=== PATIENT | male | born 1940 | race Caucasian/White ===

== ENCOUNTER → 2018-10-28 09:56 | Outpatient (CLI) | payer MEDICARE, OTHER, SELFPAY ==
[2018-10-28 10:26] LABS: Bacteria Urine None Seen
[2018-10-28 12:10] LABS: Appearance Urine UA CLEAR; Bilirubin Urine UA NEGATIVE (NEGATIVE); Color Urine UA YELLOW; Glucose Urine UA NEGATIVE (Negative); Ketones Urine UA NEGATIVE (NEGATIVE); Leukocyte Esterase Urine UA NEGATIVE (NEGATIVE); Nitrite Urine UA NEGATIVE (Negative); Occult Blood Urine UA NEGATIVE (Negative); Protein Urine UA NEGATIVE (Negative); Specific Gravity Urine UA 1.025 (1.000-1.035); Urobilinogen Urine UA 0.2 E.U./dL (0.2)
[2018-10-28 12:40] LABS: Alanine Aminotransferase 27 IU/L (21-72); Albumin 4.7 g/dL (3.5-5.0); Albumin Globulin Ratio 1.5 (1.0-2.8); Alkaline Phosphatase 97 U/L (38-126); Aspartate Aminotransferase 31 IU/L (17-59); BUN Creatinine Ratio 22.5 (6-22); Bilirubin Total 0.4 mg/dL (0.2-1.3); Blood Urea Nitrogen 18 mg/dL (9-20); C-Reactive Protein Quant 3.1 mg/dL (<1.0); Calcium 10.9 mg/dL (8.4-10.2); Carbon Dioxide 28 mmol/L (22-32); Chloride 102 mmol/L (98-107); Estimated Glomerular Filt Rate > 60.0 mL/min (>60); Globulin 3.1 g/dL (1.7-4.1); Glucose 90 mg/dL (80-110); HEMOLYSIS < 15 (0-50); Potassium 4.5 mmol/L (3.4-5.1); Sodium 140 mmol/L (137-145); Total Protein 7.8 g/dL (6.3-8.2)
[2018-10-28 12:43] LABS: Rheumatoid Factor < 8.6 IU/mL (<12.0)
[2018-10-28 13:15] LABS: RBC Urine 0-1/HPF (0-5/HPF); WBC Urine 0-1/HPF (0-5/HPF)
[2018-10-28 13:28] LABS: Hep C Virus Ab w/Reflex Quant NEGATIVE s/c (NEGATIVE)
[2018-10-28 16:00] LABS: Add Manual Diff / Slide Review NO; Basophils Absolute Auto 0 /uL (0-100); Basophils Percent Auto 0.3 % (0-2); Eosinophils Absolute Auto 0 /uL (0-450); Eosinophils Percent Auto 0.3 % (2-4); Hematocrit 32.9 % (41-53); Hemoglobin 10.6 g/dL (13.5-17.5); Lymphocytes Absolute Auto 700 /uL (1100-4500); Lymphocytes Percent Auto 21.1 % (25-40); Mean Corpuscular HGB Conc 32.2 % (30-36); Mean Corpuscular Volume 105.8 fL (80-100); Monocytes Absolute Auto 1100 /uL (0-900); Monocytes Percent Auto 32.2 % (3-14); Neutrophils Absolute Auto 1500 /uL (1500-7000); Neutrophils Percent Auto 46.1 % (50-75); Platelet Count 85 X10^3/uL (150-400); Red Cell Distribution Width 15.4 % (11.6-14.8); White Blood Cell Count 3.3 X10^3/uL (4.5-11.0)
[2018-10-28 16:23] LABS: Erythrocyte Sedimentation Rate 45 MM/HR (0-15)
[2018-10-30 14:55] LABS: Complement C3 106 mg/dL (82-185)
[2018-10-30 20:05] LABS: Albumin 4.2 g/dL (3.8-4.8); Alpha 1 Globulin 0.4 g/dL (0.2-0.3); Alpha 2 Globulin 0.6 g/dL (0.5-0.9); Beta 1 Globulin 0.4 g/dL (0.4-0.6); Gamma Globulin 1.3 g/dL (0.8-1.7); Protein, Total 7.3 g/dL (6.1-8.1)
[2018-11-01 06:53] LABS: Complement Total CH50 > 60 U/mL (31-60)
[2018-11-02 14:28] LABS: Cryoglobulin, Qualitative NEGATIVE
== END ==
PROVIDERS: PCP Family Medicine; Visit Provider Family Medicine
DX: D46.9 Myelodysplastic syndrome, unspecified (principal); I87.2 Venous insufficiency (chronic) (peripheral); R53.83 Other fatigue; G90.9 Disorder of the autonomic nervous system, unspecified; S91.001A Unspecified open wound, right ankle, initial encounter
CPT/HCPCS: 11104; 36415; 80053; 81001; 82595; 84155; 84165; 85025; 85651; 86140; 86160; 86162; 86430; 86803; 87070; 87075; 87147; 87186; 87205; 99203; 99213

== ENCOUNTER → 2018-11-04 08:30 | Outpatient (CLI) | payer MEDICARE, OTHER, SELFPAY | PROVIDERS: PCP Family Medicine; Visit Provider Family Medicine | DX: S91.001A Unspecified open wound, right ankle, initial encounter (principal); D46.9 Myelodysplastic syndrome, unspecified; I77.6 Arteritis, unspecified; E83.52 Hypercalcemia; L08.9 Local infection of the skin and subcutaneous tissue, unspecified | CPT/HCPCS: 99214 ==

== ENCOUNTER → 2018-11-04 09:48 | Outpatient (CLI) | payer MEDICARE, OTHER, SELFPAY ==
[2018-11-04 10:43] LABS: Calcium 10.7 mg/dL (8.4-10.2)
[2018-11-04 11:23] LABS: Hepatitis B Surface Antigen NEGATIVE s/c (NEGATIVE)
[2018-11-06 15:08] LABS: Hepatitis B Surf AB Imm QUANT 13 mIU/mL (> 9)
[2018-11-06 15:30] LABS: Parathyroid Hormone Int 23 pg/mL (14-64)
[2018-11-07 22:02] LABS: ANCA Screen Negative (Negative)
[2018-11-08 14:58] LABS: Vitamin D 25 Hydroxy (D3) 29.1 ng/mL (30.0-100.0)
[2018-11-10 20:25] LABS: 1 25 Dihydroxy Vitamin D 49 pg/mL (18-72)
== END ==
PROVIDERS: PCP Family Medicine; Visit Provider Family Medicine
DX: S91.001A Unspecified open wound, right ankle, initial encounter (principal); R21 Rash and other nonspecific skin eruption; E83.52 Hypercalcemia
CPT/HCPCS: 36415; 82306; 82310; 82652; 83970; 86021; 86038; 86317; 87340

== ENCOUNTER → 2018-11-11 08:20 | Outpatient (CLI) | payer MEDICARE, OTHER, SELFPAY | PROVIDERS: PCP Family Medicine; Visit Provider Family Medicine | DX: S91.001A Unspecified open wound, right ankle, initial encounter (principal); D46.9 Myelodysplastic syndrome, unspecified; I77.6 Arteritis, unspecified; E83.52 Hypercalcemia; L08.9 Local infection of the skin and subcutaneous tissue, unspecified; G60.9 Hereditary and idiopathic neuropathy, unspecified | CPT/HCPCS: 11042; 99214 ==

== ENCOUNTER → 2018-11-11 09:50 | Outpatient (CLI) | payer MEDICARE, OTHER, SELFPAY ==
[2018-11-11 12:12] LABS: Hematocrit 31.4 % (41-53); Hemoglobin 10.4 g/dL (13.5-17.5); Mean Corpuscular HGB Conc 33.1 % (30-36); Mean Corpuscular Hemoglobin 34.9 PG (26-34); Mean Corpuscular Volume 105.6 fL (80-100); Platelet Count 109 X10^3/uL (150-400); Red Blood Cell Count 2.98 X10^6/uL (4.5-5.9); Red Cell Distribution Width 15.6 % (11.6-14.8); White Blood Cell Count 2.3 X10^3/uL (4.5-11.0)
[2018-11-11 12:13] LABS: Add Manual Diff / Slide Review YES
[2018-11-11 12:38] LABS: Macrocytosis 1+; Neutrophils Absolute Manual 552 /uL (3000-5900); Total Cells Counted 100
[2018-11-11 13:07] LABS: Prothrombin Time 11.3 SECONDS (10.1-12.7)
[2018-11-11 13:09] LABS: PTT Partial Thromboplastin Tim 31 SECONDS (26.4-36.2)
[2018-11-13 16:09] LABS: Free Kappa Light Chain 32.3 mg/L (3.3-19.4); Free Kappa/ Lambda Ratio 1.44 (0.26-1.65); Free Lambda 22.5 mg/L (5.7-26.3)
[2018-11-13 18:22] LABS: Homocysteine 6.6 umol/L (< 11.4)
[2018-11-16 15:02] LABS: Result 15
== END ==
PROVIDERS: PCP Family Medicine; Visit Provider Family Medicine
DX: S91.001A Unspecified open wound, right ankle, initial encounter (principal); D68.59 Other primary thrombophilia; D69.6 Thrombocytopenia, unspecified; M79.609 Pain in unspecified limb
CPT/HCPCS: 36415; 81240; 81241; 83090; 83519; 83883; 85025; 85300; 85301; 85610; 85613; 85730; 86146; 86147

== ENCOUNTER → 2018-11-25 14:13 | Outpatient (CLI) | payer MEDICARE, OTHER, SELFPAY | PROVIDERS: PCP Family Medicine; Visit Provider Family Medicine | DX: S91.001A Unspecified open wound, right ankle, initial encounter (principal) | CPT/HCPCS: 11043 ==

== ENCOUNTER → 2018-12-02 13:08 | Outpatient (CLI) | payer MEDICARE, OTHER, SELFPAY | PROVIDERS: PCP Family Medicine; Visit Provider Family Medicine | DX: S91.001A Unspecified open wound, right ankle, initial encounter (principal); D46.9 Myelodysplastic syndrome, unspecified; I77.6 Arteritis, unspecified; E83.52 Hypercalcemia; L08.9 Local infection of the skin and subcutaneous tissue, unspecified | CPT/HCPCS: 11042; 87070; 87075; 87077; 87102; 87147; 87186; 87205; 99213 ==

== ENCOUNTER → 2018-12-09 14:18 | Outpatient (CLI) | payer MEDICARE, OTHER, SELFPAY | PROVIDERS: PCP Family Medicine; Visit Provider Family Medicine | DX: S91.001A Unspecified open wound, right ankle, initial encounter (principal); D46.9 Myelodysplastic syndrome, unspecified; I77.6 Arteritis, unspecified; E83.52 Hypercalcemia; L08.9 Local infection of the skin and subcutaneous tissue, unspecified; B95.62 Methicillin resistant Staphylococcus aureus infection as the cause of diseases classified elsewhere | CPT/HCPCS: 97597; 99214 ==

== ENCOUNTER → 2018-12-09 15:45 | Outpatient (CLI) | payer MEDICARE, OTHER, SELFPAY ==
[2018-12-09 16:22] LABS: Erythrocyte Sedimentation Rate 52 MM/HR (0-15)
[2018-12-09 16:33] LABS: C-Reactive Protein Quant 1.1 mg/dL (<1.0)
== END ==
PROVIDERS: PCP Family Medicine; Visit Provider Family Medicine
DX: L08.9 Local infection of the skin and subcutaneous tissue, unspecified (principal)
CPT/HCPCS: 36415; 85651; 86140

== ENCOUNTER → 2018-12-15 14:26 | Outpatient (CLI) | payer MEDICARE, OTHER, SELFPAY | PROVIDERS: PCP Family Medicine; Visit Provider Family Medicine | DX: S91.001A Unspecified open wound, right ankle, initial encounter (principal); D46.9 Myelodysplastic syndrome, unspecified; I77.6 Arteritis, unspecified; E83.52 Hypercalcemia; B95.62 Methicillin resistant Staphylococcus aureus infection as the cause of diseases classified elsewhere | CPT/HCPCS: 99213 ==

== ENCOUNTER 2018-12-22 13:27 | Emergency (ER) | payer MEDICARE, OTHER, SELFPAY ==
[2018-12-22 13:29] VITALS: BP 154/81; PULSE 72; RESP 18; TEMP 36.1; O2SAT 98; BMI 24.3
--- NOTE | 2018-12-22 16:52 | ED.SKABFB ---
HPI - Skin/Abscess/Foreign Bdy <Jessie Rodney PA-C - Last Filed: 12/22/18 21:06> General Chief complaint: Skin/Abscess/Foreign Body Stated complaint: wound right ankle, thinks getting worse Time Seen by Provider: 12/22/18 16:44 Source: patient and family Mode of arrival: ambulatory Limitations: no limitations History of Present Illness HPI narrative: This 78-year-old male comes in due to right ankle ulceration/cellulitis for which he has been receiving treatment at the wound center locally. He has been on [place], lidocaine/prilocaine cream, and just started doxycycline about 36 hours ago for this. He has been on multiple antibiotics. He states home health nurse thought that his antibiotic might not be strong enough or might need IV antibiotic, states she wanted to send him when she saw him on Thursday, and again today. He denies any new fever, denies any new redness or increased drainage. He states it is tender and painful which is typical, but no increased there. His has been out of town, just returned and states this does not look acutely worse to her. Related Data Home Medications Medication Instructions Recorded Confirmed clindamycin HCl 300 mg PO QID 12/22/18 12/22/18 difluprednate [Durezol] 1 drp EYE-RIGHT TID 12/22/18 12/22/18 doxycycline hyclate 100 mg PO BID 12/22/18 12/22/18 gabapentin 300 mg PO QID 12/22/18 hydrocodone-acetaminophen 1 tab PO BID 12/22/18 12/22/18 tamsulosin 0.4 mg PO DAILY 12/22/18 12/22/18 Previous Rx's Medication Instructions Recorded hydrocodone-acetaminophen [[place]] 1 tab PO Q4-6H PRN #8 tab 12/22/18 Allergies Allergy/AdvReac Type Severity Reaction Status Date / Time sulfamethoxazole Allergy Intermediate Rash Verified 12/22/18 13:34 [From Bactrim] trimethoprim [From Bactrim] Allergy Intermediate Rash Verified 12/22/18 13:34 Review of Systems <Jessie Rodney PA-C - Last Filed: 12/22/18 21:06> Review of Systems ROS Unobtainable: All systems reviewed & are unremarkable except as noted in HPI and below PFSH <Jessie Rodney PA-C - Last Filed: 12/22/18 21:06> Medical History (Updated 12/22/18 @ 17:30 by Jessie Rodney PA-C) Myelodysplastic syndrome (Chronic) Peripheral neuropathy (Chronic) Spinal stenosis (Chronic) Surgical History (Updated 12/22/18 @ 17:30 by Jessie Rodney PA-C) Status post cholecystectomy (Resolved) Status post laminectomy (Resolved) Social History Smoking Status: Never smoker Social History Smoking Status: Never smoker Exam <Jessie Rodney PA-C - Last Filed: 12/22/18 21:06> Narrative Exam Narrative: GENERAL APPEARANCE: Patient sitting comfortably, in no distress. LUNGS: Clear to auscultation bilaterally. HEART: Rate and rhythm regular without murmur, normal S1 and S2, no S3 or S4. EXTREMITIES: Right pedal pulses 2+, no cyanosis DERMATOLOGIC: Right medial ankle there is a 4 cm ulceration with yellow slough and underlying pink granulation tissue present. Moderate erythema surrounding that has receded somewhat from the inked the margin at the distal border, minimally warm to touch. Mildly tender, no active drainage but there is serous drainage on the dressing Initial Vital Signs Initial Vital Signs: Vital Signs Temperature 97.0 F L 12/22/18 13:29 Pulse Rate 72 12/22/18 13:29 Respiratory Rate 18 12/22/18 13:29 Blood Pressure 154/81 H 12/22/18 13:29 Pulse Oximetry 98 12/22/18 13:29 <Yue Chaparro DO - Last Filed: 12/23/18 08:16> Initial Vital Signs Initial Vital Signs: Vital Signs Temperature 97.0 F L 12/22/18 13:29 Pulse Rate 72 12/22/18 13:29 Respiratory Rate 18 12/22/18 13:29 Blood Pressure 154/81 H 12/22/18 13:29 Pulse Oximetry 98 12/22/18 13:29 Course <Jessie Rodney PA-C - Last Filed: 12/22/18 21:06> Vital Signs - 8 hr 12/22/18 13:29 12/22/18 17:02 Temperature 97.0 F L 98.2 F Pulse Rate 72 69 Respiratory Rate 18 16 Blood Pressure 154/81 H Blood Pressure [Left Arm] 129/74 Pulse Oximetry 98 96 <Yue Chaparro DO - Last Filed: 12/23/18 08:16> Vital Signs - 8 hr 12/22/18 13:29 12/22/18 17:02 Temperature 97.0 F L 98.2 F Pulse Rate 72 69 Respiratory Rate 18 16 Blood Pressure 154/81 H Blood Pressure [Left Arm] 129/74 Pulse Oximetry 98 96 Discharge Plan Departure Patient Disposition: Home Clinical Impression: Cellulitis Qualifiers: Site of cellulitis: extremity Site of cellulitis of extremity: lower extremity Laterality: right Qualified Code(s): L03.115 - Cellulitis of right lower limb Discharge Date/Time: 12/22/18 17:35 Interventions: ED Discharge Assessment Last Done: 12/22/18 17:34 Instructions: DI for Cellulitis -- Adult Activity Restrictions/Additional Instructions: Your wound infection does not appear acutely worse today, and since you just started the new antibiotic about 36 hours ago, it is too soon to determine its effectiveness (it is reasonable to try oral antibiotics and IV antibiotics are not more effective). Please continue the doxycycline. Continue to use your topical pain medicine and your hydrocodone/acetaminophen as needed (I did prescribe a few more for you in case needed over the holiday weekend). Please call wound care regarding follow-up on Thursday or Thursday. As we talked about, you should return in the interim if you have new symptoms such as fever, rapidly spreading redness, acute increase in pain or swelling, in the interim. Prescriptions: New hydrocodone-acetaminophen [[place]] 5-325 mg tablet 1 tab PO Q4-6H PRN (Reason: wound pain) Qty: 8 RF: 0 No Action clindamycin HCl 300 mg capsule 300 mg PO QID RF: 0 hydrocodone-acetaminophen 5-325 mg tablet 1 tab PO BID RF: 0 tamsulosin 0.4 mg capsule 0.4 mg PO DAILY RF: 0 gabapentin 300 mg capsule 300 mg PO QID RF: 0 doxycycline hyclate 100 mg tablet 100 mg PO BID RF: 0 Durezol 0.05 % drops 1 drp EYE-RIGHT TID RF: 0 Referrals: Jose Landin MD [Primary Care Provider] - Ayan Robison MD [Physician] - <Yue Chaparro DO - Last Filed: 12/23/18 08:16> Cosign ED Attending Cosignature Attestation: I was immediately available in the department for consultation. Documentation has been reviewed. I agree with assessment and plan.
--- NOTE | 2018-12-22 16:55 | PC.NURSE ---
wound is approx 5 cm across with pink and yellow granulation, there is no drainage, edges are pink surrounded by reddened tissue that is painful to touch, there is an inked outline from a former wound clinic visit this week
[2018-12-22 17:02] VITALS: BP 129/74; PULSE 69; RESP 16; TEMP 36.8; O2SAT 96
== END 2018-12-22 17:35 | disposition home or self-care (01) ==
PROVIDERS: Emergency Provider Internal Medicine; PCP Family Medicine
DX: L03.115 Cellulitis of right lower limb (principal)
CPT/HCPCS: 99282; 99283

== ENCOUNTER → 2018-12-31 10:18 | Outpatient (CLI) | payer MEDICARE, OTHER, SELFPAY | PROVIDERS: PCP Family Medicine; Visit Provider Family Medicine | DX: I87.2 Venous insufficiency (chronic) (peripheral) (principal); L97.311 Non-pressure chronic ulcer of right ankle limited to breakdown of skin; I77.6 Arteritis, unspecified; D46.9 Myelodysplastic syndrome, unspecified; M79.661 Pain in right lower leg; G90.9 Disorder of the autonomic nervous system, unspecified; K59.09 Other constipation; R53.83 Other fatigue; R60.0 Localized edema | CPT/HCPCS: 11042; 87070; 87075; 87077; 87205; 99213 ==

== ENCOUNTER → 2019-01-06 10:04 | Outpatient (CLI) | payer MEDICARE, OTHER, SELFPAY | PROVIDERS: PCP Family Medicine; Visit Provider Family Medicine | DX: L95.9 Vasculitis limited to the skin, unspecified (principal); L97.311 Non-pressure chronic ulcer of right ankle limited to breakdown of skin; D46.9 Myelodysplastic syndrome, unspecified; E83.52 Hypercalcemia; L08.9 Local infection of the skin and subcutaneous tissue, unspecified | CPT/HCPCS: 11042; 11045 ==

== ENCOUNTER → 2019-01-13 11:04 | Outpatient (CLI) | payer MEDICARE, OTHER, SELFPAY | PROVIDERS: PCP Family Medicine; Visit Provider Family Medicine | DX: S91.001A Unspecified open wound, right ankle, initial encounter (principal); D64.9 Anemia, unspecified; I77.6 Arteritis, unspecified; E83.52 Hypercalcemia | CPT/HCPCS: 11042; 87070; 87075; 87077; 87186; 87205 ==

== ENCOUNTER → 2019-01-20 10:50 | Outpatient (CLI) | payer MEDICARE, OTHER, SELFPAY | PROVIDERS: PCP Family Medicine; Visit Provider Family Medicine | DX: I87.2 Venous insufficiency (chronic) (peripheral) (principal); L97.811 Non-pressure chronic ulcer of other part of right lower leg limited to breakdown of skin; R60.0 Localized edema | CPT/HCPCS: 99213 ==

== ENCOUNTER → 2019-01-27 10:44 | Outpatient (CLI) | payer MEDICARE, OTHER, SELFPAY | PROVIDERS: PCP Family Medicine; Visit Provider Family Medicine | DX: S91.001A Unspecified open wound, right ankle, initial encounter (principal); D46.9 Myelodysplastic syndrome, unspecified; I77.6 Arteritis, unspecified; E83.52 Hypercalcemia | CPT/HCPCS: 11042; 87070; 87075; 87077; 87147; 87186; 87205 ==

== ENCOUNTER → 2019-02-03 08:52 | Outpatient (CLI) | payer MEDICARE, OTHER, SELFPAY | PROVIDERS: PCP Family Medicine; Visit Provider Family Medicine | DX: I87.2 Venous insufficiency (chronic) (peripheral) (principal); L97.311 Non-pressure chronic ulcer of right ankle limited to breakdown of skin; M25.571 Pain in right ankle and joints of right foot; D46.9 Myelodysplastic syndrome, unspecified; I77.6 Arteritis, unspecified; Z79.52 Long term (current) use of systemic steroids; E83.52 Hypercalcemia | CPT/HCPCS: 11042; 99214 ==

== ENCOUNTER → 2019-02-10 12:06 | Outpatient (CLI) | payer MEDICARE, OTHER, SELFPAY ==
--- NOTE | 2019-02-10 | DI.RAD.S_ITS ---
PROCEDURE: XR TIBIA FUBULA RT 2V INDICATIONS: EVAL FOR OSTEO TECHNIQUE: 2 views of the tibia and fibula were acquired. COMPARISON: None. FINDINGS: Bones: No fractures or dislocations. No suspicious bony lesions. Soft tissues: No suspicious soft tissue calcifications or masses. IMPRESSION: No osteomyelitis identified. Dictated by: Manuel Mancini M.D. on 02/10/2019 at 12:56 Approved by: Manuel Mancini M.D. on 02/10/2019 at 12:56
== END ==
PROVIDERS: PCP Family Medicine; Visit Provider Family Medicine
DX: S91.001A Unspecified open wound, right ankle, initial encounter (principal); L03.115 Cellulitis of right lower limb; I87.2 Venous insufficiency (chronic) (peripheral); D46.9 Myelodysplastic syndrome, unspecified; I77.6 Arteritis, unspecified; E83.52 Hypercalcemia; Z79.52 Long term (current) use of systemic steroids
CPT/HCPCS: 11042; 73590; 99213

== ENCOUNTER → 2019-02-10 13:15 | Outpatient (CLI) | payer MEDICARE, OTHER, SELFPAY | PROVIDERS: PCP Family Medicine; Visit Provider Family Medicine | DX: S91.001A Unspecified open wound, right ankle, initial encounter (principal); D46.9 Myelodysplastic syndrome, unspecified; I77.6 Arteritis, unspecified; E83.52 Hypercalcemia; L03.115 Cellulitis of right lower limb; Z79.52 Long term (current) use of systemic steroids; I87.2 Venous insufficiency (chronic) (peripheral) | CPT/HCPCS: 11042; 99213 ==

== ENCOUNTER → 2019-02-24 10:21 | Outpatient (CLI) | payer MEDICARE, OTHER, SELFPAY | PROVIDERS: PCP Family Medicine; Visit Provider Family Medicine | DX: S91.001A Unspecified open wound, right ankle, initial encounter (principal); D46.9 Myelodysplastic syndrome, unspecified; I77.6 Arteritis, unspecified; E83.52 Hypercalcemia; Z79.52 Long term (current) use of systemic steroids; I87.2 Venous insufficiency (chronic) (peripheral) | CPT/HCPCS: 15271; 87070; 87075; 87077; 87147; 87176; 87186; 87205; 97607; Q4186 ==

== ENCOUNTER → 2019-03-03 14:17 | Outpatient (CLI) | payer MEDICARE, OTHER, SELFPAY | PROVIDERS: PCP Family Medicine; Visit Provider Family Medicine | DX: I87.2 Venous insufficiency (chronic) (peripheral) (principal); L97.812 Non-pressure chronic ulcer of other part of right lower leg with fat layer exposed; I77.6 Arteritis, unspecified; D46.9 Myelodysplastic syndrome, unspecified; E83.52 Hypercalcemia; Z79.52 Long term (current) use of systemic steroids | CPT/HCPCS: 15271; 87070; 87075; 87077; 87147; 87186; 87205; 97605; Q4186 ==

== ENCOUNTER → 2019-03-10 14:33 | Outpatient (CLI) | payer MEDICARE, OTHER, SELFPAY | PROVIDERS: PCP Family Medicine; Visit Provider Family Medicine | DX: L08.9 Local infection of the skin and subcutaneous tissue, unspecified (principal); B95.61 Methicillin susceptible Staphylococcus aureus infection as the cause of diseases classified elsewhere; I87.2 Venous insufficiency (chronic) (peripheral); L97.812 Non-pressure chronic ulcer of other part of right lower leg with fat layer exposed; I77.6 Arteritis, unspecified | CPT/HCPCS: 15271; 97607; 99213; Q4186 ==

== ENCOUNTER → 2019-03-17 15:20 | Outpatient (CLI) | payer MEDICARE, OTHER, SELFPAY | PROVIDERS: PCP Family Medicine; Visit Provider Family Medicine | DX: I87.2 Venous insufficiency (chronic) (peripheral) (principal); L97.812 Non-pressure chronic ulcer of other part of right lower leg with fat layer exposed; I77.6 Arteritis, unspecified; D46.9 Myelodysplastic syndrome, unspecified; E83.52 Hypercalcemia; Z79.52 Long term (current) use of systemic steroids; L08.9 Local infection of the skin and subcutaneous tissue, unspecified; B95.61 Methicillin susceptible Staphylococcus aureus infection as the cause of diseases classified elsewhere | CPT/HCPCS: 15271; Q4186 ==

== ENCOUNTER → 2019-03-24 08:45 | Outpatient (CLI) | payer MEDICARE, OTHER, SELFPAY | PROVIDERS: PCP Family Medicine; Visit Provider Family Medicine | DX: I87.2 Venous insufficiency (chronic) (peripheral) (principal); L97.812 Non-pressure chronic ulcer of other part of right lower leg with fat layer exposed; I77.6 Arteritis, unspecified; D46.9 Myelodysplastic syndrome, unspecified; E83.52 Hypercalcemia; Z79.52 Long term (current) use of systemic steroids | CPT/HCPCS: 15271; Q4132 ==

== ENCOUNTER → 2019-03-31 09:59 | Outpatient (CLI) | payer MEDICARE, OTHER, SELFPAY | PROVIDERS: PCP Family Medicine; Visit Provider Family Medicine | DX: I87.2 Venous insufficiency (chronic) (peripheral) (principal); L97.311 Non-pressure chronic ulcer of right ankle limited to breakdown of skin; I77.6 Arteritis, unspecified; D46.9 Myelodysplastic syndrome, unspecified; E83.52 Hypercalcemia; Z79.52 Long term (current) use of systemic steroids | CPT/HCPCS: 15271; Q4132 ==

== ENCOUNTER → 2019-04-07 11:56 | Outpatient (CLI) | payer MEDICARE, OTHER, SELFPAY | PROVIDERS: PCP Family Medicine; Visit Provider Family Medicine | DX: I87.2 Venous insufficiency (chronic) (peripheral) (principal); L97.318 Non-pressure chronic ulcer of right ankle with other specified severity; D46.9 Myelodysplastic syndrome, unspecified; G60.9 Hereditary and idiopathic neuropathy, unspecified; I77.6 Arteritis, unspecified; E83.52 Hypercalcemia; Z79.52 Long term (current) use of systemic steroids | CPT/HCPCS: 11042; 87070; 87075; 87077; 87147; 87186; 87205; 97607 ==

== ENCOUNTER → 2019-04-14 13:38 | Outpatient (CLI) | payer MEDICARE, OTHER, SELFPAY | PROVIDERS: PCP Family Medicine; Visit Provider Family Medicine | DX: L95.9 Vasculitis limited to the skin, unspecified (principal); L08.9 Local infection of the skin and subcutaneous tissue, unspecified; L97.811 Non-pressure chronic ulcer of other part of right lower leg limited to breakdown of skin; D46.9 Myelodysplastic syndrome, unspecified; E83.52 Hypercalcemia; S91.302A Unspecified open wound, left foot, initial encounter | CPT/HCPCS: 11042; 97597; 97607; 99214 ==

== ENCOUNTER → 2019-04-21 08:29 | Outpatient (CLI) | payer MEDICARE, OTHER, SELFPAY | PROVIDERS: PCP Family Medicine; Visit Provider Family Medicine | DX: I87.2 Venous insufficiency (chronic) (peripheral) (principal); L97.819 Non-pressure chronic ulcer of other part of right lower leg with unspecified severity; L97.529 Non-pressure chronic ulcer of other part of left foot with unspecified severity; L95.9 Vasculitis limited to the skin, unspecified; D46.9 Myelodysplastic syndrome, unspecified; L08.9 Local infection of the skin and subcutaneous tissue, unspecified | CPT/HCPCS: 97597 ==

== ENCOUNTER → 2019-04-28 10:12 | Outpatient (CLI) | payer MEDICARE, OTHER, SELFPAY | PROVIDERS: PCP Family Medicine; Visit Provider Family Medicine | DX: I87.2 Venous insufficiency (chronic) (peripheral) (principal); L95.9 Vasculitis limited to the skin, unspecified; L97.311 Non-pressure chronic ulcer of right ankle limited to breakdown of skin; L97.521 Non-pressure chronic ulcer of other part of left foot limited to breakdown of skin; E83.52 Hypercalcemia | CPT/HCPCS: 87070; 87075; 87077; 87147; 87186; 87205; 97597 ==

== ENCOUNTER → 2019-05-04 12:58 | Outpatient (CLI) | payer MEDICARE, OTHER, SELFPAY | PROVIDERS: PCP Family Medicine; Visit Provider Family Medicine | DX: I87.2 Venous insufficiency (chronic) (peripheral) (principal); L97.811 Non-pressure chronic ulcer of other part of right lower leg limited to breakdown of skin; L97.521 Non-pressure chronic ulcer of other part of left foot limited to breakdown of skin; R60.0 Localized edema | CPT/HCPCS: 15271; 97597; 97607; Q4110 ==

== ENCOUNTER → 2019-05-11 10:22 | Outpatient (CLI) | payer MEDICARE, OTHER, SELFPAY | PROVIDERS: PCP Family Medicine; Visit Provider Family Medicine | DX: I87.2 Venous insufficiency (chronic) (peripheral) (principal); L97.818 Non-pressure chronic ulcer of other part of right lower leg with other specified severity; D46.9 Myelodysplastic syndrome, unspecified; R60.0 Localized edema | CPT/HCPCS: 99213 ==

== ENCOUNTER → 2019-05-27 10:26 | Outpatient (CLI) | payer MEDICARE, OTHER, SELFPAY | PROVIDERS: PCP Family Medicine; Visit Provider Family Medicine | DX: I87.2 Venous insufficiency (chronic) (peripheral) (principal); L95.9 Vasculitis limited to the skin, unspecified; L97.811 Non-pressure chronic ulcer of other part of right lower leg limited to breakdown of skin; L97.521 Non-pressure chronic ulcer of other part of left foot limited to breakdown of skin | CPT/HCPCS: 15271; 99214; Q4110 ==

== ENCOUNTER → 2019-06-02 10:28 | Outpatient (CLI) | payer MEDICARE, OTHER, SELFPAY | PROVIDERS: PCP Family Medicine; Visit Provider Family Medicine | DX: I87.2 Venous insufficiency (chronic) (peripheral) (principal); L95.8 Other vasculitis limited to the skin; L97.811 Non-pressure chronic ulcer of other part of right lower leg limited to breakdown of skin; L97.521 Non-pressure chronic ulcer of other part of left foot limited to breakdown of skin; L97.821 Non-pressure chronic ulcer of other part of left lower leg limited to breakdown of skin; D46.9 Myelodysplastic syndrome, unspecified; R60.0 Localized edema; E83.52 Hypercalcemia | CPT/HCPCS: 97597 ==

== ENCOUNTER → 2019-06-08 15:06 | Outpatient (CLI) | payer MEDICARE, OTHER, SELFPAY | PROVIDERS: PCP Family Medicine; Visit Provider Family Medicine | DX: I87.2 Venous insufficiency (chronic) (peripheral) (principal); L97.812 Non-pressure chronic ulcer of other part of right lower leg with fat layer exposed; D46.9 Myelodysplastic syndrome, unspecified; S91.302A Unspecified open wound, left foot, initial encounter; R60.0 Localized edema | CPT/HCPCS: 15271; 97597; Q4110 ==

== ENCOUNTER → 2019-06-23 13:02 | Outpatient (CLI) | payer MEDICARE, OTHER, SELFPAY | PROVIDERS: PCP Family Medicine; Visit Provider Family Medicine | DX: I87.2 Venous insufficiency (chronic) (peripheral) (principal); L97.811 Non-pressure chronic ulcer of other part of right lower leg limited to breakdown of skin; L97.521 Non-pressure chronic ulcer of other part of left foot limited to breakdown of skin; I77.6 Arteritis, unspecified; D46.9 Myelodysplastic syndrome, unspecified; R60.0 Localized edema; L95.8 Other vasculitis limited to the skin | CPT/HCPCS: 11042; 97597 ==

== ENCOUNTER → 2019-06-29 12:36 | Outpatient (CLI) | payer MEDICARE, OTHER, SELFPAY | PROVIDERS: PCP Family Medicine; Referring Provider Family Medicine; Visit Provider Family Medicine | DX: I87.2 Venous insufficiency (chronic) (peripheral) (principal); L97.811 Non-pressure chronic ulcer of other part of right lower leg limited to breakdown of skin; S91.302A Unspecified open wound, left foot, initial encounter; I77.6 Arteritis, unspecified; D46.9 Myelodysplastic syndrome, unspecified; L95.8 Other vasculitis limited to the skin; Z79.52 Long term (current) use of systemic steroids | CPT/HCPCS: 15271; Q4110 ==

== ENCOUNTER → 2019-07-07 14:08 | Outpatient (CLI) | payer MEDICARE, OTHER, SELFPAY | PROVIDERS: PCP Family Medicine; Visit Provider Family Medicine | DX: I87.2 Venous insufficiency (chronic) (peripheral) (principal); L97.811 Non-pressure chronic ulcer of other part of right lower leg limited to breakdown of skin; L97.521 Non-pressure chronic ulcer of other part of left foot limited to breakdown of skin; D46.9 Myelodysplastic syndrome, unspecified; L95.8 Other vasculitis limited to the skin | CPT/HCPCS: 97597 ==

== ENCOUNTER → 2019-07-13 11:40 | Outpatient (CLI) | payer MEDICARE, OTHER, SELFPAY | PROVIDERS: PCP Family Medicine; Visit Provider Family Medicine | DX: I87.2 Venous insufficiency (chronic) (peripheral) (principal); L97.811 Non-pressure chronic ulcer of other part of right lower leg limited to breakdown of skin; I77.6 Arteritis, unspecified; S91.302A Unspecified open wound, left foot, initial encounter | CPT/HCPCS: 97597 ==

== ENCOUNTER → 2019-07-20 13:56 | Outpatient (CLI) | payer MEDICARE, OTHER, SELFPAY | PROVIDERS: PCP Family Medicine; Visit Provider Family Medicine | DX: I87.2 Venous insufficiency (chronic) (peripheral) (principal); L97.811 Non-pressure chronic ulcer of other part of right lower leg limited to breakdown of skin; I77.6 Arteritis, unspecified; D46.9 Myelodysplastic syndrome, unspecified; Z79.52 Long term (current) use of systemic steroids; S91.105A Unspecified open wound of left lesser toe(s) without damage to nail, initial encounter | CPT/HCPCS: 15271; 97597; Q4110 ==

== ENCOUNTER → 2019-07-27 10:26 | Outpatient (CLI) | payer MEDICARE, OTHER, SELFPAY | PROVIDERS: PCP Family Medicine; Referring Provider Physician Assistant Medical; Visit Provider Family Medicine | DX: I87.2 Venous insufficiency (chronic) (peripheral) (principal); L95.8 Other vasculitis limited to the skin; L97.311 Non-pressure chronic ulcer of right ankle limited to breakdown of skin; L97.521 Non-pressure chronic ulcer of other part of left foot limited to breakdown of skin; L97.511 Non-pressure chronic ulcer of other part of right foot limited to breakdown of skin; D46.9 Myelodysplastic syndrome, unspecified | CPT/HCPCS: 97597; 99214 ==

== ENCOUNTER → 2019-08-01 09:35 | Outpatient (CLI) | payer MEDICARE, OTHER, SELFPAY | PROVIDERS: PCP Family Medicine; Referring Provider Physician Assistant Medical; Visit Provider Family Medicine | DX: I87.2 Venous insufficiency (chronic) (peripheral) (principal); L97.811 Non-pressure chronic ulcer of other part of right lower leg limited to breakdown of skin; L97.521 Non-pressure chronic ulcer of other part of left foot limited to breakdown of skin; L95.8 Other vasculitis limited to the skin; D46.9 Myelodysplastic syndrome, unspecified | CPT/HCPCS: 97597 ==

== ENCOUNTER → 2019-08-08 10:18 | Outpatient (CLI) | payer MEDICARE, OTHER, SELFPAY | PROVIDERS: PCP Family Medicine; Referring Provider Family Medicine; Visit Provider Family Medicine | DX: L95.8 Other vasculitis limited to the skin (principal); L97.811 Non-pressure chronic ulcer of other part of right lower leg limited to breakdown of skin; L97.311 Non-pressure chronic ulcer of right ankle limited to breakdown of skin; L97.521 Non-pressure chronic ulcer of other part of left foot limited to breakdown of skin; L97.511 Non-pressure chronic ulcer of other part of right foot limited to breakdown of skin; D46.9 Myelodysplastic syndrome, unspecified | CPT/HCPCS: 15271; 97597; Q4110 ==

== ENCOUNTER → 2019-08-15 10:16 | Outpatient (CLI) | payer MEDICARE, OTHER, SELFPAY | PROVIDERS: PCP Family Medicine; Referring Provider Physician Assistant Medical; Visit Provider Family Medicine | DX: I87.2 Venous insufficiency (chronic) (peripheral) (principal); L97.811 Non-pressure chronic ulcer of other part of right lower leg limited to breakdown of skin; D46.9 Myelodysplastic syndrome, unspecified; L97.521 Non-pressure chronic ulcer of other part of left foot limited to breakdown of skin | CPT/HCPCS: 97597 ==

== ENCOUNTER → 2019-08-24 15:32 | Outpatient (CLI) | payer MEDICARE, OTHER, SELFPAY | PROVIDERS: PCP Family Medicine; Referring Provider Family Medicine; Visit Provider Family Medicine | DX: I87.2 Venous insufficiency (chronic) (peripheral) (principal); L97.811 Non-pressure chronic ulcer of other part of right lower leg limited to breakdown of skin; I77.6 Arteritis, unspecified; D46.9 Myelodysplastic syndrome, unspecified; Z79.52 Long term (current) use of systemic steroids; S91.302A Unspecified open wound, left foot, initial encounter; S91.301A Unspecified open wound, right foot, initial encounter; L60.0 Ingrowing nail | CPT/HCPCS: 11765; 15271; Q4132 ==

== ENCOUNTER → 2019-08-29 11:11 | Outpatient (CLI) | payer MEDICARE, OTHER, SELFPAY | PROVIDERS: PCP Family Medicine; Referring Provider Family Medicine; Visit Provider Family Medicine | DX: I87.2 Venous insufficiency (chronic) (peripheral) (principal); L97.311 Non-pressure chronic ulcer of right ankle limited to breakdown of skin; L97.521 Non-pressure chronic ulcer of other part of left foot limited to breakdown of skin; L97.511 Non-pressure chronic ulcer of other part of right foot limited to breakdown of skin; D46.9 Myelodysplastic syndrome, unspecified | CPT/HCPCS: 11042; 15271; Q4132 ==

== ENCOUNTER → 2019-09-05 10:30 | Outpatient (CLI) | payer MEDICARE, OTHER, SELFPAY | PROVIDERS: PCP Family Medicine; Referring Provider Physician Assistant Medical; Visit Provider Family Medicine | DX: I87.2 Venous insufficiency (chronic) (peripheral) (principal); L97.311 Non-pressure chronic ulcer of right ankle limited to breakdown of skin; L97.511 Non-pressure chronic ulcer of other part of right foot limited to breakdown of skin; D46.9 Myelodysplastic syndrome, unspecified | CPT/HCPCS: 97597; 99212 ==

== ENCOUNTER → 2019-09-19 09:14 | Outpatient (CLI) | payer MEDICARE, OTHER, SELFPAY | PROVIDERS: PCP Family Medicine; Referring Provider Family Medicine; Visit Provider Family Medicine | DX: I87.2 Venous insufficiency (chronic) (peripheral) (principal); L97.811 Non-pressure chronic ulcer of other part of right lower leg limited to breakdown of skin; L97.511 Non-pressure chronic ulcer of other part of right foot limited to breakdown of skin; L97.521 Non-pressure chronic ulcer of other part of left foot limited to breakdown of skin; L08.9 Local infection of the skin and subcutaneous tissue, unspecified; D46.9 Myelodysplastic syndrome, unspecified | CPT/HCPCS: 11042; 87070; 87075; 87077; 87147; 87186; 87205; 97597; 99214 ==

== ENCOUNTER → 2019-10-10 09:12 | Outpatient (CLI) | payer MEDICARE, OTHER, SELFPAY | PROVIDERS: PCP Family Medicine; Referring Provider Family Medicine; Visit Provider Family Medicine | DX: I87.2 Venous insufficiency (chronic) (peripheral) (principal); L97.811 Non-pressure chronic ulcer of other part of right lower leg limited to breakdown of skin; L97.511 Non-pressure chronic ulcer of other part of right foot limited to breakdown of skin; L97.521 Non-pressure chronic ulcer of other part of left foot limited to breakdown of skin; I77.6 Arteritis, unspecified; D46.9 Myelodysplastic syndrome, unspecified; Z79.52 Long term (current) use of systemic steroids | CPT/HCPCS: 97597; 99213 ==

== ENCOUNTER → 2019-10-31 10:51 | Outpatient (CLI) | payer MEDICARE, OTHER, SELFPAY | PROVIDERS: PCP Family Medicine; Referring Provider Family Medicine; Visit Provider Family Medicine | DX: L95.8 Other vasculitis limited to the skin (principal); L97.811 Non-pressure chronic ulcer of other part of right lower leg limited to breakdown of skin; L97.511 Non-pressure chronic ulcer of other part of right foot limited to breakdown of skin; L97.521 Non-pressure chronic ulcer of other part of left foot limited to breakdown of skin | CPT/HCPCS: 97597 ==

== ENCOUNTER → 2019-11-22 11:28 | Outpatient (CLI) | payer MEDICARE, OTHER, SELFPAY | PROVIDERS: PCP Family Medicine; Referring Provider Family Medicine; Visit Provider Family Medicine | DX: L95.8 Other vasculitis limited to the skin (principal); I77.6 Arteritis, unspecified; L97.511 Non-pressure chronic ulcer of other part of right foot limited to breakdown of skin; L97.521 Non-pressure chronic ulcer of other part of left foot limited to breakdown of skin; D46.9 Myelodysplastic syndrome, unspecified | CPT/HCPCS: 97597 ==

== ENCOUNTER → 2019-12-20 10:25 | Outpatient (CLI) | payer MEDICARE, OTHER, SELFPAY | PROVIDERS: PCP Family Medicine; Referring Provider Family Medicine; Visit Provider Family Medicine | DX: I77.6 Arteritis, unspecified (principal); D46.9 Myelodysplastic syndrome, unspecified; Z79.52 Long term (current) use of systemic steroids; S91.301A Unspecified open wound, right foot, initial encounter; Z48.00 Encounter for change or removal of nonsurgical wound dressing | CPT/HCPCS: 87070; 87075; 87077; 87102; 87186; 87205; 97597; 99212; 99213 ==

== ENCOUNTER → 2020-01-17 14:38 | Outpatient (CLI) | payer MEDICARE, OTHER, SELFPAY | PROVIDERS: PCP Family Medicine; Referring Provider Family Medicine; Visit Provider Family Medicine | DX: I77.6 Arteritis, unspecified (principal); D46.9 Myelodysplastic syndrome, unspecified; Z79.52 Long term (current) use of systemic steroids; Z48.00 Encounter for change or removal of nonsurgical wound dressing; B37.2 Candidiasis of skin and nail; B35.3 Tinea pedis; B95.62 Methicillin resistant Staphylococcus aureus infection as the cause of diseases classified elsewhere | CPT/HCPCS: 99212; 99213 ==

== ENCOUNTER → 2020-02-21 15:02 | Outpatient (CLI) | payer MEDICARE, OTHER, SELFPAY | PROVIDERS: PCP Family Medicine; Referring Provider Family Medicine; Visit Provider Family Medicine | DX: S81.801A Unspecified open wound, right lower leg, initial encounter (principal); L03.116 Cellulitis of left lower limb; I77.6 Arteritis, unspecified; D46.9 Myelodysplastic syndrome, unspecified; Z79.52 Long term (current) use of systemic steroids; R60.0 Localized edema | CPT/HCPCS: 11042; 87070; 87075; 87077; 87147; 87186; 87205; 99213; 99214 ==

== ENCOUNTER → 2020-02-29 13:01 | Outpatient (CLI) | payer MEDICARE, OTHER, SELFPAY | PROVIDERS: PCP Family Medicine; Referring Provider Family Medicine; Visit Provider Family Medicine | DX: S81.801A Unspecified open wound, right lower leg, initial encounter (principal); I77.6 Arteritis, unspecified; D46.9 Myelodysplastic syndrome, unspecified; Z79.52 Long term (current) use of systemic steroids; B95.62 Methicillin resistant Staphylococcus aureus infection as the cause of diseases classified elsewhere; Z79.2 Long term (current) use of antibiotics | CPT/HCPCS: 11042; 99213 ==

== ENCOUNTER → 2020-03-08 11:58 | Outpatient (CLI) | payer MEDICARE, OTHER, SELFPAY | PROVIDERS: PCP Family Medicine; Referring Provider Family Medicine; Visit Provider Family Medicine | DX: I87.2 Venous insufficiency (chronic) (peripheral) (principal); L97.811 Non-pressure chronic ulcer of other part of right lower leg limited to breakdown of skin; I77.6 Arteritis, unspecified; D46.9 Myelodysplastic syndrome, unspecified; Z79.52 Long term (current) use of systemic steroids | CPT/HCPCS: 11042 ==

== ENCOUNTER → 2020-03-14 11:44 | Outpatient (CLI) | payer MEDICARE, OTHER, SELFPAY | PROVIDERS: PCP Family Medicine; Referring Provider Family Medicine; Visit Provider Family Medicine | DX: I87.2 Venous insufficiency (chronic) (peripheral) (principal); L97.811 Non-pressure chronic ulcer of other part of right lower leg limited to breakdown of skin; I77.6 Arteritis, unspecified; D46.9 Myelodysplastic syndrome, unspecified; Z79.52 Long term (current) use of systemic steroids | CPT/HCPCS: 11042 ==

== ENCOUNTER → 2020-03-21 12:53 | Outpatient (CLI) | payer MEDICARE, OTHER, SELFPAY | PROVIDERS: PCP Family Medicine; Referring Provider Family Medicine; Visit Provider Family Medicine | DX: I87.2 Venous insufficiency (chronic) (peripheral) (principal); L97.811 Non-pressure chronic ulcer of other part of right lower leg limited to breakdown of skin; I77.6 Arteritis, unspecified; D46.9 Myelodysplastic syndrome, unspecified; Z79.52 Long term (current) use of systemic steroids | CPT/HCPCS: 15271; Q4137 ==

== ENCOUNTER → 2020-03-28 10:52 | Outpatient (CLI) | payer MEDICARE, OTHER, SELFPAY | PROVIDERS: PCP Family Medicine; Referring Provider Family Medicine; Visit Provider Family Medicine | DX: I87.2 Venous insufficiency (chronic) (peripheral) (principal); L97.811 Non-pressure chronic ulcer of other part of right lower leg limited to breakdown of skin; I77.6 Arteritis, unspecified; D46.9 Myelodysplastic syndrome, unspecified; Z79.52 Long term (current) use of systemic steroids | CPT/HCPCS: 15271; Q4137 ==

== ENCOUNTER → 2020-04-04 10:58 | Outpatient (CLI) | payer MEDICARE, OTHER, SELFPAY | PROVIDERS: PCP Family Medicine; Referring Provider Family Medicine; Visit Provider Family Medicine | DX: I87.2 Venous insufficiency (chronic) (peripheral) (principal); L97.811 Non-pressure chronic ulcer of other part of right lower leg limited to breakdown of skin; I77.6 Arteritis, unspecified; D46.9 Myelodysplastic syndrome, unspecified; Z79.52 Long term (current) use of systemic steroids | CPT/HCPCS: 15271; Q4137 ==

== ENCOUNTER → 2020-04-19 13:30 | Outpatient (CLI) | payer MEDICARE, OTHER, SELFPAY | PROVIDERS: PCP Family Medicine; Referring Provider Family Medicine; Visit Provider Family Medicine | DX: I87.2 Venous insufficiency (chronic) (peripheral) (principal); L97.811 Non-pressure chronic ulcer of other part of right lower leg limited to breakdown of skin; S81.801A Unspecified open wound, right lower leg, initial encounter; I77.6 Arteritis, unspecified; D46.9 Myelodysplastic syndrome, unspecified; Z79.52 Long term (current) use of systemic steroids | CPT/HCPCS: 11042; 97597; 99213; 99214 ==

== ENCOUNTER → 2020-04-25 11:16 | Outpatient (CLI) | payer MEDICARE, OTHER, SELFPAY | PROVIDERS: PCP Family Medicine; Referring Provider Family Medicine; Visit Provider Family Medicine | DX: I87.2 Venous insufficiency (chronic) (peripheral) (principal); L97.811 Non-pressure chronic ulcer of other part of right lower leg limited to breakdown of skin; S81.801A Unspecified open wound, right lower leg, initial encounter; I77.6 Arteritis, unspecified; D46.9 Myelodysplastic syndrome, unspecified; Z79.52 Long term (current) use of systemic steroids; L08.9 Local infection of the skin and subcutaneous tissue, unspecified | CPT/HCPCS: 11042; 87070; 87075; 87077; 87147; 87186; 87205; 99214 ==

== ENCOUNTER → 2020-05-03 13:42 | Outpatient (CLI) | payer MEDICARE, OTHER, SELFPAY | PROVIDERS: PCP Family Medicine; Referring Provider Family Medicine; Visit Provider Family Medicine | DX: I87.2 Venous insufficiency (chronic) (peripheral) (principal); L97.811 Non-pressure chronic ulcer of other part of right lower leg limited to breakdown of skin; S81.801A Unspecified open wound, right lower leg, initial encounter; S81.802A Unspecified open wound, left lower leg, initial encounter; I77.6 Arteritis, unspecified; D46.9 Myelodysplastic syndrome, unspecified; Z79.52 Long term (current) use of systemic steroids; L08.9 Local infection of the skin and subcutaneous tissue, unspecified; B95.62 Methicillin resistant Staphylococcus aureus infection as the cause of diseases classified elsewhere; Z79.2 Long term (current) use of antibiotics | CPT/HCPCS: 11042; 97597; 99214 ==

== ENCOUNTER → 2020-05-10 11:01 | Outpatient (CLI) | payer MEDICARE, OTHER, SELFPAY | PROVIDERS: PCP Family Medicine; Referring Provider Family Medicine; Visit Provider Family Medicine | DX: I87.2 Venous insufficiency (chronic) (peripheral) (principal); S81.801A Unspecified open wound, right lower leg, initial encounter; S81.802A Unspecified open wound, left lower leg, initial encounter; I77.6 Arteritis, unspecified; D46.9 Myelodysplastic syndrome, unspecified; Z79.52 Long term (current) use of systemic steroids; L08.9 Local infection of the skin and subcutaneous tissue, unspecified; B95.62 Methicillin resistant Staphylococcus aureus infection as the cause of diseases classified elsewhere; Z79.2 Long term (current) use of antibiotics | CPT/HCPCS: 11042; 97597 ==

== ENCOUNTER → 2020-05-24 14:26 | Outpatient (CLI) | payer MEDICARE, OTHER, SELFPAY | PROVIDERS: PCP Family Medicine; Referring Provider Family Medicine; Visit Provider Family Medicine | DX: I87.2 Venous insufficiency (chronic) (peripheral) (principal); L97.811 Non-pressure chronic ulcer of other part of right lower leg limited to breakdown of skin; D46.9 Myelodysplastic syndrome, unspecified; L95.8 Other vasculitis limited to the skin; Z79.52 Long term (current) use of systemic steroids | CPT/HCPCS: 15271; 99213; Q4137 ==

== ENCOUNTER → 2020-05-31 11:57 | Outpatient (CLI) | payer MEDICARE, OTHER, SELFPAY | PROVIDERS: PCP Family Medicine; Referring Provider Family Medicine; Visit Provider Family Medicine | DX: I87.2 Venous insufficiency (chronic) (peripheral) (principal); L97.811 Non-pressure chronic ulcer of other part of right lower leg limited to breakdown of skin; L95.8 Other vasculitis limited to the skin; I77.6 Arteritis, unspecified; D46.9 Myelodysplastic syndrome, unspecified; Z79.52 Long term (current) use of systemic steroids | CPT/HCPCS: 15271; Q4137 ==

== ENCOUNTER → 2020-06-07 12:00 | Outpatient (CLI) | payer MEDICARE, OTHER, SELFPAY | PROVIDERS: PCP Family Medicine; Referring Provider Family Medicine; Visit Provider Family Medicine | DX: I87.2 Venous insufficiency (chronic) (peripheral) (principal); L97.811 Non-pressure chronic ulcer of other part of right lower leg limited to breakdown of skin; I77.6 Arteritis, unspecified; D46.9 Myelodysplastic syndrome, unspecified; Z79.52 Long term (current) use of systemic steroids | CPT/HCPCS: 15271; Q4137 ==

== ENCOUNTER → 2020-06-20 14:29 | Outpatient (CLI) | payer MEDICARE, OTHER, SELFPAY | PROVIDERS: PCP Family Medicine; Referring Provider Family Medicine; Visit Provider Family Medicine | DX: I77.6 Arteritis, unspecified (principal); D46.9 Myelodysplastic syndrome, unspecified; Z79.52 Long term (current) use of systemic steroids; Z48.01 Encounter for change or removal of surgical wound dressing | CPT/HCPCS: 99213 ==

== ENCOUNTER → 2020-08-23 11:47 | Outpatient (CLI) | payer MEDICARE, OTHER, SELFPAY | PROVIDERS: PCP Family Medicine; Referring Provider Podiatrist; Visit Provider Family Medicine | DX: S91.101A Unspecified open wound of right great toe without damage to nail, initial encounter (principal); S91.102A Unspecified open wound of left great toe without damage to nail, initial encounter; I77.6 Arteritis, unspecified; D46.9 Myelodysplastic syndrome, unspecified; Z79.52 Long term (current) use of systemic steroids | CPT/HCPCS: 11042; 87070; 87075; 87077; 87186; 87205; 99213; 99214 ==

== ENCOUNTER → 2020-08-30 09:55 | Outpatient (CLI) | payer MEDICARE, OTHER, SELFPAY | PROVIDERS: PCP Family Medicine; Referring Provider Family Medicine; Visit Provider Family Medicine | DX: I87.2 Venous insufficiency (chronic) (peripheral) (principal); L97.521 Non-pressure chronic ulcer of other part of left foot limited to breakdown of skin; L97.511 Non-pressure chronic ulcer of other part of right foot limited to breakdown of skin; I77.6 Arteritis, unspecified; D46.9 Myelodysplastic syndrome, unspecified; Z79.52 Long term (current) use of systemic steroids; B95.7 Other staphylococcus as the cause of diseases classified elsewhere; L08.9 Local infection of the skin and subcutaneous tissue, unspecified | CPT/HCPCS: 11042; 99214 ==

== ENCOUNTER → 2020-09-06 10:43 | Outpatient (CLI) | payer MEDICARE, OTHER, SELFPAY | PROVIDERS: PCP Family Medicine; Referring Provider Family Medicine; Visit Provider Family Medicine | DX: I87.2 Venous insufficiency (chronic) (peripheral) (principal); L97.511 Non-pressure chronic ulcer of other part of right foot limited to breakdown of skin; L97.521 Non-pressure chronic ulcer of other part of left foot limited to breakdown of skin; I77.6 Arteritis, unspecified; D46.9 Myelodysplastic syndrome, unspecified; Z79.52 Long term (current) use of systemic steroids | CPT/HCPCS: 99212; 99213 ==

== ENCOUNTER → 2020-09-13 09:23 | Outpatient (CLI) | payer MEDICARE, OTHER, SELFPAY | PROVIDERS: PCP Family Medicine; Referring Provider Family Medicine; Visit Provider Family Medicine | DX: I87.2 Venous insufficiency (chronic) (peripheral) (principal); L97.511 Non-pressure chronic ulcer of other part of right foot limited to breakdown of skin; L97.521 Non-pressure chronic ulcer of other part of left foot limited to breakdown of skin; L95.8 Other vasculitis limited to the skin; I77.6 Arteritis, unspecified; D46.9 Myelodysplastic syndrome, unspecified; Z79.52 Long term (current) use of systemic steroids | CPT/HCPCS: 97597 ==

== ENCOUNTER → 2020-09-19 09:28 | Outpatient (CLI) | payer MEDICARE, OTHER, SELFPAY | PROVIDERS: PCP Family Medicine; Referring Provider Family Medicine; Visit Provider Family Medicine | DX: I87.2 Venous insufficiency (chronic) (peripheral) (principal); L95.8 Other vasculitis limited to the skin; L97.521 Non-pressure chronic ulcer of other part of left foot limited to breakdown of skin; L97.511 Non-pressure chronic ulcer of other part of right foot limited to breakdown of skin; I77.6 Arteritis, unspecified; D46.9 Myelodysplastic syndrome, unspecified; Z79.52 Long term (current) use of systemic steroids | CPT/HCPCS: 15275; 97597; Q4110 ==

== ENCOUNTER → 2020-10-01 10:24 | Outpatient (CLI) | payer MEDICARE, OTHER, SELFPAY | PROVIDERS: PCP Family Medicine; Referring Provider Family Medicine; Visit Provider Family Medicine | DX: I77.6 Arteritis, unspecified (principal); L97.521 Non-pressure chronic ulcer of other part of left foot limited to breakdown of skin; D46.9 Myelodysplastic syndrome, unspecified; Z79.52 Long term (current) use of systemic steroids | CPT/HCPCS: 97597 ==

== ENCOUNTER → 2020-10-09 10:21 | Outpatient (CLI) | payer MEDICARE, OTHER, SELFPAY | PROVIDERS: PCP Family Medicine; Referring Provider Family Medicine; Visit Provider Family Medicine | DX: S81.802A Unspecified open wound, left lower leg, initial encounter (principal); Z79.52 Long term (current) use of systemic steroids | CPT/HCPCS: 11042; 99214 ==

== ENCOUNTER → 2020-10-16 10:39 | Outpatient (CLI) | payer MEDICARE, OTHER, SELFPAY | PROVIDERS: PCP Family Medicine; Referring Provider Family Medicine; Visit Provider Family Medicine | DX: S81.802A Unspecified open wound, left lower leg, initial encounter (principal); Z79.52 Long term (current) use of systemic steroids | CPT/HCPCS: 11042 ==

== ENCOUNTER → 2020-10-29 10:09 | Outpatient (CLI) | payer MEDICARE, OTHER, SELFPAY | PROVIDERS: PCP Family Medicine; Referring Provider Family Medicine; Visit Provider Family Medicine | DX: I87.2 Venous insufficiency (chronic) (peripheral) (principal); L97.221 Non-pressure chronic ulcer of left calf limited to breakdown of skin; Z79.52 Long term (current) use of systemic steroids | CPT/HCPCS: 97597 ==

== ENCOUNTER → 2020-11-05 11:45 | Outpatient (CLI) | payer MEDICARE, OTHER, SELFPAY | PROVIDERS: PCP Family Medicine; Referring Provider Family Medicine; Visit Provider Family Medicine | DX: I87.2 Venous insufficiency (chronic) (peripheral) (principal); L97.221 Non-pressure chronic ulcer of left calf limited to breakdown of skin; Z79.52 Long term (current) use of systemic steroids; L95.8 Other vasculitis limited to the skin; C94.6 Myelodysplastic disease, not elsewhere classified | CPT/HCPCS: 11042 ==

== ENCOUNTER → 2020-12-03 11:12 | Outpatient (CLI) | payer MEDICARE, OTHER, SELFPAY ==
--- NOTE | 2020-12-03 11:15 | DI.CT.S_ITS ---
PROCEDURE: CT SINUS SCREEN WO CON INDICATIONS: Acute recurrent pansinusitis TECHNIQUE: Noncontrast 3.0 mm axial images acquired from the frontal sinuses to the mid-sella, with coronal and sagittal reformats. For radiation dose reduction, the following was used: automated exposure control, adjustment of mA and/or kV according to patient size. COMPARISON: None. FINDINGS: Image quality: Excellent. Maxillary Sinuses: There is moderate to severe left maxillary sinus opacification, with frothy, nonconsolidated appearance suggestive of acute disease. There also increased densities raising the possibility of fungal infection. Questionable early erosive appearance of the posterolateral wall of left maxillary sinus seen on image 13/2. The right maxillary sinus appears clear except for mild mucosal thickening at the floor. Ethmoid Air Cells: No bony remodeling or destruction. Sinuses are clear. Sphenoid Sinuses: No bony remodeling or destruction. Sinuses are clear. Frontal Sinuses: No bony remodeling or destruction. Sinuses are clear. Ostiomeatal Complexes: Small right Josy cell incidentally noted. The right ostiomeatal complex appears patent. There is opacification in the region of the left ostiomeatal complex although unclear if prior left antrostomy has been performed. Please correlate with operative history. Miscellaneous: Visualized intra-orbital contents are normal. Small right khoi bullosa. No nasal septal deviation. IMPRESSION: Moderate to severe left maxillary sinus disease, which may be acute in age. Associated increased areas of attenuation raising the possibility of fungal infection. Questionable early erosive appearance of the posterolateral wall of the left maxillary sinus as above. Please correlate clinically. Additional chronic and incidental findings as above. Dictated by: Vance Adan M.D. on 12/03/2020 at 12:05 Approved by: Vance Adan M.D. on 12/03/2020 at 12:18
== END ==
PROVIDERS: PCP Family Medicine; Referring Provider Otolaryngology; Visit Provider Otolaryngology
DX: J32.4 Chronic pansinusitis (principal); J01.41 Acute recurrent pansinusitis; J34.89 Other specified disorders of nose and nasal sinuses
CPT/HCPCS: 70486

== ENCOUNTER 2021-11-26 12:06 | Emergency (ER) | payer MEDICARE, OTHER, SELFPAY ==
[2021-11-26 12:15] VITALS: BP 152/74; PULSE 69; RESP 14; TEMP 36.5; O2SAT 99; BMI 21.7
--- NOTE | 2021-11-26 13:45 | DI.RAD.S_ITS ---
PROCEDURE: XR FOOT LT MIN 3V INDICATIONS: ?osteo; ulcer on dorsal aspect of base of digit 2 and 3 TECHNIQUE: 3 views of the foot were acquired. COMPARISON: None. FINDINGS: Bones: No acute fractures or dislocations. No suspicious bony lesions. There is moderate osteopenia overlying the head of the 5th metatarsal. No definite cortical disruption although the medial cortex of the 5th metatarsal head appears to be thinned. Degenerative changes of the left 1st metatarsophalangeal and interphalangeal joints. Soft tissues: No tibiotalar joint effusion. Achilles tendon appears normal. Soft tissue swelling of the left foot. IMPRESSION: Diffuse soft tissue swelling of the left foot with moderate focal osteopenia involving the head of the left 5th metatarsal. No definite cortical disruption. The cortex appears moderately thinned at this site. Recommend correlation with clinical exam. Otherwise, no definite radiographic evidence to suggest presence of osteomyelitis. If there is persistent high clinical concern for osteomyelitis, further evaluation with MRI can be considered. Dictated by: Manoj Pompa M.D. on 11/26/2021 at 14:15 Approved by: Manoj Pompa M.D. on 11/26/2021 at 14:18
--- NOTE | 2021-11-26 14:31 | ED_ITS ---
HPI - Extremity Problem <Bubba Marquez PA-C - Last Filed: 11/26/21 20:35> General Chief complaint: Extremity Problem,Nontraumatic Stated complaint: Left foot ulcer between toes Time Seen by Provider: 11/26/21 12:55 Source: patient Mode of arrival: Ambulatory History of Present Illness HPI Narrative: 81-year-old male with past medical history myelodysplastic syndrome, peripheral neuropathy presents to the ED with a foot ulcer for 10 days. Patient states that his symptoms started as a small ulcer on the dorsal aspect of his left foot at the base of the 2nd and 3rd toes. Patient was seen at a clinic at [facility], given cephalexin for 10 days, with minimal improvement. Patient has a history of MRSA infections. Patient denies history of osteomyelitis. Patient denies fever, chills, chest pain, shortness of breath, numbness, tingling, weakness. Patient endorses a watery, yellow discharge from the wound. Patient states that the surrounding erythema seems to have slightly improved from 10 days ago. Related Data Home Medications Medication Instructions Recorded Confirmed clindamycin HCl 300 mg capsule 300 mg PO QID 12/22/18 12/22/18 difluprednate 0.05 % eye drops 1 drp EYE-RIGHT TID 12/22/18 12/22/18 doxycycline hyclate 100 mg tablet 100 mg PO BID 12/22/18 12/22/18 gabapentin 300 mg capsule 300 mg PO QID 12/22/18 hydrocodone 5 mg-acetaminophen 325 1 tab PO BID 12/22/18 12/22/18 mg tablet tamsulosin 0.4 mg capsule 0.4 mg PO DAILY 12/22/18 12/22/18 Previous Rx's Medication Instructions Recorded hydrocodone 5 mg-acetaminophen 325 1 tab PO Q4-6H PRN #8 tab 12/22/18 mg tablet ([place]) clindamycin HCl 150 mg capsule 450 mg PO TID 7 Days #63 cap 11/26/21 Allergies Allergy/AdvReac Type Severity Reaction Status Date / Time sulfamethoxazole Allergy Intermediate Rash Verified 11/26/21 12:19 [From Bactrim] trimethoprim [From Bactrim] Allergy Intermediate Rash Verified 11/26/21 12:19 Review of Systems <Bubba Marquez PA-C - Last Filed: 11/26/21 20:35> Review of Systems ROS Unobtainable: All systems reviewed & are unremarkable except as noted in HPI and below Constitutional Constitutional: Denies chills, Denies fatigue, Denies fever(s), Denies frequent falls, Denies lethargy and Denies weakness Eyes Eyes: Denies change in vision, Denies eye discharge, Denies irritation and Denies loss of vision ENT Ears, Nose, Mouth, and Throat: Denies change in voice, Denies dizziness, Denies neck pain, Denies sore throat and Denies throat swelling Cardiovascular Cardiovascular: Denies chest pain, Denies irregular heart rhythm, Denies l ightheadedness, Denies palpitations, Denies dyspnea, Denies dyspnea on exertion and Denies orthopnea Respiratory Respiratory: Denies cough, Denies dyspnea, Denies dyspnea on exertion and Denies wheezing Gastrointestinal Gastrointestinal: Denies abdominal pain, Denies change in bowel habits, Denies diarrhea, Denies nausea and Denies vomiting Genitourinary Genitourinary: Denies hematuria, Denies flank pain, Denies urinary incontinence and Denies urinary urgency Musculoskeletal Musculoskeletal: Denies back pain, Denies muscle weakness, Denies neck pain, Denies numbness and Denies tingling Integumentary/Breasts Skin/Breast: Denies pruritus, Denies erythema, Denies rash and Denies wounds Comments: Left foot ulcer on dorsal aspect, base of 2nd and 3rd toe Neurologic Neurologic: Denies behavioral changes, Denies confusion, Denies dizziness, Denies frequent falls, Denies loss of vision, Denies numbness, Denies tingling and Denies weakness Psychiatric Psychiatric: Denies anxiety, Denies behavioral changes, Denies confusion, Denies depression, Denies homicidal ideation and Denies suicidal ideation Endocrine Endocrine: Denies fatigue, Denies flushing and Denies palpitations Hematologic/Lymphatic Hematologic/Lymphatic: Denies easy bruising Allergic/Immunologic Allergic/Immunologic: Denies urticaria, Denies throat swelling and Denies wheezing Patient History <Bubba Marquez PA-C - Last Filed: 11/26/21 20:35> Medical History Myelodysplastic syndrome Peripheral neuropathy Spinal stenosis Surgical History Status post cholecystectomy Status post laminectomy Social History Smoking Status: Never smoker Smoking Status: Never smoker alcohol intake frequency: 0-2 drinks per day Substance Use Type: does not use Exam <Bubba Marquez PA-C - Last Filed: 11/26/21 20:35> Narrative Exam Narrative: Const General:?cooperative, healthy appearing and comfortable HENMT Head:?normal to inspection Ears:?hearing grossly normal bilaterally Nose:?external nose normal Face and sinus:?normal facial exam and sinuses nontender Mouth:?oral mucosae normal Throat:?posterior oropharynx normal Eyes General:?appearance normal, both eyes and all related structures Neck Neck:?normal visual inspection and no lymphadenopathy noted Resp Effort & Inspection:?normal respiratory effort Auscultation:?clear to auscultation bilaterally Cardio Rate:?regular rate Rhythm:?regular rhythm Integumentary Circular ulcer, about 2 cm in diameter on the dorsal aspect of the left foot at the base of the 2nd and 3rd toes. No visible bone. There is surrounding erythema. Tenderness to palpation. Clear, yellow discharge visualized on exam. Discharge is not purulent. Pedal pulses intact. Full Range of motion. Cap refill < 2mm. Neurovascularly intact. Neuro General:?patient alert, patient awake and patient oriented x3 Initial Vital Signs Initial Vital Signs: Vital Signs Temperature 97.7 F 11/26/21 12:15 Pulse Rate 69 11/26/21 12:15 Respiratory Rate 14 11/26/21 12:15 Blood Pressure 152/74 H 11/26/21 12:15 Pulse Oximetry 99 11/26/21 12:15 <Mallorie Nina DO - Last Filed: 11/27/21 14:02> Initial Vital Signs Initial Vital Signs: Vital Signs Temperature 97.7 F 11/26/21 12:15 Pulse Rate 69 11/26/21 12:15 Respiratory Rate 14 11/26/21 12:15 Blood Pressure 152/74 H 11/26/21 12:15 Pulse Oximetry 99 11/26/21 12:15 Course <Bubba Marquez PA-C - Last Filed: 11/26/21 20:35> Orders Ordered: ED Orders 11/26/21 13:45 XR foot LT min 3V Stat 11/26/21 14:10 CBC Auto Diff [Complete Blood Count AUTO DIFF] Stat CMP [Comprehensive Metabolic Panel] Stat CRP [C-Reactive Protein Quant] Stat ESR [Erythrocyte Sedimentation Rate] Stat Lactate (Lactic Acid) Stat 11/26/21 14:30 Blood Culture Stat Vital Signs Vital signs: Vital Signs - 8 hr 11/26/21 15:26 Pulse Rate 69 Respiratory Rate 16 Blood Pressure 177/79 H Pulse Oximetry 96 <Mallorie Nina DO - Last Filed: 11/27/21 14:02> Orders Ordered: ED Orders 11/26/21 13:45 XR foot LT min 3V Stat 11/26/21 14:10 CBC Auto Diff [Complete Blood Count AUTO DIFF] Stat CMP [Comprehensive Metabolic Panel] Stat CRP [C-Reactive Protein Quant] Stat ESR [Erythrocyte Sedimentation Rate] Stat Lactate (Lactic Acid) Stat 11/26/21 14:30 Blood Culture Stat Vital Signs Vital signs: Vital Signs - 8 hr 11/26/21 15:26 Pulse Rate 69 Respiratory Rate 16 Blood Pressure 177/79 H Pulse Oximetry 96 MDM - Extremity (Nontraumatic) <Bubba Marquez PA-C - Last Filed: 11/26/21 20:35> Lab Data Result diagrams: 11/26/21 14:10 11/26/21 14:10 Labs: Lab Results 11/26/21 11/26/21 11/26/21 Range/Units 14:10 14:10 14:10 WBC 11.7 H (4.5-11.0) X10^3/uL RBC 2.81 L (4.5-5.9) X10^6/uL Hgb 10.1 L (13.5-17.5) g/dL Hct 30.8 L (41-53) % MCV 109.5 H (80-100) fL MCH 35.9 H (26-34) PG MCHC 32.8 (30-36) % RDW 15.1 H (11.6-14.8) % Plt Count 88 L (150-400) X10^3/uL Neut % (Auto) Not Reportable Lymph % (Auto) Not Reportable Whitley % (Auto) Not Reportable Eos % (Auto) Not Reportable Baso % (Auto) Not Reportable Lymph # (Auto) Not Reportable Whitley # (Auto) Not Reportable Baso # (Auto) Not Reportable Total Counted 100 Seg Neutrophils % 28.0 L (38-70) % Band Neutrophils % 3.0 (3-7) % Lymphocytes % (Manual) 22.0 L (25-45) % Atypical Lymphs % 4.0 H ( - 0) % Monocytes % (Manual) 36.0 H (2-11) % Eosinophils % (Manual) 2.0 (2-4) % Metamyelocytes % 1.0 H (-0) % Myelocytes % 1.0 H (-0) % Promyelocytes % 3.0 H (-0) % Neutrophils # (Manual) 3627 (2333-9615) /uL Smudge Cells 1+ H RBC Morphology See below Polychromasia 1+ H Anisocytosis 2+ H ESR 41 H (0-15) MM/HR Sodium 140 (137-145) mmol/L Potassium 4.0 (3.4-5.1) mmol/L Chloride 106 (98-107) mmol/L Carbon Dioxide 28 (22-32) mmol/L BUN 28 H (9-20) mg/dL Creatinine 0.94 (0.66-1.25) mg/dL Estimated GFR > 60 (>60) mL/min BUN/Creatinine Ratio 29.8 H (6-22) Glucose 94 (80-110) mg/dL Lactate 0.9 (0.7-2.1) mmol/L Calcium 10.5 H (8.4-10.2) mg/dL Total Bilirubin 0.5 (0.2-1.3) mg/dL AST 33 (17-59) IU/L ALT 18 (<50) IU/L Alkaline Phosphatase 89 (38-126) U/L C-Reactive Protein 0.8 (<1.0) mg/dL Total Protein 8.0 (6.3-8.2) g/dL Albumin 4.4 (3.5-5.0) g/dL Globulin 3.6 (1.7-4.1) g/dL Albumin/Globulin Ratio 1.2 (1.0-2.8) Imaging Data Extremity x-ray #1: Radiologist's Impression: PROCEDURE:? XR FOOT LT MIN 3V ? INDICATIONS:? ?osteo; ulcer on dorsal aspect of base of digit 2 and 3 ? TECHNIQUE:? 3 views of the foot were acquired.? ? COMPARISON:? None. ? FINDINGS:? ? Bones:? No acute fractures or dislocations.? No suspicious bony lesions.? There is moderate osteopenia overlying the head of the 5th metatarsal.? No definite cortical disruption although the medial cortex of the 5th metatarsal head appears to be thinned.? Degenerative changes of the left 1st metatarsophalangeal and interphalangeal joints.? ? Soft tissues:? No tibiotalar joint effusion.? Achilles tendon appears normal.? Soft tissue swelling of the left foot.? ? ? IMPRESSION:? Diffuse soft tissue swelling of the left foot with moderate focal osteopenia involving the head of the left 5th metatarsal.? No definite cortical disruption. ? The cortex appears moderately thinned at this site.? Recommend correlation with clinical exam.? Otherwise, no definite radiographic evidence to suggest presence of osteomyelitis. ?If there is persistent high clinical concern for osteomyelitis, further evaluation with MRI can be considered. ? ? Dictated by: Manoj Pompa M.D. on 11/26/2021 at 14:15 ? ? Approved by: Manoj Pompa M.D. on 11/26/2021 at 14:18 ? MDM Narrative Medical decision making narrative: 81-year-old male with past medical history myelodysplastic syndrome, peripheral neuropathy presents to the ED with a foot ulcer for 10 days. Concern for cellulitis versus osteomyelitis. Will obtain labs, ESR, lactate, foot x-ray. Foot x-ray shows no signs of osteomyelitis. Labs WNL. Discahrged home with prescription for clindamycin. ED return precautins discussed. Patient verbalized understanding. <Mallorie Nina, DO - Last Filed: 11/27/21 14:02> Lab Data Labs: Lab Results 11/26/21 11/26/21 11/26/21 Range/Units 14:10 14:10 14:10 WBC 11.7 H (4.5-11.0) X10^3/uL RBC 2.81 L (4.5-5.9) X10^6/uL Hgb 10.1 L (13.5-17.5) g/dL Hct 30.8 L (41-53) % MCV 109.5 H (80-100) fL MCH 35.9 H (26-34) PG MCHC 32.8 (30-36) % RDW 15.1 H (11.6-14.8) % Plt Count 88 L (150-400) X10^3/uL Neut % (Auto) Not Reportable Lymph % (Auto) Not Reportable Whitley % (Auto) Not Reportable Eos % (Auto) Not Reportable Baso % (Auto) Not Reportable Lymph # (Auto) Not Reportable Whitley # (Auto) Not Reportable Baso # (Auto) Not Reportable Total Counted 100 Seg Neutrophils % 28.0 L (38-70) % Band Neutrophils % 3.0 (3-7) % Lymphocytes % (Manual) 22.0 L (25-45) % Atypical Lymphs % 4.0 H ( - 0) % Monocytes % (Manual) 36.0 H (2-11) % Eosinophils % (Manual) 2.0 (2-4) % Metamyelocytes % 1.0 H (-0) % Myelocytes % 1.0 H (-0) % Promyelocytes % 3.0 H (-0) % Neutrophils # (Manual) 3627 (0059-2547) /uL Smudge Cells 1+ H RBC Morphology See below Polychromasia 1+ H Anisocytosis 2+ H ESR 41 H (0-15) MM/HR Sodium 140 (137-145) mmol/L Potassium 4.0 (3.4-5.1) mmol/L Chloride 106 (98-107) mmol/L Carbon Dioxide 28 (22-32) mmol/L BUN 28 H (9-20) mg/dL Creatinine 0.94 (0.66-1.25) mg/dL Estimated GFR > 60 (>60) mL/min BUN/Creatinine Ratio 29.8 H (6-22) Glucose 94 (80-110) mg/dL Lactate 0.9 (0.7-2.1) mmol/L Calcium 10.5 H (8.4-10.2) mg/dL Total Bilirubin 0.5 (0.2-1.3) mg/dL AST 33 (17-59) IU/L ALT 18 (<50) IU/L Alkaline Phosphatase 89 (38-126) U/L C-Reactive Protein 0.8 (<1.0) mg/dL Total Protein 8.0 (6.3-8.2) g/dL Albumin 4.4 (3.5-5.0) g/dL Globulin 3.6 (1.7-4.1) g/dL Albumin/Globulin Ratio 1.2 (1.0-2.8) Discharge Plan Departure Patient Disposition: Home Clinical Impression: Cellulitis Instructions: DI for Cellulitis -- Adult Activity Restrictions/Additional Instructions: You were evaluated in the ED today for a foot ulcer. Your labs and x-ray were normal. Given that you have a history of MRSA infections, you have been prescribed clindamycin for 7 days. Please follow-up with your PCP in a week. Return to the ED if your symptoms worsen, you experience numbness, tingling, weakness, fever, chills. Prescriptions: New clindamycin HCl 150 mg capsule 450 mg PO TID 7 Days Qty: 63 0RF No Action clindamycin HCl 300 mg capsule 300 mg PO QID 0RF hydrocodone-acetaminophen 5-325 mg tablet 1 tab PO BID 0RF tamsulosin 0.4 mg capsule 0.4 mg PO DAILY 0RF gabapentin 300 mg capsule 300 mg PO QID 0RF doxycycline hyclate 100 mg tablet 100 mg PO BID 0RF Durezol 0.05 % drops 1 drp EYE-RIGHT TID 0RF Label Comments: Instill 1 drop into right eye three times a day hydrocodone-acetaminophen [[place]] 5-325 mg tablet 1 tab PO Q4-6H PRN (Reason: wound pain) Qty: 8 0RF Rx Instructions: do not drive Referrals: Jake Arguello MD [Primary Care Provider] - Visit Report Forms: Patient Portal/API <Mallorie Nina DO - Last Filed: 11/27/21 14:02> Cosign ED Attending Rosa Attestation: I was immediately available in the department for consultation. Documentation has been reviewed.
[2021-11-26 14:44] LABS: Hematocrit 30.8 % (41-53); Hemoglobin 10.1 g/dL (13.5-17.5); Mean Corpuscular HGB Conc 32.8 % (30-36); Mean Corpuscular Hemoglobin 35.9 PG (26-34); Mean Corpuscular Volume 109.5 fL (80-100); Platelet Count 88 X10^3/uL (150-400); Red Blood Cell Count 2.81 X10^6/uL (4.5-5.9); Red Cell Distribution Width 15.1 % (11.6-14.8); White Blood Cell Count 11.7 X10^3/uL (4.5-11.0)
[2021-11-26 14:46] LABS: Lactate (Lactic Acid) 0.9 mmol/L (0.7-2.1)
[2021-11-26 14:48] LABS: Add Manual Diff / Slide Review YES
[2021-11-26 14:50] LABS: Alanine Aminotransferase 18 IU/L (<50); Albumin 4.4 g/dL (3.5-5.0); Albumin Globulin Ratio 1.2 (1.0-2.8); Alkaline Phosphatase 89 U/L (38-126); Aspartate Aminotransferase 33 IU/L (17-59); BUN Creatinine Ratio 29.8 (6-22); Bilirubin Total 0.5 mg/dL (0.2-1.3); Blood Urea Nitrogen 28 mg/dL (9-20); C-Reactive Protein Quant 0.8 mg/dL (<1.0); Calcium 10.5 mg/dL (8.4-10.2); Carbon Dioxide 28 mmol/L (22-32); Chloride 106 mmol/L (98-107); Estimated Glomerular Filt Rate > 60 mL/min (>60); Globulin 3.6 g/dL (1.7-4.1); Glucose 94 mg/dL (80-110); HEMOLYSIS < 15 (0-50); Sodium 140 mmol/L (137-145)
[2021-11-26 15:17] LABS: Erythrocyte Sedimentation Rate 41 MM/HR (0-15)
[2021-11-26 15:26] VITALS: BP 177/79; PULSE 69; RESP 16; O2SAT 96
[2021-11-26 15:26] LABS: Neutrophils Absolute Manual 3627 /uL (3000-5900); Smudge Cells 1+; Total Cells Counted 100
[2021-11-26 15:27] LABS: Anisocytosis 2+; Polychromasia 1+
== END 2021-11-26 15:40 | disposition home or self-care (01) ==
PROVIDERS: Emergency Provider Student in an Organized Health Care Education/Training Program; PCP Family Medicine
DX: L03.116 Cellulitis of left lower limb (principal)
CPT/HCPCS: 36415; 73630; 80053; 83605; 85007; 85025; 85651; 86140; 87040; 99283

== ENCOUNTER → 2021-12-13 09:32 | Outpatient (CLI) | payer MEDICARE, OTHER, SELFPAY | PROVIDERS: PCP Family Medicine; Referring Provider Family Medicine; Visit Provider Nurse Practitioner Family | DX: L95.9 Vasculitis limited to the skin, unspecified (principal); L97.522 Non-pressure chronic ulcer of other part of left foot with fat layer exposed; L08.9 Local infection of the skin and subcutaneous tissue, unspecified; T69.1XXA Chilblains, initial encounter; G90.09 Other idiopathic peripheral autonomic neuropathy; D46.9 Myelodysplastic syndrome, unspecified; Z86.14 Personal history of Methicillin resistant Staphylococcus aureus infection | CPT/HCPCS: 11042; 87070; 87077; 87186; 87205; 93922; 99214 ==

== ENCOUNTER → 2022-01-08 14:02 | Outpatient (CLI) | payer MEDICARE, OTHER, SELFPAY | PROVIDERS: PCP Family Medicine; Referring Provider Physician Assistant Medical; Visit Provider Family Medicine | DX: L95.9 Vasculitis limited to the skin, unspecified (principal); L97.522 Non-pressure chronic ulcer of other part of left foot with fat layer exposed; D46.9 Myelodysplastic syndrome, unspecified | CPT/HCPCS: 11042; 99213 ==

== ENCOUNTER → 2022-01-17 14:18 | Outpatient (CLI) | payer MEDICARE, OTHER, SELFPAY | PROVIDERS: PCP Family Medicine; Referring Provider Physician Assistant Medical; Visit Provider Nurse Practitioner Family | DX: L95.9 Vasculitis limited to the skin, unspecified (principal); L97.528 Non-pressure chronic ulcer of other part of left foot with other specified severity; L08.9 Local infection of the skin and subcutaneous tissue, unspecified; R60.0 Localized edema; D46.9 Myelodysplastic syndrome, unspecified | CPT/HCPCS: 11042; 87070; 87075; 87077; 87147; 87186; 87205; 99214 ==

== ENCOUNTER → 2022-01-17 15:31 | Outpatient (CLI) | payer MEDICARE, OTHER, SELFPAY ==
[2022-01-17 16:57] LABS: Hematocrit 31.3 % (41-53); Hemoglobin 10.3 g/dL (13.5-17.5); Mean Corpuscular HGB Conc 32.8 % (30-36); Mean Corpuscular Hemoglobin 35.7 PG (26-34); Mean Corpuscular Volume 108.8 fL (80-100); Platelet Count 90 X10^3/uL (150-400); Red Blood Cell Count 2.87 X10^6/uL (4.5-5.9); Red Cell Distribution Width 15.4 % (11.6-14.8)
[2022-01-17 17:13] LABS: Blood Urea Nitrogen 31 mg/dL (9-20); C-Reactive Protein Quant < 0.5 mg/dL (<1.0); Calcium 10.6 mg/dL (8.4-10.2); Carbon Dioxide 28 mmol/L (22-32); Chloride 104 mmol/L (98-107); Estimated Glomerular Filt Rate > 60 mL/min (>60); Glucose 111 mg/dL (80-110); HEMOLYSIS < 15 (0-50); Potassium 4.5 mmol/L (3.4-5.1); Sodium 139 mmol/L (137-145)
[2022-01-17 18:01] LABS: Erythrocyte Sedimentation Rate 25 MM/HR (0-15)
[2022-01-17 18:46] LABS: Add Manual Diff / Slide Review YES; White Blood Cell Count 32.2 X10^3/uL (4.5-11.0)
[2022-01-17 19:16] LABS: Neutrophils Absolute Manual 18032 /uL (3000-5900); Total Cells Counted 100
[2022-01-17 19:17] LABS: Anisocytosis 1+; Macrocytosis 2+; Platelet Estimate Decreased on smear
[2022-01-17 19:20] LABS: Poikilocytosis 1+
== END ==
PROVIDERS: PCP Family Medicine; Referring Provider Nurse Practitioner Family; Visit Provider Nurse Practitioner Family
DX: L08.9 Local infection of the skin and subcutaneous tissue, unspecified (principal); S81.802A Unspecified open wound, left lower leg, initial encounter
CPT/HCPCS: 36415; 80048; 85007; 85025; 85651; 86140

== ENCOUNTER 2022-01-18 12:03 | Inpatient (IN) | payer MEDICARE, OTHER, SELFPAY ==
[2022-01-18] VITALS (7 sets, daily range): BP systolic 113–191; BP diastolic 58–77; PULSE 55–69; RESP 16–20; TEMP 36.5–37.1; O2SAT 96–99; BMI 22.1
--- NOTE | 2022-01-18 12:41 | DI.RAD.S_ITS ---
PROCEDURE: XR CHEST 1V INDICATIONS: suspected sepsis TECHNIQUE: One view of the chest was acquired. COMPARISON: None. FINDINGS: Surgical changes and devices: Cholecystectomy clips are faintly seen. Lungs and pleura: Lungs are clear. No pleural effusions or pneumothorax. Mediastinum: Mediastinal contours appear normal. Heart size is normal. Bones and chest wall: No suspicious bony lesions. Age-appropriate bony degenerative changes are seen. Overlying soft tissues appear unremarkable. IMPRESSION: No focal infiltrates are seen. Postoperative and degenerative changes are seen. Dictated by: Nathan Luna M.D. on 01/18/2022 at 13:01 Approved by: Nathan Luna M.D. on 01/18/2022 at 13:01
[2022-01-18 13:15] LABS: Hemoglobin 10.5 g/dL (13.5-17.5); Mean Corpuscular Hemoglobin 35.7 PG (26-34); Mean Corpuscular Volume 108.3 fL (80-100); Platelet Count 81 X10^3/uL (150-400); Red Blood Cell Count 2.95 X10^6/uL (4.5-5.9); Red Cell Distribution Width 15.5 % (11.6-14.8); White Blood Cell Count 27.2 X10^3/uL (4.5-11.0)
[2022-01-18 13:18] LABS: Add Manual Diff / Slide Review YES
[2022-01-18 13:23] LABS: HEMOLYSIS < 15 (0-50)
[2022-01-18 13:27] LABS: Lactate (Lactic Acid) 1.2 mmol/L (0.7-2.1)
[2022-01-18 13:28] LABS: Alanine Aminotransferase 19 IU/L (<50); Albumin 4.5 g/dL (3.5-5.0); Albumin Globulin Ratio 1.5 (1.0-2.8); Alkaline Phosphatase 71 U/L (38-126); Aspartate Aminotransferase 25 IU/L (17-59); BUN Creatinine Ratio 24.8 (6-22); Bilirubin Total 0.6 mg/dL (0.2-1.3); Blood Urea Nitrogen 29 mg/dL (9-20); Calcium 10.5 mg/dL (8.4-10.2); Carbon Dioxide 29 mmol/L (22-32); Chloride 102 mmol/L (98-107); Estimated Glomerular Filt Rate > 60 mL/min (>60); Globulin 3.1 g/dL (1.7-4.1); Glucose 122 mg/dL (80-110); Lipase 178 U/L (23-300); Potassium 4.3 mmol/L (3.4-5.1); Sodium 139 mmol/L (137-145); Total Protein 7.6 g/dL (6.3-8.2)
[2022-01-18 13:47] LABS: Procalcitonin 0.07 ng/mL (<0.5)
--- NOTE | 2022-01-18 14:07 | DI.RAD.S_ITS ---
PROCEDURE: XR FOOT LT MIN 3V INDICATIONS: r/o osteomyelitis TECHNIQUE: <3> views of the foot were acquired. COMPARISON: [facility], CR, XR FOOT LT MIN 3V, 11/26/2021, 13:38. FINDINGS: Bones: As before, there is mild lucency of the 5th metatarsal head. No definite cortical erosion here or at the base of the 2nd and 3rd toes. Small age indeterminate bone chip medial to the medial malleolus. Scattered osteoarthritic changes. No fracture or dislocation. Soft tissues: No tibiotalar joint effusion. Achilles tendon appears normal. Soft tissue swelling is present. Dorsal soft tissue ulcer seen on lateral view, projecting over the MTP joints. IMPRESSION: No convincing radiographic abnormality. MRI is necessary to evaluate further for osteomyelitis if there is sufficient clinical concern. Dorsal soft tissue ulcer seen on lateral view projecting over the MTP joints. Dictated by: Davin Harkins M.D. on 01/18/2022 at 14:45 Approved by: Davin Harkins M.D. on 01/18/2022 at 14:51
[2022-01-18 14:14] LABS: Neutrophils Absolute Manual 14416 /uL (3000-5900); Total Cells Counted 100
--- NOTE | 2022-01-18 14:14 | ED.RECABL ---
HPI - Recheck/Abnormal Lab/Rx <WALLY Lancaster - Last Filed: 01/18/22 16:50> General Chief Complaint: Recheck/Abnormal Lab/Rx Stated Complaint: wound care said come in blood work out whack Time Seen by Provider: 01/18/22 13:12 Source: patient Mode of arrival: Family Vehicle History of Present Illness HPI narrative: 81-year-old male, never smoker, presents Emergency Department by direction of his wound clinic physician, Dr. Delmer Tapia, due to elevated WBC. Patient has had a ulcer on the left foot dorsum for at least 2 months and has seen multiple wound clinic providers over this time. Patient reports he had a similar ulcer on his right foot, that took approximately 4 months to heal. Patient and spouse state that Dr. Tapia Stated that there was a tendon exposed. Dressing was removed and no evidence worsening cellulitis. Ulcer was filled with blue foam and covered with foam dressing. No red streaking noted. Unintended Weight loss of >20 lbs in last few months. Hx of myelodysplastic syndrome. Related Data Home Medications Medication Instructions Recorded Confirmed clindamycin HCl 300 mg capsule 300 mg PO QID 12/22/18 12/22/18 difluprednate 0.05 % eye drops 1 drp EYE-RIGHT TID 12/22/18 12/22/18 doxycycline hyclate 100 mg tablet 100 mg PO BID 12/22/18 12/22/18 gabapentin 300 mg capsule 300 mg PO QID 12/22/18 hydrocodone 5 mg-acetaminophen 325 1 tab PO BID 12/22/18 12/22/18 mg tablet tamsulosin 0.4 mg capsule 0.4 mg PO DAILY 12/22/18 12/22/18 Previous Rx's Medication Instructions Recorded hydrocodone 5 mg-acetaminophen 325 1 tab PO Q4-6H PRN wound pain #8 12/22/18 mg tablet ([place]) tabs Allergies Allergy/AdvReac Type Severity Reaction Status Date / Time sulfamethoxazole Allergy Intermediate Rash Verified 01/18/22 12:30 [From Bactrim] trimethoprim [From Bactrim] Allergy Intermediate Rash Verified 01/18/22 12:30 Review of Systems <WALLY Lancaster - Last Filed: 01/18/22 16:50> Review of Systems Narrative: Narrative: GENERAL: Denies chills, fatigue, fever, sweats. See HPI HEENT: Denies sinus pain, ear pain, sore throat, difficulty swallowing, dizziness. RESPIRATORY: Denies dyspnea, cough, wheezing, sputum. CARDIOVASCULAR: Denies chest pain, palpitations, edema. GASTROINTESTINAL: Denies nausea, vomiting, abdominal pain, diarrhea, constipation. : Denies dysuria, frequency, incontinence, hematuria, urinary retention, flank pain. MSK: Denies weakness, joint pain, or bony pain. SKIN: Endorses Ulcer on left foot dorsum. NEUROLOGIC: Denies weakness, dizziness, headache, numbness, confusion. PSYCHIATRIC: No concerning psychosocial issues. Patient History <WALLY Lancaster - Last Filed: 01/18/22 16:50> Medical History Myelodysplastic syndrome Peripheral neuropathy Spinal stenosis Surgical History Status post cholecystectomy Status post laminectomy Social History Smoking Status: Never smoker Smoking Status: Never smoker alcohol intake frequency: 0-2 drinks per day Substance Use Type: does not use Exam <WALLY Lancaster - Last Filed: 01/18/22 16:50> Narrative Exam Narrative: Exam Narrative: GENERAL: This is a well-nourished, well-developed patient, in no acute distress HEAD: Atraumatic. Normocephalic. EYES: Pupils equal round and reactive. Extraocular motions intact. No scleral icterus, injection or drainage. ENT: Nose without bleeding, purulent drainage. Throat without erythema, tonsillar hypertrophy or exudate. Airway patent. NECK: Trachea midline. No JVD or lymphadenopathy. Nontender. CARDIOVASCULAR: Regular rate and rhythm without murmurs, peripheral pulses intact, cap refill <2 sec. RESPIRATORY: Breath sounds equal and clear bilaterally. No wheezes, rales, or rhonchi. No cough. No increased respiratory effort. No accessory muscle use. GASTROINTESTINAL: Abdomen soft, non-tender, nondistended without guarding or rebound. No suprapubic pain. MSK: Moves all extremities. Normal range of motion, no clubbing or edema. Neurovascularly intact. NEURO: A&O x 3. SKIN: Warm, dry. 1.5 cm ulcer noted to left foot dorsum just proximal to the toes. Initial Vital Signs Initial Vital Signs: Vital Signs Temperature 98.8 F 01/18/22 12:30 Pulse Rate 69 01/18/22 12:30 Respiratory Rate 18 01/18/22 12:30 Blood Pressure 113/58 L 01/18/22 12:30 Pulse Oximetry 96 01/18/22 12:30 Oxygen Delivery Method 01/18/22 12:30 Reviewed <Mallorie Nina DO - Last Filed: 01/18/22 19:44> Initial Vital Signs Initial Vital Signs: Vital Signs Temperature 98.8 F 01/18/22 12:30 Pulse Rate 69 01/18/22 12:30 Respiratory Rate 18 01/18/22 12:30 Blood Pressure 113/58 L 01/18/22 12:30 Pulse Oximetry 96 01/18/22 12:30 Oxygen Delivery Method 01/18/22 12:30 Course <WALLY Lancaster - Last Filed: 01/18/22 16:50> Orders Ordered: ED Orders 01/18/22 12:41 XR chest 1V Stat EKG-12 Lead Stat 01/18/22 12:59 CRP [C-Reactive Protein Quant] Stat Complete Blood Count AUTO DIFF Stat Comprehensive Metabolic Panel Stat ESR [Erythrocyte Sedimentation Rate] Stat Lactate (Lactic Acid) Stat Lipase Stat Procalcitonin Stat 01/18/22 14:00 Blood Culture Stat 01/18/22 14:07 XR foot LT min 3V Stat 01/18/22 14:54 Urinalysis and Microscopic Stat Discontinued Medications Sodium Chloride (Normal Saline 0.9%) 1,000 mls @ 1,000 mls/hr IV BOLUS ONE Stop: 01/18/22 13:39 Last Infusion: 01/18/22 16:47 Dose: 0 mls/hr Documented By: Admin: 01/18/22 15:35 Dose: 1,000 mls/hr Documented By: MLM Consultations Consultation #1: Dr. Patel, hospitalist, will come down to evaluate patient at the bedside. Vital Signs Vital signs: Vital Signs - 8 hr 01/18/22 12:30 01/18/22 16:54 Temperature 98.8 F 97.7 F Pulse Rate 69 55 L Respiratory Rate 18 18 Blood Pressure 113/58 L 166/77 H Pulse Oximetry 96 99 Oxygen Delivery Method Room Air <Mallorie Nina DO - Last Filed: 01/18/22 19:44> Orders Ordered: ED Orders 01/18/22 12:41 XR chest 1V Stat EKG-12 Lead Stat 01/18/22 12:59 CRP [C-Reactive Protein Quant] Stat Complete Blood Count AUTO DIFF Stat Comprehensive Metabolic Panel Stat ESR [Erythrocyte Sedimentation Rate] Stat Lactate (Lactic Acid) Stat Lipase Stat Procalcitonin Stat 01/18/22 14:00 Blood Culture Stat 01/18/22 14:07 XR foot LT min 3V Stat 01/18/22 14:54 Urinalysis and Microscopic Stat Discontinued Medications Sodium Chloride (Normal Saline 0.9%) 1,000 mls @ 1,000 mls/hr IV BOLUS ONE Stop: 01/18/22 13:39 Last Infusion: 01/18/22 16:47 Dose: 0 mls/hr Documented By: Admin: 01/18/22 15:35 Dose: 1,000 mls/hr Documented By: EDY Vital Signs Vital signs: Vital Signs - 8 hr 01/18/22 12:30 01/18/22 16:54 Temperature 98.8 F 97.7 F Pulse Rate 69 55 L Respiratory Rate 18 18 Blood Pressure 113/58 L 166/77 H Pulse Oximetry 96 99 Oxygen Delivery Method Room Air MDM - Recheck/Abnormal Lab/Rx <WALLY Lancaster - Last Filed: 01/18/22 16:50> Differential Diagnosis Differential diagnosis: Likely encounter for wound recheck and other (Abnormal labs- elevated WBC) Lab Data Result diagrams: 01/18/22 12:59 01/18/22 12:59 Labs: Lab Results 01/18/22 01/18/22 01/18/22 Range/Units 12:50 12:59 12:59 WBC 27.2 H (4.5-11.0) X10^3/uL RBC 2.95 L (4.5-5.9) X10^6/uL Hgb 10.5 L (13.5-17.5) g/dL Hct 32.0 L (41-53) % MCV 108.3 H (80-100) fL MCH 35.7 H (26-34) PG MCHC 33.0 (30-36) % RDW 15.5 H (11.6-14.8) % Plt Count 81 L (150-400) X10^3/uL Neut % (Auto) Not Reportable Lymph % (Auto) Not Reportable [place] % (Auto) Not Reportable Eos % (Auto) Not Reportable Baso % (Auto) Not Reportable Lymph # (Auto) Not Reportable [place] # (Auto) Not Reportable Baso # (Auto) Not Reportable Total Counted 100 Seg Neutrophils % 29.0 L (38-70) % Band Neutrophils % 24.0 H (3-7) % Lymphocytes % (Manual) 24.0 L (25-45) % Monocytes % (Manual) 12.0 H (2-11) % Eosinophils % (Manual) 1.0 L (2-4) % Basophils % (Manual) 0.0 (0-1) % Metamyelocytes % 4.0 H (-0) % Myelocytes % 6.0 H (-0) % Neutrophils # (Manual) 95235 H (0068-2788) /uL RBC Morphology Not Reportable Anisocytosis 1+ H Macrocytosis 2+ H ESR (0-15) MM/HR Sodium 139 (137-145) mmol/L Potassium 4.3 (3.4-5.1) mmol/L Chloride 102 (98-107) mmol/L Carbon Dioxide 29 (22-32) mmol/L BUN 29 H (9-20) mg/dL Creatinine 1.17 (0.66-1.25) mg/dL Estimated GFR > 60 (>60) mL/min BUN/Creatinine Ratio 24.8 H (6-22) Glucose 122 H (80-110) mg/dL Lactate (0.7-2.1) mmol/L Calcium 10.5 H (8.4-10.2) mg/dL Total Bilirubin 0.6 (0.2-1.3) mg/dL AST 25 (17-59) IU/L ALT 19 (<50) IU/L Alkaline Phosphatase 71 (38-126) U/L Lactate Dehydrogenase 801 H (313-618) U/L C-Reactive Protein (<1.0) mg/dL Total Protein 7.6 (6.3-8.2) g/dL Albumin 4.5 (3.5-5.0) g/dL Globulin 3.1 (1.7-4.1) g/dL Albumin/Globulin Ratio 1.5 (1.0-2.8) Lipase 178 (23-300) U/L Procalcitonin 0.07 (<0.5) ng/mL Urine Color Urine Appearance Urine pH (4.5-8.0) Ur Specific [place] (1.000-1.035) Urine Protein (Negative) Urine Glucose (UA) (Negative) g/dL Urine Ketones (NEGATIVE) Urine Occult Blood (Negative) Urine Nitrate (Negative) Urine Bilirubin (NEGATIVE) Urine Urobilinogen (0.2) E.U./dL Ur Leukocyte Esterase (NEGATIVE) Urine RBC (0-5/HPF) Urine WBC (0-5/HPF) Ur Squamous Epith Cells (0-5/HPF) Amorphous Sediment Urine Bacteria (None) Ur Culture Indicated? 01/18/22 01/18/22 01/18/22 Range/Units 12:59 12:59 12:59 WBC (4.5-11.0) X10^3/uL RBC (4.5-5.9) X10^6/uL Hgb (13.5-17.5) g/dL Hct (41-53) % MCV (80-100) fL MCH (26-34) PG MCHC (30-36) % RDW (11.6-14.8) % Plt Count (150-400) X10^3/uL Neut % (Auto) Lymph % (Auto) [place] % (Auto) Eos % (Auto) Baso % (Auto) Lymph # (Auto) [place] # (Auto) Baso # (Auto) Total Counted Seg Neutrophils % (38-70) % Band Neutrophils % (3-7) % Lymphocytes % (Manual) (25-45) % Monocytes % (Manual) (2-11) % Eosinophils % (Manual) (2-4) % Basophils % (Manual) (0-1) % Metamyelocytes % (-0) % Myelocytes % (-0) % Neutrophils # (Manual) (3606-9789) /uL RBC Morphology Anisocytosis Macrocytosis ESR 16 H D (0-15) MM/HR Sodium (137-145) mmol/L Potassium (3.4-5.1) mmol/L Chloride (98-107) mmol/L Carbon Dioxide (22-32) mmol/L BUN (9-20) mg/dL Creatinine (0.66-1.25) mg/dL Estimated GFR (>60) mL/min BUN/Creatinine Ratio (6-22) Glucose (80-110) mg/dL Lactate 1.2 (0.7-2.1) mmol/L Calcium (8.4-10.2) mg/dL Total Bilirubin (0.2-1.3) mg/dL AST (17-59) IU/L ALT (<50) IU/L Alkaline Phosphatase (38-126) U/L Lactate Dehydrogenase (313-618) U/L C-Reactive Protein < 0.5 (<1.0) mg/dL Total Protein (6.3-8.2) g/dL Albumin (3.5-5.0) g/dL Globulin (1.7-4.1) g/dL Albumin/Globulin Ratio (1.0-2.8) Lipase (23-300) U/L Procalcitonin (<0.5) ng/mL Urine Color Urine Appearance Urine pH (4.5-8.0) Ur Specific [place] (1.000-1.035) Urine Protein (Negative) Urine Glucose (UA) (Negative) g/dL Urine Ketones (NEGATIVE) Urine Occult Blood (Negative) Urine Nitrate (Negative) Urine Bilirubin (NEGATIVE) Urine Urobilinogen (0.2) E.U./dL Ur Leukocyte Esterase (NEGATIVE) Urine RBC (0-5/HPF) Urine WBC (0-5/HPF) Ur Squamous Epith Cells (0-5/HPF) Amorphous Sediment Urine Bacteria (None) Ur Culture Indicated? 01/18/22 Range/Units 14:54 WBC (4.5-11.0) X10^3/uL RBC (4.5-5.9) X10^6/uL Hgb (13.5-17.5) g/dL Hct (41-53) % MCV (80-100) fL MCH (26-34) PG MCHC (30-36) % RDW (11.6-14.8) % Plt Count (150-400) X10^3/uL Neut % (Auto) Lymph % (Auto) [place] % (Auto) Eos % (Auto) Baso % (Auto) Lymph # (Auto) [place] # (Auto) Baso # (Auto) Total Counted Seg Neutrophils % (38-70) % Band Neutrophils % (3-7) % Lymphocytes % (Manual) (25-45) % Monocytes % (Manual) (2-11) % Eosinophils % (Manual) (2-4) % Basophils % (Manual) (0-1) % Metamyelocytes % (-0) % Myelocytes % (-0) % Neutrophils # (Manual) (8485-4468) /uL RBC Morphology Anisocytosis Macrocytosis ESR (0-15) MM/HR Sodium (137-145) mmol/L Potassium (3.4-5.1) mmol/L Chloride (98-107) mmol/L Carbon Dioxide (22-32) mmol/L BUN (9-20) mg/dL Creatinine (0.66-1.25) mg/dL Estimated GFR (>60) mL/min BUN/Creatinine Ratio (6-22) Glucose (80-110) mg/dL Lactate (0.7-2.1) mmol/L Calcium (8.4-10.2) mg/dL Total Bilirubin (0.2-1.3) mg/dL AST (17-59) IU/L ALT (<50) IU/L Alkaline Phosphatase (38-126) U/L Lactate Dehydrogenase (313-618) U/L C-Reactive Protein (<1.0) mg/dL Total Protein (6.3-8.2) g/dL Albumin (3.5-5.0) g/dL Globulin (1.7-4.1) g/dL Albumin/Globulin Ratio (1.0-2.8) Lipase (23-300) U/L Procalcitonin (<0.5) ng/mL Urine Color Yellow Urine Appearance Clear Urine pH 7.0 (4.5-8.0) Ur Specific [place] 1.010 (1.000-1.035) Urine Protein Trace H (Negative) Urine Glucose (UA) Negative (Negative) g/dL Urine Ketones Negative (NEGATIVE) Urine Occult Blood Negative (Negative) Urine Nitrate Negative (Negative) Urine Bilirubin Negative (NEGATIVE) Urine Urobilinogen 0.2 (0.2) E.U./dL Ur Leukocyte Esterase Negative (NEGATIVE) Urine RBC None seen (0-5/HPF) Urine WBC 0-1/hpf (0-5/HPF) Ur Squamous Epith Cells 0-1 /hpf (0-5/HPF) Amorphous Sediment 1+ Urine Bacteria None seen (None) Ur Culture Indicated? Cult not indicated Imaging Data Extremity x-ray #1: Radiologist's Impression: [address] [address] XRay Report Signed Patient: Errol James MR#: [id number] : 1940 Acct:[id number] Age/Sex: 81 / M Date of Service: 01/18/22 Loc: ED Accession Number: [id number] ?? Procedure: XR foot LT min 3V Ordering Provider: Phong Zarate PROCEDURE:? XR FOOT LT MIN 3V ? INDICATIONS:? r/o osteomyelitis ? TECHNIQUE:? <3> views of the foot were acquired.? ? COMPARISON:? [facility], CR, XR FOOT LT MIN 3V, 11/26/2021, 13:38. ? FINDINGS:? ? Bones:? As before, there is mild lucency of the 5th metatarsal head.? No definite cortical erosion here or at the base of the 2nd and 3rd toes. Small age indeterminate bone chip medial to the medial malleolus. Scattered osteoarthritic changes. No fracture or dislocation. ? Soft tissues:? No tibiotalar joint effusion.? Achilles tendon appears normal.? Soft tissue swelling is present.? Dorsal soft tissue ulcer seen on lateral view, projecting over the MTP joints. ? ? IMPRESSION:? No convincing radiographic abnormality.? MRI is necessary to evaluate further for osteomyelitis if there is sufficient clinical concern. Dorsal soft tissue ulcer seen on lateral view projecting over the MTP joints.? ? Dictated by: Davin Harkins M.D. on 01/18/2022 at 14:45 ? ? Approved by: Davin Harkins M.D. on 01/18/2022 at 14:51 ? Chest x-ray: Radiologist's Impression: [address] [address] XRay Report Signed Patient: Errol James MR#: [id number] : 1940 Acct:[id number] Age/Sex: 81 / M Date of Service: 01/18/22 Loc: ED Accession Number: [id number] ?? Procedure: XR chest 1V Ordering Provider: Mank,Mallorie C D.O. PROCEDURE:? XR CHEST 1V ? INDICATIONS:? suspected sepsis ? TECHNIQUE:? One view of the chest was acquired.? ? COMPARISON:? None. ? FINDINGS:? ? Surgical changes and devices:? Cholecystectomy clips are faintly seen. ? Lungs and pleura:? Lungs are clear.? No pleural effusions or pneumothorax.? ? Mediastinum:? Mediastinal contours appear normal.? Heart size is normal.? ? Bones and chest wall:? No suspicious bony lesions.? Age-appropriate bony degenerative changes are seen.? Overlying soft tissues appear unremarkable.? IMPRESSION:? No focal infiltrates are seen. ? Postoperative and degenerative changes are seen.? ? ? Dictated by: Nathan Luna M.D. on 01/18/2022 at 13:01 ? ? Approved by: Nathan Luna M.D. on 01/18/2022 at 13:01 ? MDM Narrative Medical decision making narrative: 81-year-old male that was sent to the emergency department with abnormal labs secondary to a foot ulcer. Labs reveal elevated WBC and anemia, that has improved since yesterday's labs, but still severely elevated. Patient started PO doxycycline last evening. BUN and creatinine were elevated, but less than yesterday. Lactate, lipase and procalcitonin are all normal. Foot X-ray obtained to check for osteomyelitis was negative. Chest x-ray was negative. Unintended Weight loss of >20 lbs in last few months. Hx of myelodysplastic syndrome. Results were discussed Dr. Patel, hospitalist, who is agreeable to admission. <Malloire Nina, DO - Last Filed: 01/18/22 19:44> Lab Data Labs: Lab Results 01/18/22 01/18/22 01/18/22 Range/Units 12:50 12:59 12:59 WBC 27.2 H (4.5-11.0) X10^3/uL RBC 2.95 L (4.5-5.9) X10^6/uL Hgb 10.5 L (13.5-17.5) g/dL Hct 32.0 L (41-53) % MCV 108.3 H (80-100) fL MCH 35.7 H (26-34) PG MCHC 33.0 (30-36) % RDW 15.5 H (11.6-14.8) % Plt Count 81 L (150-400) X10^3/uL Neut % (Auto) Not Reportable Lymph % (Auto) Not Reportable [place] % (Auto) Not Reportable Eos % (Auto) Not Reportable Baso % (Auto) Not Reportable Lymph # (Auto) Not Reportable [place] # (Auto) Not Reportable Baso # (Auto) Not Reportable Total Counted 100 Seg Neutrophils % 29.0 L (38-70) % Band Neutrophils % 24.0 H (3-7) % Lymphocytes % (Manual) 24.0 L (25-45) % Monocytes % (Manual) 12.0 H (2-11) % Eosinophils % (Manual) 1.0 L (2-4) % Basophils % (Manual) 0.0 (0-1) % Metamyelocytes % 4.0 H (-0) % Myelocytes % 6.0 H (-0) % Neutrophils # (Manual) 82813 H (8177-5611) /uL RBC Morphology Not Reportable Anisocytosis 1+ H Macrocytosis 2+ H ESR (0-15) MM/HR Sodium 139 (137-145) mmol/L Potassium 4.3 (3.4-5.1) mmol/L Chloride 102 (98-107) mmol/L Carbon Dioxide 29 (22-32) mmol/L BUN 29 H (9-20) mg/dL Creatinine 1.17 (0.66-1.25) mg/dL Estimated GFR > 60 (>60) mL/min BUN/Creatinine Ratio 24.8 H (6-22) Glucose 122 H (80-110) mg/dL Lactate (0.7-2.1) mmol/L Calcium 10.5 H (8.4-10.2) mg/dL Total Bilirubin 0.6 (0.2-1.3) mg/dL AST 25 (17-59) IU/L ALT 19 (<50) IU/L Alkaline Phosphatase 71 (38-126) U/L Lactate Dehydrogenase 801 H (313-618) U/L C-Reactive Protein (<1.0) mg/dL Total Protein 7.6 (6.3-8.2) g/dL Albumin 4.5 (3.5-5.0) g/dL Globulin 3.1 (1.7-4.1) g/dL Albumin/Globulin Ratio 1.5 (1.0-2.8) Lipase 178 (23-300) U/L Procalcitonin 0.07 (<0.5) ng/mL Urine Color Urine Appearance Urine pH (4.5-8.0) Ur Specific [place] (1.000-1.035) Urine Protein (Negative) Urine Glucose (UA) (Negative) g/dL Urine Ketones (NEGATIVE) Urine Occult Blood (Negative) Urine Nitrate (Negative) Urine Bilirubin (NEGATIVE) Urine Urobilinogen (0.2) E.U./dL Ur Leukocyte Esterase (NEGATIVE) Urine RBC (0-5/HPF) Urine WBC (0-5/HPF) Ur Squamous Epith Cells (0-5/HPF) Amorphous Sediment Urine Bacteria (None) Ur Culture Indicated? 01/18/22 01/18/22 01/18/22 Range/Units 12:59 12:59 12:59 WBC (4.5-11.0) X10^3/uL RBC (4.5-5.9) X10^6/uL Hgb (13.5-17.5) g/dL Hct (41-53) % MCV (80-100) fL MCH (26-34) PG MCHC (30-36) % RDW (11.6-14.8) % Plt Count (150-400) X10^3/uL Neut % (Auto) Lymph % (Auto) [place] % (Auto) Eos % (Auto) Baso % (Auto) Lymph # (Auto) [place] # (Auto) Baso # (Auto) Total Counted Seg Neutrophils % (38-70) % Band Neutrophils % (3-7) % Lymphocytes % (Manual) (25-45) % Monocytes % (Manual) (2-11) % Eosinophils % (Manual) (2-4) % Basophils % (Manual) (0-1) % Metamyelocytes % (-0) % Myelocytes % (-0) % Neutrophils # (Manual) (7167-1477) /uL RBC Morphology Anisocytosis Macrocytosis ESR 16 H D (0-15) MM/HR Sodium (137-145) mmol/L Potassium (3.4-5.1) mmol/L Chloride (98-107) mmol/L Carbon Dioxide (22-32) mmol/L BUN (9-20) mg/dL Creatinine (0.66-1.25) mg/dL Estimated GFR (>60) mL/min BUN/Creatinine Ratio (6-22) Glucose (80-110) mg/dL Lactate 1.2 (0.7-2.1) mmol/L Calcium (8.4-10.2) mg/dL Total Bilirubin (0.2-1.3) mg/dL AST (17-59) IU/L ALT (<50) IU/L Alkaline Phosphatase (38-126) U/L Lactate Dehydrogenase (313-618) U/L C-Reactive Protein < 0.5 (<1.0) mg/dL Total Protein (6.3-8.2) g/dL Albumin (3.5-5.0) g/dL Globulin (1.7-4.1) g/dL Albumin/Globulin Ratio (1.0-2.8) Lipase (23-300) U/L Procalcitonin (<0.5) ng/mL Urine Color Urine Appearance Urine pH (4.5-8.0) Ur Specific [place] (1.000-1.035) Urine Protein (Negative) Urine Glucose (UA) (Negative) g/dL Urine Ketones (NEGATIVE) Urine Occult Blood (Negative) Urine Nitrate (Negative) Urine Bilirubin (NEGATIVE) Urine Urobilinogen (0.2) E.U./dL Ur Leukocyte Esterase (NEGATIVE) Urine RBC (0-5/HPF) Urine WBC (0-5/HPF) Ur Squamous Epith Cells (0-5/HPF) Amorphous Sediment Urine Bacteria (None) Ur Culture Indicated? 01/18/22 Range/Units 14:54 WBC (4.5-11.0) X10^3/uL RBC (4.5-5.9) X10^6/uL Hgb (13.5-17.5) g/dL Hct (41-53) % MCV (80-100) fL MCH (26-34) PG MCHC (30-36) % RDW (11.6-14.8) % Plt Count (150-400) X10^3/uL Neut % (Auto) Lymph % (Auto) [place] % (Auto) Eos % (Auto) Baso % (Auto) Lymph # (Auto) [place] # (Auto) Baso # (Auto) Total Counted Seg Neutrophils % (38-70) % Band Neutrophils % (3-7) % Lymphocytes % (Manual) (25-45) % Monocytes % (Manual) (2-11) % Eosinophils % (Manual) (2-4) % Basophils % (Manual) (0-1) % Metamyelocytes % (-0) % Myelocytes % (-0) % Neutrophils # (Manual) (5157-4333) /uL RBC Morphology Anisocytosis Macrocytosis ESR (0-15) MM/HR Sodium (137-145) mmol/L Potassium (3.4-5.1) mmol/L Chloride (98-107) mmol/L Carbon Dioxide (22-32) mmol/L BUN (9-20) mg/dL Creatinine (0.66-1.25) mg/dL Estimated GFR (>60) mL/min BUN/Creatinine Ratio (6-22) Glucose (80-110) mg/dL Lactate (0.7-2.1) mmol/L Calcium (8.4-10.2) mg/dL Total Bilirubin (0.2-1.3) mg/dL AST (17-59) IU/L ALT (<50) IU/L Alkaline Phosphatase (38-126) U/L Lactate Dehydrogenase (313-618) U/L C-Reactive Protein (<1.0) mg/dL Total Protein (6.3-8.2) g/dL Albumin (3.5-5.0) g/dL Globulin (1.7-4.1) g/dL Albumin/Globulin Ratio (1.0-2.8) Lipase (23-300) U/L Procalcitonin (<0.5) ng/mL Urine Color Yellow Urine Appearance Clear Urine pH 7.0 (4.5-8.0) Ur Specific [place] 1.010 (1.000-1.035) Urine Protein Trace H (Negative) Urine Glucose (UA) Negative (Negative) g/dL Urine Ketones Negative (NEGATIVE) Urine Occult Blood Negative (Negative) Urine Nitrate Negative (Negative) Urine Bilirubin Negative (NEGATIVE) Urine Urobilinogen 0.2 (0.2) E.U./dL Ur Leukocyte Esterase Negative (NEGATIVE) Urine RBC None seen (0-5/HPF) Urine WBC 0-1/hpf (0-5/HPF) Ur Squamous Epith Cells 0-1 /hpf (0-5/HPF) Amorphous Sediment 1+ Urine Bacteria None seen (None) Ur Culture Indicated? Cult not indicated Discharge Plan Departure Patient Disposition: Admitted As Inpatient Clinical Impression: Complicated wound infection, Leukocytosis Admit Date/Time: 01/18/22 16:54 Admit Provider: Ctae Patel <Mallorie Nina, DO - Last Filed: 01/18/22 19:44> Cosign ED Attending Cosignature Attestation: I was immediately available in the department for consultation. Documentation has been reviewed, patient case was discussed discussed keeping for hospitalization patient has a white count of 30 yesterday with 20 70s had a chronic wound which has not really significantly worsened but based on his elevated leukocytosis. No septic criteria met but is concerning for infectious versus other process.
[2022-01-18 14:15] LABS: Anisocytosis 1+; Macrocytosis 2+
[2022-01-18 14:51] LABS: C-Reactive Protein Quant < 0.5 mg/dL (<1.0)
[2022-01-18 15:08] LABS: Erythrocyte Sedimentation Rate 16 MM/HR (0-15)
[2022-01-18 15:12] LABS: Appearance Urine UA CLEAR; Bilirubin Urine UA NEGATIVE (NEGATIVE); Color Urine UA YELLOW; Glucose Urine UA NEGATIVE (Negative); Ketones Urine UA NEGATIVE (NEGATIVE); Leukocyte Esterase Urine UA NEGATIVE (NEGATIVE); Nitrite Urine UA NEGATIVE (Negative); Occult Blood Urine UA NEGATIVE (Negative); Protein Urine UA TRACE (Negative); Urobilinogen Urine UA 0.2 E.U./dL (0.2)
[2022-01-18 15:19] LABS: Amorphous Sediment Urine 1+; Bacteria Urine None Seen; Culture Indicated Urine Cult Not Indicated; RBC Urine None Seen (0-5/HPF); Squamous Epithelial Cell Urine 0-1 /HPF (0-5/HPF); WBC Urine 0-1/HPF (0-5/HPF)
[2022-01-18] MEDS: SODIUM CHLORIDE 0.9% 1,000 ML 1000 ML IV (15:35)
--- NOTE | 2022-01-18 17:02 | DI.MRI.S_ITS ---
PROCEDURE: MRFOOT LT WO CON INDICATIONS: Eval for osteomyelitis TECHNIQUE: Noncontrast sagittal T1 spin echo and T2 fast spin echo with fat saturation, long-axis T1 spin echo and T2 fast spin echo with fat saturation, short-axis T1 spin echo and T2 fast spin echo with fat saturation through the forefoot. COMPARISON: [facility], CR, XR FOOT LT MIN 3V, 01/18/2022, 14:20. FINDINGS: Image quality: Excellent. Bones and joints: There is a suggestion of a possible subacute stress fracture of the proximal neck of the 2nd metatarsal. No noncontrast foot MRI evidence of osteomyelitis. Soft tissues: Soft tissue edema suggests mild cellulitic change. IMPRESSION: 1. Question subtle changes of a potential stress fracture of the proximal neck of the 2nd metatarsal. 2. Although this study was performed without contrast, there are no findings which are suspicious for osteomyelitis. Dictated by: Christiano De La Rosa M.D. on 01/19/2022 at 10:51 Approved by: Christiano De La Rosa M.D. on 01/19/2022 at 10:56
[2022-01-18 17:14] LABS: Lactate Dehydrogenase 801 U/L (313-618)
--- NOTE | 2022-01-18 17:20 | PM.HP.1 ---
History of Present Illness History of Present Illness Date Patient Seen: 01/18/22 Chief complaint: wound care said come in blood work out whack Narrative: 81-year-old gentleman with underlying myelodysplastic syndrome in remission, previous history of spinal stenosis with peripheral neuropathy, nonmelanomatous skin cancer, chronic sinusitis, and chronic left lower extremity dorsal foot ulcer who presented to the emergency department at the urging of the wound care physician Dr. Tapia due to concern for abnormal laboratories. Patient reports his previous history of a chronic nonhealing wound to the right lower extremity. He states it took approximately 1 year to heal and ultimately did heal with the addition of prednisone. Approximately 2 months ago, he developed an ulcer to his dorsal foot, just proximal to the 2nd and 3rd toes. He states that he went to a walk-in clinic for evaluation and was placed on oral doxycycline for 9 days. He was subsequently seen in the [facility] Department on November 26 and was given a prescription for clindamycin for 10 days. His reports she had reported to the ED at that time that he had had previous MRSA infection. He was subsequently seen at the [facility] by Dr. Tapia on December 13 and was given a 10 day prescription of moxifloxacin at that time. Dr. Tapia also debrided the wound at that time. Additionally, blood work was taken which revealed a hemoglobin of 11.7, hemoglobin 10.1, platelet count of 88 he did have some atypical lymphocytes, 4%, and 36% monocytosis at that time. There was also 1% metamyelocytes, 1% myelocytes, and 3% promyelocytes. He subsequently left for [place] for 3 weeks. He was seen by wound clinic there on 1 occasion and also underwent debridement. Approximately 11 days ago, he return to the local wound clinic here, was seen by Dr. Eagle had some additional debridement performed. He followed up yesterday once again with Dr. Tapia, had some additional debridement and she sent the patient for follow-up labs due to the depth of the wound and some tendon exposure. Labs returned with a white blood cell count of 32.2, hemoglobin 10.3, hematocrit 31.3, MCV of 108.8, platelets of 90. 27% band count, 8% lymphs, 1% atypical lymphs, 27% monocytes, 4% metamyelocytes, 3% myelocytes, and 1% blast cells were noted. An ESR was performed and was 25. CRP was also done and was normal at less than 0.5. When labs are resulted today, patient was urged to come to the emergency department. Patient denies any fevers, chills, sweats, shortness of breath, nausea, vomiting, or diarrhea. He does report 1 large loose bowel movement today but had been constipated prior. He has had a diminished appetite with early satiety. January 16, 2021, patient weighed 165.3 lb. He maintained his weight in the 100 and 60s up through October 29 of this year. On December 18, his weight was down to 157 lb. Yesterday morning, his weight was down to 139.2 lb. Patient denies any easy bruising, bleeding, gingival bleeding. With regard to his myelodysplasia, he was dx'd in 2014. His reports he received active treatment for 2 years. The first year, he was treated w/Vidaza. The second year, he received Dacogen. He has been in remission for the last 4 years. His oncologist is Dr. Haynes. Patient History Medical History Myelodysplastic syndrome Peripheral neuropathy Spinal stenosis Surgical History Status post cholecystectomy Status post laminectomy Comment: Past medical history: Myelodysplastic syndrome with history as above Chronic sinusitis Peripheral neuropathy Spinal stenosis Chronic lower extremity wounds Previous vein cautery on the left side Agent [place] exposure in [place] Family & Social History Social History: Family history: Mother from congestive heart failure, father had Alzheimer's disease but from bone cancer, brother of cancer as well Safety & Behavioral: Feels Safe in Current Yes Environment Been Physically Hurt or No Threatened By a Person Tobacco & Substance use: Smoking Status Never smoker alcohol intake frequency 0-2 drinks per day Substance Use Type does not use Comment: Social history: Patient is a lifelong nonsmoker. Occasional alcohol use. Lives in [place] with his , Kourtney. Meds Home Medications and Allergies Home Medications Medication Instructions Recorded Confirmed Type clindamycin HCl 300 mg capsule 300 mg PO QID 12/22/18 12/22/18 History difluprednate 0.05 % eye drops 1 drp EYE-RIGHT TID 12/22/18 12/22/18 History doxycycline hyclate 100 mg tablet 100 mg PO BID 12/22/18 12/22/18 History gabapentin 300 mg capsule 300 mg PO QID 12/22/18 History hydrocodone 5 mg-acetaminophen 325 1 tab PO BID 12/22/18 12/22/18 History mg tablet hydrocodone 5 mg-acetaminophen 325 1 tab PO Q4-6H PRN wound pain #8 12/22/18 Rx mg tablet ([facility]) tabs tamsulosin 0.4 mg capsule 0.4 mg PO DAILY 12/22/18 12/22/18 History Allergies Allergy/AdvReac Type Severity Reaction Status Date / Time sulfamethoxazole Allergy Intermediate Rash Verified 01/18/22 12:30 [From Bactrim] trimethoprim [From Bactrim] Allergy Intermediate Rash Verified 01/18/22 12:30 Review of Systems Review of Systems Narrative: All other systems were reviewed negative Exam Vital Signs (past 8 hours): - 01/18/22 12:30 01/18/22 16:54 Temperature 98.8 F 97.7 F Pulse Rate 69 55 L Respiratory Rate 18 18 Blood Pressure 113/58 L 166/77 H Pulse Oximetry 96 99 Oxygen Delivery Method Room Air Oxygen Delivery Method Room Air Narrative Exam Narrative: GEN: Pleasant elderly male, somewhat forgetful, Alert and oriented x3, no acute distress HEENT: Normocephalic, face symmetric, pupils equal round reactive to light, extraocular movements intact, sclerae anicteric, conjunctiva clear, nares patent, oropharynx reveals an intact soft and hard palate with moist mucous membranes, dentition is fair NECK: Supple, no lymphadenopathy, thyroid without enlargement or nodularity, carotids no bruits CHEST: Respiratory excursions symmetric, clear to auscultation bilaterally CV: Regular rate and rhythm, no murmurs, rubs, gallops, PMI nondisplaced ABD: Soft, nontender, nondistended, bowel sounds present in all 4 quadrants, no organomegaly or masses appreciated EXTR: Warm, well perfused, no clubbing/cyanosis/edema, there is a dry 2.5 cm diameter ulcer noted over the dorsal foot, just proximal to the 2nd and 3rd toes. There is visible tendon, no exudate or drainage noted. Mild surrounding erythema, no significant warmth. Compared to prior photos from earlier in December, this is an moved SKIN: Warm and dry, without rash, no bruising or petechiae NEURO: Alert and oriented x3, cranial nerves 2 through 12 are intact and symmetric bilaterally, otherwise nonfocal PSYCH: Mood and affect is within normal limits, judgment and insight are appropriate Objective Labs Result Diagrams: 01/18/22 12:59 01/18/22 12:59 Labs: Laboratory Results - last 24 hr 01/18/22 01/18/22 01/18/22 12:50 12:59 12:59 WBC 27.2 H RBC 2.95 L Hgb 10.5 L Hct 32.0 L MCV 108.3 H MCH 35.7 H MCHC 33.0 RDW 15.5 H Plt Count 81 L Neut % (Auto) Not Reportable Lymph % (Auto) Not Reportable [place] % (Auto) Not Reportable Eos % (Auto) Not Reportable Baso % (Auto) Not Reportable Lymph # (Auto) Not Reportable [place] # (Auto) Not Reportable Baso # (Auto) Not Reportable Total Counted 100 Seg Neutrophils % 29.0 L Band Neutrophils % 24.0 H Lymphocytes % (Manual) 24.0 L Monocytes % (Manual) 12.0 H Eosinophils % (Manual) 1.0 L Basophils % (Manual) 0.0 Metamyelocytes % 4.0 H Myelocytes % 6.0 H Neutrophils # (Manual) 75378 H RBC Morphology Not Reportable Anisocytosis 1+ H Macrocytosis 2+ H ESR Sodium 139 Potassium 4.3 Chloride 102 Carbon Dioxide 29 BUN 29 H Creatinine 1.17 Estimated GFR > 60 BUN/Creatinine Ratio 24.8 H Glucose 122 H Lactate Calcium 10.5 H Total Bilirubin 0.6 AST 25 ALT 19 Alkaline Phosphatase 71 Lactate Dehydrogenase 801 H C-Reactive Protein Total Protein 7.6 Albumin 4.5 Globulin 3.1 Albumin/Globulin Ratio 1.5 Lipase 178 Procalcitonin 0.07 Urine Color Urine Appearance Urine pH Ur Specific [place] Urine Protein Urine Glucose (UA) Urine Ketones Urine Occult Blood Urine Nitrate Urine Bilirubin Urine Urobilinogen Ur Leukocyte Esterase Urine RBC Urine WBC Ur Squamous Epith Cells Amorphous Sediment Urine Bacteria Ur Culture Indicated? 01/18/22 01/18/22 01/18/22 12:59 12:59 12:59 WBC RBC Hgb Hct MCV MCH MCHC RDW Plt Count Neut % (Auto) Lymph % (Auto) [place] % (Auto) Eos % (Auto) Baso % (Auto) Lymph # (Auto) [place] # (Auto) Baso # (Auto) Total Counted Seg Neutrophils % Band Neutrophils % Lymphocytes % (Manual) Monocytes % (Manual) Eosinophils % (Manual) Basophils % (Manual) Metamyelocytes % Myelocytes % Neutrophils # (Manual) RBC Morphology Anisocytosis Macrocytosis ESR 16 H D Sodium Potassium Chloride Carbon Dioxide BUN Creatinine Estimated GFR BUN/Creatinine Ratio Glucose Lactate 1.2 Calcium Total Bilirubin AST ALT Alkaline Phosphatase Lactate Dehydrogenase C-Reactive Protein < 0.5 Total Protein Albumin Globulin Albumin/Globulin Ratio Lipase Procalcitonin Urine Color Urine Appearance Urine pH Ur Specific [place] Urine Protein Urine Glucose (UA) Urine Ketones Urine Occult Blood Urine Nitrate Urine Bilirubin Urine Urobilinogen Ur Leukocyte Esterase Urine RBC Urine WBC Ur Squamous Epith Cells Amorphous Sediment Urine Bacteria Ur Culture Indicated? 01/18/22 14:54 WBC RBC Hgb Hct MCV MCH MCHC RDW Plt Count Neut % (Auto) Lymph % (Auto) [place] % (Auto) Eos % (Auto) Baso % (Auto) Lymph # (Auto) [place] # (Auto) Baso # (Auto) Total Counted Seg Neutrophils % Band Neutrophils % Lymphocytes % (Manual) Monocytes % (Manual) Eosinophils % (Manual) Basophils % (Manual) Metamyelocytes % Myelocytes % Neutrophils # (Manual) RBC Morphology Anisocytosis Macrocytosis ESR Sodium Potassium Chloride Carbon Dioxide BUN Creatinine Estimated GFR BUN/Creatinine Ratio Glucose Lactate Calcium Total Bilirubin AST ALT Alkaline Phosphatase Lactate Dehydrogenase C-Reactive Protein Total Protein Albumin Globulin Albumin/Globulin Ratio Lipase Procalcitonin Urine Color Yellow Urine Appearance Clear Urine pH 7.0 Ur Specific [place] 1.010 Urine Protein Trace H Urine Glucose (UA) Negative Urine Ketones Negative Urine Occult Blood Negative Urine Nitrate Negative Urine Bilirubin Negative Urine Urobilinogen 0.2 Ur Leukocyte Esterase Negative Urine RBC None seen Urine WBC 0-1/hpf Ur Squamous Epith Cells 0-1 /hpf Amorphous Sediment 1+ Urine Bacteria None seen Ur Culture Indicated? Cult not indicated Assessment & Plan Assessment & Plan narrative: 1. Leukocytosis Patient presented to the emergency department at the request of his wound care physician secondary to significant leukocytosis with white count of 32.2. There is significant abnormality on the differential, with bandemia of 27%, atypical lymphocytes 1%, 27% monocytes, 4% metamyelocytes, 3% myelocytes, and 1% blasts. This is certainly concerning for transformation towards a leukemic process. He has a normal CRP and sed rate, making the fold ulcer far less likely to be the source of his leukocytosis. He has been on prednisone 30 mg daily for the last week. Again this could cause some generalized leukocytosis with increased neutrophils, but would not produce the findings that are presently seen in his differential. Will send an LDH. We will repeat laboratories tomorrow. Discussed possible need for bone marrow aspiration. 2. Chronic left dorsal foot ulcer X-ray was done today with no evidence of osteomyelitis. Compared to photos he had from December 23 and also mid December, his ulcer actually looks improved. However, he does have some tendon exposure. Will obtain an MRI of the foot. Will place on Rocephin for now. There is some reported history of MRSA remotely. Will check a MRSA swab as well. As I a.m. not concerned for active infection, I have not ordered vancomycin. 3. Myelodysplastic syndrome Diagnosed in 2014. Treated with active therapy for 2 years. Reportedly in remission for the last 4 years. He does have persistent macrocytosis and thrombocytopenia. He is followed by Dr. Haynes. 4. Severe protein calorie malnutrition Patient has had 11.3% unintentional weight loss in the past 1 month. Will have dietitian consult for recommendations and consideration of oral nutrition supplement. Will add multivitamin and vitamin 5. Spinal stenosis with peripheral neuropathy Await medication reconciliation. Will plan to resume his usual home medications inclusive of gabapentin and it appears also hydrocodone. 6. Azotemia Mild. BUN is 29. Creatinine is up from 0.94 on November 26 to 1.17 presently. However, distal within normal limits. Will monitor. Code status Full Prophylaxis Low Rich score Disposition Admit under observation status to the acute care unit. Time Spent With Patient Critical Care time: I spent a total of [] minutes of critical care time on this patient's care today; this time is exclusive of procedural time.
[2022-01-18 19:04] LABS: COVID19 -Nasal RAPID Negative (Negative)
[2022-01-18] MEDS: cefTRIAXone 2,000 MG in SODIUM CHLORIDE 0.9% 100 ML 200 MG IV (21:15)
[2022-01-18] MEDS: ACETAMINOPHEN 325 MG TABLET 650 MG PO (21:17)
[2022-01-18] MEDS: GABAPENTIN 300 MG CAPSULE PO (21:19)
[2022-01-19 03:03] VITALS: BP 138/71; PULSE 55; RESP 17; TEMP 36.8; O2SAT 95
[2022-01-19 07:05] LABS: BUN Creatinine Ratio 25.7 (6-22); Blood Urea Nitrogen 29 mg/dL (9-20); Calcium 10.3 mg/dL (8.4-10.2); Carbon Dioxide 30 mmol/L (22-32); Chloride 105 mmol/L (98-107); Estimated Glomerular Filt Rate > 60 mL/min (>60); Glucose 86 mg/dL (80-110); HEMOLYSIS < 15 (0-50); Hematocrit 31.5 % (41-53); Hemoglobin 10.5 g/dL (13.5-17.5); Mean Corpuscular HGB Conc 33.3 % (30-36); Mean Corpuscular Volume 108.1 fL (80-100); Platelet Count 70 X10^3/uL (150-400); Potassium 3.9 mmol/L (3.4-5.1); Red Blood Cell Count 2.91 X10^6/uL (4.5-5.9); Red Cell Distribution Width 15.3 % (11.6-14.8); Sodium 141 mmol/L (137-145); White Blood Cell Count 29.8 X10^3/uL (4.5-11.0)
[2022-01-19 07:08] LABS: Add Manual Diff / Slide Review YES
[2022-01-19 07:15] VITALS: BP 123/63; PULSE 55; RESP 17; TEMP 36.3; O2SAT 96
[2022-01-19 07:54] LABS: Neutrophils Absolute Manual 15794 /uL (3000-5900); Total Cells Counted 100
[2022-01-19 07:55] LABS: Anisocytosis 1+
[2022-01-19] MEDS: NIFEdipine 10 MG CAPSULE PO (08:36)
[2022-01-19] MEDS: TAMSULOSIN 0.4 MG CAPSULE PO (08:36)
[2022-01-19] MEDS: GABAPENTIN 300 MG CAPSULE PO ×4 (08:37→20:04)
[2022-01-19] MEDS: predniSONE 20 MG TABLET 30 MG PO (08:37)
[2022-01-19] MEDS: MULTIVITAMIN 1 TABLET 1 TAB PO (08:37)
[2022-01-19] MEDS: THIAMINE 100 MG TABLET PO (08:37)
--- NOTE | 2022-01-19 10:27 | CM.DANOTE ---
DCP Assessment: Payor: Medicare PCP: MD Saundra Pt is a 81 y.o. M who presented to the ER by the instruction of his would clinic MD, due to elevated WBC. Pt has a ulcer on the L foot that has been present for at least 2 months and has seen multiple MD's over this period of time. Pt has a PMH of myelodysplastic syndrome, peripheral neuropathy, and spinal stenosis. Pt has elevated WBC and anemia and pt was started on PO doxycycline yesterday evening. Foot x-ray was ordered and negative for osteomyelitis. CXR was negative. Pt was admitted as inpatient for further management and evaluation of symptoms. DCP met with pt this morning to discuss discharge planning needs. Pt sitting up in bed. DCP introduced herself and role. Pt states that he lives in [place] with his , Kourtney, in a one story house and is fairly independent at baseline. Pt states that he uses a cane and still drives, although his is trying to get him to stop driving due to his peripheral neuropathy. still drives. Pt states that he has an appointment with his wound clinic on Thursday and Thursday of this week. Pt states that once he gets discharged from the hospital that his will take him home. Pt states that he sees Dr. Haynes at [facility] for his hematology needs. Pt states he has a son that lives in [place] and is a huge help to him and his . Pt denies any discharge resources at this time. NCP does not identify any needs currently but still awaiting evals and diagnostics to determine. White board was updated with DCP contact information and instructed to call. Pt thankful for the discussion. P: Once patient is deemed medically stable, pt to discharge home via spouse POV. April Knapp RN/CLARK Discharge Planning/Care Management CM Discharge Assessment Start: 01/19/22 09:22 Freq: Status: Active Protocol: Document 01/19/22 09:22 TREE (Rec: 01/19/22 09:24 TREE [id number]) Discharge Planning Assessment Assigned [place]er In April Knapp RN/CLARK Advance Directives? No History Provided By Patient,Medical Record Prior Living Arrangements House Household Members spouse Type of transporation used prior to Drives own vehicle admit Comment Pt states is constantly asking him to quit driving. Independent with ADL's Yes Is patient alert and oriented? Yes Caregiver for Another No DME Already Rented / Owned Cane Discharge Plan Home Community Services Wound Care Transportation Arrangement Spouse POV Referrals Initiated None needed Additional Comment At this time. Whiteboard Updated in Patient Room with Yes name and ext. # of Caser In Comment Instructed to call Review Status In Process Please Provide Date Initial DC 01/19/22 Assessment Was Performed Next Review Type Continued Stay Review
[2022-01-19 11:40] VITALS: BP 134/70; PULSE 69; RESP 18; TEMP 36.4; O2SAT 97
--- NOTE | 2022-01-19 15:36 | PC.NURSE ---
Picture taken on 01/19/22 at 1500 Pt Gabriel James top of left foot wound prior to dsg replacement
--- NOTE | 2022-01-19 15:39 | PC.NURSE ---
PIcture taken 01/19/22 at 1500 - picture taken of Gabriel James left top of foot prior to dsg change.
[2022-01-19 16:20] VITALS: BP 136/75; PULSE 59; RESP 19; TEMP 36.6; O2SAT 96
--- NOTE | 2022-01-19 18:05 | PM.PN.1 ---
Subjective Subjective Date Patient Seen: 01/19/22 Interval history: 81-year-old gentleman with underlying myelodysplastic syndrome in remission, previous history of spinal stenosis with peripheral neuropathy, nonmelanomatous skin cancer, chronic sinusitis, and chronic left lower extremity dorsal foot ulcer who was admitted yesterday after being urged by his wound care physician to come in for evaluation due to abnormal blood work. Patient reports that his foot feels about the same today. No worsening symptoms. He slept well. No new complaints. Exam Vital Signs (past 8 hours): - 01/19/22 11:40 01/19/22 16:20 Temperature 97.6 F 97.9 F Pulse Rate 69 59 L Respiratory Rate 18 19 Blood Pressure 134/70 136/75 Pulse Oximetry 97 96 Oxygen Flow Rate 0 0 Oxygen Delivery Method Room Air Oxygen Flow Rate 0 Narrative Exam Narrative: GEN: Very pleasant elderly male, Alert and oriented x 3, NAD HEENT:NC, Face symmetric CHEST: Respiratory excursions symmetric, CTAB CV: RRR, no M/R/G ABD: Soft, NT/ND, BT present in all 4 quadrants, no organomegaly or masses EXTR: warm, well perfused, no C/C/E, dorsal foot ulcer proximal to the 2nd and 3rd toes measuring approximately 2.5 cm diameter. There is visible tendon laterally. No exudate or drainage. Mild surrounding skin erythema without warmth. SKIN: warm and dry, no rash NEURO: Alert and oriented x 3, nonfocal Objective Labs Result Diagrams: 01/19/22 06:20 01/19/22 06:20 Labs: Laboratory Results - last 24 hr 01/18/22 01/19/22 01/19/22 18:30 00:21 06:20 WBC 29.8 H RBC 2.91 L Hgb 10.5 L Hct 31.5 L MCV 108.1 H MCH 36.0 H MCHC 33.3 RDW 15.3 H Plt Count 70 L Neut % (Auto) Not Reportable Lymph % (Auto) Not Reportable [place] % (Auto) Not Reportable Eos % (Auto) Not Reportable Baso % (Auto) Not Reportable Lymph # (Auto) Not Reportable [place] # (Auto) Not Reportable Baso # (Auto) Not Reportable Total Counted 100 Seg Neutrophils % 34.0 L Band Neutrophils % 19.0 H Lymphocytes % (Manual) 15.0 L Monocytes % (Manual) 22.0 H Metamyelocytes % 9.0 H Myelocytes % 1.0 H Neutrophils # (Manual) 75248 H RBC Morphology See below Anisocytosis 1+ H Sodium Potassium Chloride Carbon Dioxide BUN Creatinine Estimated GFR BUN/Creatinine Ratio Glucose Calcium Nasal Screen MRSA (PCR) Negative for mrsa SARS-CoV-2 (PCR) Negative 01/19/22 06:20 WBC RBC Hgb Hct MCV MCH MCHC RDW Plt Count Neut % (Auto) Lymph % (Auto) [place] % (Auto) Eos % (Auto) Baso % (Auto) Lymph # (Auto) [place] # (Auto) Baso # (Auto) Total Counted Seg Neutrophils % Band Neutrophils % Lymphocytes % (Manual) Monocytes % (Manual) Metamyelocytes % Myelocytes % Neutrophils # (Manual) RBC Morphology Anisocytosis Sodium 141 Potassium 3.9 Chloride 105 Carbon Dioxide 30 BUN 29 H Creatinine 1.13 Estimated GFR > 60 BUN/Creatinine Ratio 25.7 H Glucose 86 Calcium 10.3 H Nasal Screen MRSA (PCR) SARS-CoV-2 (PCR) [facility] Medical History Myelodysplastic syndrome Peripheral neuropathy Spinal stenosis Surgical History Status post cholecystectomy Status post laminectomy Social History household members: spouse Smoking Status: Never smoker alcohol intake: current Assessment & Plan Assessment & Plan narrative: 1. Leukocytosis Patient continues to have significant leukocytosis with bandemia, atypical lymphocytes, monocytes, and other immature cells. No blasts were identified on his admission labs or current labs. LDH was done yesterday and was significantly elevated at 801. Expressed my concern to he and his that he is developing an acute leukemic process. Plan to contact Dr. Haynes tomorrow to discuss bone marrow aspiration. Patient would like to pursue this on an outpatient basis. Anticipate he will be able to discharge home tomorrow with planned outpatient follow-up 2. Chronic left dorsal foot ulcer MRI of the foot was done today with no evidence of osteomyelitis. There may be a subtle stress fracture of the 2nd metatarsal. Continue Rocephin for now but anticipate this can be discontinued at discharge. 3. Myelodysplastic syndrome Diagnosed in 2014, diff treatment pursue years with remission for the past 4 years. He does have persistent thrombocytopenia, macrocytosis, and white blood cell dyscrasia. Follow-up with Dr. Haynes as noted above. 4. Severe protein calorie malnutrition Await dietitian consult. Patient sustained 11.3% unintentional weight loss over 1 month. Continue multivitamin and thiamine. 5. Spinal stenosis with peripheral neuropathy Continue usual home medications. 6. Azotemia Mild, stable. Code status Full Prophylaxis Low Rich score Disposition Anticipate discharge home tomorrow Time Spent With Patient Critical Care time: I spent a total of [] minutes of critical care time on this patient's care today; this time is exclusive of procedural time. Quality VTE Deep Vein Thrombosis/Pulmonary Embolism Present on Admission: No
[2022-01-19] MEDS: cefTRIAXone 2,000 MG in SODIUM CHLORIDE 0.9% 100 ML 200 MG IV (19:25)
[2022-01-19] MEDS: SODIUM CHLORIDE 0.9% FLUSH 10 ML IV (19:26)
[2022-01-19] MEDS: HYDROCODONE/ACET 5/325 TABLET 1 TAB PO (20:04)
--- NOTE | 2022-01-19 22:21 | PC.NURSE ---
Patient is alert and oriented. Very LOWER BRULE with bilateral hearing aids. Breath sounds CTA w/last oximetry reading being 96%. HRR. Denies nausea. BT present and is passing flatus. Denies dysuria, frequency or urgency with urination. Able to turn himself in bed and is up to bathroom with cane and SBA; weakness in bilateral LE although patient states no change from before admission. Dressing to left foot is CDI. Complains of intermittent pain depending on movment of foot; receiving scheduled Vicodin as well as Gabapentin. Bilateral calf SCD's applied at change of shift. Fall risk score is high and bed alarm is activated.
[2022-01-19 23:48] VITALS: BP 131/71; PULSE 65; RESP 17; TEMP 36.7; O2SAT 95
[2022-01-20 06:36] LABS: Hematocrit 32.3 % (41-53); Hemoglobin 10.8 g/dL (13.5-17.5); Mean Corpuscular HGB Conc 33.5 % (30-36); Mean Corpuscular Hemoglobin 35.9 PG (26-34); Mean Corpuscular Volume 107.4 fL (80-100); Platelet Count 72 X10^3/uL (150-400); Red Blood Cell Count 3.01 X10^6/uL (4.5-5.9); Red Cell Distribution Width 15.3 % (11.6-14.8)
[2022-01-20 06:43] LABS: Add Manual Diff / Slide Review YES
[2022-01-20 06:53] LABS: White Blood Cell Count 34.9 X10^3/uL (4.5-11.0)
--- NOTE | 2022-01-20 07:22 | P.DS_ITS ---
History of Present Illness History of Present Illness Chief complaint: wound care said come in blood work out whack Narrative: 81-year-old gentleman with underlying myelodysplastic syndrome in remission, previous history of spinal stenosis with peripheral neuropathy, nonmelanomatous skin cancer, chronic sinusitis, and chronic left lower extremity dorsal foot ulcer who presented to the emergency department at the urging of the wound care physician Dr. Tapia due to concern for abnormal laboratories.? Patient reports his previous history of a chronic nonhealing wound to the right lower extremity.? He states it took approximately 1 year to heal and ultimately did heal with the addition of prednisone.? Approximately 2 months ago, he developed an ulcer to his dorsal foot, just proximal to the 2nd and 3rd toes.? He states that he went to a walk-in clinic for evaluation and was placed on oral doxycycline for 9 days.? He was subsequently seen in the [facility] Emergency Department on November 26 and was given a prescription for clindamycin for 10 days.? His reports she had reported to the ED at that time that he had had previous MRSA infection.? He was subsequently seen at the [facility] by Dr. Tapia on December 13 and was given a 10 day prescription of moxifloxacin at that time.? Dr. Tapia also debrided the wound at that time.? Additionally, blood work was taken which revealed a hemoglobin of 11.7, hemoglobin 10.1, platelet count of 88 he did have some atypical lymphocytes, 4%, and 36% monocytosis at that time.? There was also 1% metamyelocytes, 1% myelocytes, and 3% promyelocytes.? He subsequently left for [place] for 3 weeks.? He was seen by wound clinic there on 1 occasion and also underwent debridement.? Approximately 11 days ago, he return to the local wound clinic here, was seen by Dr. Eagle had some additional debridement performed.? He followed up yesterday once again with Dr. Tapia, had some additional debridement and she sent the patient for follow-up labs due to the depth of the wound and some tendon exposure.? Labs returned with a white blood cell count of 32.2, hemoglobin 10.3, hematocrit 31.3, MCV of 108.8, platelets of 90.? 27% band count, 8% lymphs, 1% atypical lymphs, 27% monocytes, 4% metamyelocytes, 3% myelocytes, and 1% blast cells were noted.? An ESR was performed and was 25.? CRP was also done and was normal at less than 0.5.? When labs are resulted today, patient was urged to come to the emergency department. Patient denies any fevers, chills, sweats, shortness of breath, nausea, vomiting, or diarrhea.? He does report 1 large loose bowel movement today but had been constipated prior.? He has had a diminished appetite with early s atiety.? January 16, 2021, patient weighed 165.3 lb.? He maintained his weight in the 100 and 60s up through October 29 of this year.? On December 18, his weight was down to 157 lb.? Yesterday morning, his weight was down to 139.2 lb.? Patient denies any easy bruising, bleeding, gingival bleeding.? With regard to his myelodysplasia, he was dx'd in 2014.? His reports he received active treatment for 2 years.? The first year, he was treated w/Vidaza.? The second year, he received Dacogen. He has been in remission for the last 4 years.? His oncologist is Dr. Haynes. Discharge Providers Provider Date of admission: 01/18/22 16:54 Discharge Date: 01/20/22 Primary care physician: Jake Arguello MD Consults: 01/18/22 20:04 Consult to Dietitian, Adult Routine Comment: Reason For Exam: Protein al malnutrition (17.8# wt loss/1 mo) Discharge provider: Vinicius Cisneros DO Summary Hospital Course Discharge Diagnosis: 1. Leukocytosis Patient continues to have significant leukocytosis with bandemia, atypical lymphocytes, monocytes, and other immature cells.? No blasts were identified on his admission labs or current labs.? LDH was done yesterday and was significantly elevated at 801.? Expressed my concern to he and his that he is developing an acute leukemic process.? Attempted to contact Dr. Haynes tomorrow to discuss bone marrow aspiration.? Patient would like to pursue this on an outpatient basis.? He has f/u with Dr. Haynes on 02/05/22. 2. Chronic left dorsal foot ulcer MRI of the foot was done today with no evidence of osteomyelitis.? There may be a subtle stress fracture of the 2nd metatarsal.? Received rocephin but discontinued at discharge. 3. Myelodysplastic syndrome Diagnosed in 2014, diff treatment pursue years with remission for the past 4 years.? He does have persistent thrombocytopenia, macrocytosis, and white blood cell dyscrasia.? Follow-up with Dr. Haynes as noted above. 4. Severe protein calorie malnutrition Await dietitian consult.? Patient sustained 11.3% unintentional weight loss over 1 month.? Continue multivitamin and thiamine. 5. Spinal stenosis with peripheral neuropathy Continue usual home medications. 6. Azotemia Mild, stable. Hospital Course: 81-year-old gentleman with underlying myelodysplastic syndrome in remission, previous history of spinal stenosis with peripheral neuropathy, nonmelanomatous skin cancer, chronic sinusitis, and chronic left lower extremity dorsal foot ulcer who was admitted yesterday after being urged by his wound care physician to come in for evaluation due to abnormal blood work. Found to have significant abnormality on the differential, with bandemia of 27%, atypical lymphocytes 1%, 27% monocytes, 4% metamyelocytes, 3% myelocytes, and 1% blasts.? Was concerning for transformation towards a leukemic process.? He has a normal CRP and sed rate, making the fold ulcer far less likely to be the source of his leukocytosis.? He has been on prednisone 30 mg daily for the last week, and was 40mg daily last week.? Again this could cause some generalized leukocytosis with increased neutrophils, but would not produce the findings that are presently seen in his differential.? Called and discussed CBC with diff with oncologist at [facility] who said the labs do appear to be abnormal and may represent transformation of his MDS. Patient will see Dr. Haynes in clinic with new labs on 02/05/22. He also has f/u with Dr. Parikh rheumatology on Jan 23. Patient was told to discuss the possibility of leukemia cutis being the explanation for his left food wound. Exam Vital Signs (past 8 hours): - 01/19/22 23:48 01/19/22 23:48 Temperature 98.0 F Pulse Rate 65 Respiratory Rate 17 Blood Pressure 131/71 Pulse Oximetry 95 Oxygen Flow Rate 0 Oxygen Delivery Method Room Air Oxygen Flow Rate 0 Narrative Exam Narrative: GEN: Very pleasant elderly male, Alert and oriented x 3, NAD HEENT:NC, Face symmetric CHEST: Respiratory excursions symmetric, CTAB CV: RRR, no M/R/G ABD: Soft, NT/ND, BT present in all 4 quadrants, no organomegaly or masses EXTR: warm, well perfused, no C/C/E, dorsal foot ulcer proximal to the 2nd and 3rd toes measuring approximately 2.5 cm diameter. There is visible tendon laterally. No exudate or drainage. Mild surrounding skin erythema without warmth. SKIN: warm and dry, no rash NEURO: Alert and oriented x 3, nonfocal Objective Labs Result Diagrams: 01/20/22 06:00 01/19/22 06:20 Labs: Laboratory Results - last 24 hr 01/19/22 01/20/22 06:20 06:00 WBC 34.9 H* RBC 3.01 L Hgb 10.8 L Hct 32.3 L MCV 107.4 H MCH 35.9 H MCHC 33.5 RDW 15.3 H Plt Count 72 L Neut % (Auto) Not Reportable Lymph % (Auto) Not Reportable [place] % (Auto) Not Reportable Eos % (Auto) Not Reportable Baso % (Auto) Not Reportable Lymph # (Auto) Not Reportable [place] # (Auto) Not Reportable Baso # (Auto) Not Reportable Total Counted 100 Seg Neutrophils % 34.0 L Band Neutrophils % 19.0 H Lymphocytes % (Manual) 15.0 L Monocytes % (Manual) 22.0 H Metamyelocytes % 9.0 H Myelocytes % 1.0 H Neutrophils # (Manual) 54289 H RBC Morphology See below Anisocytosis 1+ H PFSH Medical History Myelodysplastic syndrome Peripheral neuropathy Spinal stenosis Surgical History Status post cholecystectomy Status post laminectomy Social History household members: spouse Smoking Status: Never smoker alcohol intake: current Discharge Plan Discharge Plan Patient Disposition: Home Provider Discharge Comment: You were sent to the hospital because of high white blood cell count that your wound care doctor noticed. The concern was that the white blood cell count could be high from an infection in your foot. An MRI however showed no evidence of bone infection the left foot. I called and spoke with Dr. Soto, oncology at [facility] who said your labs are abnormal and you should be seen by Dr. Haynes soon for a check-up. I'm glad you have an appt with him on Feb 05. 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 I will send the records from your hospitalization including your labs to Dr. Haynes for him to review. Discharge orders & Medications Prescriptions: Continued prednisone 10 mg tablet 30 mg PO DAILY Label Comments: Take 4 tablets by mouth every morning for 7 days, then 3 tablets by mouth every morning thereafter sildenafil 100 mg tablet 100 mg PO DAILY PRN (Reason: Erectile Dysfunction) Label Comments: Take 1 tablet by mouth once a day as needed nifedipine 10 mg capsule 10 mg PO DAILY Label Comments: Take one capsule by mouth once daily, drink plenty of water hydrocodone-acetaminophen 5-325 mg tablet 1 tab PO BID tamsulosin 0.4 mg capsule 0.4 mg PO DAILY gabapentin 300 mg capsule 400 mg PO TID Label Comments: pt takes 400 mg @ 0900, 1500 700 mg @ 2100 (HS) doxycycline hyclate 100 mg tablet 100 mg PO BID hydrocodone-acetaminophen [[place]] 5-325 mg tablet 1 tab PO Q4-6H PRN (Reason: wound pain) Qty: 8 0RF Rx Instructions: do not drive Follow up/Referrals: Jake Arguello MD [Primary Care Provider] - Visit Report/Discharge Packet Instructions: DI for Wound Infection, DI for Leukocytosis Discharge Data Primary Care Provider: Jake Arguello Quality VTE Deep Vein Thrombosis/Pulmonary Embolism Present on Admission: No
[2022-01-20 08:00] VITALS: BP 141/72; PULSE 50; RESP 18; TEMP 36.3; O2SAT 96
[2022-01-20 08:14] LABS: Neutrophils Absolute Manual 17450 /uL (3000-5900); Nucleated Red Blood Cells 2 #/Diff; Total Cells Counted 100
[2022-01-20 08:16] LABS: Anisocytosis 1+; Macrocytosis 1+; Platelet Estimate Decreased on smear
[2022-01-20] MEDS: GABAPENTIN 300 MG CAPSULE PO (09:19)
[2022-01-20] MEDS: TAMSULOSIN 0.4 MG CAPSULE PO (09:19)
[2022-01-20] MEDS: MULTIVITAMIN 1 TABLET 1 TAB PO (09:19)
[2022-01-20] MEDS: HYDROCODONE/ACET 5/325 TABLET 1 TAB PO (09:19)
[2022-01-20] MEDS: THIAMINE 100 MG TABLET PO (09:19)
[2022-01-20] MEDS: predniSONE 20 MG TABLET 30 MG PO (09:20)
[2022-01-20] MEDS: NIFEdipine 10 MG CAPSULE PO (09:21)
--- NOTE | 2022-01-20 10:41 | DIET.CONS ---
Dietary Consultation Note Admission Date: 01/18/2022 16:54 Assessment: 81y M admitted with abnormal bloodwork and ulcer on top of foot with exposed tendons referred to nutrition for reported unintentional weight loss. Pt with UBW 75kg, has noticed 13.3% unintentional weight loss over the past 3mo (severe) with BMI 22.2 (low for age). 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 Pt had chronic wound on other foot that took 1y to heal. Usual Day: B: cold cereal c 2% or whole milk, sweet and spicy decaf tea L: soup, sometimes chili, sometimes hot dogs c salad D: protein, starch and veggie (often fish or venison), sometimes spaghetti or stir kulkarni. Pt takes daily Vitamin C supplement NPFE shows significant muscle and fat wasting from shoulders to feet, little to no signs in face (no depressions in temples/orbitals/masseter). Pt with + boxed shoulders, protruding clavicle and ribs, prominent bony landmarks on legs, unhealing open wound (to tendon) on top of foot. Ht: 175.26 cm Wt: 68.039 kg BMI: 22.1 UBW: 75kg Last BM: 01/19/22 (01/19/22 16:20) MNA: 13 Tom Score: 20 Diet: 01/18/22 Dinner General (Regular) Diet Diet Modifications: Nutrition Percent Meal Consumed 100% 01/20/22 08:46 Percent Meal Consumed 100% 01/19/22 17:54 Percent Meal Consumed 100% 01/19/22 08:45 Labs: RBC 3.01 X10^6/uL (4.5-5.9) L 01/20/22 06:00 Hgb 10.8 g/dL (13.5-17.5) L 01/20/22 06:00 Hct 32.3 % (41-53) L 01/20/22 06:00 Creatinine 1.13 mg/dL (0.66-1.25) 01/19/22 06:20 Lactate 1.2 mmol/L (0.7-2.1) 01/18/22 12:59 Nutrition Diagnosis: Severe Acute Protein Calorie Malnutrition r/t inadequate nutrient intake for healing and probable myeloproliferative disorder aeb 11.3% unintentional weight loss in 3mo (severe), BMI 22.2 (low for age), pt sent to ED by wound care for abnormal blood labs and exposed tendon in foot wound, food recall showing low intake Vit A, zinc, and protein, adequate intake Vit C. Interventions: 1. Provided pt handout on MNT for wound healing. Collaborated c pt on ways to improve current diet to support wound healing. Pt agrees to adding protein to breakfast (glass milk or yogurt or egg or pb), increasing frequency of chili (with beans, meat, tomato, carrot) at lunch, and ensuring palm size portion of meat c dinners. EER: 2,000- 2,100kcals (30-32kcal/kg per PCM), 85-90g PRO (1.3- 1.5g/kg per PCM) Electronically Signed by: Dior Smyth 01/20/22 10:41 Clinical Dietitian [address] [address]
--- NOTE | 2022-01-20 11:22 | CM.DPC ---
DCP Cont: DCP instructed by with help in contacting Dr. Haynes. DCP left message for puff ironer for Dr. Haynes @ [facility] and asked if they could call back to discuss and update the team on pt. DCP awaiting applications systems engineer back. DCP to continue to follow. April Knapp RN/DCP
--- NOTE | 2022-01-20 11:55 | PC.NURSE ---
Pt is dressed and ready for discharge home with Spouse. IV has been removed. public service director in to see Pt and answer any questions. Went over d/c instructions with Pt and Spouse-discussed d/c meds, time of last dose, reviewed stroke education and follow up plan. Message left for Dr. Haynes by Care management. Pt and Spouse denied further questions and is ready to be taken out via w/c by FLORAL MANAGER to POV with Spouse and all belongings as soon as he finishes lunch. Pt to follow up as already scheduled with Wound Care. No new prescriptions, no driving while taking narcotics, and drink plenty of fluids to prevent constipation or dehydration. Additionally Director Of Operations For Therapy was in to see Pt and make recommendations for a diet that will help with wound healing.
== END 2022-01-20 13:01 | disposition home or self-care (01) | DRG 834 ==
LOC: ED 16:41 → AC 16:54
PROVIDERS: Emergency Medicine; Admitting Provider Family Medicine; Emergency Provider Registered Nurse; PCP Family Medicine; Referring Provider Registered Nurse; Visit Provider Family Medicine
DX: C92.00 Acute myeloblastic leukemia, not having achieved remission (principal); E43 Unspecified severe protein-calorie malnutrition; L97.529 Non-pressure chronic ulcer of other part of left foot with unspecified severity; M48.00 Spinal stenosis, site unspecified; G62.9 Polyneuropathy, unspecified; N52.9 Male erectile dysfunction, unspecified; R00.1 Bradycardia, unspecified; Z20.822 Contact with and (suspected) exposure to COVID-19; Z68.22 Body mass index [BMI] 22.0-22.9, adult; L08.9 Local infection of the skin and subcutaneous tissue, unspecified; S81.802A Unspecified open wound, left lower leg, initial encounter
CPT/HCPCS: 11042; 36415; 71045; 73630; 73718; 80048; 80053; 81001; 83605; 83615; 83690; 84145; 85007; 85025; 85651; 86140; 87040; 87070; 87077; 87147; 87186; 87205; 87635; 87797; 93005; 96360; 99284; C9803; J0696

== ENCOUNTER → 2022-01-22 12:00 | Outpatient (CLI) | payer MEDICARE, OTHER, SELFPAY ==
[2022-01-18 21:43] VITALS: BMI 22.1
== END ==
PROVIDERS: PCP Family Medicine; Referring Provider Family Medicine; Visit Provider Family Medicine
DX: G60.3 Idiopathic progressive neuropathy (principal); L97.525 Non-pressure chronic ulcer of other part of left foot with muscle involvement without evidence of necrosis; R60.0 Localized edema
CPT/HCPCS: 97607; 99212

== ENCOUNTER → 2022-01-24 11:23 | Outpatient (CLI) | payer MEDICARE, OTHER, SELFPAY ==
[2022-01-18 21:43] VITALS: BMI 22.1
== END ==
PROVIDERS: PCP Family Medicine; Referring Provider Physician Assistant Medical; Visit Provider Family Medicine
DX: I70.245 Atherosclerosis of native arteries of left leg with ulceration of other part of foot (principal); L97.525 Non-pressure chronic ulcer of other part of left foot with muscle involvement without evidence of necrosis
CPT/HCPCS: 97607

== ENCOUNTER → 2022-01-31 11:42 | Outpatient (CLI) | payer MEDICARE, OTHER, SELFPAY ==
[2022-01-18 21:43] VITALS: BMI 22.1
== END ==
PROVIDERS: PCP Family Medicine; Referring Provider Family Medicine; Visit Provider Nurse Practitioner Family
DX: G60.9 Hereditary and idiopathic neuropathy, unspecified (principal); L97.522 Non-pressure chronic ulcer of other part of left foot with fat layer exposed; D46.9 Myelodysplastic syndrome, unspecified; R60.0 Localized edema
CPT/HCPCS: 11042; 97607

== ENCOUNTER → 2022-02-07 13:11 | Outpatient (CLI) | payer MEDICARE, OTHER, SELFPAY ==
[2022-01-18 21:43] VITALS: BMI 22.1
== END ==
PROVIDERS: PCP Family Medicine; Referring Provider Family Medicine; Visit Provider Family Medicine
DX: S81.801A Unspecified open wound, right lower leg, initial encounter (principal)
CPT/HCPCS: 11042; 97607; 99213

== ENCOUNTER → 2022-02-14 10:30 | Outpatient (CLI) | payer MEDICARE, OTHER, SELFPAY ==
[2022-01-18 21:43] VITALS: BMI 22.1
== END ==
PROVIDERS: PCP Family Medicine; Referring Provider Physician Assistant Medical; Visit Provider Family Medicine
DX: L97.522 Non-pressure chronic ulcer of other part of left foot with fat layer exposed (principal); L95.8 Other vasculitis limited to the skin; R60.0 Localized edema; M79.672 Pain in left foot
CPT/HCPCS: 99213

== ENCOUNTER → 2022-02-21 15:28 | Outpatient (CLI) | payer MEDICARE, OTHER, SELFPAY ==
[2022-01-18 21:43] VITALS: BMI 22.1
== END ==
PROVIDERS: PCP Family Medicine; Referring Provider Family Medicine; Visit Provider Nurse Practitioner Family
DX: G60.9 Hereditary and idiopathic neuropathy, unspecified (principal); L97.522 Non-pressure chronic ulcer of other part of left foot with fat layer exposed; D46.9 Myelodysplastic syndrome, unspecified; L08.9 Local infection of the skin and subcutaneous tissue, unspecified; M79.672 Pain in left foot; R60.0 Localized edema; L53.9 Erythematous condition, unspecified
CPT/HCPCS: 11042; 87070; 87075; 87077; 87186; 87205; 99214

== ENCOUNTER → 2022-02-28 11:07 | Outpatient (CLI) | payer MEDICARE, OTHER, SELFPAY ==
[2022-01-18 21:43] VITALS: BMI 22.1
== END ==
PROVIDERS: PCP Family Medicine; Referring Provider Family Medicine; Visit Provider Nurse Practitioner Family
DX: L95.8 Other vasculitis limited to the skin (principal); L97.522 Non-pressure chronic ulcer of other part of left foot with fat layer exposed; M79.672 Pain in left foot; D46.9 Myelodysplastic syndrome, unspecified
CPT/HCPCS: 15275; Q4195

== ENCOUNTER → 2022-03-07 11:29 | Outpatient (CLI) | payer MEDICARE, OTHER, SELFPAY ==
[2022-01-18 21:43] VITALS: BMI 22.1
== END ==
PROVIDERS: PCP Family Medicine; Referring Provider Family Medicine; Visit Provider Nurse Practitioner Family
DX: L95.8 Other vasculitis limited to the skin (principal); L97.522 Non-pressure chronic ulcer of other part of left foot with fat layer exposed; D46.9 Myelodysplastic syndrome, unspecified; G60.9 Hereditary and idiopathic neuropathy, unspecified; R60.0 Localized edema
CPT/HCPCS: 15275; Q4196

== ENCOUNTER → 2022-03-14 11:08 | Outpatient (CLI) | payer MEDICARE, OTHER, SELFPAY ==
[2022-01-18 21:43] VITALS: BMI 22.1
== END ==
PROVIDERS: PCP Family Medicine; Referring Provider Physician Assistant Medical; Visit Provider Nurse Practitioner Family
DX: G60.9 Hereditary and idiopathic neuropathy, unspecified (principal); L97.522 Non-pressure chronic ulcer of other part of left foot with fat layer exposed; L95.8 Other vasculitis limited to the skin; R60.0 Localized edema; L53.9 Erythematous condition, unspecified; D46.9 Myelodysplastic syndrome, unspecified
CPT/HCPCS: 15275; 99213; Q4195

== ENCOUNTER → 2022-03-21 09:19 | Outpatient (CLI) | payer MEDICARE, OTHER, SELFPAY ==
[2022-01-18 21:43] VITALS: BMI 22.1
== END ==
PROVIDERS: PCP Family Medicine; Referring Provider Family Medicine; Visit Provider Nurse Practitioner Family
DX: L95.8 Other vasculitis limited to the skin (principal); L97.522 Non-pressure chronic ulcer of other part of left foot with fat layer exposed; D46.9 Myelodysplastic syndrome, unspecified; Z79.52 Long term (current) use of systemic steroids; G60.9 Hereditary and idiopathic neuropathy, unspecified
CPT/HCPCS: 15275; Q4196

== ENCOUNTER → 2022-04-11 14:25 | Outpatient (CLI) | payer MEDICARE, OTHER, SELFPAY ==
[2022-01-18 21:43] VITALS: BMI 22.1
== END ==
PROVIDERS: PCP Family Medicine; Referring Provider Physician Assistant Medical; Visit Provider Nurse Practitioner Family
DX: L95.8 Other vasculitis limited to the skin (principal); L97.512 Non-pressure chronic ulcer of other part of right foot with fat layer exposed; D46.9 Myelodysplastic syndrome, unspecified
CPT/HCPCS: 11042; 99213

== ENCOUNTER → 2022-04-18 15:01 | Outpatient (CLI) | payer MEDICARE, OTHER, SELFPAY ==
[2022-01-18 21:43] VITALS: BMI 22.1
== END ==
PROVIDERS: PCP Family Medicine; Referring Provider Family Medicine; Visit Provider Nurse Practitioner Family
DX: L95.8 Other vasculitis limited to the skin (principal); L97.812 Non-pressure chronic ulcer of other part of right lower leg with fat layer exposed; D46.9 Myelodysplastic syndrome, unspecified; I73.9 Peripheral vascular disease, unspecified
CPT/HCPCS: 15275; Q4195

== ENCOUNTER → 2022-05-09 11:24 | Outpatient (CLI) | payer MEDICARE, OTHER, SELFPAY ==
[2022-01-18 21:43] VITALS: BMI 22.1
== END ==
PROVIDERS: PCP Family Medicine; Referring Provider Family Medicine; Visit Provider Nurse Practitioner Family
DX: L95.8 Other vasculitis limited to the skin (principal); L97.512 Non-pressure chronic ulcer of other part of right foot with fat layer exposed; L97.521 Non-pressure chronic ulcer of other part of left foot limited to breakdown of skin
CPT/HCPCS: 15275; 97597; Q4196

== ENCOUNTER → 2022-05-23 08:53 | Outpatient (CLI) | payer MEDICARE, OTHER, SELFPAY ==
[2022-01-18 21:43] VITALS: BMI 22.1
== END ==
PROVIDERS: PCP Family Medicine; Referring Provider Family Medicine; Visit Provider Nurse Practitioner Family
DX: L95.8 Other vasculitis limited to the skin (principal); L97.522 Non-pressure chronic ulcer of other part of left foot with fat layer exposed; D46.9 Myelodysplastic syndrome, unspecified
CPT/HCPCS: 11042

== ENCOUNTER → 2022-05-30 11:49 | Outpatient (CLI) | payer MEDICARE, OTHER, SELFPAY ==
[2022-01-18 21:43] VITALS: BMI 22.1
== END ==
PROVIDERS: PCP Family Medicine; Referring Provider Family Medicine; Visit Provider Nurse Practitioner Family
DX: L95.9 Vasculitis limited to the skin, unspecified (principal); S91.302A Unspecified open wound, left foot, initial encounter; M79.672 Pain in left foot
CPT/HCPCS: 15275; Q4196

== ENCOUNTER → 2022-06-06 11:01 | Outpatient (CLI) | payer MEDICARE, OTHER, SELFPAY ==
[2022-01-18 21:43] VITALS: BMI 22.1
== END ==
PROVIDERS: PCP Family Medicine; Referring Provider Physician Assistant Medical; Visit Provider Nurse Practitioner Family
DX: L95.8 Other vasculitis limited to the skin (principal); L97.522 Non-pressure chronic ulcer of other part of left foot with fat layer exposed; L97.512 Non-pressure chronic ulcer of other part of right foot with fat layer exposed; L97.511 Non-pressure chronic ulcer of other part of right foot limited to breakdown of skin; D46.9 Myelodysplastic syndrome, unspecified
CPT/HCPCS: 15275; 97597; 99213; Q4196

== ENCOUNTER → 2022-06-12 13:16 | Outpatient (CLI) | payer MEDICARE, OTHER, SELFPAY ==
[2022-01-18 21:43] VITALS: BMI 22.1
== END ==
PROVIDERS: PCP Family Medicine; Referring Provider Physician Assistant Medical; Visit Provider Surgery
DX: L95.8 Other vasculitis limited to the skin (principal); L97.522 Non-pressure chronic ulcer of other part of left foot with fat layer exposed; L97.512 Non-pressure chronic ulcer of other part of right foot with fat layer exposed; L97.511 Non-pressure chronic ulcer of other part of right foot limited to breakdown of skin; N40.1 Benign prostatic hyperplasia with lower urinary tract symptoms; N13.8 Other obstructive and reflux uropathy; N21.0 Calculus in bladder
CPT/HCPCS: 52000; 76872; 81002; 99213; 99215

== ENCOUNTER → 2022-06-20 11:32 | Outpatient (CLI) | payer MEDICARE, OTHER, SELFPAY ==
[2022-01-18 21:43] VITALS: BMI 22.1
== END ==
PROVIDERS: PCP Family Medicine; Referring Provider Family Medicine; Visit Provider Surgery
DX: L95.8 Other vasculitis limited to the skin (principal); L97.521 Non-pressure chronic ulcer of other part of left foot limited to breakdown of skin; L97.512 Non-pressure chronic ulcer of other part of right foot with fat layer exposed
CPT/HCPCS: 99213

== ENCOUNTER → 2022-06-27 09:42 | Outpatient (CLI) | payer MEDICARE, OTHER, SELFPAY ==
[2022-01-18 21:43] VITALS: BMI 22.1
== END ==
PROVIDERS: PCP Family Medicine; Referring Provider Family Medicine; Visit Provider Nurse Practitioner Family
DX: L95.8 Other vasculitis limited to the skin (principal); D46.9 Myelodysplastic syndrome, unspecified
CPT/HCPCS: 99213

== ENCOUNTER → 2022-07-29 14:18 | Outpatient (CLI) | payer MEDICARE, OTHER, SELFPAY ==
[2022-01-18 21:43] VITALS: BMI 22.1
== END ==
PROVIDERS: PCP Family Medicine; Referring Provider Family Medicine; Visit Provider Surgery
DX: G60.3 Idiopathic progressive neuropathy (principal); L97.522 Non-pressure chronic ulcer of other part of left foot with fat layer exposed; L97.512 Non-pressure chronic ulcer of other part of right foot with fat layer exposed; D46.9 Myelodysplastic syndrome, unspecified
CPT/HCPCS: 97597; 99213

== ENCOUNTER → 2022-08-05 10:05 | Outpatient (CLI) | payer MEDICARE, OTHER, SELFPAY ==
[2022-01-18 21:43] VITALS: BMI 22.1
== END ==
PROVIDERS: PCP Family Medicine; Referring Provider Family Medicine; Visit Provider Surgery
DX: L97.522 Non-pressure chronic ulcer of other part of left foot with fat layer exposed (principal); L97.512 Non-pressure chronic ulcer of other part of right foot with fat layer exposed; L95.9 Vasculitis limited to the skin, unspecified; D46.9 Myelodysplastic syndrome, unspecified; G60.9 Hereditary and idiopathic neuropathy, unspecified; L53.9 Erythematous condition, unspecified
CPT/HCPCS: 97597

== ENCOUNTER → 2022-08-12 10:28 | Outpatient (CLI) | payer MEDICARE, OTHER, SELFPAY ==
[2022-01-18 21:43] VITALS: BMI 22.1
== END ==
PROVIDERS: PCP Family Medicine; Referring Provider Family Medicine; Visit Provider Surgery
DX: D46.9 Myelodysplastic syndrome, unspecified (principal); G60.3 Idiopathic progressive neuropathy; L97.522 Non-pressure chronic ulcer of other part of left foot with fat layer exposed; L97.512 Non-pressure chronic ulcer of other part of right foot with fat layer exposed; R60.0 Localized edema
CPT/HCPCS: 11042

== ENCOUNTER → 2022-08-19 10:30 | Outpatient (CLI) | payer MEDICARE, OTHER, SELFPAY ==
[2022-01-18 21:43] VITALS: BMI 22.1
== END ==
PROVIDERS: PCP Family Medicine; Referring Provider Physician Assistant Medical; Visit Provider Surgery
DX: L95.9 Vasculitis limited to the skin, unspecified (principal); L97.521 Non-pressure chronic ulcer of other part of left foot limited to breakdown of skin; L97.522 Non-pressure chronic ulcer of other part of left foot with fat layer exposed; G60.9 Hereditary and idiopathic neuropathy, unspecified; D46.9 Myelodysplastic syndrome, unspecified
CPT/HCPCS: 11042

== ENCOUNTER → 2022-08-27 10:59 | Outpatient (CLI) | payer MEDICARE, OTHER, SELFPAY ==
[2022-01-18 21:43] VITALS: BMI 22.1
== END ==
PROVIDERS: PCP Family Medicine; Referring Provider Family Medicine; Visit Provider Surgery
DX: L97.521 Non-pressure chronic ulcer of other part of left foot limited to breakdown of skin (principal); L97.512 Non-pressure chronic ulcer of other part of right foot with fat layer exposed; L95.9 Vasculitis limited to the skin, unspecified; R60.0 Localized edema; D64.9 Anemia, unspecified; D46.9 Myelodysplastic syndrome, unspecified; Z79.899 Other long term (current) drug therapy; G60.9 Hereditary and idiopathic neuropathy, unspecified
CPT/HCPCS: 11042; 99212; 99213

== ENCOUNTER → 2022-09-03 11:15 | Outpatient (CLI) | payer MEDICARE, OTHER, SELFPAY ==
[2022-01-18 21:43] VITALS: BMI 22.1
== END ==
PROVIDERS: PCP Family Medicine; Referring Provider Physician Assistant Medical; Visit Provider Surgery
DX: L95.9 Vasculitis limited to the skin, unspecified (principal); L97.512 Non-pressure chronic ulcer of other part of right foot with fat layer exposed; L97.522 Non-pressure chronic ulcer of other part of left foot with fat layer exposed; D46.9 Myelodysplastic syndrome, unspecified; G60.9 Hereditary and idiopathic neuropathy, unspecified
CPT/HCPCS: 97597

== ENCOUNTER → 2022-09-10 11:20 | Outpatient (CLI) | payer MEDICARE, OTHER, SELFPAY ==
[2022-01-18 21:43] VITALS: BMI 22.1
== END ==
PROVIDERS: PCP Family Medicine; Referring Provider Physician Assistant Medical; Visit Provider Surgery
DX: L95.8 Other vasculitis limited to the skin (principal); L97.512 Non-pressure chronic ulcer of other part of right foot with fat layer exposed; D46.9 Myelodysplastic syndrome, unspecified
CPT/HCPCS: 11042; 15275; Q4196

== ENCOUNTER → 2022-09-17 11:09 | Outpatient (CLI) | payer MEDICARE, OTHER, SELFPAY ==
[2022-01-18 21:43] VITALS: BMI 22.1
== END ==
PROVIDERS: PCP Family Medicine; Referring Provider Physician Assistant Medical; Visit Provider Surgery
DX: L95.8 Other vasculitis limited to the skin (principal); L97.512 Non-pressure chronic ulcer of other part of right foot with fat layer exposed; L97.522 Non-pressure chronic ulcer of other part of left foot with fat layer exposed; D46.9 Myelodysplastic syndrome, unspecified; G60.9 Hereditary and idiopathic neuropathy, unspecified
CPT/HCPCS: 11042; 15275; 99214; Q4196

== ENCOUNTER → 2022-10-01 14:16 | Outpatient (CLI) | payer MEDICARE, OTHER, SELFPAY ==
[2022-01-18 21:43] VITALS: BMI 22.1
== END ==
PROVIDERS: PCP Family Medicine; Referring Provider Family Medicine; Visit Provider Surgery
DX: L59.8 Other specified disorders of the skin and subcutaneous tissue related to radiation (principal); L97.512 Non-pressure chronic ulcer of other part of right foot with fat layer exposed; L97.522 Non-pressure chronic ulcer of other part of left foot with fat layer exposed; D46.9 Myelodysplastic syndrome, unspecified; R60.0 Localized edema
CPT/HCPCS: 15275; 97597; 99213; Q4196

== ENCOUNTER → 2022-10-08 13:00 | Outpatient (CLI) | payer MEDICARE, OTHER, SELFPAY ==
[2022-01-18 21:43] VITALS: BMI 22.1
== END ==
PROVIDERS: PCP Family Medicine; Referring Provider Physician Assistant Medical; Visit Provider Surgery
DX: L95.8 Other vasculitis limited to the skin (principal); G60.9 Hereditary and idiopathic neuropathy, unspecified; L97.512 Non-pressure chronic ulcer of other part of right foot with fat layer exposed; L97.522 Non-pressure chronic ulcer of other part of left foot with fat layer exposed; L89.623 Pressure ulcer of left heel, stage 3; D46.9 Myelodysplastic syndrome, unspecified
CPT/HCPCS: 11042; 15275; 97597; 99213; Q4196

== ENCOUNTER → 2022-10-15 11:23 | Outpatient (CLI) | payer MEDICARE, OTHER, SELFPAY ==
[2022-01-18 21:43] VITALS: BMI 22.1
== END ==
PROVIDERS: PCP Family Medicine; Referring Provider Family Medicine; Visit Provider Nurse Practitioner Family
DX: L95.8 Other vasculitis limited to the skin (principal); L97.512 Non-pressure chronic ulcer of other part of right foot with fat layer exposed; L89.629 Pressure ulcer of left heel, unspecified stage
CPT/HCPCS: 99213

== ENCOUNTER → 2022-10-24 09:17 | Outpatient (CLI) | payer MEDICARE, OTHER, SELFPAY ==
[2022-01-18 21:43] VITALS: BMI 22.1
== END ==
PROVIDERS: PCP Family Medicine; Referring Provider Physician Assistant Medical; Visit Provider Nurse Practitioner Family
DX: L89.623 Pressure ulcer of left heel, stage 3 (principal); D46.9 Myelodysplastic syndrome, unspecified; L95.8 Other vasculitis limited to the skin; L97.512 Non-pressure chronic ulcer of other part of right foot with fat layer exposed; L97.522 Non-pressure chronic ulcer of other part of left foot with fat layer exposed; L97.421 Non-pressure chronic ulcer of left heel and midfoot limited to breakdown of skin; R60.0 Localized edema
CPT/HCPCS: 11042; 73630; 99213

== ENCOUNTER → 2022-10-24 10:06 | Outpatient (CLI) | payer MEDICARE, OTHER, SELFPAY ==
[2022-01-18 21:43] VITALS: BMI 22.1
--- NOTE | 2022-10-24 10:07 | DI.RAD.S_ITS ---
PROCEDURE: XR FOOT LT MIN 3V INDICATIONS: non-healing ulcer on left medial heel TECHNIQUE: 3 views of the foot were acquired. COMPARISON: [facility], CR, XR FOOT LT MIN 3V, 11/26/2021, 13:38. [facility], CR, XR FOOT LT MIN 3V, 01/18/2022, 14:20. FINDINGS: Bones: No fractures or dislocations. No suspicious bony lesions. Soft tissues: No tibiotalar joint effusion. Achilles tendon appears normal. IMPRESSION: No definitive findings to suggest bony infections. Radiographs, however, are not sensitive to detect early osteomyelitis. If clinically indicated, MRI with and without contrast or a triple phase bone scan can be obtained for further evaluation. Dictated by: Maninder Bess M.D. on 10/24/2022 at 16:41 Approved by: Maninder Bess M.D. on 10/24/2022 at 17:20
== END ==
PROVIDERS: PCP Family Medicine; Referring Provider Nurse Practitioner Family; Visit Provider Nurse Practitioner Family
DX: L89.623 Pressure ulcer of left heel, stage 3 (principal)
CPT/HCPCS: 73630

== ENCOUNTER → 2022-10-31 11:25 | Outpatient (CLI) | payer MEDICARE, OTHER, SELFPAY ==
[2022-01-18 21:43] VITALS: BMI 22.1
== END ==
PROVIDERS: PCP Family Medicine; Referring Provider Physician Assistant Medical; Visit Provider Nurse Practitioner Family
DX: G60.3 Idiopathic progressive neuropathy (principal); L97.512 Non-pressure chronic ulcer of other part of right foot with fat layer exposed; L97.522 Non-pressure chronic ulcer of other part of left foot with fat layer exposed; L89.623 Pressure ulcer of left heel, stage 3; D46.9 Myelodysplastic syndrome, unspecified
CPT/HCPCS: 11042; 15275; 97597; Q4196

== ENCOUNTER → 2022-11-07 11:28 | Outpatient (CLI) | payer MEDICARE, OTHER, SELFPAY ==
[2022-01-18 21:43] VITALS: BMI 22.1
== END ==
PROVIDERS: PCP Family Medicine; Referring Provider Physician Assistant Medical; Visit Provider Physician Assistant
DX: L95.9 Vasculitis limited to the skin, unspecified (principal); L97.512 Non-pressure chronic ulcer of other part of right foot with fat layer exposed; L97.522 Non-pressure chronic ulcer of other part of left foot with fat layer exposed; L89.626 Pressure-induced deep tissue damage of left heel; L84 Corns and callosities; G62.9 Polyneuropathy, unspecified; T69.1XXA Chilblains, initial encounter; D46.9 Myelodysplastic syndrome, unspecified; D64.9 Anemia, unspecified; M81.0 Age-related osteoporosis without current pathological fracture; Z86.14 Personal history of Methicillin resistant Staphylococcus aureus infection; Z79.52 Long term (current) use of systemic steroids
CPT/HCPCS: 15275; 97597; 99213; Q4196

== ENCOUNTER → 2022-11-21 09:14 | Outpatient (CLI) | payer MEDICARE, OTHER, SELFPAY ==
[2022-01-18 21:43] VITALS: BMI 22.1
--- NOTE | 2022-11-22 00:20 | DI.NM.S_ITS ---
DATE OF SERVICE: 11/21/2022 PROCEDURE: Pharmacological perfusion study. INDICATIONS: Preop evaluation, underlying paroxysmal AFib, hypertension. RADIOPHARMACEUTICAL: 27.1 millicurie technetium-99m Myoview IV was injected at stress and 11.7 millicurie technetium-99m Myoview IV was injected at rest. CARDIAC STRESS: The patient underwent IV Lexiscan perfusion study under the supervision of an attending staff using standard IV Lexiscan as per protocol. The patient remained hemodynamically stable. Baseline blood pressure 142/70. Baseline rhythm was sinus. During stress, no convincing ischemic changes seen. No significant arrhythmias seen. No chest pain. RAW DATA: There is increased subdiaphragmatic activity. GATED STUDY: Resting LV ejection fraction 75% and stress LV ejection fraction 83% without any significant wall motion abnormalities. Resting end-diastolic volume 103 mL. TID ratio 0.85, which is within normal limits. Lung/heart ratio 0.46, which is mildly abnormal. MYOCARDIAL PERFUSION SCAN: Please note, that there were no stress prone images. Stress supine and resting supine images were compared to each other. There appeared to be a small size, mild reversible ischemia of basal inferolateral wall. Summed rest score 0, and summed stress score 3 with difference score 3. CONCLUSION: This is an abnormal myocardial perfusion study with small reversible ischemia of basal inferolateral wall. Summed difference score is 3. Overall preserved left ventricular function. No transient ischemic dilatation. Lung/heart ratio mildly abnormal 0.46. Consider 2D echo to make sure there is no left-sided valvular pathology or diastolic dysfunction. Correlate clinically. Errol James - MARY/norm/faviola doc#: [id number]/job#: [id number] dd: 11/21/2022 17:04:00 dt: 11/22/2022 00:10:00 DICTATING MD/COPIES TO: Bob Ferguson MD COPIES MNE: SKY;
== END ==
PROVIDERS: PCP Family Medicine; Referring Provider Internal Medicine Cardiovascular Disease; Visit Provider Internal Medicine Cardiovascular Disease
DX: I48.0 Paroxysmal atrial fibrillation (principal); I47.1 Supraventricular tachycardia
CPT/HCPCS: 78452; 93017; A9502; J2785

== ENCOUNTER → 2022-11-21 10:58 | Outpatient (CLI) | payer MEDICARE, OTHER, SELFPAY ==
[2022-01-18 21:43] VITALS: BMI 22.1
== END ==
PROVIDERS: PCP Family Medicine; Referring Provider Family Medicine; Visit Provider Physician Assistant
DX: I48.0 Paroxysmal atrial fibrillation (principal); I47.1 Supraventricular tachycardia; L95.8 Other vasculitis limited to the skin; L97.512 Non-pressure chronic ulcer of other part of right foot with fat layer exposed; L97.522 Non-pressure chronic ulcer of other part of left foot with fat layer exposed; L89.623 Pressure ulcer of left heel, stage 3; L89.893 Pressure ulcer of other site, stage 3; D46.9 Myelodysplastic syndrome, unspecified
CPT/HCPCS: 11042; 15275; 78452; 93017; 97597; A9502; J2785; Q4196

== ENCOUNTER → 2022-11-28 11:07 | Outpatient (CLI) | payer MEDICARE, OTHER, SELFPAY ==
[2022-01-18 21:43] VITALS: BMI 22.1
== END ==
PROVIDERS: PCP Family Medicine; Referring Provider Physician Assistant Medical; Visit Provider Physician Assistant
DX: L95.0 Livedoid vasculitis (principal); L97.512 Non-pressure chronic ulcer of other part of right foot with fat layer exposed; L97.522 Non-pressure chronic ulcer of other part of left foot with fat layer exposed; D46.9 Myelodysplastic syndrome, unspecified; L89.623 Pressure ulcer of left heel, stage 3
CPT/HCPCS: 11042; 97597; 99213

== ENCOUNTER → 2022-12-05 11:23 | Outpatient (CLI) | payer MEDICARE, OTHER, SELFPAY ==
[2022-01-18 21:43] VITALS: BMI 22.1
== END ==
PROVIDERS: PCP Family Medicine; Referring Provider Physician Assistant Medical; Visit Provider Physician Assistant
DX: L95.8 Other vasculitis limited to the skin (principal); L89.623 Pressure ulcer of left heel, stage 3; L89.899 Pressure ulcer of other site, unspecified stage; D46.9 Myelodysplastic syndrome, unspecified; L97.512 Non-pressure chronic ulcer of other part of right foot with fat layer exposed; L97.422 Non-pressure chronic ulcer of left heel and midfoot with fat layer exposed; L89.893 Pressure ulcer of other site, stage 3
CPT/HCPCS: 11042; 15275; 97597; Q4196

== ENCOUNTER → 2022-12-11 13:57 | Outpatient (CLI) | payer MEDICARE, OTHER, SELFPAY ==
[2022-01-18 21:43] VITALS: BMI 22.1
== END ==
PROVIDERS: PCP Family Medicine; Referring Provider Physician Assistant Medical; Visit Provider Surgery
DX: L59.8 Other specified disorders of the skin and subcutaneous tissue related to radiation (principal); L89.623 Pressure ulcer of left heel, stage 3; L89.893 Pressure ulcer of other site, stage 3; L97.312 Non-pressure chronic ulcer of right ankle with fat layer exposed; D46.9 Myelodysplastic syndrome, unspecified; I73.9 Peripheral vascular disease, unspecified
CPT/HCPCS: 11042; 15275; Q4196

== ENCOUNTER → 2022-12-18 10:08 | Outpatient (CLI) | payer MEDICARE, OTHER, SELFPAY ==
[2022-01-18 21:43] VITALS: BMI 22.1
== END ==
PROVIDERS: PCP Family Medicine; Referring Provider Family Medicine; Visit Provider Surgery
DX: L89.623 Pressure ulcer of left heel, stage 3 (principal); L84 Corns and callosities; L95.9 Vasculitis limited to the skin, unspecified; L97.312 Non-pressure chronic ulcer of right ankle with fat layer exposed; S90.412A Abrasion, left great toe, initial encounter; G62.9 Polyneuropathy, unspecified; D46.9 Myelodysplastic syndrome, unspecified; D84.9 Immunodeficiency, unspecified
CPT/HCPCS: 11042; 99212

== ENCOUNTER → 2022-12-29 10:55 | Outpatient (CLI) | payer MEDICARE, OTHER, SELFPAY ==
[2022-01-18 21:43] VITALS: BMI 22.1
== END ==
PROVIDERS: PCP Family Medicine; Referring Provider Physician Assistant Medical; Visit Provider Surgery
DX: L89.623 Pressure ulcer of left heel, stage 3 (principal); L97.519 Non-pressure chronic ulcer of other part of right foot with unspecified severity; L89.893 Pressure ulcer of other site, stage 3; S90.412A Abrasion, left great toe, initial encounter; D46.9 Myelodysplastic syndrome, unspecified; G60.9 Hereditary and idiopathic neuropathy, unspecified; L95.8 Other vasculitis limited to the skin; L97.312 Non-pressure chronic ulcer of right ankle with fat layer exposed
CPT/HCPCS: 11042; 99213

== ENCOUNTER 2022-12-31 09:28 | Inpatient (IN) | payer MEDICARE, OTHER, SELFPAY ==
[2022-01-18 21:43] VITALS: BMI 22.1
[2022-12-25 08:10] VITALS: BMI 21.4
[2022-12-31] VITALS (12 sets, daily range): BP systolic 124–160; BP diastolic 58–91; PULSE 54–89; RESP 12–20; TEMP 35.9–36.4; O2SAT 93–100; BMI 20.2
--- NOTE | 2022-12-31 | DI.RAD.S_ITS ---
PROCEDURE: XR LUMBAR SPINE 2-3V INDICATIONS: TLIF L3-4 TECHNIQUE: 2 views of the lumbar spine were acquired. COMPARISON: None. FINDINGS: Thick images demonstrating fusion at L3-4 with intervertebral spacer. There is trace retrolisthesis of L2 on L3. Hardware appears intact. IMPRESSION: L3-4 fusion. Dictated by: Amy Price M.D. on 12/31/2022 at 17:16 Approved by: Amy Price M.D. on 12/31/2022 at 17:17
[2022-12-31 10:15] LABS: Add Manual Diff / Slide Review YES; Mean Corpuscular HGB Conc 33.4 % (30-36); Mean Corpuscular Hemoglobin 35.7 PG (26-34); Mean Corpuscular Volume 107.1 fL (80-100); Platelet Count 58 X10^3/uL (150-400); Red Blood Cell Count 3.08 X10^6/uL (4.5-5.9); Red Cell Distribution Width 15.8 % (11.6-14.8); White Blood Cell Count 5.6 X10^3/uL (4.5-11.0)
[2022-12-31 10:37] LABS: Neutrophils Absolute Manual 1960 /uL (3000-5900); Total Cells Counted 100
[2022-12-31 10:38] LABS: Anisocytosis 1+; Macrocytosis 1+; Platelet Estimate Decreased on smear
[2022-12-31 11:07] LABS: COVID19 -Nasal RAPID Negative (Negative)
--- NOTE | 2022-12-31 12:40 | PM.PREOP ---
Pre-operative Note COVID-19 Criteria for continued procedure: Expected advancement of disease process, Possibility delay results in more complex future surgery or treatment, Increased loss of function, Continuing or worsening of significant or severe pain, Deterioration of the patient's condition or overall health and Delay expected to result in less-positive ultimate med/surg outcome Interval Note History & Physical reviewed/Exam performed by Physician: Yes Changes to H&P: No
[2022-12-31] MEDS: LACTATED RINGERS 1,000 ML 100 ML IV ×2 (13:12→14:00)
[2022-12-31] MEDS: CEFAZOLIN 2 GM/100 ML PREMIX 100 ML IV ×2 (13:21→20:50)
--- NOTE | 2022-12-31 13:23 | PM.OP.1 ---
Operative Date/Time/Diagnoses Date of procedure: 12/31/22 Time of procedure: 13:00 Pre-op diagnosis: 1. 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 L3-4 spondylolisthesis Post-op diagnosis: same Procedure & Clinicians Procedure: 1. L3-4 Postero-lateral and posterior interbody fusion 2. L3-4 interbody cage placement. 3. L3-4 decompressive laminectomy with bilateral facetecomies 4. L3-4 Posterior non-segmental instrumentation 5. L2-3 hemilaminectomy 6. [place] of bone marrow from iliac crest 7. Utilization of microsurgical technique and operating microscope Same procedure as scheduled: Yes Indications: Patient has been having chronic back pain and worsening lumbar radiculopathy and symptoms of neurogenic claudication. Patient failed multiple conservative management with worsening pain weakness and numbness in his lower extremity. Patient has been having difficulty performing activity of daily living. After discussing risks benefits of treatment options, patient elected proceed with surgery. Surgeon: Jasvir Medel Blast Furnace Tender: Catrina Cabral Click Yes if Unassisted: No Anesthesia Type: General Operative Notes Closure Type: primary Specimen(s): none sent Prosthetic devices, grafts, tissues, transplants, or devices: Globus revolve screws, RIse cage Estimated Blood Loss (mL): 50 Procedure in detail: Patient was seen in the preoperative area. Risks and benefits of the surgery was discussed with the patient. Informed consent was obtained from the patient and placed in the chart. Surgical site was marked. Patient was taken to the operative room. General anesthesia was administered. Prophylactic antibiotic was given to the patient less than 30 min before the incision was made. Patient was placed into a prone position on the Alex table. Patient's back was then prepped and draped in the sterile fashion. Time-out was performed at this time. Using AP and lateral C-arm imaging the interval between L2-3 L3-4 was identified and marked on patient's back. A 2 inch incision 2 in from midline was made on the right side first. The fascia was incised in line with skin incision. Globus MARS retractors was placed inside the incision and docked onto the L3 lamina. Using microsurgical technique and operating microscope, a L3 laminectomy and L3-4 facetectomy was performed using a Kerrison rongeur. The laminectomy and facetectomy was performed in order to decompress patient's cauda equina as well as the nerve roots exiting at the L3-4 level. The disc space at L3-4 was identified. And a total diskectomy was performed at L3-4 level. The endplates were decorticated using a rasp and shaver. The total diskectomy and decortication was performed at L3-4 level in order to to accomplish a L3-4 fusion. The local bone from the laminectomy and facetectomy was saved for local bone grafting. After the total diskectomy and decortication was completed, Globus viacell bone graft material was combined with local bone that was harvested earlier. At this time, a separate skin is incision was made over the iliac crest. A Jamshidi needle was inserted into the iliac crest through a separate skin incision. 5 cc of bone marrow aspiration was obtained through the separate skin incision using a Jamshidi needle from the iliac crest. The bone marrow aspiration was combined with local bone and the Trifecta bone grafting material. The bone grafting material was placed into the L3-4 interbody space along with a expandable cage. The cage was expanded to its maximum height using the torque limiting screwdriver. At this time the MARS retractor was redirected over the L2 lamina. Using microsurgical technique and operating microscope, a L2-3 heminectomy was performed using the [place] rongeur. The ligamentum flavum was also resected at the side of the hemilaminectomy for further decompression of the epidural space. At this time a mirror image incision was made on the left side. The fascia was incised in line with the skin incision. Globus MARS retractor was inserted and docked onto the L3-4 posterolateral gutter. Using the power drill, posterior-lateral decortication was performed at L3-4 level until bleeding cortical bone was identified. The remaining bone grafting material was placed into the L3-4 posterior lateral gutter he order to accomplish posterolateral fusion at the L3-4 level. Using the double C-arm technique, pedicle screws were placed into the L3 and L4 pedicles bilaterally. This was done by placing the Jamshidi needle into the pedicles, then placing the guidewires over the Jamshidi needle, and finally placing the cannulated screws over the guidewires bilaterally. After the pedicle screws were placed, 2 titanium rods was locked into the heads of the pedicle screws using locking caps and torque limiting screwdriver. After all the hardware was placed, and confirmed with AP and lateral C-arm imaging, the wound was then irrigated with sterile normal saline and packed with Ray-Emma gauze for 3 min to accomplish hemostasis. After the gauze was removed the deep fascia was closed with #1 Vicryl suture. The subcutaneous layer was closed with 2-0 Vicryl. The skin was closed with skin alyson. Patient tolerated the procedure well. There were no complications. The Operation could not have been safely performed without compromising the technical result or length of the procedure, without the assistance of a skilled surgical product sales consultant. The surgical product sales consultant was medically necessary for proper positioning, retraction and manipulation of instruments, proper exposure, surgical preparation, and manipulation of tissue. Complications: none Post-operative Condition: stable Disposition: PACU Plan for aftercare: Admit to inpatient hospital
--- NOTE | 2022-12-31 13:53 | SUR.OPER ---
Prone on spine table, head in foam head support, padded chest and pelvic supports, gel pad at knees, lower legs supported by pillows; nipples, genitalia and toes free of pressure, arms secured on foam padded arm boards at <90 degrees abduction. Tape over blanket at thigh secured to table.
[2022-12-31] MEDS: BUPIVACAINE LIPOSOME 266 MG/20 ML VIAL INJ (14:04)
[2022-12-31] MEDS: BUPIVACAINE 0.5% (PF) 10 ML VIAL 15 ML INJ (14:07)
[2022-12-31] MEDS: EPINEPHrine 1 MG/ML 0.15 MG INJ (14:08)
--- NOTE | 2022-12-31 16:59 | SUR.PHASEI ---
changed bedding and gown due to large incontinent urine
[2022-12-31] MEDS: LACTATED RINGERS 1,000 ML 125 ML IV ×2 (18:38→20:47)
[2022-12-31] MEDS: ACETAMINOPHEN 325 MG TABLET 650 MG PO (19:00)
[2022-12-31] MEDS: OXYCODONE IR 10 MG TABLET PO ×2 (19:00→23:06)
[2022-12-31] MEDS: SENNOSIDES 8.6 MG TABLET 17.2 MG PO (20:54)
[2022-12-31] MEDS: DOCUSATE 100 MG CAPSULE PO (20:55)
[2022-12-31] MEDS: NIFEdipine 10 MG CAPSULE PO (20:55)
[2022-12-31] MEDS: GABAPENTIN 400 MG CAPSULE PO (20:57)
[2023-01-01] VITALS (11 sets, daily range): BP systolic 98–162; BP diastolic 51–96; PULSE 78–108; RESP 16–18; TEMP 36.5–39.1; O2SAT 95–99
[2023-01-01] MEDS: OXYCODONE IR 10 MG TABLET PO (04:33)
[2023-01-01] MEDS: ACETAMINOPHEN 325 MG TABLET 650 MG PO ×4 (04:34→23:19)
[2023-01-01] MEDS: CEFAZOLIN 2 GM/100 ML PREMIX 100 ML IV (04:35)
[2023-01-01] MEDS: LACTATED RINGERS 1,000 ML 125 ML IV ×2 (04:41→15:42)
[2023-01-01] MEDS: PANTOPRAZOLE DR 40 MG TABLET PO (06:17)
--- NOTE | 2023-01-01 07:44 | DI.RAD.S_ITS ---
PROCEDURE: XR CHEST 1V INDICATIONS: Pt is febrile TECHNIQUE: One view of the chest was acquired. COMPARISON: [facility], CR, XR CHEST 1V, 01/18/2022, 13:43. FINDINGS: Surgical changes and devices: None. Lungs and pleura: Lungs are clear. No pleural effusions or pneumothorax. Mediastinum: Mediastinal contours appear normal. Heart size is normal. Bones and chest wall: No suspicious bony lesions. Overlying soft tissues appear unremarkable. IMPRESSION: No acute cardiopulmonary pathology. Dictated by: Thai Peck M.D. on 01/01/2023 at 8:37 Approved by: Thai Peck M.D. on 01/01/2023 at 8:38
--- NOTE | 2023-01-01 07:52 | PM.PNPO.1 ---
Subjective Subjective Date Patient Seen: 01/01/23 Time Patient Seen: 07:52 Interval history: Nurse reports patient is more confused this morning. Patient has been running a fever overnight. Patient is alert to person place. States his pain is mild. Exam Vital Signs (past 8 hours): - 01/01/23 00:00 01/01/23 04:33 01/01/23 04:34 Temperature 97.7 F 101.1 F H 101.1 F H Pulse Rate 88 Respiratory Rate 17 Blood Pressure 142/75 H Pulse Oximetry 97 Oxygen Delivery Method Oxygen Flow Rate 0 01/01/23 04:00 01/01/23 07:46 Temperature 101.1 F H Pulse Rate 90 Respiratory Rate 18 Blood Pressure 162/96 H Pulse Oximetry 95 Oxygen Delivery Method Nasal Cannula Oxygen Flow Rate 0 Oxygen Delivery Method Nasal Cannula Oxygen Flow Rate 0 Narrative Exam Narrative: 82-year-old male resting comfortably in bed in no apparent distress. Again patient is alert to person and place. Both legs are warm and dry. Objective Labs 12/31/22 09:55 Labs: Laboratory Results - last 24 hr 12/31/22 12/31/22 12/31/22 09:55 09:55 10:20 WBC 5.6 RBC 3.08 L Hgb 11.0 L Hct 33.0 L MCV 107.1 H MCH 35.7 H MCHC 33.4 RDW 15.8 H Plt Count 58 L Neut % (Auto) Not Reportable Lymph % (Auto) Not Reportable Sullivan % (Auto) Not Reportable Eos % (Auto) Not Reportable Baso % (Auto) Not Reportable Lymph # (Auto) Not Reportable Sullivan # (Auto) Not Reportable Baso # (Auto) Not Reportable Total Counted 100 Seg Neutrophils % 34.0 L Band Neutrophils % 1.0 L Lymphocytes % (Manual) 13.0 L Atypical Lymphs % 1.0 H Monocytes % (Manual) 45.0 H Metamyelocytes % 6.0 H Neutrophils # (Manual) 1960 L Platelet Estimate Decreased on smear RBC Morphology See below Anisocytosis 1+ H Macrocytosis 1+ H SARS-CoV-2 (PCR) Negative Blood Type A Positive Antibody Screen Negative PFSH Medical History A-fib Bladder calculi BPH (benign prostatic hyperplasia) BPH w urinary obs/LUTS Chest pain Chilblains Esophageal abrasion [place] (hard of hearing) Male circumcision Memory changes Myelodysplastic syndrome ADRIAN on CPAP Osteoporosis Peripheral neuropathy Pneumonia (03/2022) PSVT (paroxysmal supraventricular tachycardia) Skin cancer Spinal stenosis Tremor of both hands Surgical History H/O vasectomy Hx of bilateral cataract extraction Hx of tonsillectomy Status post cholecystectomy Status post laminectomy Family History Brother BPH (benign prostatic hyperplasia) Cancer Gout Father Cancer Thyroid disorder Sister Cancer Social History marital status: number of children: 4 household members: spouse Smoking Status: Never smoker alcohol intake: current Assessment & Plan Post-op Postoperative Procedures: Procedures Operation Date: 12/31/22 13:45 Actual Procedure Side Surgeon p L3-4 TLIF, L2-3 hemilaminectomy Not Applicable Jasvir Medel MD Postoperative day: 1 Postoperative status narrative: Postop day 1 status post L3-L4 lumbar fusion L2-L3 hemilaminectomy with fever this morning of 102.4, myelodysplastic syndrome, rheumatoid arthritis, atrial fibrillation Postoperative plan narrative: Ordered CBC, CMP, UA, chest x-ray Hold oxycodone for now and continue with Tylenol Mobilize with physical therapy, limit bending, twisting, lifting Hospitalist consultation requested for fever, confusion, complex patient with myelodysplastic syndrome, atrial fib, rheumatoid arthritis on prednisone Quality VTE Deep Vein Thrombosis/Pulmonary Embolism Present on Admission: No
[2023-01-01 08:22] LABS: Add Manual Diff / Slide Review YES; Hematocrit 27.8 % (41-53); Hemoglobin 9.3 g/dL (13.5-17.5); Mean Corpuscular HGB Conc 33.3 % (30-36); Mean Corpuscular Hemoglobin 35.4 PG (26-34); Mean Corpuscular Volume 106.3 fL (80-100); Platelet Count 54 X10^3/uL (150-400); Red Blood Cell Count 2.61 X10^6/uL (4.5-5.9); Red Cell Distribution Width 15.5 % (11.6-14.8); White Blood Cell Count 18.6 X10^3/uL (4.5-11.0)
[2023-01-01 08:34] LABS: BUN Creatinine Ratio 19.4 (6-22); Blood Urea Nitrogen 19 mg/dL (9-20); Calcium 9.1 mg/dL (8.4-10.2); Carbon Dioxide 30 mmol/L (22-32); Chloride 101 mmol/L (98-107); Estimated Glomerular Filt Rate > 60 mL/min (>60); Glucose 99 mg/dL (80-110); HEMOLYSIS < 15 (0-50); Potassium 3.3 mmol/L (3.4-5.1); Sodium 136 mmol/L (137-145)
--- NOTE | 2023-01-01 08:46 | P.CONS_ITS ---
History of Present Illness Consult details Date Patient Seen: 01/01/23 Time Patient Seen: 08:47 Chief complaint: TLIF Reason for consult: fever, confusion Requesting provider: Gagan Santos Narrative: This is an 82 year old male with PMH of BPH with prior kidney stones, myelodysplastic syndrome follows with Dr[facility] Hay[facility] ([facility]), paroxysmal atrial fibrillation, abnormal stress testing 11/2022, prior sepsis secondary to stenotrophomonas pneumonia, TTE with grade II diastolic dysfunction, RA on daily prednisone, and chronic LE wounds who underwent L3-L4 lumbar fusion L2-L3 hemilaminectomy with Dr. Medel yesterday. Beginning this morning he became febrile to 102, with confusion. Medicine was consulted for assistance with evaluation. Ordered sepsis bolus of LR, blood cultures, UA, CXR, labs including lactate. CXR initial read is unremarkable, but he does have prior similar presentation for stenotrophomonas pneumonia. He also has history of renal calculi, but UA is unremarkable. Ordered troponin and EKG given recent abnormal stress testing, which are unremarkable. He does have a chronic leukocytosis and bandemia and pancytopenia, though his labs today are a bit worse than normal. Meds Home Medications and Allergies Home Medications Medication Instructions Recorded Confirmed Type gabapentin 300 mg capsule 400 mg PO TID 12/22/18 12/31/22 History tamsulosin 0.4 mg capsule 0.4 mg PO DAILY 12/22/18 12/24/22 History nifedipine 10 mg capsule 10 mg PO TID 01/18/22 12/31/22 History sildenafil 100 mg tablet 100 mg PO DAILY PRN Erectile 01/18/22 12/24/22 History Dysfunction baclofen 10 mg tablet 10 mg PO DAILY 05/28/22 12/31/22 History finasteride 5 mg tablet 5 mg PO DAILY #90 tabs 06/12/22 12/31/22 Rx acetaminophen 500 mg tablet 500 mg PO TID 12/24/22 12/31/22 History azathioprine 75 mg tablet 75 mg PO DAILY 12/24/22 12/31/22 History hydrocodone 5 mg-acetaminophen 325 1 tab PO DAILY 12/24/22 12/31/22 History mg tablet metoprolol succinate 25 mg 25 mg PO DAILY 12/24/22 12/31/22 History tablet,extended release 24 hr omeprazole 40 mg capsule,delayed 40 mg PO DAILY 12/24/22 12/31/22 History release prednisone 5 mg tablet 6 mg PO DAILY 12/24/22 12/31/22 History Allergies Allergy/AdvReac Type Severity Reaction Status Date / Time sulfamethoxazole Allergy Intermediate Rash Verified 12/31/22 10:10 [From Bactrim] trimethoprim [From Bactrim] Allergy Intermediate Rash Verified 12/31/22 10:10 Review of Systems Review of Systems Narrative: All other systems reviewed with the patient and are negative unless otherwise stated. Exam Vital Signs (past 8 hours): - 01/01/23 04:33 01/01/23 04:34 01/01/23 04:00 Temperature 101.1 F H 101.1 F H 101.1 F H Pulse Rate 90 Respiratory Rate 18 Blood Pressure 162/96 H Pulse Oximetry 95 Oxygen Delivery Method Oxygen Flow Rate 0 01/01/23 07:46 01/01/23 07:52 01/01/23 08:25 Temperature 102.4 F H 99.0 F Pulse Rate 108 H Respiratory Rate 18 Blood Pressure 124/62 122/65 Pulse Oximetry 99 Oxygen Delivery Method Nasal Cannula Oxygen Flow Rate 2 Oxygen Delivery Method Nasal Cannula Oxygen Flow Rate 2 Narrative Exam Narrative: General:? Elderly male in no acute distress but lethargic. HEENT:? Normocephalic, atraumatic, extraocular muscles intact, oral pharynx is clear and mucous membranes are moist. Neck: supple and symmetric, trachea is midline, no cervical adenopathy. Negative for JVD Chest:? Normal AP diameter and contour without kyphoscoliosis, no tachypnea, equal chest rise bilaterally. Lungs:? RLL rales, no wheezing. Left lung CTA Cardio:?RRR no m/r/g. Abdomen: S NT ND. Musculoskeletal:? Muscle strength and tone are equal within normal limits, no deformity. Extremities: No edema or joint effusions. No cyanosis or clubbing. Skin:? Pale,? Warm to touch,dry and intact without rashes, ulcerations or petechiae.? Neuro:? Alert and orientated to name and hospital, month and year are incorrect,? sensation to touch intact in all extremities, no gross deficits noted of cranial nerves. Psych:? Patient has a well-kept appearance, appropriate affect, mental status attitude thought context and judgment are appropriate for age. Objective ECG Impression: NSR without acute ischemia Labs 01/01/23 08:01 07/13/23 08:01 Labs: Laboratory Results - last 24 hr 12/31/22 12/31/22 12/31/22 09:55 09:55 10:20 WBC 5.6 RBC 3.08 L Hgb 11.0 L Hct 33.0 L MCV 107.1 H MCH 35.7 H MCHC 33.4 RDW 15.8 H Plt Count 58 L Neut % (Auto) Not Reportable Lymph % (Auto) Not Reportable [place] % (Auto) Not Reportable Eos % (Auto) Not Reportable Baso % (Auto) Not Reportable Lymph # (Auto) Not Reportable [place] # (Auto) Not Reportable Baso # (Auto) Not Reportable Total Counted 100 Seg Neutrophils % 34.0 L Band Neutrophils % 1.0 L Lymphocytes % (Manual) 13.0 L Atypical Lymphs % 1.0 H Monocytes % (Manual) 45.0 H Metamyelocytes % 6.0 H Neutrophils # (Manual) 1960 L Platelet Estimate Decreased on smear RBC Morphology See below Anisocytosis 1+ H Macrocytosis 1+ H Sodium Potassium Chloride Carbon Dioxide BUN Creatinine Estimated GFR BUN/Creatinine Ratio Glucose Calcium SARS-CoV-2 (PCR) Negative Blood Type A Positive Antibody Screen Negative 01/01/23 01/01/23 08:01 08:01 WBC 18.6 H D RBC 2.61 L Hgb 9.3 L Hct 27.8 L MCV 106.3 H MCH 35.4 H MCHC 33.3 RDW 15.5 H Plt Count 54 L Neut % (Auto) Not Reportable Lymph % (Auto) Not Reportable [place] % (Auto) Not Reportable Eos % (Auto) Not Reportable Baso % (Auto) Not Reportable Lymph # (Auto) Not Reportable [place] # (Auto) Not Reportable Baso # (Auto) Not Reportable Total Counted Seg Neutrophils % Band Neutrophils % Lymphocytes % (Manual) Atypical Lymphs % Monocytes % (Manual) Metamyelocytes % Neutrophils # (Manual) Platelet Estimate RBC Morphology Anisocytosis Macrocytosis Sodium 136 L Potassium 3.3 L Chloride 101 Carbon Dioxide 30 BUN 19 Creatinine 0.98 Estimated GFR > 60 BUN/Creatinine Ratio 19.4 Glucose 99 Calcium 9.1 SARS-CoV-2 (PCR) Blood Type Antibody Screen [facility] Medical History A-fib Bladder calculi BPH (benign prostatic hyperplasia) BPH w urinary obs/LUTS Chest pain Chilblains Esophageal abrasion [place] (hard of hearing) Male circumcision Memory changes Myelodysplastic syndrome ADRIAN on CPAP Osteoporosis Peripheral neuropathy Pneumonia (03/2022) PSVT (paroxysmal supraventricular tachycardia) Skin cancer Spinal stenosis Tremor of both hands Surgical History H/O vasectomy Hx of bilateral cataract extraction Hx of tonsillectomy Status post cholecystectomy Status post laminectomy Family History Brother BPH (benign prostatic hyperplasia) Cancer Gout Father Cancer Thyroid disorder Sister Cancer Social History marital status: number of children: 4 household members: spouse Tobacco & Substance Use Smoking Status: Never smoker alcohol intake: current Assessment & Plan Assessment & Plan narrative: BPH with prior kidney stones, myelodysplastic syndrome (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 1. Presumed Sepsis secondary to presumed bactermial pneumonia with worsened thrombocytopenia and acute metabolic encephalopathy - history of stenotrophomonas, renal calculi in the past. CXR is unremarkable but similar presentation with normal CXR and sputum cultures with stenotrophomonas in [place] in 2021. - UA unremarkable. - 29% bands on CBC, 2% blast cells, no schistocytes (blast crisis or hemolytic anemia a possibility given leukemia diagnosis). This is slightly worse than outpatient labs with 18% bands previously (due to underlying hematologic process). - for now, once blood cultures are drawn, favor treatment with minocycline and levofloxacin given history of stenotrophomonas however minocycline is not available here on formulary, but will order. - fever may be due to atelectasis or drug reaction as POD#1 though this does not typically reach 103F, less likely underlying MDS though there was previously concern for possible transformation to leukemia based on recent biopsies. Should fever persist check LDH, haptoglobin and hemolysis labs. - lactate normal. Patient received LR 30 mg /kg bolus, antibiotics ordered after blood cultures and UA drawn as noted above. - received records from oncology office from 12/24 visit. He tested positive for COVID on 12/22, received Paxlovid from oncologist and was reportedly asymptomatic. PCR COVID Testing was negative 12/31 but will check respiratory panel again. 2. Abnormal nuclear stress test 11/2021 - EKG reassuring, no chest pain, and troponin negative. Stress testing 11/2021 with This is an abnormal myocardial perfusion study with small reversible ischemia of basal inferolateral wall. - will order troponin for tomorrow AM given high risk - Dr. Ash is patient's outpatient performance management consultant 3. Myelodysplastic syndrome, stable, with iron deficiency anemia and thrombocytopenia - oncology has recommended outpatient GI consultation for EGD and colonoscopy for iron deficiency anemia. Will continue to watch blood counts here. 4. Hypokalemia - replete per pharmacy 5. paroxysmal atrial fibrillation - okay to continue home metoprolol despite sepsis at this time. 6. chronic diastolic heart failure - no signs of volume overload currently, continue IV fluids with caution. 7. BPH - continue home medications. With negative UA no indication for imaging at this time. 8. RA on prednisone - if hypotensive give stress dose steroids, he is only on 6 mg prednisone daily so not needed unless Code: Full, surrogate is patient's spouse I have utilized all available immediate resources to obtain, update, or review the patient's current medications. Hospitalist service will continue to follow along with this complex patient. Additional history obtained via extensive review of outpatient records, discuss ion with orthopedic physician occupational therapist's assistant. Ordered and interpretation of lab evulation is discussed above. I reviewed patient's imaging, labs, EKG personally.
[2023-01-01 08:58] LABS: Macrocytosis 2+; Neutrophils Absolute Manual 8928 /uL (3000-5900); Platelet Estimate Decreased on smear; Total Cells Counted 100
[2023-01-01 09:01] LABS: Alanine Aminotransferase 23 IU/L (<50); Albumin 3.7 g/dL (3.5-5.0); Albumin Globulin Ratio 1.4 (1.0-2.8); Alkaline Phosphatase 75 U/L (38-126); Aspartate Aminotransferase 43 IU/L (17-59); Bilirubin Total 0.4 mg/dL (0.2-1.3); Bilirubin Unconjugated 0.3 mg/dL (0.0-1.1); Globulin 2.7 g/dL (1.7-4.1); HEMOLYSIS < 15 (0-50); Total Protein 6.4 g/dL (6.3-8.2)
[2023-01-01 09:12] LABS: Troponin I < 0.012 ng/mL (0.01-0.034)
[2023-01-01] MEDS: LACTATED RINGERS 707 ML IV (09:27)
[2023-01-01] MEDS: MAGNESIUM HYDROXIDE 30 ML UDC PO (09:27)
[2023-01-01] MEDS: predniSONE 5 MG TABLET 6 MG PO (09:28)
[2023-01-01] MEDS: azaTHIOprine 50 MG TABLET 75 MG PO (09:28)
[2023-01-01] MEDS: METOPROLOL ER 25 MG TABLET PO (09:29)
[2023-01-01] MEDS: FINASTERIDE 5 MG TABLET PO (09:29)
[2023-01-01] MEDS: BACLOFEN 10 MG TABLET PO (09:29)
[2023-01-01] MEDS: NIFEdipine 10 MG CAPSULE PO ×2 (09:29→21:27)
[2023-01-01] MEDS: GABAPENTIN 400 MG CAPSULE PO ×3 (09:29→21:27)
[2023-01-01] MEDS: TAMSULOSIN 0.4 MG CAPSULE PO (09:29)
[2023-01-01] MEDS: DOCUSATE 100 MG CAPSULE PO ×2 (09:29→21:28)
[2023-01-01 10:04] LABS: Lactate (Lactic Acid) 1.3 mmol/L (0.7-2.1)
--- NOTE | 2023-01-01 10:10 | OT.IPNOTE ---
Per Dr. Parrish, pt having a fever and confused, okay to hold OT eval this AM. To check with Dr. Parrish this PM to see if pt is medically appropriate to be seen later.
--- NOTE | 2023-01-01 10:17 | PT-IP ANOTE ---
PT ralf received. EMR reviewed. Per hospitalist, hold PT this morning and to follow up in the afternoon. Pt. s/p TLIF but has high fever and encephalopathy and not medically stable this morning for PT.
[2023-01-01 11:05] LABS: Appearance Urine UA CLEAR; Bilirubin Urine UA NEGATIVE (NEGATIVE); Color Urine UA YELLOW; Glucose Urine UA NEGATIVE (Negative); Ketones Urine UA NEGATIVE (NEGATIVE); Leukocyte Esterase Urine UA NEGATIVE (NEGATIVE); Nitrite Urine UA NEGATIVE (Negative); Occult Blood Urine UA TRACE-INTACT (Negative); Protein Urine UA TRACE (Negative); Specific Gravity Urine UA 1.015 (1.000-1.035); Urobilinogen Urine UA 0.2 E.U./dL (0.2); pH Urine UA 7.5 (4.5-8.0)
[2023-01-01 11:24] LABS: Bacteria Urine None Seen; Culture Indicated Urine Cult Not Indicated; RBC Urine 0-1/HPF (0-5/HPF); Squamous Epithelial Cell Urine None Seen (0-5/HPF); WBC Urine None Seen (0-5/HPF)
[2023-01-01] MEDS: levoFLOXacin 750 MG/150 ML PIGGYBACK 100 MG IV (11:33)
[2023-01-01] MEDS: POTASSIUM CHLORIDE 20 MEQ TAB 40 MEQ PO ×2 (11:34→17:26)
[2023-01-01 13:27] LABS: Adenovirus Not Detected (Not Detect); B. parapertussis Not Detected (Not Detecte); Bordetella pertussis Not Detected (Not Detecte); Chlamydophila pneumoniae Not Detected (Not Detect); Coronavirus 229E Not Detected (Not Detect); Coronavirus HKU1 Not Detected (Not Detect); Coronavirus NL 63 Not Detected (Not Detect); Coronavirus OC43 Not Detected (Not Detect); Human Metapneumovirus Not Detected (Not Detect); Human Rhinovirus/Enterovirus Not Detected (Not Detect); Influenza A Not Detected (Not Detect); Influenza B Not Detected (Not Detect); Mycoplasma pneumoniae Not Detected (Not Detect); Parainfluenza Virus 1 Not Detected (Not Detect); Parainfluenza Virus 2 Not Detected (Not Detect); Parainfluenza Virus 3 Not Detected (Not Detect); Parainfluenza Virus 4 Not Detected (Not Detect); Respiratory Syncytial Virus Not Detected (Not Detect); SARS- CoV-2 Not Detected (Not Detecte)
--- NOTE | 2023-01-01 13:32 | OT.IPNOTE ---
Spoke to Dr. Parrish regarding OT eval today, okay to hold today as not medically ready at this time. To check on the pt tomorrow for OT eval.
--- NOTE | 2023-01-01 14:33 | CM.DANOTE ---
Initial DCP Assessment Note Pt is an 82 yo male, resident of [place], now POD#1 from spinal surgery by Dr Medel Patient with a complicated medical history, spiked a fever this morning, hospitalist consulted PMH includes: myelodysplastic syndrome, diastolic dysfunction, hx sepsis sec to pneumonia, RA, non-healing wounds and memory changes per H+P. Patient sees cardiology, rheumatology, wound care and hematology PCP: Jake Arguello Payer: [facility] Reviewed chart, pt discussed in multidisciplinary rounds this morning. Hospitalist consulted r/t fever that developed this morning with encephalopathy Placed call to spouse Kourtney who requests referrals to SNFs: [facility] and [facility] with stated intention of visiting patient from [place] as often as she can Attempted to meet w/spouse at patient's bedside and she was on the phone, will plan to collect more info re patient's baseline upon next visit with spouse PASRR completed in anticipation of SNF SANIA Nguyen Discharge Planning/Care Management CM Discharge Assessment Start: 01/01/23 14:19 Freq: Status: Active Protocol: Document 01/01/23 14:19 HOLLY (Rec: 01/01/23 14:33 HOLLY [id number]) Discharge Planning Assessment Assigned Packaging Sales Representative SANIA Wisdom DPOA/Assigned Designee Name Kourtney James, spouse Contact Information [phone] Advance Directives? Yes Advance Directives on File No History Provided By Patient,Significant Other, Medical Record Prior Living Arrangements House Household Members spouse Type of transporation used prior to Relies on Others admit Independent with ADL's No Is patient alert and oriented? No Needs Assistance With Bathing,Grooming,Meal Prep, Managing Medications,Home Chores / Shopping Comment Hx falls and slow ambulation per pre-anesthesia assessment Caregiver for Another No Patient/Family Preference [facility] Facility Barriers to Discharge Yes Comment Multiple co-morbidities and poor activity tolerance at baseline Discharge Plan [facility] Facility Transportation Arrangement Likely facility van vs BLS (?) Referrals Initiated [facility] Additional Comment Referrals to [facility] and [facility] SNF per spouse's request
--- NOTE | 2023-01-01 16:12 | PT-IP ANOTE ---
checked with hospitalist and pt continues to be not medically stable for PT eval and is on hold. will f/u.
[2023-01-01] MEDS: SENNOSIDES 8.6 MG TABLET 17.2 MG PO (21:27)
[2023-01-02] VITALS (11 sets, daily range): BP systolic 114–194; BP diastolic 57–87; PULSE 66–89; RESP 15–21; TEMP 36.4–37.6; O2SAT 94–98
[2023-01-02 01:28] LABS: Enterococcus faecalis Not Detected (Not Detect); Enterococcus faecium Not Detected (Not Detect); Listeria monocytogenes Not Detected (Not Detect); Staphylococcus epidermidis Not Detected (Not Detect); Staphylococcus lugdunensis Not Detected (Not Detect); Staphylococcus species Not Detected (Not Detect); Streptococcus agalactiae (Gr B Not Detected (Not Detect); Streptococcus pneumonia Not Detected (Not Detect); Streptococcus species Not Detected (Not Detect)
[2023-01-02 01:29] LABS: Acinetobacter calcoa-baumannii Not Detected (Not Detect); Bacteroides fragilis Not Detected (Not Detect); Candida albicans Not Detected (Not Detect); Candida auris Not Detected (Not Detect); Candida glabrata Not Detected (Not Detect); Candida krusei Not Detected (Not Detect); Candida parapsilosis Not Detected (Not Detect); Candida tropicalis Not Detected (Not Detect); Cryptococcus neoformans/gatti Not Detected (Not Detect); Enterobacter cloacae complex Not Detected (Not Detect); Enterobacterales Not Detected (Not Detect); Haemophilus influenzae Not Detected (Not Detect); Klebsiella aerogenes Not Detected (Not Detect); Neisseria meningitidis Not Detected (Not Detect); Proteus species Not Detected (Not Detect); Pseudomonas aeruginosa Not Detected (Not Detect); Salmonella species Not Detected (Not Detect); Serratia marcescens Not Detected (Not Detect); Stenotrophomonas maltophilia Not Detected (Not Detect); Streptococcus pyogenes (Gr A) Not Detected (Not Detect)
[2023-01-02 05:04] LABS: Alanine Aminotransferase 19 IU/L (<50); Albumin 3.3 g/dL (3.5-5.0); Albumin Globulin Ratio 1.1 (1.0-2.8); Alkaline Phosphatase 60 U/L (38-126); Aspartate Aminotransferase 37 IU/L (17-59); BUN Creatinine Ratio 17.1 (6-22); Bilirubin Total 0.6 mg/dL (0.2-1.3); Blood Urea Nitrogen 18 mg/dL (9-20); Calcium 9.3 mg/dL (8.4-10.2); Carbon Dioxide 28 mmol/L (22-32); Chloride 102 mmol/L (98-107); Estimated Glomerular Filt Rate > 60 mL/min (>60); Globulin 2.9 g/dL (1.7-4.1); Glucose 119 mg/dL (80-110); HEMOLYSIS < 15 (0-50); Potassium 4.4 mmol/L (3.4-5.1); Sodium 134 mmol/L (137-145); Total Protein 6.2 g/dL (6.3-8.2)
[2023-01-02 05:14] LABS: Troponin I < 0.012 ng/mL (0.01-0.034)
[2023-01-02] MEDS: PANTOPRAZOLE DR 40 MG TABLET PO (05:29)
[2023-01-02] MEDS: LACTATED RINGERS 1,000 ML 125 ML IV ×2 (05:35→13:09)
[2023-01-02 05:47] LABS: Hematocrit 25.9 % (41-53); Hemoglobin 8.6 g/dL (13.5-17.5); Mean Corpuscular HGB Conc 33.2 % (30-36); Mean Corpuscular Hemoglobin 35.2 PG (26-34); Mean Corpuscular Volume 106.1 fL (80-100); Platelet Count 49 X10^3/uL (150-400); Red Blood Cell Count 2.44 X10^6/uL (4.5-5.9); Red Cell Distribution Width 15.8 % (11.6-14.8); White Blood Cell Count 19.2 X10^3/uL (4.5-11.0)
[2023-01-02 05:49] LABS: Add Manual Diff / Slide Review YES
[2023-01-02 07:04] LABS: Neutrophils Absolute Manual 9984 /uL (3000-5900); Total Cells Counted 100
[2023-01-02 07:05] LABS: Anisocytosis 1+; Macrocytosis 1+; Platelet Estimate Decreased on smear
[2023-01-02] MEDS: OXYCODONE IR 10 MG TABLET PO (07:34)
[2023-01-02] MEDS: ACETAMINOPHEN 325 MG TABLET 650 MG PO ×2 (07:34→14:30)
[2023-01-02] MEDS: polyethylene glycoL 3350 17 GM POWD.PACK PO (08:40)
[2023-01-02] MEDS: DOCUSATE 100 MG CAPSULE PO ×2 (08:40→20:25)
[2023-01-02] MEDS: GABAPENTIN 400 MG CAPSULE PO ×3 (08:41→20:25)
[2023-01-02] MEDS: METOPROLOL ER 25 MG TABLET PO (08:41)
[2023-01-02] MEDS: FINASTERIDE 5 MG TABLET PO (08:41)
[2023-01-02] MEDS: NIFEdipine 10 MG CAPSULE PO ×3 (08:41→20:24)
[2023-01-02] MEDS: azaTHIOprine 50 MG TABLET 75 MG PO (08:41)
[2023-01-02] MEDS: BACLOFEN 10 MG TABLET PO (08:41)
[2023-01-02] MEDS: TAMSULOSIN 0.4 MG CAPSULE PO (08:41)
[2023-01-02] MEDS: predniSONE 5 MG TABLET 6 MG PO (08:41)
[2023-01-02] MEDS: MAGNESIUM HYDROXIDE 30 ML UDC PO (10:54)
[2023-01-02] MEDS: OXYCODONE IR 5 MG TABLET PO ×4 (10:54→20:39)
[2023-01-02] MEDS: levoFLOXacin 750 MG/150 ML PIGGYBACK 100 MG IV (10:54)
--- NOTE | 2023-01-02 11:27 | OT.IP.EVAL ---
Current Diagnoses Spondylolisthesis, lumbar region (12/31/22) Spinal stenosis, lumbar region with neurogenic claudication (12/31/22) Surgery Performed Operation Date: 12/31/22 13:45 Actual Procedures p L3-4 TLIF, L2-3 hemilaminectomy(Not Applicable) - Jasvir Medel MD Past Medical History (Last Reviewed 01/01/23 @ 08:55 by Jake aPrrish DO) A-fib Bladder calculi BPH (benign prostatic hyperplasia) BPH w urinary obs/LUTS Chest pain Chilblains Esophageal abrasion [place] (hard of hearing) Male circumcision Memory changes Myelodysplastic syndrome ADRIAN on CPAP Osteoporosis Peripheral neuropathy Pneumonia (03/2022) PSVT (paroxysmal supraventricular tachycardia) Skin cancer Spinal stenosis Tremor of both hands Surgical History (Last Reviewed 01/01/23 @ 08:55 by Jake Parrish DO) H/O vasectomy Hx of bilateral cataract extraction Hx of tonsillectomy Status post cholecystectomy Status post laminectomy Occupational Therapy Inpatient Evaluation/Re-Eval M1 PT/OT-IP Prior Functional Status Start: 01/02/23 13:16 Freq: NEEDED Status: Active Protocol: Document 01/02/23 11:27 [facility] (Rec: 01/02/23 13:35 [facility] [id number]) Medical Review Prior Functional Status Communication independent Mobility and Gait Pt has been using a SPC and lately a 4ww. Activities of Daily Living and IADL's Pt states prior able to do all his ADl's on his own. Prior Functional Level (Other details) Pt having s/p L3-4 TLIF and L2 -3 hemilaminectomy and now sepsis and bacterial PNA. Social History Household Members spouse Living Arrangements House Number of Floors (Floors) One Floor Number of Stairs To Enter/Railing? one step to enter Home Environment High Toilet,Tub/Shower Home Equipment Front Wheel Walker,Four Wheel Walker,Straight Cane,Shower Seat with Backrest,Lift Recliner,Grab Bars In Shower Additional Social History Comment Pt has an adjustable bed at home. M2 OT-IP Current Condition Start: 01/02/23 13:16 Freq: Status: Active Protocol: Document 01/02/23 11:27 [facility] (Rec: 01/02/23 13:35 [facility] [id number]) Occupational Therapy Current Condition Current Condition Evaluation Date 01/02/23 Treatment Diagnosis S/p L3-4 TLIF, L2-3 hemilaminectomy, sepsis, acute metabolic encephalopathy Diagnosis Onset Date 12/31/22 Post Operative Precautions Lumbar Precautions Log Roll,No Twisting,Limit Bending,Lifting Restriction of 10 lbs,Gait Belt above Incisional Area M3 OT- IP Subjective and Pain Start: 01/02/23 13:16 Freq: Status: Active Protocol: Document 01/02/23 11:27 [facility] (Rec: 01/02/23 13:35 [facility] [id number]) OT- Subjective Occupational Therapy Visit Type Type Initial Evaluation Visit Start Time 11: Visit Stop Time 12:13 Total Visit Minutes 46 Occupational Therapy Visit Comments Patient Comments Pt agreed to get up, pt's in the room for part of OT eval. Patient/Caregiver Goals To go home. OT Pain Assessment Pain When Pain Assessed During Mobility Pain Present Pain Present Pain Reported M4 OT- IP ADL's Start: 01/02/23 13:16 Freq: Status: Active Protocol: Document 01/02/23 11:27 [facility] (Rec: 01/02/23 13:35 [facility] [id number]) OT ADL-Dressing General Eval Lower Body Dressing Ability Maximum Assistance,Total Assistance Areas Needing Assistance Socks,Shoes,Orthosis/ Prosthesis Comments OT Dressing Comments Pt for socks, AFO, and shoes. OT ADL-Toileting Comments OT Toileting Comments pt has an external catheter in . OT ADL-Bathing Comments OT Bathing Comments Not performed. M5 OT- IP IADL's Start: 01/02/23 13:16 Freq: Status: Active Protocol: Document 01/02/23 11:27 [facility] (Rec: 01/02/23 13:35 [facility] [id number]) OT-Instrumental Activities of Daily Living Home Safety Awareness Home Safety Comments Pt has a supportive to be able to assist with his needs . M6 OT- IP Functional Cognition Start: 01/02/23 13:16 Freq: Status: Active Protocol: Document 01/02/23 11:27 [facility] (Rec: 01/02/23 13:35 [facility] [id number]) Cognitive Factors Limiting Selfcare Function Cognitive Ability Level of Alertness Alert Patient Orientation Name,Place,Situation Attention Span Ability Capable of Focused Attention, Capable of Sustained Attention Ability to Follow Commands Able to Follow One Step Commands Safety Awareness Decreased Recall of Precautions,Decreased Ability to Apply Precautions Cognitive Comments Cognitive Assessment Comments Pt needing cues to follow his back precautions during mobility needs. Pt tends to lean forwards too far. Pt is very hard of hearing and wears hearing aids. OT- Vision and Hearing OT- Hearing Assessment OT- Hearing Assessment Use of Hearing Aids M7 OT- IP Mobility and Balance Start: 01/02/23 13:16 Freq: Status: Active Protocol: Document 01/02/23 11:27 [facility] (Rec: 01/02/23 13:35 [facility] [id number]) OT- Bed Mobility Assessment Supine to Sit Supine to Sit Assist Moderate Assistance,2 Person Assistance Sit to Supine Sit to Supine Assist Moderate Assistance,2 Person Assistance OT-Transfer Assessment Sit to and From Stand Sit to and from Stand Minimal Assistance,Moderate Assistance Transfers Transfer Ability Minimal Assistance,2 Person Assistance Technique Transfer Destination Bed,Chair Transfer Technique Stand Step Pivot Devices Transfer Assistive Devices Gait Belt,Front Wheeled Walker Comments Mobility Comments MODA x2 to help with his trunk to get upright and to the edge of the bed. MIN/MODA x2 to stand with the FWW and GIDEON x2 to transfer, assist for balance and to guide the FWW. OT- Balance Assessment Sitting Balance and Reactions Static Sitting Balance Ability Fair Dynamic Sitting Balance Ability Fair Standing Balance and Reactions Static Standing Balance Ability Fair Dynamic Standing Balance Ability Fair M8 OT- IP Objective Assessments Start: 01/02/23 13:16 Freq: Status: Active Protocol: Document 01/02/23 11:27 [facility] (Rec: 01/02/23 13:35 [facility] [id number]) OT Gross Range of Motion Upper Extremity Range of Motion Assessment Within Functional Limits M9 OT- IP Assessment and Plan Start: 01/02/23 13:16 Freq: Status: Active Protocol: Document 01/02/23 11:27 [facility] (Rec: 01/02/23 13:35 [facility] [id number]) OT Summary Assessment and Plan Potential Rehabilitation Potential Good Analytic Complexity at Evaluation High Summary OT Impairments Pain,Strength,Balance, Functional Mobility,Grooming, Dressing,Toileting,Bathing, Toilet Transfers,Shower Transfers,Activity Tolerance Progress Towards Goals Progressing Toward Goals Assessment Summary Pt high complexity and main barriers are pain, decreased activity tolerance and now needing two person assist for mobility needs and dependent for LB dressing needs as pt wears AFL's. Pt's back sx complicated by having sepsis and PNA. Pt will greatly benefit from skilled rehab prior to going home. Goals Self-Feeding Goal Independent Grooming Goal Independent Dressing Goal Minimal Assistance Toileting Goal Independent Bathing Goal Standby Assistance Toilet Transfer Goal Independent Shower Transfer Goal Standby Assistance Days to Meet Goals 20 Frequency of Treatment Frequency Of Treatment Once a Day Treatment Plan OT Treatment Plan ADL Training,Functional Mobility,Patient/Family Education,Discharge Planning Discharge Recommendations OT Discharge Recommendations SNF Rehab Transportation Needs at Discharge Wheelchair/Cabulance
--- NOTE | 2023-01-02 13:45 | PT.IPTN ---
Current Diagnoses Spondylolisthesis, lumbar region (12/31/22) Spinal stenosis, lumbar region with neurogenic claudication (12/31/22) Surgery Performed Operation Date: 12/31/22 13:45 Actual Procedures p L3-4 TLIF, L2-3 hemilaminectomy(Not Applicable) - Jasvir Medel MD Physical Therapy Treatment Note M2 PT-IP Current Condition Start: 01/02/23 13:31 Freq: NEEDED Status: Active Protocol: Document 01/02/23 12:06 [facility] (Rec: 01/02/23 13:51 [facility] [id number]) Physical Therapy Current Condition Current Condition Evaluation Date 01/02/23 Treatment Diagnosis s/p TLIF; weakness, difficulty walking Onset Date 12/31/22 M3 PT-IP Subjective Start: 01/02/23 13:31 Freq: NEEDED Status: Active Protocol: Document 01/02/23 13:28 [facility] (Rec: 01/02/23 13:54 [facility] [id number]) Subjective Physical Therapy Visit Type Type Treatment Note Visit Start Time 13:28 Visit Stop Time 13:45 Total Visit Minutes 17 Number of BLOCK SETTER GYPSUM Visits 1 Physical Therapy Visit Comments Patient Comments Pt wants to return to bed. Therapy Pain Assessment Pain Present Pain Present Pain Reported Location Back Scale Used not quantified Pain Management Techniques Distraction,Modification of Treatment,Re-positioning M4 PT-IP Mobility and Gait Start: 01/02/23 13:31 Freq: NEEDED Status: Active Protocol: Document 01/02/23 13:28 [facility] (Rec: 01/02/23 13:54 [facility] [id number]) PT-Bed Mobility Assessment Sit to Supine Sit to Supine Maximum Assistance,1 Person Assistance Scooting Scooting to Edge of Bed Contact Guard Assistance PT-Transfer Assessment Sit to and From Stand Sit to and from Stand Moderate Assistance,1 Person Assistance,Use of Upper Extremities Equipment Transfer Assistive Device Gait Belt,Front Wheeled Walker Orthotic/Prosthetic Devices or Brace: Yes Transfers Transfer Destination Bed Transfer Technique ambulated Transfer Ability Level of Assist Moderate Assistance,1 Person Assistance,Use of Upper Extremities Comments Mobility Comments Pt in chair upon arrival, recent emesis and feeling fatigued. Would like to return to bed. Mod A for sit<>stand w/ FWW. Pt ambulated ~6 ft to bed w/ FWW Min A and cues for fww mgmt and staying close to FWW. Pt able to scoot hips back towards middle of bed CGA . Required Max A for sit<>sup. Attempted LE exercises however pt began to fall asleep. Able to recall 3/3 precautions. Gait Assessment Gait Gait Assistance Required: Minimum Assistance,1 Person Assist Distance (Feet) 6 Assistive Devices Assistive Device Gait Belt,Front Wheeled Walker Orthotic/Prosthetic Devices or Brace: Yes Gait Deviations General Gait Pattern Antalgic,Decreased Stride Length,Decreased Feet Clearance,Flexed Trunk Factors Limiting Gait Function Factors Limiting Gait Function Abnormal Tonal Influences, Decreased Activity Tolerance, Decreased Sensation,Decreased Strength,Incoordination, Limited Range of Motion,Pain, Poor Balance Comments Gait Comments Bilateral AFOs, short distance from chair to bed only due to fatigue and weakness. Requires verbal and tactile cues for FWW mgmt especially when turning. Stair Climbing Assessment Comments Stair Climbing Comments Did not assess. PT-Balance Assessment Sitting Balance and Reactions Static Sitting Balance Ability Good Dynamic Sitting Balance Ability Fair Standing Balance and Reactions Static Standing Balance Ability Fair Dynamic Standing Balance Ability Fair Device Used FWW M5 PT-IP Objective Assessments Start: 01/02/23 13:31 Freq: NEEDED Status: Active Protocol: Document 01/02/23 12:06 [facility] (Rec: 01/02/23 13:51 [facility] [id number]) Orientation Orientation/Cognition Level of Alertness Alert Language Function Ability Hard of Hearing Safety Awareness Understands Safety Issues Memory Description No Deficits Noted Gross Range of Motion Upper Extremity ROM Assessment Within Functional Limits Lower Extremity ROM Assessment Bilaterally Impaired Impairments B ankle DF limited to ~5 degrees passive Strength Lower Extremity Strength Assessment Bilaterally Impaired Hip 4-/5 Knee 4-/5 Ankle DF 2-/5 B M6 PT-IP Treatment Start: 01/02/23 13:31 Freq: NEEDED Status: Active Protocol: Document 01/02/23 13:28 [facility] (Rec: 01/02/23 13:54 [facility] [id number]) Physical Therapy Treatment Exercises Exercises Ankle Pumps,Gluteal Sets,Quad Sets Education Education Provided Precautions,Post-Op Packet, Safety M7 PT-IP Assessment and Plan Start: 01/02/23 13:31 Freq: NEEDED Status: Active Protocol: Document 01/02/23 13:28 [facility] (Rec: 01/02/23 13:54 [facility] [id number]) PT Summary Assessment and Plan Potential Rehabilitation Potential Good Summary Impairments Pain,Strength,Balance, Coordination,Bed Mobility, Transfers,Gait,Activity Tolerance Progress Towards Goals Slow Progress due to Pain,Slow Progress due to Activity Tolerance Assessment Summary Pt limited by weakness, fatigue and overall feeling ill this PM. Mod A for sit<> Stand, Min A for short distance amb w/ FWW and Max A for sit<>sup for LE eelvation into bed. Able to recall spinal precations, unable to fully participate in LE exercises due to high level of fatigue/falling asleep upon return to bed. At this time, pt will require SNF to improve functional mobility independence and strength. Treatment Plan Other Recommendations and Next Treatment Increase ambulation distance Focus Recommendations To Nursing Amount of Assist Needed 2 Person Assist Discharge Recommendations PT Discharge Recommendations SNF Rehab,Home vs SNF Equipment Needed for Home Before may need FWW if not safe w/ Discharge 4WW Transportation Needs at Discharge Wheelchair/Cabulance
--- NOTE | 2023-01-02 13:51 | PT.IIE ---
Current Diagnoses Spondylolisthesis, lumbar region (12/31/22) Spinal stenosis, lumbar region with neurogenic claudication (12/31/22) Surgery Performed Operation Date: 12/31/22 13:45 Actual Procedures p L3-4 TLIF, L2-3 hemilaminectomy(Not Applicable) - Jasvir Medel MD Surgical History (Last Reviewed 01/01/23 @ 08:55 by Jake Parrish DO) H/O vasectomy Hx of bilateral cataract extraction Hx of tonsillectomy Status post cholecystectomy Status post laminectomy Medical History (Last Reviewed 01/01/23 @ 08:55 by Jake Parrish DO) A-fib Bladder calculi BPH (benign prostatic hyperplasia) BPH w urinary obs/LUTS Chest pain Chilblains Esophageal abrasion [place] (hard of hearing) Male circumcision Memory changes Myelodysplastic syndrome ADRIAN on CPAP Osteoporosis Peripheral neuropathy Pneumonia (03/2022) PSVT (paroxysmal supraventricular tachycardia) Skin cancer Spinal stenosis Tremor of both hands Physical Therapy Inpatient Evaluation/Re-Eval M1 PT/OT-IP Prior Functional Status Start: 01/02/23 13:16 Freq: NEEDED Status: Active Protocol: Document 01/02/23 12:06 [facility] (Rec: 01/02/23 13:51 [facility] [id number]) Medical Review Prior Functional Status Medical History Reviewed Yes Communication [place]; uses hearing aids Mobility and Gait Indep for short distances with cane; has been using 4WW recently. Wears B AFO's. Social History Household Members spouse Living Arrangements House Number of Floors (Floors) One Floor Number of Stairs To Enter/Railing? 1 step to enter, 2 steps into living room with rail Home Equipment Four Wheel Walker,Lift Recliner Additional Social History Comment Sleeps in an adjustable bed. is able to assist at home . M2 PT-IP Current Condition Start: 01/02/23 13:31 Freq: NEEDED Status: Active Protocol: Document 01/02/23 12:06 [facility] (Rec: 01/02/23 13:51 [facility] [id number]) Physical Therapy Current Condition Current Condition Evaluation Date 01/02/23 Treatment Diagnosis s/p TLIF; weakness, difficulty walking Onset Date 12/31/22 M3 PT-IP Subjective Start: 01/02/23 13:31 Freq: NEEDED Status: Active Protocol: Document 01/02/23 12:06 [facility] (Rec: 01/02/23 13:51 [facility] [id number]) Subjective Physical Therapy Visit Type Type Initial Evaluation Visit Start Time 11:27 Visit Stop Time 12:06 Total Visit Minutes 29 Notes Seen with OT Physical Therapy Visit Comments Patient Comments Patient alert in bed, present at start and end of visit. Patient agreeable to work with therapies. Therapy Pain Assessment Pain When Pain Assessed During Mobility Pain Present Pain Present Pain Reported Location Back Intensity 7 Scale Used Numeric (0 - 10) M4 PT-IP Mobility and Gait Start: 01/02/23 13:31 Freq: NEEDED Status: Active Protocol: Document 01/02/23 12:06 [facility] (Rec: 01/02/23 13:51 [facility] [id number]) PT-Bed Mobility Assessment Rolling Type of Rolling Log Rolling,Roll to Right Level of Assist Minimal Assistance Supine to Sit Supine to Sit Moderate Assistance,2 Person Assistance,Head of Bed Elevated,Bedrails Scooting Scooting to Edge of Bed Minimal Assistance PT-Transfer Assessment Sit to and From Stand Sit to and from Stand Moderate Assistance,2 Person Assistance,Use of Upper Extremities Equipment Transfer Assistive Device Gait Belt,Front Wheeled Walker Transfers Transfer Destination Chair Transfer Technique Stand Step Pivot Transfer Ability Level of Assist Minimal Assistance,2 Person Assistance,Use of Upper Extremities Comments Mobility Comments Instructed patient in lumbar precautions and log rolling technique prior to moving. Performed supine to sit using log roll technique to R side, HOB elevated ~10 degrees. Required 2-person assist to manage lines. Patient moved slowly, required cues for upright posture throughout. Gait Assessment Comments Gait Comments Only up to chair this visit. PT-Balance Assessment Sitting Balance and Reactions Static Sitting Balance Ability Fair Dynamic Sitting Balance Ability Fair Standing Balance and Reactions Static Standing Balance Ability Fair Dynamic Standing Balance Ability Fair Device Used FWW Functional Assessments Other Functional Tests Performed AM-PAC 6 Clicks Basic Mobility t-score = 36.74 (>42.9 predicts d/c home) M5 PT-IP Objective Assessments Start: 01/02/23 13:31 Freq: NEEDED Status: Active Protocol: Document 01/02/23 12:06 [facility] (Rec: 01/02/23 13:51 [facility] [id number]) Orientation Orientation/Cognition Level of Alertness Alert Language Function Ability Hard of Hearing Safety Awareness Understands Safety Issues Memory Description No Deficits Noted Gross Range of Motion Upper Extremity ROM Assessment Within Functional Limits Lower Extremity ROM Assessment Bilaterally Impaired Impairments B ankle DF limited to ~5 degrees passive Strength Lower Extremity Strength Assessment Bilaterally Impaired Hip 4-/5 Knee 4-/5 Ankle DF 2-/5 B M6 PT-IP Treatment Start: 01/02/23 13:31 Freq: NEEDED Status: Active Protocol: Document 01/02/23 12:06 [facility] (Rec: 01/02/23 13:51 [facility] [id number]) Physical Therapy Treatment Education Education Provided Precautions,Weight Bearing Status,Post-Op Packet,Safety M7 PT-IP Assessment and Plan Start: 01/02/23 13:31 Freq: NEEDED Status: Active Protocol: Document 01/02/23 12:06 [facility] (Rec: 01/02/23 13:51 [facility] [id number]) PT Summary Assessment and Plan Potential Rehabilitation Potential Good Status of Condition at Evaluation Evolving Summary Impairments Pain,ROM,Strength,Balance,Bed Mobility,Transfers,Gait, Activity Tolerance Assessment Summary Patient is a 82 year old male POD 2 s/p TLIF. He presents below his baseline function after being immobile initially after surgery due to post-op medical complications. He was able to get up to chair with 2 -person assist; assist was needed for managing lines and due to patient's weakness. His BP was stable during treatment. He required cues for lumbar precautions. Patient will benefit from further skilled therapy to increase strength and balance and to further education on precautions to improve safety and independence with functional mobility. He may benefit from subacute rehab to be able to d/c home safely with his 's assistance; will continue to assess progress during hospital stay. Goals Bed Mobility Goal Standby Assistance Transfer Goal Standby Assistance,Four Wheeled Walker Gait Goal Standby Assistance,Four Wheel Walker Gait Distance 100 ft Other Goals Patient will be able to ascend /descend 2 stairs with single rail and LRAD. Patient will demonstrate good understanding of lumbar precautions. Days to Meet Goals 5 Frequency of Treatment Frequency Of Treatment Twice a Day Treatment Plan Physical Therapy Treatment Plan Bed Mobility Training,Transfer Training,Gait Training, Therapeutic Exercise,Balance Retraining,Post Op Education, Discharge Planning Precautions Lumbar Precautions Log Roll,No Twisting,Limit Bending,Lifting Restriction of 10 lbs,Gait Belt above Incisional Area Weight Bearing Status Weight Bearing Status Weight Bear as Tolerated Recommendations To Nursing Amount of Assist Needed 2 Person Assist Discharge Recommendations PT Discharge Recommendations Home vs SNF Equipment Needed for Home Before May need FWW; TBD Discharge Transportation Needs at Discharge Private Vehicle,Wheelchair/ Cabulance
--- NOTE | 2023-01-02 13:59 | P.PN_ITS ---
Subjective Subjective Date Patient Seen: 01/01/23 Time Patient Seen: 07:52 Interval history: 82 M consulted for presumed sepsis yesterday. Has history of stenotrophomonas, started on levofloxacin and minocycline today as pharmacy needed to order this medication. He has since been afebrile, and is much improved this morning. His notes he received paxlovid for 's COVID diagnosis, not his own. She did confirm that they had not followed up with cardiology, but assumed that it was normal. Exam Vital Signs (past 8 hours): - 01/02/23 08:00 01/02/23 08:41 01/02/23 10:08 Temperature 99.2 F 98.9 F Pulse Rate 89 86 Respiratory Rate 15 Blood Pressure 194/87 H 159/86 H Pulse Oximetry 97 Oxygen Flow Rate 0 01/02/23 12:00 01/02/23 12:11 Temperature 98.6 F Pulse Rate 87 88 Respiratory Rate 19 Blood Pressure 142/66 H 132/65 Pulse Oximetry 97 Oxygen Flow Rate 0 Oxygen Delivery Method Room Air Oxygen Flow Rate 0 Narrative Exam Narrative: General:? Elderly male in no acute distress but lethargic. HEENT:? Normocephalic, atraumatic, extraocular muscles intact, oral pharynx is clear and mucous membranes are moist. Neck: supple and symmetric, trachea is midline, no cervical adenopathy. Negative for JVD Chest:? Normal AP diameter and contour without kyphoscoliosis, no tachypnea, equal chest rise bilaterally. Lungs:? RLL rales, no wheezing. Left lung CTA Cardio:?RRR no m/r/g. Abdomen: S NT ND. Musculoskeletal:? Muscle strength and tone are equal within normal limits, no deformity. Extremities: No edema or joint effusions. No cyanosis or clubbing. Skin:? Pale,? Warm to touch,dry and intact without rashes, ulcerations or pet echiae.? Neuro:? Alert and orientated to name and hospital, month and year are incorrect,? sensation to touch intact in all extremities, no gross deficits noted of cranial nerves. Psych:? Patient has a well-kept appearance, appropriate affect, mental status attitude thought context and judgment are appropriate for age. Objective Labs 01/02/23 04:25 01/02/23 04:25 Labs: Laboratory Results - last 24 hr 0701/02/23 01/02/23 08:32 04:25 04:25 WBC 19.2 H RBC 2.44 L Hgb 8.6 L Hct 25.9 L MCV 106.1 H MCH 35.2 H MCHC 33.2 RDW 15.8 H Plt Count 49 L Neut % (Auto) Not Reportable Lymph % (Auto) Not Reportable [place] % (Auto) Not Reportable Eos % (Auto) Not Reportable Baso % (Auto) Not Reportable Lymph # (Auto) Not Reportable [place] # (Auto) Not Reportable Baso # (Auto) Not Reportable Total Counted 100 Seg Neutrophils % 49.0 D Band Neutrophils % 3.0 Lymphocytes % (Manual) 4.0 L Monocytes % (Manual) 43.0 H Metamyelocytes % 1.0 H Neutrophils # (Manual) 9984 H Platelet Estimate Decreased on smear RBC Morphology See below Anisocytosis 1+ H Macrocytosis 1+ H Sodium 134 L Potassium 4.4 Chloride 102 Carbon Dioxide 28 BUN 18 Creatinine 1.05 Estimated GFR > 60 BUN/Creatinine Ratio 17.1 Glucose 119 H Calcium 9.3 Magnesium 2.0 Total Bilirubin 0.6 AST 37 ALT 19 Alkaline Phosphatase 60 Troponin I Total Protein 6.2 L Albumin 3.3 L Globulin 2.9 Albumin/Globulin Ratio 1.1 A.calcoaceticus-baumannii cmplx PCR Not detected Bacteroides fragilis Not detected Kisha albicans (PCR) Not detected Kisha auris (PCR) Not detected C. glabrata (PCR) Not detected C. krusei (PCR) Not detected C. parapsilosis (PCR) Not detected C. tropicalis (PCR) Not detected C. neoform/gattii (PCR) Not detected Enterobacterales (PCR) Not detected E. cloacae complex PCR Not detected Enterococc faecalis PCR Not detected Enterococc faecium PCR Not detected E. coli (PCR) Not detected H. influenzae (PCR) Not detected Klebsiella aerogenes (PCR) Not detected Klebsiella oxytoca PCR Not detected Klebsiella pneumoniae Not detected List. monocytogenes PCR Not detected N. meningitidis (PCR) Not detected Proteus species (PCR) Not detected Salmonella spp. (PCR) Not detected Serratia marcescens PCR Not detected Staphylococcus sp PCR Not detected Staph aureus (PCR) Not detected Staph epidermidis (PCR) Not detected Staph lugdunensis PCR Not detected S. maltophilia (PCR) Not detected Streptococcus sp PCR Not detected Group A Strep (PCR) Not detected Strep agalactiae (PCR) Not detected Strep pneumoniae (PCR) Not detected P. aeruginosa (PCR) Not detected 01/02/23 04:25 WBC RBC Hgb Hct MCV MCH MCHC RDW Plt Count Neut % (Auto) Lymph % (Auto) [place] % (Auto) Eos % (Auto) Baso % (Auto) Lymph # (Auto) [place] # (Auto) Baso # (Auto) Total Counted Seg Neutrophils % Band Neutrophils % Lymphocytes % (Manual) Monocytes % (Manual) Metamyelocytes % Neutrophils # (Manual) Platelet Estimate RBC Morphology Anisocytosis Macrocytosis Sodium Potassium Chloride Carbon Dioxide BUN Creatinine Estimated GFR BUN/Creatinine Ratio Glucose Calcium Magnesium Total Bilirubin AST ALT Alkaline Phosphatase Troponin I < 0.012 Total Protein Albumin Globulin Albumin/Globulin Ratio A.calcoaceticus-baumannii cmplx PCR Bacteroides fragilis Kisha albicans (PCR) Kisha auris (PCR) C. glabrata (PCR) C. krusei (PCR) C. parapsilosis (PCR) C. tropicalis (PCR) C. neoform/gattii (PCR) Enterobacterales (PCR) E. cloacae complex PCR Enterococc faecalis PCR Enterococc faecium PCR E. coli (PCR) H. influenzae (PCR) Klebsiella aerogenes (PCR) Klebsiella oxytoca PCR Klebsiella pneumoniae List. monocytogenes PCR N. meningitidis (PCR) Proteus species (PCR) Salmonella spp. (PCR) Serratia marcescens PCR Staphylococcus sp PCR Staph aureus (PCR) Staph epidermidis (PCR) Staph lugdunensis PCR S. maltophilia (PCR) Streptococcus sp PCR Group A Strep (PCR) Strep agalactiae (PCR) Strep pneumoniae (PCR) P. aeruginosa (PCR) PFSH Medical History A-fib Bladder calculi BPH (benign prostatic hyperplasia) BPH w urinary obs/LUTS Chest pain Chilblains Esophageal abrasion [place] (hard of hearing) Male circumcision Memory changes Myelodysplastic syndrome ADRIAN on CPAP Osteoporosis Peripheral neuropathy Pneumonia (03/2022) PSVT (paroxysmal supraventricular tachycardia) Skin cancer Spinal stenosis Tremor of both hands Surgical History H/O vasectomy Hx of bilateral cataract extraction Hx of tonsillectomy Status post cholecystectomy Status post laminectomy Family History Brother BPH (benign prostatic hyperplasia) Cancer Gout Father Cancer Thyroid disorder Sister Cancer Social History marital status: number of children: 4 household members: spouse Smoking Status: Never smoker alcohol intake: current Assessment & Plan Assessment & Plan narrative: BPH with prior kidney stones, myelodysplastic syndrome (With possible CMML diagnoses in 03/2022), paroxysmal atrial fibrillation, abnormal stress testing 11/2022, prior sepsis secondary to stenotrophomonas pneumonia, TTE with grade II diastolic dysfunction, RA on daily prednisone, and chronic LE wounds who was admitted after lumbar surgery with orthopedics and medicine was consulted for sepsis after surgery. 1. Presumed Sepsis secondary to presumed bactermial pneumonia with worsened thrombocytopenia and acute metabolic encephalopathy, improving - history of stenotrophomonas, renal calculi in the past. CXR is unremarkable but similar presentation with normal CXR and sputum cultures with stenotrophomonas in [place] in 2021. - UA unremarkable. - 29% bands on CBC, 2% blast cells, no schistocytes (blast crisis or hemolytic anemia a possibility given leukemia diagnosis). This is slightly worse than outpatient labs with 18% bands previously (due to underlying hematologic process). This is much improved on today's CBC. - for now, favor treatment with minocycline and levofloxacin given history of stenotrophomonas. Okay for oral minocycyline. If no further etiology is found, would recommend treatment for 7 days total. - fever may be due to atelectasis or drug reaction as POD#1 though this does not typically reach 103F, less likely underlying MDS though there was previously concern for possible transformation to leukemia based on recent biopsies. Should fever persist check LDH, haptoglobin and hemolysis labs. - lactate normal. Patient received LR 30 mg /kg bolus, antibiotics ordered after blood cultures and UA drawn as noted above. - received records from oncology office from 12/24 visit. He tested positive for COVID on 12/22 per oncology office (his states that she tested positive actually, but he did not), received Paxlovid from oncologist and was reportedly asymptomatic. PCR COVID Testing was negative 12/31 and respiratory panel was negative after fever. 2. Abnormal nuclear stress test 11/2021 - EKG reassuring, no chest pain, and troponin negative. Stress testing 11/2021 with This is an abnormal myocardial perfusion study with small reversible ischemia of basal inferolateral wall. - Troponin this morning is also normal. No further evaluation needed. Follow up with outpatient curb supervisor as previously planned. - Dr. Ash is patient's outpatient curb supervisor 3. Myelodysplastic syndrome, stable, with iron deficiency anemia and thrombocytopenia - oncology has recommended outpatient GI consultation for EGD and colonoscopy for iron deficiency anemia. Will continue to watch blood counts here. Plt count is 49, transfuse if needed per orthopedics. 4. Hypokalemia - replete per pharmacy 5. paroxysmal atrial fibrillation - okay to continue home metoprolol 6. chronic diastolic heart failure - no signs of volume overload currently, continue IV fluids with caution. 7. BPH - continue home medications. With negative UA no indication for imaging at this time. 8. RA on prednisone - if hypotensive give stress dose steroids, he is only on 6 mg prednisone daily so not needed unless evidence of insufficiency. Code: Full, surrogate is patient's spouse I have utilized all available immediate resources to obtain, update, or review the patient's current medications. Hospitalist service will continue to follow along with this complex patient in case of recurrent fever, though he seems to be responding to initial therapies. Patient will likely need SNF rehab at discharge. Quality VTE Deep Vein Thrombosis/Pulmonary Embolism Present on Admission: No
[2023-01-02] MEDS: MINOCYCLINE HCL 100 MG CAPSULE 200 MG PO ×3 (14:22→20:25)
--- NOTE | 2023-01-02 17:26 | PM.PNPO.1 ---
Subjective Subjective Date Patient Seen: 01/02/23 Time Patient Seen: 08:15 Interval history: Patient is resting comfortably in bed this morning. He states his pain is moderately controlled with medication. He states he has not worked with physical therapy yet. Denies current fever, chills, nausea, vomiting, shortness of breath. Exam Vital Signs (past 8 hours): - 01/02/23 10:08 01/02/23 12:00 01/02/23 12:11 Temperature 98.9 F 98.6 F Pulse Rate 87 88 Respiratory Rate 19 Blood Pressure 142/66 H 132/65 Pulse Oximetry 97 Oxygen Flow Rate 0 01/02/23 15:00 Temperature 98.6 F Pulse Rate 86 Respiratory Rate 17 Blood Pressure 115/59 L Pulse Oximetry 98 Oxygen Flow Rate 0 Oxygen Delivery Method Room Air Oxygen Flow Rate 0 Narrative Exam Narrative: Pleasant, ill-appearing 82 y/o male. Awake, alert, oriented place and situation. Bilateral legs warm and dry, right ankle with dressing intact. Lumbar dressings clean, dry, and intact. Objective Labs 01/02/23 04:25 01/02/23 04:25 Labs: Laboratory Results - last 24 hr 01/01/23 01/02/23 01/02/23 08:32 04:25 04:25 WBC 19.2 H RBC 2.44 L Hgb 8.6 L Hct 25.9 L MCV 106.1 H MCH 35.2 H MCHC 33.2 RDW 15.8 H Plt Count 49 L Neut % (Auto) Not Reportable Lymph % (Auto) Not Reportable [place] % (Auto) Not Reportable Eos % (Auto) Not Reportable Baso % (Auto) Not Reportable Lymph # (Auto) Not Reportable [place] # (Auto) Not Reportable Baso # (Auto) Not Reportable Total Counted 100 Seg Neutrophils % 49.0 D Band Neutrophils % 3.0 Lymphocytes % (Manual) 4.0 L Monocytes % (Manual) 43.0 H Metamyelocytes % 1.0 H Neutrophils # (Manual) 9984 H Platelet Estimate Decreased on smear RBC Morphology See below Anisocytosis 1+ H Macrocytosis 1+ H Sodium 134 L Potassium 4.4 Chloride 102 Carbon Dioxide 28 BUN 18 Creatinine 1.05 Estimated GFR > 60 BUN/Creatinine Ratio 17.1 Glucose 119 H Calcium 9.3 Magnesium 2.0 Total Bilirubin 0.6 AST 37 ALT 19 Alkaline Phosphatase 60 Troponin I Total Protein 6.2 L Albumin 3.3 L Globulin 2.9 Albumin/Globulin Ratio 1.1 A.calcoaceticus-baumannii cmplx PCR Not detected Bacteroides fragilis Not detected Kisha albicans (PCR) Not detected Kisha auris (PCR) Not detected C. glabrata (PCR) Not detected C. krusei (PCR) Not detected C. parapsilosis (PCR) Not detected C. tropicalis (PCR) Not detected C. neoform/gattii (PCR) Not detected Enterobacterales (PCR) Not detected E. cloacae complex PCR Not detected Enterococc faecalis PCR Not detected Enterococc faecium PCR Not detected E. coli (PCR) Not detected H. influenzae (PCR) Not detected Klebsiella aerogenes (PCR) Not detected Klebsiella oxytoca PCR Not detected Klebsiella pneumoniae Not detected List. monocytogenes PCR Not detected N. meningitidis (PCR) Not detected Proteus species (PCR) Not detected Salmonella spp. (PCR) Not detected Serratia marcescens PCR Not detected Staphylococcus sp PCR Not detected Staph aureus (PCR) Not detected Staph epidermidis (PCR) Not detected Staph lugdunensis PCR Not detected S. maltophilia (PCR) Not detected Streptococcus sp PCR Not detected Group A Strep (PCR) Not detected Strep agalactiae (PCR) Not detected Strep pneumoniae (PCR) Not detected P. aeruginosa (PCR) Not detected 01/02/23 04:25 WBC RBC Hgb Hct MCV MCH MCHC RDW Plt Count Neut % (Auto) Lymph % (Auto) [place] % (Auto) Eos % (Auto) Baso % (Auto) Lymph # (Auto) [place] # (Auto) Baso # (Auto) Total Counted Seg Neutrophils % Band Neutrophils % Lymphocytes % (Manual) Monocytes % (Manual) Metamyelocytes % Neutrophils # (Manual) Platelet Estimate RBC Morphology Anisocytosis Macrocytosis Sodium Potassium Chloride Carbon Dioxide BUN Creatinine Estimated GFR BUN/Creatinine Ratio Glucose Calcium Magnesium Total Bilirubin AST ALT Alkaline Phosphatase Troponin I < 0.012 Total Protein Albumin Globulin Albumin/Globulin Ratio A.calcoaceticus-baumannii cmplx PCR Bacteroides fragilis Kisha albicans (PCR) Kisha auris (PCR) C. glabrata (PCR) C. krusei (PCR) C. parapsilosis (PCR) C. tropicalis (PCR) C. neoform/gattii (PCR) Enterobacterales (PCR) E. cloacae complex PCR Enterococc faecalis PCR Enterococc faecium PCR E. coli (PCR) H. influenzae (PCR) Klebsiella aerogenes (PCR) Klebsiella oxytoca PCR Klebsiella pneumoniae List. monocytogenes PCR N. meningitidis (PCR) Proteus species (PCR) Salmonella spp. (PCR) Serratia marcescens PCR Staphylococcus sp PCR Staph aureus (PCR) Staph epidermidis (PCR) Staph lugdunensis PCR S. maltophilia (PCR) Streptococcus sp PCR Group A Strep (PCR) Strep agalactiae (PCR) Strep pneumoniae (PCR) P. aeruginosa (PCR) PFSH Medical History A-fib Bladder calculi BPH (benign prostatic hyperplasia) BPH w urinary obs/LUTS Chest pain Chilblains Esophageal abrasion [place] (hard of hearing) Male circumcision Memory changes Myelodysplastic syndrome ADRIAN on CPAP Osteoporosis Peripheral neuropathy Pneumonia (03/2022) PSVT (paroxysmal supraventricular tachycardia) Skin cancer Spinal stenosis Tremor of both hands Surgical History H/O vasectomy Hx of bilateral cataract extraction Hx of tonsillectomy Status post cholecystectomy Status post laminectomy Family History Brother BPH (benign prostatic hyperplasia) Cancer Gout Father Cancer Thyroid disorder Sister Cancer Social History marital status: number of children: 4 household members: spouse Smoking Status: Never smoker alcohol intake: current Assessment & Plan Post-op Postoperative Procedures: Procedures Operation Date: 12/31/22 13:45 Actual Procedure Side Surgeon p L3-4 TLIF, L2-3 hemilaminectomy Not Applicable Jasvir Medel MD Postoperative day: 2 Postoperative status narrative: Post operative course is complicated by multiple comorbidities. Hospitalist team is following. Postoperative plan narrative: Plan to work with physical therapy today. Patient will need additional rehabilitation at discharge due to his deconditioning and multiple comorbidities. Continue pain medication regimen as prescribed. Quality VTE Deep Vein Thrombosis/Pulmonary Embolism Present on Admission: No
[2023-01-02] MEDS: SENNOSIDES 8.6 MG TABLET 17.2 MG PO (20:25)
[2023-01-02] MEDS: ONDANSETRON 4 MG/2 ML INJ IV (20:25)
[2023-01-03] VITALS (8 sets, daily range): BP systolic 110–177; BP diastolic 60–93; PULSE 78–101; RESP 17–20; TEMP 36.7–38.8; O2SAT 95–97
[2023-01-03 06:26] LABS: Alanine Aminotransferase 18 IU/L (<50); Albumin 3.6 g/dL (3.5-5.0); Albumin Globulin Ratio 1.1 (1.0-2.8); Alkaline Phosphatase 60 U/L (38-126); Aspartate Aminotransferase 33 IU/L (17-59); BUN Creatinine Ratio 19.6 (6-22); Bilirubin Total 0.7 mg/dL (0.2-1.3); Blood Urea Nitrogen 20 mg/dL (9-20); Calcium 9.6 mg/dL (8.4-10.2); Carbon Dioxide 28 mmol/L (22-32); Chloride 96 mmol/L (98-107); Estimated Glomerular Filt Rate > 60 mL/min (>60); Globulin 3.2 g/dL (1.7-4.1); Glucose 116 mg/dL (80-110); HEMOLYSIS < 15 (0-50); Magnesium 2.2 mg/dL (1.6-2.3); Potassium 4.1 mmol/L (3.4-5.1); Sodium 130 mmol/L (137-145); Total Protein 6.8 g/dL (6.3-8.2)
[2023-01-03 06:40] LABS: Hematocrit 27.1 % (41-53); Mean Corpuscular HGB Conc 33.3 % (30-36); Mean Corpuscular Hemoglobin 35.4 PG (26-34); Mean Corpuscular Volume 106.5 fL (80-100); Platelet Count 50 X10^3/uL (150-400); Red Blood Cell Count 2.55 X10^6/uL (4.5-5.9); White Blood Cell Count 16.6 X10^3/uL (4.5-11.0)
[2023-01-03 06:45] LABS: Add Manual Diff / Slide Review YES
[2023-01-03] MEDS: PANTOPRAZOLE DR 40 MG TABLET PO (06:52)
[2023-01-03 07:44] LABS: Neutrophils Absolute Manual 9296 /uL (3000-5900); Total Cells Counted 100
[2023-01-03 07:46] LABS: Macrocytosis 2+
[2023-01-03] MEDS: BACLOFEN 10 MG TABLET PO (08:42)
[2023-01-03] MEDS: azaTHIOprine 50 MG TABLET 75 MG PO (08:42)
[2023-01-03] MEDS: DOCUSATE 100 MG CAPSULE PO ×2 (08:42→20:45)
[2023-01-03] MEDS: GABAPENTIN 400 MG CAPSULE PO ×3 (08:46→20:45)
[2023-01-03] MEDS: TAMSULOSIN 0.4 MG CAPSULE PO (08:46)
[2023-01-03] MEDS: FINASTERIDE 5 MG TABLET PO (08:46)
[2023-01-03] MEDS: predniSONE 5 MG TABLET 6 MG PO (08:46)
[2023-01-03] MEDS: METOPROLOL ER 25 MG TABLET PO (09:00)
[2023-01-03] MEDS: NIFEdipine 10 MG CAPSULE PO ×3 (09:00→20:45)
[2023-01-03] MEDS: MINOCYCLINE HCL 100 MG CAPSULE 200 MG PO ×2 (09:41→20:45)
--- NOTE | 2023-01-03 10:02 | PT.IPTN ---
Current Diagnoses Spondylolisthesis, lumbar region (12/31/22) Spinal stenosis, lumbar region with neurogenic claudication (12/31/22) Surgery Performed Operation Date: 12/31/22 13:45 Actual Procedures p L3-4 TLIF, L2-3 hemilaminectomy(Not Applicable) - Jasvir Medel MD Physical Therapy Treatment Note M2 PT-IP Current Condition Start: 01/02/23 13:31 Freq: NEEDED Status: Active Protocol: Document 01/02/23 12:06 ES (Rec: 01/02/23 13:51 ES [id number]) Physical Therapy Current Condition Current Condition Evaluation Date 01/02/23 Treatment Diagnosis s/p TLIF; weakness, difficulty walking Onset Date 12/31/22 M3 PT-IP Subjective Start: 01/02/23 13:31 Freq: NEEDED Status: Active Protocol: Document 01/03/23 10:38 TS (Rec: 01/03/23 10:53 TS [id number]) Subjective Physical Therapy Visit Type Type Treatment Note Visit Start Time 10:02 Visit Stop Time 10:30 Total Visit Minutes 28 Number of NETWORK PROJECT MANAGER Visits 1 Physical Therapy Visit Comments Patient Comments Pt found resting in bed, motivated to get out of bed and work with PT. Therapy Pain Assessment Pain When Pain Assessed During Mobility Pain Present Pain Present Pain Reported Location Back Scale Used not quantified Pain Management Techniques Distraction,Modification of Treatment,Re-positioning M4 PT-IP Mobility and Gait Start: 01/02/23 13:31 Freq: NEEDED Status: Active Protocol: Document 01/03/23 10:38 TS (Rec: 01/03/23 10:53 TS [id number]) PT-Bed Mobility Assessment Rolling Type of Rolling Log Rolling,Roll to Right Level of Assist Minimal Assistance Supine to Sit Supine to Sit Maximum Assistance,1 Person Assistance,Head of Bed Elevated,Bedrails Sit to Supine Sit to Supine Maximum Assistance,1 Person Assistance Scooting Scooting to Edge of Bed Contact Guard Assistance PT-Transfer Assessment Sit to and From Stand Sit to and from Stand Moderate Assistance,Maximum Assistance,1 Person Assistance ,Use of Upper Extremities Equipment Transfer Assistive Device Gait Belt,Front Wheeled Walker Orthotic/Prosthetic Devices or Brace: Yes Comments Mobility Comments Pt recalled 1/3 spinal precautions prior to mobility (no twisting).Logroll [place] with handheld assist and rail support, cues provided for sequencing. Supine to sit MaxA x1 for uprighting trunk and LE assistance, provided cues for handplacement and sequencing. He scooted to EOB CGA, provided cues for straighter back. Sit to stand x1 ModA from elevated bed, pt unsteady initially in standing and retroleaning, required cues for upright postrue. Pt ambulated ~20' in room with FWW [place] for balance, pt unsteady in FWW and flexed posture. Pt sat back EOB, sit to stand x1 MaxA for retrolean , pt required cues for handplacement on FWW and stabilization of FWW. Pt attempted to ambulate again for trial on stairs but requested back to bed. Sit to supine ModA for LEs into bed, provided cues for sequencing and logroll. Pt was left in bed with call light nearby, all needs met. Gait Assessment Gait Gait Assistance Required: Minimum Assistance,1 Person Assist Distance (Feet) 20 Assistive Devices Assistive Device Gait Belt,Front Wheeled Walker Orthotic/Prosthetic Devices or Brace: Yes Gait Deviations General Gait Pattern Antalgic,Decreased Stride Length,Decreased Feet Clearance,Flexed Trunk Factors Limiting Gait Function Factors Limiting Gait Function Abnormal Tonal Influences, Decreased Activity Tolerance, Decreased Sensation,Decreased Strength,Incoordination, Limited Range of Motion,Pain, Poor Balance Comments Gait Comments AMbulated with AFO's ~20' in room [place]. Stair Climbing Assessment Comments Stair Climbing Comments Attempted to trial this session but pt requested back to bed due to fatigue. PT-Balance Assessment Sitting Balance and Reactions Static Sitting Balance Ability Good Dynamic Sitting Balance Ability Fair Standing Balance and Reactions Static Standing Balance Ability Fair Dynamic Standing Balance Ability Fair Device Used FWW M5 PT-IP Objective Assessments Start: 01/02/23 13:31 Freq: NEEDED Status: Active Protocol: Document 01/02/23 12:06 ES (Rec: 01/02/23 13:51 ES [id number]) Orientation Orientation/Cognition Level of Alertness Alert Language Function Ability Hard of Hearing Safety Awareness Understands Safety Issues Memory Description No Deficits Noted Gross Range of Motion Upper Extremity ROM Assessment Within Functional Limits Lower Extremity ROM Assessment Bilaterally Impaired Impairments B ankle DF limited to ~5 degrees passive Strength Lower Extremity Strength Assessment Bilaterally Impaired Hip 4-/5 Knee 4-/5 Ankle DF 2-/5 B M6 PT-IP Treatment Start: 01/02/23 13:31 Freq: NEEDED Status: Active Protocol: Document 01/03/23 10:38 TS (Rec: 01/03/23 10:53 TS [id number]) Physical Therapy Treatment Education Education Provided Precautions,Post-Op Packet, Safety M7 PT-IP Assessment and Plan Start: 01/02/23 13:31 Freq: NEEDED Status: Active Protocol: Document 01/03/23 10:38 TS (Rec: 01/03/23 10:53 TS [id number]) PT Summary Assessment and Plan Potential Rehabilitation Potential Fair Summary Impairments Pain,Strength,Balance, Coordination,Bed Mobility, Transfers,Gait,Activity Tolerance Progress Towards Goals Slow Progress due to Pain,Slow Progress due to Activity Tolerance Assessment Summary Pt continues to be limited by weakness, pain and activity tolerance. pt unable to recall 2/3 spinal precautions this session (no lifting and no bending)He did progress his gait to ~20' in room but short after required a seated rest break on bed. He is ModA for first sit to stand but on second attempt required MaxA due to increased retroleaning and instability. Attempted to trial steps with step stool but pt was fatigued and requested back to bed. PT is recommending Home with 24/7 vs SNF at this time. Pt would benefit from continued skilled therapy at rehab to progress to safe d/c home with spouse. Goals Bed Mobility Goal Standby Assistance Transfer Goal Standby Assistance,Four Wheeled Walker Gait Goal Standby Assistance,Four Wheel Walker Gait Distance 100 ft Other Goals Patient will be able to ascend /descend 2 stairs with single rail and LRAD. Patient will demonstrate good understanding of lumbar precautions. Days to Meet Goals 5 Frequency of Treatment Frequency Of Treatment Twice a Day Treatment Plan Other Recommendations and Next Treatment Increase ambulation distance, Focus trial stairs. Precautions Lumbar Precautions Log Roll,No Twisting,Limit Bending,Lifting Restriction of 10 lbs,Gait Belt above Incisional Area Weight Bearing Status Weight Bearing Status Weight Bear as Tolerated Recommendations To Nursing Amount of Assist Needed 2 Person Assist Discharge Recommendations PT Discharge Recommendations Home with 24/7 Assist Available,SNF Rehab,Home vs SNF Equipment Needed for Home Before may need FWW if not safe w/ Discharge 4WW Transportation Needs at Discharge Wheelchair/Cabulance
--- NOTE | 2023-01-03 10:22 | P.PN_ITS ---
Subjective Subjective Date Patient Seen: 01/03/23 Time Patient Seen: 10:23 Interval history: Postop day [address] Medel. Medically complex patient with myelodysplastic syndrome. Currently on antibiotic treatment. Appreciate hospitalist comanageradha. Patient states he feels a little warm today in bed and complains of back pain. He has bilateral peripheral neuropathy and typically uses bilateral AFOs. He is interested in what his incision site looks like today. Exam Vital Signs (past 8 hours): - 01/03/23 03:00 01/03/23 08:21 01/03/23 09:00 Temperature 98.0 F 100.0 F H Pulse Rate 78 90 Respiratory Rate 20 17 Blood Pressure 151/77 H 130/65 130/65 Pulse Oximetry 97 95 Oxygen Flow Rate 0 0 01/03/23 09:30 Temperature Pulse Rate Respiratory Rate Blood Pressure 128/60 Pulse Oximetry Oxygen Flow Rate Oxygen Delivery Method Room Air Oxygen Flow Rate 0 Narrative Exam Narrative: Alert and oriented male frail. Sitting in bed. Unable to demonstrate ankle or toe range of motion. Is able to roll over in bed on his own power today. Inspected his low back incision which shows well-healing incision no erythema redness or drainage. No signs of infection. The patient's request I took a picture of this for him to show him. Dressings also clean and dry. Objective Labs 01/03/23 05:09 01/03/23 05:09 Labs: Laboratory Results - last 24 hr 01/01/23 01/03/23 01/03/23 08:32 05:09 05:09 WBC 16.6 H RBC 2.55 L Hgb 9.0 L Hct 27.1 L MCV 106.5 H MCH 35.4 H MCHC 33.3 RDW 16.0 H Plt Count 50 L Neut % (Auto) Not Reportable Lymph % (Auto) Not Reportable [place] % (Auto) Not Reportable Eos % (Auto) Not Reportable Baso % (Auto) Not Reportable Lymph # (Auto) Not Reportable [place] # (Auto) Not Reportable Baso # (Auto) Not Reportable Total Counted 100 Seg Neutrophils % 39.0 Band Neutrophils % 17.0 H Lymphocytes % (Manual) 5.0 L Monocytes % (Manual) 38.0 H Metamyelocytes % 1.0 H Neutrophils # (Manual) 9296 H RBC Morphology Not Reportable Macrocytosis 2+ H Sodium 130 L Potassium 4.1 Chloride 96 L Carbon Dioxide 28 BUN 20 Creatinine 1.02 Estimated GFR > 60 BUN/Creatinine Ratio 19.6 Glucose 116 H Calcium 9.6 Magnesium 2.2 Total Bilirubin 0.7 AST 33 ALT 18 Alkaline Phosphatase 60 Total Protein 6.8 Albumin 3.6 Globulin 3.2 Albumin/Globulin Ratio 1.1 Enterococc faecalis PCR Not detected PFSH Medical History A-fib Bladder calculi BPH (benign prostatic hyperplasia) BPH w urinary obs/LUTS Chest pain Chilblains Esophageal abrasion [place] (hard of hearing) Male circumcision Memory changes Myelodysplastic syndrome ADRIAN on CPAP Osteoporosis Peripheral neuropathy Pneumonia (03/2022) PSVT (paroxysmal supraventricular tachycardia) Skin cancer Spinal stenosis Tremor of both hands Surgical History H/O vasectomy Hx of bilateral cataract extraction Hx of tonsillectomy Status post cholecystectomy Status post laminectomy Family History Brother BPH (benign prostatic hyperplasia) Cancer Gout Father Cancer Thyroid disorder Sister Cancer Social History marital status: number of children: 4 household members: spouse Smoking Status: Never smoker alcohol intake: current Assessment & Plan Post-op Postoperative Procedures: Procedures Operation Date: 12/31/22 13:45 Actual Procedure Side Surgeon p L3-4 TLIF, L2-3 hemilaminectomy Not Applicable Jasvir Medel MD Postoperative day: 3 Postoperative status: marginal pain control Postoperative status narrative: Postoperative status narrative: Post operative course is complicated by multiple comorbidities. Hospitalist team is following/antibiotics for stenotrophomonas. Postoperative plan narrative: Plan to work with physical therapy today. Patient will need additional rehabilitation at discharge due to his deconditioning and multiple comorbidities. Continue pain medication regimen as prescribed. Monitor platelets. Currently at 50 today. Postoperative plan: routine post-op care Postoperative plan narrative: Ambulate as tolerated. No bending lifting or twisting Time Spent With Patient Time with patient: less than 15 minutes Quality VTE Deep Vein Thrombosis/Pulmonary Embolism Present on Admission: No
[2023-01-03 10:37] LABS: Procalcitonin 0.26 ng/mL (<0.5)
--- NOTE | 2023-01-03 10:38 | PM.PN.1 ---
Subjective Subjective Interval history: Consult follow-up. Patient is complaining of pain and has had a fever this morning. Exam Vital Signs (past 8 hours): - 01/03/23 03:00 01/03/23 08:21 01/03/23 09:00 Temperature 98.0 F 100.0 F H Pulse Rate 78 90 Respiratory Rate 20 17 Blood Pressure 151/77 H 130/65 130/65 Pulse Oximetry 97 95 Oxygen Flow Rate 0 0 01/03/23 09:30 Temperature Pulse Rate Respiratory Rate Blood Pressure 128/60 Pulse Oximetry Oxygen Flow Rate Oxygen Delivery Method Room Air Oxygen Flow Rate 0 Narrative Exam Narrative: General:? Elderly male in no acute distress. HEENT:? Normocephalic, atraumatic, extraocular muscles intact. Neck: supple and symmetric, trachea is midline, no cervical adenopathy. Negative for JVD Chest:? Normal AP diameter and contour without kyphoscoliosis, no tachypnea, equal chest rise bilaterally. Lungs:? RLL occasional rales, no wheezing. Left lung CTA Cardio:?RRR no m/r/g. Abdomen: S NT ND. Musculoskeletal:? Muscle strength and tone are equal within normal limits, no deformity. Extremities: No edema or joint effusions. No cyanosis or clubbing. Skin:? Facial flush. Warm to touch,dry and intact without rashes or lesions.? Neuro:? Alert and orientated to name and hospital, dates incorrect,? sensation to touch intact in all extremities, no gross deficits noted of cranial nerves. Psych:? Patient has a well-kept appearance, appropriate affect. Objective Labs 01/03/23 05:09 01/03/23 05:09 Labs: Laboratory Results - last 24 hr 01/01/23 01/03/23 01/03/23 08:32 05:09 05:09 WBC 16.6 H RBC 2.55 L Hgb 9.0 L Hct 27.1 L MCV 106.5 H MCH 35.4 H MCHC 33.3 RDW 16.0 H Plt Count 50 L Neut % (Auto) Not Reportable Lymph % (Auto) Not Reportable [place] % (Auto) Not Reportable Eos % (Auto) Not Reportable Baso % (Auto) Not Reportable Lymph # (Auto) Not Reportable [place] # (Auto) Not Reportable Baso # (Auto) Not Reportable Total Counted 100 Seg Neutrophils % 39.0 Band Neutrophils % 17.0 H Lymphocytes % (Manual) 5.0 L Monocytes % (Manual) 38.0 H Metamyelocytes % 1.0 H Neutrophils # (Manual) 9296 H RBC Morphology Not Reportable Macrocytosis 2+ H Sodium 130 L Potassium 4.1 Chloride 96 L Carbon Dioxide 28 BUN 20 Creatinine 1.02 Estimated GFR > 60 BUN/Creatinine Ratio 19.6 Glucose 116 H Calcium 9.6 Magnesium 2.2 Total Bilirubin 0.7 AST 33 ALT 18 Alkaline Phosphatase 60 Total Protein 6.8 Albumin 3.6 Globulin 3.2 Albumin/Globulin Ratio 1.1 Procalcitonin Enterococc faecalis PCR Not detected 01/03/23 05:09 WBC RBC Hgb Hct MCV MCH MCHC RDW Plt Count Neut % (Auto) Lymph % (Auto) [place] % (Auto) Eos % (Auto) Baso % (Auto) Lymph # (Auto) [place] # (Auto) Baso # (Auto) Total Counted Seg Neutrophils % Band Neutrophils % Lymphocytes % (Manual) Monocytes % (Manual) Metamyelocytes % Neutrophils # (Manual) RBC Morphology Macrocytosis Sodium Potassium Chloride Carbon Dioxide BUN Creatinine Estimated GFR BUN/Creatinine Ratio Glucose Calcium Magnesium Total Bilirubin AST ALT Alkaline Phosphatase Total Protein Albumin Globulin Albumin/Globulin Ratio Procalcitonin 0.26 Enterococc faecalis PCR PFSH Medical History A-fib Bladder calculi BPH (benign prostatic hyperplasia) BPH w urinary obs/LUTS Chest pain Chilblains Esophageal abrasion [place] (hard of hearing) Male circumcision Memory changes Myelodysplastic syndrome ADRIAN on CPAP Osteoporosis Peripheral neuropathy Pneumonia (03/2022) PSVT (paroxysmal supraventricular tachycardia) Skin cancer Spinal stenosis Tremor of both hands Surgical History H/O vasectomy Hx of bilateral cataract extraction Hx of tonsillectomy Status post cholecystectomy Status post laminectomy Family History Brother BPH (benign prostatic hyperplasia) Cancer Gout Father Cancer Thyroid disorder Sister Cancer Social History marital status: number of children: 4 household members: spouse Smoking Status: Never smoker alcohol intake: current Assessment & Plan Assessment & Plan narrative: 1. Presumed Sepsis secondary to presumed bactermial pneumonia with worsened thrombocytopenia and acute metabolic encephalopathy, improving ?- history of stenotrophomonas, renal calculi in the past. CXR is unremarkable but similar presentation with normal CXR and sputum cultures with stenotrophomonas in [place] in 2021. ?- UA unremarkable. ?- 29% bands on CBC, 2% blast cells, no schistocytes (blast crisis or hemolytic anemia a possibility given leukemia diagnosis). This is slightly worse than outpatient labs with 18% bands previously (due to underlying hematologic process). This is much improved on yesterday's CBC. Today % bands have increased to 17%. ?- for now, favor treatment with minocycline and levofloxacin given history of stenotrophomonas. Okay for oral minocycyline. If no further etiology is found, would recommend treatment for 7 days total. ?- fever may be due to atelectasis or drug reaction as POD#2 today 100F which is an improvement, less likely underlying MDS though there was previously concern for possible transformation to leukemia based on recent biopsies. Should fever persist check LDH, haptoglobin and hemolysis labs. ?- lactate normal. Patient received LR 30 mg /kg bolus, antibiotics ordered after blood cultures and UA drawn as noted above. ?- received records from oncology office from 12/24 visit. He tested positive for COVID on 12/22 per oncology office (his states that she tested positive actually, but he did not), received Paxlovid from oncologist and was reportedly asymptomatic. PCR COVID Testing was negative 12/31 and respiratory panel was negative after fever. 2. Abnormal nuclear stress test 11/2021 ?- EKG reassuring, no chest pain, and troponin negative. Stress testing 11/2021 with This is an abnormal myocardial perfusion study with small reversible ischemia of basal inferolateral wall. ?- Troponin this morning is also normal. No further evaluation needed. Follow up with outpatient pet training instructor as previously planned. ?- Dr. Ash is patient's outpatient pet training instructor 3. Myelodysplastic syndrome, stable, with iron deficiency anemia and thrombocytopenia ?- oncology has recommended outpatient GI consultation for EGD and colonoscopy for iron deficiency anemia. Will continue to watch blood counts here. Plt count is 49, transfuse if needed per orthopedics. 4. Hypokalemia ?- replete per pharmacy 5. paroxysmal atrial fibrillation ?- okay to continue home metoprolol 6. chronic diastolic heart failure ?- no signs of volume overload currently, continue IV fluids with caution. 7. BPH ?- continue home medications. With negative UA no indication for imaging at this time. 8. RA on prednisone ?- if hypotensive give stress dose steroids, he is only on 6 mg prednisone daily so not needed unless evidence of insufficiency. Code: Full, surrogate is patient's spouse Continue to follow clinically and follow labs. Quality VTE Deep Vein Thrombosis/Pulmonary Embolism Present on Admission: No
--- NOTE | 2023-01-03 12:07 | CM.DPC ---
Patient awake, alert, oriented to self, and place only. at bedside who confirms choice of [facility] SNF when medically ready for DC. would like to speak to hospitalist for update. Message to Dr. Ryan who confirms she'll speak with patient and . CM call to Seda at [facility] for DC planning.
--- NOTE | 2023-01-03 12:16 | CM.DPC ---
Quick call to Seda at [facility], she is following for intake when patient is medically ready. Will need PASRR.
[2023-01-03] MEDS: OXYCODONE IR 5 MG TABLET PO ×2 (12:36→23:51)
[2023-01-03] MEDS: levoFLOXacin 750 MG/150 ML PIGGYBACK 100 MG IV (12:37)
[2023-01-03] MEDS: ACETAMINOPHEN 325 MG TABLET 650 MG PO (12:45)
--- NOTE | 2023-01-03 14:10 | PT.IPTN ---
Current Diagnoses Spondylolisthesis, lumbar region (12/31/22) Spinal stenosis, lumbar region with neurogenic claudication (12/31/22) Surgery Performed Operation Date: 12/31/22 13:45 Actual Procedures p L3-4 TLIF, L2-3 hemilaminectomy(Not Applicable) - Jasvir Medel MD Physical Therapy Treatment Note M2 PT-IP Current Condition Start: 01/02/23 13:31 Freq: NEEDED Status: Active Protocol: Document 01/02/23 12:06 ES (Rec: 01/02/23 13:51 ES [id number]) Physical Therapy Current Condition Current Condition Evaluation Date 01/02/23 Treatment Diagnosis s/p TLIF; weakness, difficulty walking Onset Date 12/31/22 M3 PT-IP Subjective Start: 01/02/23 13:31 Freq: NEEDED Status: Active Protocol: Document 01/03/23 14:38 TS (Rec: 01/03/23 14:54 TS [id number]) Subjective Physical Therapy Visit Type Type Treatment Note Visit Start Time 14:10 Visit Stop Time 14:38 Total Visit Minutes 28 Number of CHICKEN FANCIER Visits 3 Physical Therapy Visit Comments Patient Comments Pt found resting in bed, spouse in room, agreeable to PT. Therapy Pain Assessment Pain When Pain Assessed During Mobility Pain Present Pain Present Pain Reported Location Back Scale Used not quantified Pain Management Techniques Distraction,Modification of Treatment,Re-positioning M4 PT-IP Mobility and Gait Start: 01/02/23 13:31 Freq: NEEDED Status: Active Protocol: Document 01/03/23 14:38 TS (Rec: 01/03/23 14:54 TS [id number]) PT-Bed Mobility Assessment Rolling Type of Rolling Log Rolling,Roll to Right Level of Assist Moderate Assistance Supine to Sit Supine to Sit Maximum Assistance,1 Person Assistance,Head of Bed Elevated,Bedrails Scooting Scooting to Edge of Bed Contact Guard Assistance PT-Transfer Assessment Sit to and From Stand Sit to and from Stand Minimal Assistance,Moderate Assistance,1 Person Assistance ,Use of Upper Extremities Equipment Transfer Assistive Device Gait Belt,Front Wheeled Walker Orthotic/Prosthetic Devices or Brace: Yes Comments Mobility Comments Prior to mobility pt recalled 0/3 spinal precautions. Logroll ModA to R side, pt required cues for sequencing and educated spouse on proper technique. Supine to sit ModA for uprighting trunk, provided cues for BUE support and LEs over EOB. Pt is slow to scoot to EOB, provided cues for straight back. Sit to stand x1 ModA for posterior lean, pt bracing back of LEs against bed for balance. He ambulated in room ~20MinA with FWW slow step to gait, demonstrated some self-cueing for upright posture. Pt fatigued and requested to sit EOB. Sit to stand x1 for stand step pivot into chair [place], required management of lines and catheter. Pt was left in chair with spouse in room, condom cath needing to be replaced, urinal provided to pt, nursing notified. Gait Assessment Gait Gait Assistance Required: Minimum Assistance,1 Person Assist Distance (Feet) 20 Assistive Devices Assistive Device Gait Belt,Front Wheeled Walker Orthotic/Prosthetic Devices or Brace: Yes Gait Deviations General Gait Pattern Antalgic,Decreased Stride Length,Decreased Feet Clearance,Flexed Trunk Factors Limiting Gait Function Factors Limiting Gait Function Abnormal Tonal Influences, Decreased Activity Tolerance, Decreased Sensation,Decreased Strength,Incoordination, Limited Range of Motion,Pain, Poor Balance Comments Gait Comments Ambulated in without AFO's ~ 20MinA. Stair Climbing Assessment Comments Stair Climbing Comments Not appropriate at this time. PT-Balance Assessment Sitting Balance and Reactions Static Sitting Balance Ability Good Dynamic Sitting Balance Ability Fair Standing Balance and Reactions Static Standing Balance Ability Fair Dynamic Standing Balance Ability Fair Device Used FWW M5 PT-IP Objective Assessments Start: 01/02/23 13:31 Freq: NEEDED Status: Active Protocol: Document 01/02/23 12:06 ES (Rec: 01/02/23 13:51 ES [id number]) Orientation Orientation/Cognition Level of Alertness Alert Language Function Ability Hard of Hearing Safety Awareness Understands Safety Issues Memory Description No Deficits Noted Gross Range of Motion Upper Extremity ROM Assessment Within Functional Limits Lower Extremity ROM Assessment Bilaterally Impaired Impairments B ankle DF limited to ~5 degrees passive Strength Lower Extremity Strength Assessment Bilaterally Impaired Hip 4-/5 Knee 4-/5 Ankle DF 2-/5 B M6 PT-IP Treatment Start: 01/02/23 13:31 Freq: NEEDED Status: Active Protocol: Document 01/03/23 14:38 TS (Rec: 01/03/23 14:54 TS [id number]) Physical Therapy Treatment Education Education Provided Precautions,Post-Op Packet, Safety M7 PT-IP Assessment and Plan Start: 01/02/23 13:31 Freq: NEEDED Status: Active Protocol: Document 01/03/23 14:38 TS (Rec: 01/03/23 14:54 TS [id number]) PT Summary Assessment and Plan Potential Rehabilitation Potential Fair Summary Impairments Pain,Strength,Balance, Coordination,Bed Mobility, Transfers,Gait,Activity Tolerance Progress Towards Goals Slow Progress due to Pain,Slow Progress due to Activity Tolerance Assessment Summary Pt recalled 0/3 spinal precautions this session, previously recalled 1/3(no twisting). He continues to make slow progress with bed mobility. He required increased assist for supine to sit to ModA and requires Max cueing for all bed mobility, pt does follow single step instructions well. First attmept with sit to stand he required ModA, second attempt he required [place] for stand pivot to chair. He continues to ambulate ~20' [place] in room, quickly fatigues due to pain and poor activit tolerance requiring rest break on bed. Could not progress to stairs at this time due to pain/ fatigue. PT is recommending SNF vs Home w/12/01 assist at this time. Spouse was present for session and provided caregiver training. She feels he requires too much assist for him to go home with her at thsi time. Pt would benefit from continued skilled therapy before safe d/c home with spouse. Goals Bed Mobility Goal Standby Assistance Transfer Goal Standby Assistance,Four Wheeled Walker Gait Goal Standby Assistance,Four Wheel Walker Gait Distance 100 ft Other Goals Patient will be able to ascend /descend 2 stairs with single rail and LRAD. Patient will demonstrate good understanding of lumbar precautions. Days to Meet Goals 5 Frequency of Treatment Frequency Of Treatment Twice a Day Treatment Plan Physical Therapy Treatment Plan Bed Mobility Training,Transfer Training,Gait Training, Therapeutic Exercise,Balance Retraining,Post Op Education, Discharge Planning Other Recommendations and Next Treatment Increase ambulation distance, Focus trial stairs. Precautions Lumbar Precautions Log Roll,No Twisting,Limit Bending,Lifting Restriction of 10 lbs,Gait Belt above Incisional Area Weight Bearing Status Weight Bearing Status Weight Bear as Tolerated Recommendations To Nursing Amount of Assist Needed 2 Person Assist Discharge Recommendations PT Discharge Recommendations Home with 12/01 Assist Available,SNF Rehab,Home vs SNF Equipment Needed for Home Before may need FWW if not safe w/ Discharge 4WW Transportation Needs at Discharge Wheelchair/Cabulance
--- NOTE | 2023-01-03 16:57 | PC.NURSE ---
Pt resting at intervals. Med at 1236 for discomfort w/good relief. Worked w/ PT; sat in tan for 1.5hrs w/o incidence. HL x 2 (LFA & RFA) intact. Dsg to back w/ shadow drainage noted Call light w/in reach, bed alarm on for pt safety. Continue w/plan of care.
[2023-01-03] MEDS: SENNOSIDES 8.6 MG TABLET 17.2 MG PO (20:45)
[2023-01-04] VITALS (8 sets, daily range): BP systolic 108–146; BP diastolic 58–80; PULSE 63–103; RESP 16–19; TEMP 36.4–38.4; O2SAT 98–99
[2023-01-04] MEDS: PANTOPRAZOLE DR 40 MG TABLET PO (05:53)
[2023-01-04] MEDS: OXYCODONE IR 5 MG TABLET PO ×3 (07:03→15:04)
--- NOTE | 2023-01-04 08:19 | P.PN_ITS ---
Subjective Subjective Interval history: Had a very good sleep and slept right through without interruption. Right now is doing this morning bed exercises and feeling good. At this time with the initiation of the exercises his pain is about 4/10. No new complaints. No concern about fever today. Exam Vital Signs (past 8 hours): - 01/04/23 04:00 Temperature 98.0 F Pulse Rate 75 Respiratory Rate 19 Blood Pressure 128/72 Pulse Oximetry 98 Oxygen Delivery Method Room Air Oxygen Flow Rate 0 Narrative Exam Narrative: General:? Elderly male in no acute distress. HEENT:? Normocephalic, atraumatic, extraocular muscles intact. Neck: supple and symmetric, trachea is midline Chest:? Normal AP diameter and contour, no tachypnea, equal chest rise bilaterally. Lungs:? Clear to auscultation. Cardio:?RRR no m/r/g. Abdomen: S NT ND. Musculoskeletal:? Muscle strength and tone are equal within normal limits, no deformity. Extremities: No edema or joint effusions. No cyanosis or clubbing. Skin:? Warm to touch,dry and intact without rashes or lesions.? Neuro:? Alert and orientated to name and hospital.? Sensation to touch intact in all extremities, no gross deficits noted of cranial nerves. Psych:? Patient has a well-kept appearance, appropriate affect. Objective Labs 01/03/23 05:09 01/03/23 05:09 Labs: Laboratory Results - last 24 hr 01/03/23 05:09 Procalcitonin 0.26 PFSH Medical History A-fib Bladder calculi BPH (benign prostatic hyperplasia) BPH w urinary obs/LUTS Chest pain Chilblains Esophageal abrasion COWLITZ (hard of hearing) Male circumcision Memory changes Myelodysplastic syndrome ADRIAN on CPAP Osteoporosis Peripheral neuropathy Pneumonia (03/2022) PSVT (paroxysmal supraventricular tachycardia) Skin cancer Spinal stenosis Tremor of both hands Surgical History H/O vasectomy Hx of bilateral cataract extraction Hx of tonsillectomy Status post cholecystectomy Status post laminectomy Family History Brother BPH (benign prostatic hyperplasia) Cancer Gout Father Cancer Thyroid disorder Sister Cancer Social History marital status: number of children: 4 household members: spouse Smoking Status: Never smoker alcohol intake: current Assessment & Plan Assessment & Plan narrative: 1. Presumed Sepsis secondary to presumed bactermial pneumonia with worsened thrombocytopenia and acute metabolic encephalopathy, improving ?- history of stenotrophomonas, renal calculi in the past. CXR is unremarkable but similar presentation with normal CXR and sputum cultures with stenotrophomonas in [place] in 2021. ?- UA unremarkable. ?- 29% bands on CBC, 2% blast cells, no schistocytes (blast crisis or hemolytic anemia a possibility given leukemia diagnosis). This is slightly worse than outpatient labs with 18% bands previously (due to underlying hematologic process). Yesterday % bands have increased to 17%. Results for today is still pending. ?- for now, favor treatment with minocycline and levofloxacin given history of stenotrophomonas. Okay for oral minocycyline. If no further etiology is found, would recommend treatment for 7 days total. ?- fever may be due to atelectasis or drug reaction as POD#2 today 100F which is an improvement, less likely underlying MDS though there was previously concern for possible transformation to leukemia based on recent biopsies. Should fever persist check LDH, haptoglobin and hemolysis labs. ?- lactate normal. Patient received LR 30 mg /kg bolus, antibiotics ordered after blood cultures and UA drawn as noted above. ?- received records from oncology office from 12/24 visit. He tested positive for COVID on 12/22 per oncology office (his states that she tested positive actually, but he did not), received Paxlovid from oncologist and was reportedly asymptomatic. PCR COVID Testing was negative 12/31 and respiratory panel was negative after fever. 2. Abnormal nuclear stress test 11/2021 ?- EKG reassuring, no chest pain, and troponin negative. Stress testing 11/2021 with This is an abnormal myocardial perfusion study with small reversible ische dasha of basal inferolateral wall. ?- Troponin this morning is also normal. No further evaluation needed. Follow up with outpatient delivery of shopping news as previously planned. ?- Dr. Ash is patient's outpatient delivery of shopping news 3. Myelodysplastic syndrome, stable, with iron deficiency anemia and thrombocytopenia ?- oncology has recommended outpatient GI consultation for EGD and colonoscopy for iron deficiency anemia. Will continue to watch blood counts here. Plt count is 49, transfuse if needed per orthopedics. 4. Hypokalemia ?- replete per pharmacy 5. paroxysmal atrial fibrillation ?- okay to continue home metoprolol 6. chronic diastolic heart failure ?- no signs of volume overload currently, continue IV fluids with caution. 7. BPH ?- continue home medications. With negative UA no indication for imaging at this time. 8. RA on prednisone ?- if hypotensive give stress dose steroids, he is only on 6 mg prednisone daily so not needed unless evidence of insufficiency. -this could be increasing white blood count higher than if not on prednisone Code: Full, surrogate is patient's spouse Continue to follow clinically and follow labs. Labs from today are still pending. Quality VTE Deep Vein Thrombosis/Pulmonary Embolism Present on Admission: No
[2023-01-04 09:04] LABS: Hematocrit 27.9 % (41-53); Hemoglobin 9.3 g/dL (13.5-17.5); Mean Corpuscular HGB Conc 33.6 % (30-36); Mean Corpuscular Hemoglobin 35.5 PG (26-34); Mean Corpuscular Volume 105.6 fL (80-100); Platelet Count 60 X10^3/uL (150-400); Red Blood Cell Count 2.64 X10^6/uL (4.5-5.9); Red Cell Distribution Width 15.5 % (11.6-14.8); White Blood Cell Count 20.3 X10^3/uL (4.5-11.0)
[2023-01-04 09:05] LABS: Add Manual Diff / Slide Review YES
--- NOTE | 2023-01-04 09:10 | PT.IPTN ---
Current Diagnoses Spondylolisthesis, lumbar region (12/31/22) Spinal stenosis, lumbar region with neurogenic claudication (12/31/22) Surgery Performed Operation Date: 12/31/22 13:45 Actual Procedures p L3-4 TLIF, L2-3 hemilaminectomy(Not Applicable) - Jasvir Medel MD Physical Therapy Treatment Note M2 PT-IP Current Condition Start: 01/02/23 13:31 Freq: NEEDED Status: Active Protocol: Document 01/02/23 12:06 ES (Rec: 01/02/23 13:51 ES [id number]) Physical Therapy Current Condition Current Condition Evaluation Date 01/02/23 Treatment Diagnosis s/p TLIF; weakness, difficulty walking Onset Date 12/31/22 M3 PT-IP Subjective Start: 01/02/23 13:31 Freq: NEEDED Status: Active Protocol: Document 01/04/23 10:29 TS (Rec: 01/04/23 10:39 TS [id number]) Subjective Physical Therapy Visit Type Type Treatment Note Visit Start Time 09:10 Visit Stop Time 09:33 Total Visit Minutes 23 Number of ASSISTANT BASEBALL COACH Visits 4 Physical Therapy Visit Comments Patient Comments Pt found resting in bed, spouse in room, agreeable to PT. Therapy Pain Assessment Pain When Pain Assessed During Mobility Pain Present Pain Present Allowed to Sleep M4 PT-IP Mobility and Gait Start: 01/02/23 13:31 Freq: NEEDED Status: Active Protocol: Document 01/04/23 10:29 TS (Rec: 01/04/23 10:39 TS [id number]) PT-Bed Mobility Assessment Rolling Type of Rolling Log Rolling,Roll to Right Level of Assist Moderate Assistance Supine to Sit Supine to Sit Moderate Assistance,1 Person Assistance,Head of Bed Elevated,Bedrails Scooting Scooting to Edge of Bed Maximum Assistance PT-Transfer Assessment Sit to and From Stand Sit to and from Stand Moderate Assistance,1 Person Assistance,Use of Upper Extremities Equipment Transfer Assistive Device Gait Belt,Front Wheeled Walker Orthotic/Prosthetic Devices or Brace: Yes Comments Mobility Comments Pt recalled 2/3 spinal precautions before mobility( bending). Pt performed logroll with ModA and max cueing, does not demonstrate carryover from previous sessions. He required ModA for uprighting trunk into sitting, no assist with LEs required. He was MaxA for scooting to EOB with transfer pad. He was ModA x2 for sit to stands, pt retroleans coming into standing. He ambulated ~20' [place]-ModA, initially pt having some tremors in LEs and has a slow step to gait with flexed posture. Pt was left in chair with call light nearby and spouse in room. Gait Assessment Gait Gait Assistance Required: Minimum Assistance,Moderate Assistance,1 Person Assist Distance (Feet) 20 Assistive Devices Assistive Device Gait Belt,Front Wheeled Walker Orthotic/Prosthetic Devices or Brace: Yes Gait Deviations General Gait Pattern Antalgic,Decreased Stride Length,Decreased Feet Clearance,Flexed Trunk Factors Limiting Gait Function Factors Limiting Gait Function Abnormal Tonal Influences, Decreased Activity Tolerance, Decreased Sensation,Decreased Strength,Incoordination, Limited Range of Motion,Pain, Poor Balance Comments Gait Comments Pt unsteady on feet and retroleans heavily. See mobility comments. Stair Climbing Assessment Comments Stair Climbing Comments Not appropriate at this time. PT-Balance Assessment Sitting Balance and Reactions Static Sitting Balance Ability Good Dynamic Sitting Balance Ability Fair Standing Balance and Reactions Static Standing Balance Ability Fair Dynamic Standing Balance Ability Fair Device Used FWW M5 PT-IP Objective Assessments Start: 01/02/23 13:31 Freq: NEEDED Status: Active Protocol: Document 01/02/23 12:06 ES (Rec: 01/02/23 13:51 ES [id number]) Orientation Orientation/Cognition Level of Alertness Alert Language Function Ability Hard of Hearing Safety Awareness Understands Safety Issues Memory Description No Deficits Noted Gross Range of Motion Upper Extremity ROM Assessment Within Functional Limits Lower Extremity ROM Assessment Bilaterally Impaired Impairments B ankle DF limited to ~5 degrees passive Strength Lower Extremity Strength Assessment Bilaterally Impaired Hip 4-/5 Knee 4-/5 Ankle DF 2-/5 B M6 PT-IP Treatment Start: 01/02/23 13:31 Freq: NEEDED Status: Active Protocol: Document 01/04/23 10:29 TS (Rec: 01/04/23 10:39 TS [id number]) Physical Therapy Treatment Education Education Provided Precautions,Post-Op Packet, Safety M7 PT-IP Assessment and Plan Start: 01/02/23 13:31 Freq: NEEDED Status: Active Protocol: Document 01/04/23 10:29 TS (Rec: 01/04/23 10:39 TS [id number]) PT Summary Assessment and Plan Potential Rehabilitation Potential Fair Summary Impairments Pain,Strength,Balance, Coordination,Bed Mobility, Transfers,Gait,Activity Tolerance Progress Towards Goals Slow Progress due to Pain,Slow Progress due to Activity Tolerance Assessment Summary Pt could recall 2/3 precautions prior to mobility( bending). He continues to require Max cueing for all mobility and does not demonstrate carryover of logroll or bed mobility sequencing. He is ModA x2 to stand for heavy retroleaning and poor balance. Pt initially with tremors in LEs with gait , he did become more stable with increased duration on feet, conitnues to tolerate only short distances. PT at this time is recommending SNF to progress bed mobility, transfers and gait. Goals Bed Mobility Goal Standby Assistance Transfer Goal Standby Assistance,Four Wheeled Walker Gait Goal Standby Assistance,Four Wheel Walker Gait Distance 100 ft Other Goals Patient will be able to ascend /descend 2 stairs with single rail and LRAD. Patient will demonstrate good understanding of lumbar precautions. Days to Meet Goals 5 Frequency of Treatment Frequency Of Treatment Twice a Day Treatment Plan Physical Therapy Treatment Plan Bed Mobility Training,Transfer Training,Gait Training, Therapeutic Exercise,Balance Retraining,Post Op Education, Discharge Planning Other Recommendations and Next Treatment Increase ambulation distance, Focus trial stairs. Precautions Lumbar Precautions Log Roll,No Twisting,Limit Bending,Lifting Restriction of 10 lbs,Gait Belt above Incisional Area Weight Bearing Status Weight Bearing Status Weight Bear as Tolerated Recommendations To Nursing Amount of Assist Needed 2 Person Assist Discharge Recommendations PT Discharge Recommendations SNF Rehab Equipment Needed for Home Before may need FWW if not safe w/ Discharge 4WW Transportation Needs at Discharge Wheelchair/Cabulance
[2023-01-04 09:22] LABS: Alanine Aminotransferase 18 IU/L (<50); Albumin 3.4 g/dL (3.5-5.0); Albumin Globulin Ratio 1.1 (1.0-2.8); Alkaline Phosphatase 58 U/L (38-126); Aspartate Aminotransferase 29 IU/L (17-59); BUN Creatinine Ratio 18.7 (6-22); Bilirubin Total 0.7 mg/dL (0.2-1.3); Blood Urea Nitrogen 34 mg/dL (9-20); Calcium 9.4 mg/dL (8.4-10.2); Carbon Dioxide 27 mmol/L (22-32); Chloride 94 mmol/L (98-107); Estimated Glomerular Filt Rate 37 mL/min (>60); Globulin 3.2 g/dL (1.7-4.1); Glucose 107 mg/dL (80-110); HEMOLYSIS < 15 (0-50); Magnesium 2.4 mg/dL (1.6-2.3); Sodium 129 mmol/L (137-145); Total Protein 6.6 g/dL (6.3-8.2)
[2023-01-04] MEDS: ACETAMINOPHEN 325 MG TABLET 650 MG PO ×2 (10:08→15:19)
[2023-01-04] MEDS: azaTHIOprine 50 MG TABLET 75 MG PO (10:08)
[2023-01-04] MEDS: predniSONE 5 MG TABLET 6 MG PO (10:09)
[2023-01-04] MEDS: FINASTERIDE 5 MG TABLET PO (10:10)
[2023-01-04] MEDS: GABAPENTIN 400 MG CAPSULE PO ×3 (10:10→21:36)
[2023-01-04] MEDS: MINOCYCLINE HCL 100 MG CAPSULE 200 MG PO (10:10)
[2023-01-04] MEDS: METOPROLOL ER 25 MG TABLET PO (10:10)
[2023-01-04 10:11] LABS: Neutrophils Absolute Manual 15631 /uL (3000-5900); Total Cells Counted 100
[2023-01-04] MEDS: DOCUSATE 100 MG CAPSULE PO ×2 (10:11→21:36)
[2023-01-04] MEDS: TAMSULOSIN 0.4 MG CAPSULE PO (10:11)
[2023-01-04 10:12] LABS: Anisocytosis 1+; Macrocytosis 2+; Platelet Estimate Decreased on smear
[2023-01-04] MEDS: BACLOFEN 10 MG TABLET PO (10:19)
[2023-01-04] MEDS: NIFEdipine 10 MG CAPSULE PO ×2 (10:19→15:03)
[2023-01-04] MEDS: levoFLOXacin 750 MG/150 ML PIGGYBACK 100 MG IV (10:20)
--- NOTE | 2023-01-04 14:19 | PT.IPTN ---
Current Diagnoses Spondylolisthesis, lumbar region (12/31/22) Spinal stenosis, lumbar region with neurogenic claudication (12/31/22) Surgery Performed Operation Date: 12/31/22 13:45 Actual Procedures p L3-4 TLIF, L2-3 hemilaminectomy(Not Applicable) - Jasvir Medel MD Physical Therapy Treatment Note M2 PT-IP Current Condition Start: 01/02/23 13:31 Freq: NEEDED Status: Active Protocol: Document 01/02/23 12:06 ES (Rec: 01/02/23 13:51 ES [id number]) Physical Therapy Current Condition Current Condition Evaluation Date 01/02/23 Treatment Diagnosis s/p TLIF; weakness, difficulty walking Onset Date 12/31/22 M3 PT-IP Subjective Start: 01/02/23 13:31 Freq: NEEDED Status: Active Protocol: Document 01/04/23 14:43 TS (Rec: 01/04/23 14:58 TS [id number]) Subjective Physical Therapy Visit Type Type Treatment Note Visit Start Time 14:19 Visit Stop Time 14:41 Total Visit Minutes 22 Number of HIGH VOLTAGE ELECTRICIAN Visits 5 Physical Therapy Visit Comments Patient Comments Pt found resting in chair, spouse in room, agreeable to PT. Therapy Pain Assessment Pain When Pain Assessed During Mobility Pain Present Pain Present Pain Reported M4 PT-IP Mobility and Gait Start: 01/02/23 13:31 Freq: NEEDED Status: Active Protocol: Document 01/04/23 14:43 TS (Rec: 01/04/23 14:58 TS [id number]) PT-Bed Mobility Assessment Sit to Supine Sit to Supine Moderate Assistance,1 Person Assistance PT-Transfer Assessment Sit to and From Stand Sit to and from Stand Moderate Assistance,Maximum Assistance,1 Person Assistance ,Use of Upper Extremities Equipment Transfer Assistive Device Gait Belt,Front Wheeled Walker Orthotic/Prosthetic Devices or Brace: Yes Transfers Transfer Destination Bed Transfer Technique ambulated Transfer Ability Level of Assist Moderate Assistance,1 Person Assistance,Use of Upper Extremities Comments Mobility Comments Sit to stand from chair x1 ModA with FWW, provided cues for BUE support on arms of chair, weight forward and feet underneath, pt retroleans in standing. He ambulated in ~40' [place]-ModA for balance and retrolean, cued pt for heel to toe contact, pt tends to shuffle feet on ground with minimal foot clearance. Pt ambulated back to chair, quick to sit down do to fatigue. Sit to stand x1 MaxA for stand step pivot transfer to bed, cued pt to scoot forward in chair before standing, pt went to stand right away, heavy retrolean. He transferred to bed ModA for balance and continuing retrolean, provided cues for rail support before sitting EOB, Sit to supine ModA for LEs into bed, required cues for logroll. Pt was left in bed with call light nearby, spouse in room, all needs met, RN notified. Gait Assessment Gait Gait Assistance Required: Minimum Assistance,Moderate Assistance,1 Person Assist Distance (Feet) 40 Assistive Devices Assistive Device Gait Belt,Front Wheeled Walker Orthotic/Prosthetic Devices or Brace: Yes Gait Deviations General Gait Pattern Antalgic,Decreased Stride Length,Decreased Feet Clearance,Flexed Trunk Factors Limiting Gait Function Factors Limiting Gait Function Abnormal Tonal Influences, Decreased Activity Tolerance, Decreased Sensation,Decreased Strength,Incoordination, Limited Range of Motion,Pain, Poor Balance Comments Gait Comments Pt unsteady on feet and retroleans heavily. See mobility comments. Stair Climbing Assessment Comments Stair Climbing Comments Not appropriate at this time. PT-Balance Assessment Sitting Balance and Reactions Static Sitting Balance Ability Good Dynamic Sitting Balance Ability Fair Standing Balance and Reactions Static Standing Balance Ability Fair Dynamic Standing Balance Ability Fair Device Used FWW M5 PT-IP Objective Assessments Start: 01/02/23 13:31 Freq: NEEDED Status: Active Protocol: Document 01/02/23 12:06 ES (Rec: 01/02/23 13:51 ES [id number]) Orientation Orientation/Cognition Level of Alertness Alert Language Function Ability Hard of Hearing Safety Awareness Understands Safety Issues Memory Description No Deficits Noted Gross Range of Motion Upper Extremity ROM Assessment Within Functional Limits Lower Extremity ROM Assessment Bilaterally Impaired Impairments B ankle DF limited to ~5 degrees passive Strength Lower Extremity Strength Assessment Bilaterally Impaired Hip 4-/5 Knee 4-/5 Ankle DF 2-/5 B M6 PT-IP Treatment Start: 01/02/23 13:31 Freq: NEEDED Status: Active Protocol: Document 01/04/23 14:43 TS (Rec: 01/04/23 14:58 TS [id number]) Physical Therapy Treatment Education Education Provided Precautions,Post-Op Packet, Safety M7 PT-IP Assessment and Plan Start: 01/02/23 13:31 Freq: NEEDED Status: Active Protocol: Document 01/04/23 14:43 TS (Rec: 01/04/23 14:58 TS [id number]) PT Summary Assessment and Plan Potential Rehabilitation Potential Fair Summary Impairments Pain,Strength,Balance, Coordination,Bed Mobility, Transfers,Gait,Activity Tolerance Progress Towards Goals Slow Progress due to Pain,Slow Progress due to Activity Tolerance Assessment Summary Pt continues to make slow progress with his mobility. He continues to have poor activity tolerance and fatigues quickly with gait, pt will sit before it is safe to do so. He did progress his gait to ~40'[place]-ModA for retroleaning and balance, has some bilateral knee buckling but he recovered with FWW and ModA. He conitnues to require max cueing for all mobility and has poor carryover. PT is recommending SNF to progress bed mobility, transfers, gait and activity tolerance. Goals Bed Mobility Goal Standby Assistance Transfer Goal Standby Assistance,Four Wheeled Walker Gait Goal Standby Assistance,Four Wheel Walker Gait Distance 100 ft Other Goals Patient will be able to ascend /descend 2 stairs with single rail and LRAD. Patient will demonstrate good understanding of lumbar precautions. Days to Meet Goals 5 Frequency of Treatment Frequency Of Treatment Twice a Day Treatment Plan Physical Therapy Treatment Plan Bed Mobility Training,Transfer Training,Gait Training, Therapeutic Exercise,Balance Retraining,Post Op Education, Discharge Planning Other Recommendations and Next Treatment Increase ambulation distance, Focus trial stairs. Precautions Lumbar Precautions Log Roll,No Twisting,Limit Bending,Lifting Restriction of 10 lbs,Gait Belt above Incisional Area Weight Bearing Status Weight Bearing Status Weight Bear as Tolerated Recommendations To Nursing Amount of Assist Needed 2 Person Assist Discharge Recommendations PT Discharge Recommendations SNF Rehab Equipment Needed for Home Before may need FWW if not safe w/ Discharge 4WW Transportation Needs at Discharge Wheelchair/Cabulance
[2023-01-04] MEDS: LACTATED RINGERS 1,000 ML 150 ML IV (15:02)
[2023-01-04 17:18] LABS: Hematocrit 25.2 % (41-53); Hemoglobin 8.4 g/dL (13.5-17.5); Mean Corpuscular HGB Conc 33.5 % (30-36); Mean Corpuscular Volume 104.4 fL (80-100); Platelet Count 64 X10^3/uL (150-400); Red Blood Cell Count 2.41 X10^6/uL (4.5-5.9); Red Cell Distribution Width 15.4 % (11.6-14.8)
[2023-01-04 17:25] LABS: Add Manual Diff / Slide Review YES
[2023-01-04 17:28] LABS: BUN Creatinine Ratio 18.3 (6-22); Blood Urea Nitrogen 44 mg/dL (9-20); Calcium 9.4 mg/dL (8.4-10.2); Carbon Dioxide 24 mmol/L (22-32); Chloride 92 mmol/L (98-107); Estimated Glomerular Filt Rate 26 mL/min (>60); Glucose 125 mg/dL (80-110); HEMOLYSIS < 15 (0-50); Potassium 5.2 mmol/L (3.4-5.1); Sodium 125 mmol/L (137-145)
[2023-01-04 17:32] LABS: C-Reactive Protein Quant 8.1 mg/dL (<1.0)
[2023-01-04 17:35] LABS: Erythrocyte Sedimentation Rate 49 MM/HR (0-15)
--- NOTE | 2023-01-04 17:37 | DI.RAD.S_ITS ---
PROCEDURE: XR CHEST 2V INDICATIONS: assess for pneumonia TECHNIQUE: 2 views of the chest were acquired. COMPARISON: [facility], CR, XR CHEST 1V, 01/01/2023, 7:42. FINDINGS: Surgical changes and devices: None. Lungs and pleura: Mild diffuse interstitial prominence. Interval development of patchy bibasilar airspace opacities more pronounced on the left. No pneumothorax. No substantial pleural effusion. Mediastinum: Mediastinal contours are normal. Heart size is normal. Bones and chest wall: No suspicious bony abnormalities. Soft tissues appear unremarkable. IMPRESSION: Persistent diffuse interstitial prominence with new patchy bibasilar airspace opacities more pronounced on the left. Findings may represent developing multifocal airspace disease/pneumonia. Recommend follow up chest radiograph 4-6 weeks after treatment to document resolution of findings and/or return to baseline examination. Dictated by: Manoj Pompa M.D. on 01/04/2023 at 17:33 Approved by: Manoj Pompa M.D. on 01/04/2023 at 17:35
--- NOTE | 2023-01-04 17:42 | DI.RAD.S_ITS ---
PROCEDURE: XR ABDOMEN MIN 2V INDICATIONS: assess for ileus TECHNIQUE: 2 views of the abdomen were acquired. COMPARISON: None. FINDINGS: Surgical changes and devices: There are postsurgical changes of lower lumbar fusion. Skin alyson project over the lower abdomen. Cholecystectomy clips noted in the right upper quadrant. Bowel: No evidence for pneumoperitoneum. Large amount of fecal material seen in the region of the ascending colon and hepatic flexure. Otherwise, no other findings to suggest ileus or small-bowel obstruction. Air-filled loops of bowel noted in the region of the descending colon. There is a paucity of gas in the rectum. Soft tissues: No masses; visualized solid organ contours appear normal in size. No suspicious abdominal calcifications. Bones: No suspicious bony abnormalities. IMPRESSION: 1. Large amount of fecal material seen in the ascending colon and hepatic flexure. Otherwise, nonspecific bowel gas pattern without findings to suggest ileus or small-bowel obstruction. 2. Mild patchy left basilar airspace opacities may represent atelectasis versus developing airspace disease. Recommend clinical correlation. Dictated by: Manoj Pompa M.D. on 01/04/2023 at 17:35 Approved by: Manoj Pompa M.D. on 01/04/2023 at 17:38
[2023-01-04 17:46] LABS: Neutrophils Absolute Manual 16330 /uL (3000-5900); Procalcitonin 0.26 ng/mL (<0.5); Total Cells Counted 100
[2023-01-04 17:48] LABS: Anisocytosis 1+; Macrocytosis 2+
[2023-01-04] MEDS: FLEETS ENEMA 1 EACH PR (17:49)
[2023-01-04] MEDS: HALOPERIDOL 5 MG/ML VIAL 1 MG IV (17:52)
[2023-01-04] MEDS: MEROPENEM 500 MG in SODIUM CHLORIDE 0.9% 100 ML 200 MG IV (18:37)
[2023-01-04] MEDS: MAGNESIUM HYDROXIDE 30 ML UDC PO (18:38)
[2023-01-04] MEDS: polyethylene glycoL 3350 17 GM POWD.PACK PO (18:39)
--- NOTE | 2023-01-04 18:54 | PC.NURSE ---
no bm for 4 days bowel regiem started, oxy for pain affective for sugical pain, changes in labs noted orders rec'd at bs all day
--- NOTE | 2023-01-04 21:12 | PM.PNPO.1 ---
Subjective Subjective Date Patient Seen: 01/04/23 Time Patient Seen: 21:13 Interval history: Postop Day lumbar spinal fusion History of myelodysplastic syndrome, medically complex patient. Was not concerned about fever this morning was concerned about pain control which has been difficult over the last few days. Co managed by internal medicine due to medical complexity Exam Vital Signs (past 8 hours): - 01/04/23 15:19 01/04/23 16:00 Temperature 101.1 F H 98.7 F Pulse Rate 76 Respiratory Rate 17 Blood Pressure 110/72 Pulse Oximetry 99 Oxygen Flow Rate 0 Oxygen Delivery Method Room Air Oxygen Flow Rate 0 Narrative Exam Narrative: Unchanged from yesterday. No acute distress Currently sleeping using CPAP. When checked yesterday was clean dry and intact. Unchanged bilateral peripheral neuropathy. Objective Labs 01/04/23 17:00 01/04/23 17:00 Labs: Laboratory Results - last 24 hr 01/04/23 01/04/23 01/04/23 08:30 08:30 17:00 WBC 20.3 H RBC 2.64 L Hgb 9.3 L Hct 27.9 L MCV 105.6 H MCH 35.5 H MCHC 33.6 RDW 15.5 H Plt Count 60 L Neut % (Auto) Not Reportable Lymph % (Auto) Not Reportable [place] % (Auto) Not Reportable Eos % (Auto) Not Reportable Baso % (Auto) Not Reportable Lymph # (Auto) Not Reportable [place] # (Auto) Not Reportable Baso # (Auto) Not Reportable Total Counted 100 Seg Neutrophils % 70.0 D Band Neutrophils % 7.0 Lymphocytes % (Manual) 3.0 L Monocytes % (Manual) 17.0 H Eosinophils % (Manual) 0.0 L Basophils % (Manual) 0.0 Metamyelocytes % 1.0 H Myelocytes % 1.0 H Blast Cells % 1.0 H Neutrophils # (Manual) 91841 H Platelet Estimate Decreased on smear RBC Morphology Not Reportable Anisocytosis 1+ H Macrocytosis 2+ H ESR Sodium 129 L 125 L Potassium 4.0 5.2 H D Chloride 94 L 92 L Carbon Dioxide 27 24 BUN 34 H 44 H Creatinine 1.82 H 2.41 H Estimated GFR 37 L 26 L BUN/Creatinine Ratio 18.7 18.3 Glucose 107 125 H Lactate Calcium 9.4 9.4 Magnesium 2.4 H Total Bilirubin 0.7 AST 29 ALT 18 Alkaline Phosphatase 58 C-Reactive Protein Total Protein 6.6 Albumin 3.4 L Globulin 3.2 Albumin/Globulin Ratio 1.1 Procalcitonin 01/04/23 01/04/23 01/04/23 17:00 17:00 17:00 WBC 23.0 H RBC 2.41 L Hgb 8.4 L Hct 25.2 L MCV 104.4 H MCH 35.0 H MCHC 33.5 RDW 15.4 H Plt Count 64 L Neut % (Auto) Not Reportable Lymph % (Auto) Not Reportable [place] % (Auto) Not Reportable Eos % (Auto) Not Reportable Baso % (Auto) Not Reportable Lymph # (Auto) Not Reportable [place] # (Auto) Not Reportable Baso # (Auto) Not Reportable Total Counted 100 Seg Neutrophils % 64.0 Band Neutrophils % 7.0 Lymphocytes % (Manual) 1.0 L Monocytes % (Manual) 25.0 H Eosinophils % (Manual) Basophils % (Manual) Metamyelocytes % 2.0 H Myelocytes % 1.0 H Blast Cells % Neutrophils # (Manual) 49474 H Platelet Estimate RBC Morphology See below Anisocytosis 1+ H Macrocytosis 2+ H ESR 49 H Sodium Potassium Chloride Carbon Dioxide BUN Creatinine Estimated GFR BUN/Creatinine Ratio Glucose Lactate Calcium Magnesium Total Bilirubin AST ALT Alkaline Phosphatase C-Reactive Protein Total Protein Albumin Globulin Albumin/Globulin Ratio Procalcitonin 0.26 01/04/23 01/04/23 17:00 17:00 WBC RBC Hgb Hct MCV MCH MCHC RDW Plt Count Neut % (Auto) Lymph % (Auto) [place] % (Auto) Eos % (Auto) Baso % (Auto) Lymph # (Auto) [place] # (Auto) Baso # (Auto) Total Counted Seg Neutrophils % Band Neutrophils % Lymphocytes % (Manual) Monocytes % (Manual) Eosinophils % (Manual) Basophils % (Manual) Metamyelocytes % Myelocytes % Blast Cells % Neutrophils # (Manual) Platelet Estimate RBC Morphology Anisocytosis Macrocytosis ESR Sodium Potassium Chloride Carbon Dioxide BUN Creatinine Estimated GFR BUN/Creatinine Ratio Glucose Lactate 1.0 Calcium Magnesium Total Bilirubin AST ALT Alkaline Phosphatase C-Reactive Protein 8.1 H Total Protein Albumin Globulin Albumin/Globulin Ratio Procalcitonin [facility] Medical History A-fib Bladder calculi BPH (benign prostatic hyperplasia) BPH w urinary obs/LUTS Chest pain Chilblains Esophageal abrasion [place] (hard of hearing) Male circumcision Memory changes Myelodysplastic syndrome ADRIAN on CPAP Osteoporosis Peripheral neuropathy Pneumonia (03/2022) PSVT (paroxysmal supraventricular tachycardia) Skin cancer Spinal stenosis Tremor of both hands Surgical History H/O vasectomy Hx of bilateral cataract extraction Hx of tonsillectomy Status post cholecystectomy Status post laminectomy Family History Brother BPH (benign prostatic hyperplasia) Cancer Gout Father Cancer Thyroid disorder Sister Cancer Social History marital status: number of children: 4 household members: spouse Smoking Status: Never smoker alcohol intake: current Assessment & Plan Post-op Postoperative Procedures: Procedures Operation Date: 12/31/22 13:45 Actual Procedure Side Surgeon p L3-4 TLIF, L2-3 hemilaminectomy Not Applicable Jasvir Medel MD Postoperative day: 4 Postoperative status narrative: Had some nausea, marginal pain control. White cell count increasing. Creatinine also bumped. Discussed with hospitalist. Thought he might need some fluids. They are following. Repeat labs today show again increased white count and increasing creatinine increasing potassium -discussed with medicine who is following closely they are going to recheck labs tonight. Fluids were increased today. He was reimaged. Does have a pneumonia. Antibiotics were broadened Patient requires continued inpatient hospital care. Time Spent With Patient Time with patient: 15-24 minutes Quality VTE Deep Vein Thrombosis/Pulmonary Embolism Present on Admission: No
--- NOTE | 2023-01-04 21:24 | DI.CT.S_ITS ---
PROCEDURE: CT ABDOMEN PELVIS WO CON INDICATIONS: worsening milvia, hx kidney stone, obstruction or hydro? TECHNIQUE: Axial sections were acquired from the lung bases to the pubic symphysis. Coronal and sagittal reformats were performed. For radiation dose reduction, the following was used: automated exposure control, adjustment of mA and/or kV according to patient size. COMPARISON: Outside Facility, RG, CT THORAX/ ABD/ PELVIS WITH CONTRAST, 04/02/2022, 12:14. FINDINGS: Image quality: There is metallic streak artifact from patient's surgical hardware within the lumbar spine. Lung bases: There is mild bibasilar atelectasis. Heart: Heart is normal in size. URINARY: Right Kidney and Ureter: There is suggestion of a nonobstructing 0.3 cm right renal stone. No definite hydronephrosis. There is mild dilatation of the right ureter with mild periureteral fat stranding extending to the bladder. No obstructing ureteral stone. Left Kidney and Ureter: No stones or definite hydronephrosis. There is an exophytic left renal cyst measuring up to 4.0 cm. There is mild fullness of the left ureter extending to the bladder. Bladder: The urinary bladder is nondistended with a Vega catheter in place. There are at least 4 nonobstructing dependent bladder stones, with the largest measuring up to 1.4 cm. These demonstrate attenuation values of approximately 900-1000 Hounsfield units. ABDOMEN: Liver: There is a small cyst within the inferior right hepatic lobe. Gallbladder: Surgically absent. Biliary ducts: No biliary ductal dilatation. Pancreas: Unremarkable. Spleen: Normal in size. Adrenal Glands: No adrenal nodules. Stomach and Bowel: Stomach, small bowel loops, and colon are normal in caliber and wall thickness. Peritoneum: No abnormal intraperitoneal fluid. No free air. Ventral Wall: No hernia. Abdominal Nodes: There are prominent retroperitoneal periaortic lymph nodes with the largest, a left para-aortic node, measuring up to 1.0 cm on series 2, image 50. Vessels: Aorta and inferior vena cava are normal in size. PELVIS: Pelvic Organs: Unremarkable. Pelvic Nodes: No enlarged lymph nodes. Miscellaneous: No inguinal hernias identified. Bones: There are mild superior endplate compression deformities of the T12, L1, L3, and L4 vertebral bodies redemonstrated. There is a minimal superior endplate compression deformity of the L5 vertebral body with approximately 15-20% loss of height. Visualized osseous structures demonstrate no suspicious focal lesions. IMPRESSION: 1. Multiple clustered calcified bladder stones in the trigone region adjacent to the right UVJ. There is associated mild right periureteral fat stranding without definite hydronephrosis. Minimal left periureteral fat stranding also noted. Dictated by: Suresh Snyder M.D. on 01/05/2023 at 0:59 Approved by: Suresh Snyder M.D. on 01/05/2023 at 1:16
[2023-01-04] MEDS: SODIUM CHLORIDE 0.9% 1,000 ML 125 ML IV (21:36)
[2023-01-04] MEDS: SENNOSIDES 8.6 MG TABLET 17.2 MG PO (21:36)
[2023-01-04 21:48] LABS: Creatinine Urine Random 50.2 mg/dL; Sodium Urine Random 15 mmol/L (30-90)
[2023-01-04] MEDS: LINEZOLID 600 MG/300 ML IV.SOLN IV (21:48)
[2023-01-04 23:26] LABS: BUN Creatinine Ratio 20.9 (6-22); Blood Urea Nitrogen 48 mg/dL (9-20); Carbon Dioxide 26 mmol/L (22-32); Chloride 93 mmol/L (98-107); Estimated Glomerular Filt Rate 28 mL/min (>60); Glucose 152 mg/dL (80-110); HEMOLYSIS < 15 (0-50); Potassium 4.4 mmol/L (3.4-5.1); Sodium 126 mmol/L (137-145)
[2023-01-05] VITALS (7 sets, daily range): BP systolic 106–132; BP diastolic 50–72; PULSE 66–79; RESP 16–20; TEMP 36.3–37; O2SAT 96–100
[2023-01-05] MEDS: SODIUM CHLORIDE 0.9% 1,000 ML 125 ML IV ×2 (04:51→17:08)
[2023-01-05] MEDS: PANTOPRAZOLE DR 40 MG TABLET PO (06:03)
[2023-01-05] MEDS: MEROPENEM 500 MG in SODIUM CHLORIDE 0.9% 100 ML 200 MG IV (06:04)
[2023-01-05 06:56] LABS: Hematocrit 24.4 % (41-53); Hemoglobin 8.2 g/dL (13.5-17.5); Mean Corpuscular HGB Conc 33.5 % (30-36); Mean Corpuscular Hemoglobin 35.2 PG (26-34); Mean Corpuscular Volume 105.2 fL (80-100); Platelet Count 58 X10^3/uL (150-400); Red Blood Cell Count 2.32 X10^6/uL (4.5-5.9); Red Cell Distribution Width 15.7 % (11.6-14.8); White Blood Cell Count 21.4 X10^3/uL (4.5-11.0)
[2023-01-05 07:09] LABS: Alanine Aminotransferase 17 IU/L (<50); Albumin Globulin Ratio 1.1 (1.0-2.8); Alkaline Phosphatase 47 U/L (38-126); Aspartate Aminotransferase 22 IU/L (17-59); BUN Creatinine Ratio 23.4 (6-22); Bilirubin Total 0.6 mg/dL (0.2-1.3); Blood Urea Nitrogen 41 mg/dL (9-20); Calcium 8.8 mg/dL (8.4-10.2); Carbon Dioxide 26 mmol/L (22-32); Chloride 101 mmol/L (98-107); Estimated Glomerular Filt Rate 39 mL/min (>60); Globulin 2.8 g/dL (1.7-4.1); Glucose 103 mg/dL (80-110); HEMOLYSIS < 15 (0-50); Potassium 3.8 mmol/L (3.4-5.1); Sodium 133 mmol/L (137-145); Total Protein 5.8 g/dL (6.3-8.2)
[2023-01-05 07:12] LABS: Add Manual Diff / Slide Review YES
[2023-01-05 07:19] LABS: Neutrophils Absolute Manual 14552 /uL (3000-5900); Total Cells Counted 100
[2023-01-05 07:20] LABS: Anisocytosis 1+; Macrocytosis 1+; Platelet Estimate Decreased on smear
--- NOTE | 2023-01-05 09:27 | P.PN_ITS ---
Subjective Subjective Interval history: Patient feeling good today. Eating breakfast well. No new complaints. Exam Vital Signs (past 8 hours): - 01/05/23 04:29 Temperature 97.4 F L Pulse Rate 76 Respiratory Rate 16 Blood Pressure 130/72 Pulse Oximetry 100 Oxygen Flow Rate 0 Oxygen Delivery Method CPAP Oxygen Flow Rate 0 Narrative Exam Narrative: General:? Elderly male in no acute distress. HEENT:? Normocephalic, atraumatic, extraocular muscles intact. Neck: supple and symmetric, trachea is midline Chest:? Normal AP diameter and contour, no tachypnea, equal chest rise bilaterally. Lungs:? Clear to auscultation. Cardio:?RRR no m/r/g. Abdomen: S NT ND. Musculoskeletal:? Muscle strength and tone are equal within normal limits, no deformity. Extremities: No edema or joint effusions. No cyanosis or clubbing. Skin:? Warm to touch,dry and intact without rashes or lesions.? Neuro:? Alert and orientated to name and hospital.? Sensation to touch intact in all extremities, no gross deficits noted of cranial nerves. Psych:? Patient has a well-kept appearance, appropriate affect. Objective Labs 01/05/23 06:40 01/05/23 06:40 Labs: Laboratory Results - last 24 hr 01/04/23 01/04/23 01/04/23 08:30 08:30 17:00 WBC RBC Hgb Hct MCV MCH MCHC RDW Plt Count Neut % (Auto) Lymph % (Auto) [place] % (Auto) Eos % (Auto) Baso % (Auto) Lymph # (Auto) [place] # (Auto) Baso # (Auto) Total Counted 100 Seg Neutrophils % 70.0 D Band Neutrophils % 7.0 Lymphocytes % (Manual) 3.0 L Atypical Lymphs % Monocytes % (Manual) 17.0 H Eosinophils % (Manual) 0.0 L Basophils % (Manual) 0.0 Metamyelocytes % 1.0 H Myelocytes % 1.0 H Blast Cells % 1.0 H Neutrophils # (Manual) 01030 H Platelet Estimate Decreased on smear RBC Morphology Not Reportable Anisocytosis 1+ H Macrocytosis 2+ H ESR Sodium 129 L 125 L Potassium 4.0 5.2 H D Chloride 94 L 92 L Carbon Dioxide 27 24 BUN 34 H 44 H Creatinine 1.82 H 2.41 H Estimated GFR 37 L 26 L BUN/Creatinine Ratio 18.7 18.3 Glucose 107 125 H Lactate Calcium 9.4 9.4 Magnesium 2.4 H Total Bilirubin 0.7 AST 29 ALT 18 Alkaline Phosphatase 58 C-Reactive Protein Total Protein 6.6 Albumin 3.4 L Globulin 3.2 Albumin/Globulin Ratio 1.1 Procalcitonin Ur Random Sodium Urine Creatinine 01/04/23 01/04/23 01/04/23 17:00 17:00 17:00 WBC 23.0 H RBC 2.41 L Hgb 8.4 L Hct 25.2 L MCV 104.4 H MCH 35.0 H MCHC 33.5 RDW 15.4 H Plt Count 64 L Neut % (Auto) Not Reportable Lymph % (Auto) Not Reportable [place] % (Auto) Not Reportable Eos % (Auto) Not Reportable Baso % (Auto) Not Reportable Lymph # (Auto) Not Reportable [place] # (Auto) Not Reportable Baso # (Auto) Not Reportable Total Counted 100 Seg Neutrophils % 64.0 Band Neutrophils % 7.0 Lymphocytes % (Manual) 1.0 L Atypical Lymphs % Monocytes % (Manual) 25.0 H Eosinophils % (Manual) Basophils % (Manual) Metamyelocytes % 2.0 H Myelocytes % 1.0 H Blast Cells % Neutrophils # (Manual) 29196 H Platelet Estimate RBC Morphology See below Anisocytosis 1+ H Macrocytosis 2+ H ESR 49 H Sodium Potassium Chloride Carbon Dioxide BUN Creatinine Estimated GFR BUN/Creatinine Ratio Glucose Lactate Calcium Magnesium Total Bilirubin AST ALT Alkaline Phosphatase C-Reactive Protein Total Protein Albumin Globulin Albumin/Globulin Ratio Procalcitonin 0.26 Ur Random Sodium Urine Creatinine 01/04/23 01/04/23 01/04/23 17:00 17:00 19:55 WBC RBC Hgb Hct MCV MCH MCHC RDW Plt Count Neut % (Auto) Lymph % (Auto) [place] % (Auto) Eos % (Auto) Baso % (Auto) Lymph # (Auto) [place] # (Auto) Baso # (Auto) Total Counted Seg Neutrophils % Band Neutrophils % Lymphocytes % (Manual) Atypical Lymphs % Monocytes % (Manual) Eosinophils % (Manual) Basophils % (Manual) Metamyelocytes % Myelocytes % Blast Cells % Neutrophils # (Manual) Platelet Estimate RBC Morphology Anisocytosis Macrocytosis ESR Sodium Potassium Chloride Carbon Dioxide BUN Creatinine Estimated GFR BUN/Creatinine Ratio Glucose Lactate 1.0 Calcium Magnesium Total Bilirubin AST ALT Alkaline Phosphatase C-Reactive Protein 8.1 H Total Protein Albumin Globulin Albumin/Globulin Ratio Procalcitonin Ur Random Sodium 15 L Urine Creatinine 50.2 01/04/23 01/05/23 01/05/23 22:53 06:40 06:40 WBC 21.4 H RBC 2.32 L Hgb 8.2 L Hct 24.4 L MCV 105.2 H MCH 35.2 H MCHC 33.5 RDW 15.7 H Plt Count 58 L Neut % (Auto) Not Reportable Lymph % (Auto) Not Reportable [place] % (Auto) Not Reportable Eos % (Auto) Not Reportable Baso % (Auto) Not Reportable Lymph # (Auto) Not Reportable [place] # (Auto) Not Reportable Baso # (Auto) Not Reportable Total Counted 100 Seg Neutrophils % 67.0 Band Neutrophils % 1.0 L Lymphocytes % (Manual) 5.0 L D Atypical Lymphs % 1.0 H Monocytes % (Manual) 22.0 H Eosinophils % (Manual) Basophils % (Manual) Metamyelocytes % 4.0 H Myelocytes % Blast Cells % Neutrophils # (Manual) 71273 H Platelet Estimate Decreased on smear RBC Morphology See below Anisocytosis 1+ H Macrocytosis 1+ H ESR Sodium 126 L 133 L Potassium 4.4 3.8 Chloride 93 L 101 Carbon Dioxide 26 26 BUN 48 H 41 H Creatinine 2.30 H 1.75 H Estimated GFR 28 L 39 L BUN/Creatinine Ratio 20.9 23.4 H Glucose 152 H 103 Lactate Calcium 9.0 8.8 Magnesium Total Bilirubin 0.6 AST 22 ALT 17 Alkaline Phosphatase 47 C-Reactive Protein Total Protein 5.8 L Albumin 3.0 L Globulin 2.8 Albumin/Globulin Ratio 1.1 Procalcitonin Ur Random Sodium Urine Creatinine PFSH Medical History A-fib Bladder calculi BPH (benign prostatic hyperplasia) BPH w urinary obs/LUTS Chest pain Chilblains Esophageal abrasion [place] (hard of hearing) Male circumcision Memory changes Myelodysplastic syndrome ADRIAN on CPAP Osteoporosis Peripheral neuropathy Pneumonia (03/2022) PSVT (paroxysmal supraventricular tachycardia) Skin cancer Spinal stenosis Tremor of both hands Surgical History H/O vasectomy Hx of bilateral cataract extraction Hx of tonsillectomy Status post cholecystectomy Status post laminectomy Family History Brother BPH (benign prostatic hyperplasia) Cancer Gout Father Cancer Thyroid disorder Sister Cancer Social History marital status: number of children: 4 household members: spouse Smoking Status: Never smoker alcohol intake: current Assessment & Plan Assessment & Plan narrative: . Presumed Sepsis secondary to presumed bactermial pneumonia with worsened thrombocytopenia and acute metabolic encephalopathy, improving ?- history of stenotrophomonas, renal calculi in the past. CXR is unremarkable but similar presentation with normal CXR and sputum cultures with stenotrophomonas in [place] in 2021. ?- UA unremarkable. ?- 29% bands on CBC, 2% blast cells, no schistocytes (blast crisis or hemolytic anemia a possibility given leukemia diagnosis). This is slightly worse than outpatient labs with 18% bands previously (due to underlying hematologic process). This is much improved on yesterday's CBC.? Yesterday % bands have increased to 17%. Today bands have decreased to 1% and white blood count has decreased to 21.4. Platelets is reasonably stable at 58. ?-on admission, favored treatment with minocycline and levofloxacin given hist ory of stenotrophomonas. Okay for oral minocycyline. If no further etiology is found, would recommend treatment for 7 days total. ?- fever may be due to atelectasis or drug reaction as POD#2 today 100F which is an improvement, less likely underlying MDS though there was previously concern for possible transformation to leukemia based on recent biopsies. Should fever persist check LDH, haptoglobin and hemolysis labs. ?- lactate normal. Patient received LR 30 mg /kg bolus, antibiotics ordered afte r blood cultures and UA drawn as noted above. ?- received records from oncology office from 12/24 visit. He tested positive for COVID on 12/22 per oncology office (his states that she tested positive actually, but he did not), received Paxlovid from oncologist and was reportedly asymptomatic. PCR COVID Testing was negative 12/31 and respiratory panel was negative after fever. -minocycline and levofloxacin was discontinued yesterday. Patient initiated on meropenem IV and both lab lyman and clinically improved today. Length of meropenem treatment will be determined by improvement in blood tests as well as improvement in chest x-ray. Blood cultures taken yesterday with results still pending. Urine culture with results still pending. This needs to be continued to follow. 2. Abnormal nuclear stress test 11/2021 ?- EKG reassuring, no chest pain, and troponin negative. Stress testing 11/2021 with This is an abnormal myocardial perfusion study with small reversible ischemia of basal inferolateral wall. ?- Troponin this morning is also normal. No further evaluation needed. Follow up with outpatient siding mechanic as previously planned. ?- Dr. Ash is patient's outpatient siding mechanic 3. Myelodysplastic syndrome, stable, with iron deficiency anemia and thromb ocytopenia ?- oncology has recommended outpatient GI consultation for EGD and colonoscopy for iron deficiency anemia. Will continue to watch blood counts here. Plt count is 49, transfuse if needed per orthopedics. 4. Hypokalemia ?- replete per pharmacy 5. paroxysmal atrial fibrillation ?- okay to continue home metoprolol 6. chronic diastolic heart failure ?- no signs of volume overload currently, continue IV fluids with caution. 7. BPH ?- continue home medications. With negative UA no indication for imaging at this time. 8. RA on prednisone ?- if hypotensive give stress dose steroids, he is only on 6 mg prednisone daily so not needed unless evidence of insufficiency. 9. Acute renal failure. Improving, continue to follow. CT of the abdomen yesterday shows no hydronephrosis. There was some periureteral stranding however. Code: Full, surrogate is patient's spouse Continue to follow clinically and follow labs. Quality VTE Deep Vein Thrombosis/Pulmonary Embolism Present on Admission: No
[2023-01-05] MEDS: azaTHIOprine 50 MG TABLET 75 MG PO (09:28)
[2023-01-05] MEDS: BACLOFEN 10 MG TABLET PO (09:29)
[2023-01-05] MEDS: polyethylene glycoL 3350 17 GM POWD.PACK PO (09:29)
[2023-01-05] MEDS: GABAPENTIN 400 MG CAPSULE PO ×2 (09:29→21:45)
[2023-01-05] MEDS: FINASTERIDE 5 MG TABLET PO (09:29)
[2023-01-05] MEDS: DOCUSATE 100 MG CAPSULE PO (09:29)
[2023-01-05] MEDS: METOPROLOL ER 25 MG TABLET PO (09:29)
[2023-01-05] MEDS: predniSONE 5 MG TABLET 6 MG PO (09:29)
[2023-01-05] MEDS: TAMSULOSIN 0.4 MG CAPSULE PO (09:30)
--- NOTE | 2023-01-05 11:30 | PT.IPTN ---
Current Diagnoses Spondylolisthesis, lumbar region (12/31/22) Spinal stenosis, lumbar region with neurogenic claudication (12/31/22) Surgery Performed Operation Date: 12/31/22 13:45 Actual Procedures p L3-4 TLIF, L2-3 hemilaminectomy(Not Applicable) - Jasvir Medel MD Physical Therapy Treatment Note M2 PT-IP Current Condition Start: 01/02/23 13:31 Freq: NEEDED Status: Active Protocol: Document 01/02/23 12:06 ES (Rec: 01/02/23 13:51 ES [id number]) Physical Therapy Current Condition Current Condition Evaluation Date 01/02/23 Treatment Diagnosis s/p TLIF; weakness, difficulty walking Onset Date 12/31/22 M3 PT-IP Subjective Start: 01/02/23 13:31 Freq: NEEDED Status: Active Protocol: Document 01/05/23 12:47 TS (Rec: 01/05/23 13:00 TS [id number]) Subjective Physical Therapy Visit Type Type Treatment Note Visit Start Time 11:30 Visit Stop Time 11:51 Total Visit Minutes 21 Number of ENGINEERING ADMINISTRATOR Visits 6 Physical Therapy Visit Comments Patient Comments Pt found resting in bed, spouse in room, agreeable to PT. Therapy Pain Assessment Pain When Pain Assessed During Mobility Pain Present Pain Present Pain Reported M4 PT-IP Mobility and Gait Start: 01/02/23 13:31 Freq: NEEDED Status: Active Protocol: Document 01/05/23 12:47 TS (Rec: 01/05/23 13:00 TS [id number]) PT-Bed Mobility Assessment Rolling Type of Rolling Log Rolling,Roll to Right Level of Assist Minimal Assistance Supine to Sit Supine to Sit Moderate Assistance,1 Person Assistance,Head of Bed Elevated,Bedrails Scooting Scooting to Edge of Bed Minimal Assistance PT-Transfer Assessment Sit to and From Stand Sit to and from Stand Moderate Assistance,1 Person Assistance,Use of Upper Extremities Equipment Transfer Assistive Device Gait Belt,Front Wheeled Walker Orthotic/Prosthetic Devices or Brace: Yes Transfers Transfer Destination Chair Transfer Technique Stand Step Pivot Transfer Ability Level of Assist Minimal Assistance,1 Person Assistance,Use of Upper Extremities Comments Mobility Comments Pt found resting in bed, agreeable to PT. Pt recalled 3 /3 spinal precautions prior to mobility. Logroll [place] to R side, pt demonstrated carryover of sequencing. After logroll pt discovered to have had a BM, nursing was called to assist in pericare. Supine to sit ModA for uprighting trunk, pt demonstrated some carryover of sequencing, required cues for UE support. He scooted to EOB with [place] with tranfers pad, cued pt for BUE on bed to scoot forward and one hip at a time. Sit to stand x2 ModA, first attempt pt had posterior LOB back onto bed. Stand step pivot transfer to bed [place] for retrolean, provided cues for upright posture. He was left in chair with spouse in room, call light nearby. Gait Assessment Gait Gait Assistance Required: Minimum Assistance,1 Person Assist Distance (Feet) 3 Assistive Devices Assistive Device Gait Belt,Front Wheeled Walker Orthotic/Prosthetic Devices or Brace: Yes Gait Deviations General Gait Pattern Antalgic,Decreased Stride Length,Decreased Feet Clearance,Flexed Trunk Factors Limiting Gait Function Factors Limiting Gait Function Abnormal Tonal Influences, Decreased Activity Tolerance, Decreased Sensation,Decreased Strength,Incoordination, Limited Range of Motion,Pain, Poor Balance Comments Gait Comments Stand step pivot transfer to chair. See mobility comments. Stair Climbing Assessment Comments Stair Climbing Comments Not appropriate at this time. PT-Balance Assessment Sitting Balance and Reactions Static Sitting Balance Ability Good Dynamic Sitting Balance Ability Fair Standing Balance and Reactions Static Standing Balance Ability Fair Dynamic Standing Balance Ability Fair Device Used FWW M5 PT-IP Objective Assessments Start: 01/02/23 13:31 Freq: NEEDED Status: Active Protocol: Document 01/02/23 12:06 ES (Rec: 01/02/23 13:51 ES [id number]) Orientation Orientation/Cognition Level of Alertness Alert Language Function Ability Hard of Hearing Safety Awareness Understands Safety Issues Memory Description No Deficits Noted Gross Range of Motion Upper Extremity ROM Assessment Within Functional Limits Lower Extremity ROM Assessment Bilaterally Impaired Impairments B ankle DF limited to ~5 degrees passive Strength Lower Extremity Strength Assessment Bilaterally Impaired Hip 4-/5 Knee 4-/5 Ankle DF 2-/5 B M6 PT-IP Treatment Start: 01/02/23 13:31 Freq: NEEDED Status: Active Protocol: Document 01/05/23 12:47 TS (Rec: 01/05/23 13:00 TS [id number]) Physical Therapy Treatment Education Education Provided Precautions,Post-Op Packet, Safety M7 PT-IP Assessment and Plan Start: 01/02/23 13:31 Freq: NEEDED Status: Active Protocol: Document 01/05/23 12:47 TS (Rec: 01/05/23 13:00 TS [id number]) PT Summary Assessment and Plan Potential Rehabilitation Potential Fair Summary Impairments Pain,Strength,Balance, Coordination,Bed Mobility, Transfers,Gait,Activity Tolerance Progress Towards Goals Slow Progress due to Pain,Slow Progress due to Activity Tolerance Assessment Summary Pt continues to make slow progress with his mobility. He demonstrates increased carryover of logroll and supine to sit sequencing. He did recall 3/3 spinla precautions this session without cues. He had x1LOB with sit to stand on first attempt due to poor strength and balance. PT continues to recommend SNF to progress bed mobility, transfers and gait. Goals Bed Mobility Goal Standby Assistance Transfer Goal Standby Assistance,Four Wheeled Walker Gait Goal Standby Assistance,Four Wheel Walker Gait Distance 100 ft Other Goals Patient will be able to ascend /descend 2 stairs with single rail and LRAD. Patient will demonstrate good understanding of lumbar precautions. Days to Meet Goals 5 Frequency of Treatment Frequency Of Treatment Twice a Day Treatment Plan Physical Therapy Treatment Plan Bed Mobility Training,Transfer Training,Gait Training, Therapeutic Exercise,Balance Retraining,Post Op Education, Discharge Planning Other Recommendations and Next Treatment Increase ambulation distance, Focus trial stairs. Precautions Lumbar Precautions Log Roll,No Twisting,Limit Bending,Lifting Restriction of 10 lbs,Gait Belt above Incisional Area Weight Bearing Status Weight Bearing Status Weight Bear as Tolerated Recommendations To Nursing Amount of Assist Needed 2 Person Assist Discharge Recommendations PT Discharge Recommendations SNF Rehab Equipment Needed for Home Before may need FWW if not safe w/ Discharge 4WW Transportation Needs at Discharge Wheelchair/Cabulance
--- NOTE | 2023-01-05 13:55 | P.PN_ITS ---
Subjective Subjective Date Patient Seen: 01/05/23 Interval history: Patient is resting comfortably sitting up in bed this morning. He states back pain has been adequately controlled with medication. No new complaints today. Exam Vital Signs (past 8 hours): - 01/05/23 09:29 01/05/23 08:00 01/05/23 10:00 Temperature 98.1 F Pulse Rate 66 66 Respiratory Rate 19 Blood Pressure 130/72 118/58 L Pulse Oximetry 96 Oxygen Flow Rate 0 01/05/23 12:00 Temperature 98.2 F Pulse Rate 68 Respiratory Rate 17 Blood Pressure 106/50 L Pulse Oximetry 98 Oxygen Flow Rate 0 Oxygen Delivery Method CPAP Oxygen Flow Rate 0 Narrative Exam Narrative: 82-year-old male. Awake, alert, and oriented. Intraoperative lumbar dressing clean and dry, grossly intact with some displacement of the tape. Bilateral lower extremity exam unchanged. Objective Labs 01/05/23 06:40 01/05/23 06:40 Labs: Laboratory Results - last 24 hr 01/04/23 01/04/23 01/04/23 17:00 17:00 17:00 WBC 23.0 H RBC 2.41 L Hgb 8.4 L Hct 25.2 L MCV 104.4 H MCH 35.0 H MCHC 33.5 RDW 15.4 H Plt Count 64 L Neut % (Auto) Not Reportable Lymph % (Auto) Not Reportable [place] % (Auto) Not Reportable Eos % (Auto) Not Reportable Baso % (Auto) Not Reportable Lymph # (Auto) Not Reportable [place] # (Auto) Not Reportable Baso # (Auto) Not Reportable Total Counted 100 Seg Neutrophils % 64.0 Band Neutrophils % 7.0 Lymphocytes % (Manual) 1.0 L Atypical Lymphs % Monocytes % (Manual) 25.0 H Metamyelocytes % 2.0 H Myelocytes % 1.0 H Neutrophils # (Manual) 36077 H Platelet Estimate RBC Morphology See below Anisocytosis 1+ H Macrocytosis 2+ H ESR Sodium 125 L Potassium 5.2 H D Chloride 92 L Carbon Dioxide 24 BUN 44 H Creatinine 2.41 H Estimated GFR 26 L BUN/Creatinine Ratio 18.3 Glucose 125 H Lactate Calcium 9.4 Total Bilirubin AST ALT Alkaline Phosphatase C-Reactive Protein Total Protein Albumin Globulin Albumin/Globulin Ratio Procalcitonin 0.26 Ur Random Sodium Urine Creatinine 07/01/04/23 01/04/23 17:00 17:00 17:00 WBC RBC Hgb Hct MCV MCH MCHC RDW Plt Count Neut % (Auto) Lymph % (Auto) [place] % (Auto) Eos % (Auto) Baso % (Auto) Lymph # (Auto) [place] # (Auto) Baso # (Auto) Total Counted Seg Neutrophils % Band Neutrophils % Lymphocytes % (Manual) Atypical Lymphs % Monocytes % (Manual) Metamyelocytes % Myelocytes % Neutrophils # (Manual) Platelet Estimate RBC Morphology Anisocytosis Macrocytosis ESR 49 H Sodium Potassium Chloride Carbon Dioxide BUN Creatinine Estimated GFR BUN/Creatinine Ratio Glucose Lactate 1.0 Calcium Total Bilirubin AST ALT Alkaline Phosphatase C-Reactive Protein 8.1 H Total Protein Albumin Globulin Albumin/Globulin Ratio Procalcitonin Ur Random Sodium Urine Creatinine 01/04/23 01/04/23 01/05/23 19:55 22:53 06:40 WBC 21.4 H RBC 2.32 L Hgb 8.2 L Hct 24.4 L MCV 105.2 H MCH 35.2 H MCHC 33.5 RDW 15.7 H Plt Count 58 L Neut % (Auto) Not Reportable Lymph % (Auto) Not Reportable [place] % (Auto) Not Reportable Eos % (Auto) Not Reportable Baso % (Auto) Not Reportable Lymph # (Auto) Not Reportable [place] # (Auto) Not Reportable Baso # (Auto) Not Reportable Total Counted 100 Seg Neutrophils % 67.0 Band Neutrophils % 1.0 L Lymphocytes % (Manual) 5.0 L D Atypical Lymphs % 1.0 H Monocytes % (Manual) 22.0 H Metamyelocytes % 4.0 H Myelocytes % Neutrophils # (Manual) 20326 H Platelet Estimate Decreased on smear RBC Morphology See below Anisocytosis 1+ H Macrocytosis 1+ H ESR Sodium 126 L Potassium 4.4 Chloride 93 L Carbon Dioxide 26 BUN 48 H Creatinine 2.30 H Estimated GFR 28 L BUN/Creatinine Ratio 20.9 Glucose 152 H Lactate Calcium 9.0 Total Bilirubin AST ALT Alkaline Phosphatase C-Reactive Protein Total Protein Albumin Globulin Albumin/Globulin Ratio Procalcitonin Ur Random Sodium 15 L Urine Creatinine 50.2 01/05/23 06:40 WBC RBC Hgb Hct MCV MCH MCHC RDW Plt Count Neut % (Auto) Lymph % (Auto) [place] % (Auto) Eos % (Auto) Baso % (Auto) Lymph # (Auto) [place] # (Auto) Baso # (Auto) Total Counted Seg Neutrophils % Band Neutrophils % Lymphocytes % (Manual) Atypical Lymphs % Monocytes % (Manual) Metamyelocytes % Myelocytes % Neutrophils # (Manual) Platelet Estimate RBC Morphology Anisocytosis Macrocytosis ESR Sodium 133 L Potassium 3.8 Chloride 101 Carbon Dioxide 26 BUN 41 H Creatinine 1.75 H Estimated GFR 39 L BUN/Creatinine Ratio 23.4 H Glucose 103 Lactate Calcium 8.8 Total Bilirubin 0.6 AST 22 ALT 17 Alkaline Phosphatase 47 C-Reactive Protein Total Protein 5.8 L Albumin 3.0 L Globulin 2.8 Albumin/Globulin Ratio 1.1 Procalcitonin Ur Random Sodium Urine Creatinine PFSH Medical History A-fib Bladder calculi BPH (benign prostatic hyperplasia) BPH w urinary obs/LUTS Chest pain Chilblains Esophageal abrasion AGUA CALIENTE (hard of hearing) Male circumcision Memory changes Myelodysplastic syndrome ADRIAN on CPAP Osteoporosis Peripheral neuropathy Pneumonia (03/2022) PSVT (paroxysmal supraventricular tachycardia) Skin cancer Spinal stenosis Tremor of both hands Surgical History H/O vasectomy Hx of bilateral cataract extraction Hx of tonsillectomy Status post cholecystectomy Status post laminectomy Family History Brother BPH (benign prostatic hyperplasia) Cancer Gout Father Cancer Thyroid disorder Sister Cancer Social History marital status: number of children: 4 household members: spouse Smoking Status: Never smoker alcohol intake: current Assessment & Plan Post-op Postoperative Procedures: Procedures Operation Date: 12/31/22 13:45 Actual Procedure Side Surgeon p L3-4 TLIF, L2-3 hemilaminectomy Not Applicable Jasvir Medel MD Postoperative day: 5 Postoperative status narrative: Post operative course is complicated by multiple comorbidities. Hospitalist team is now primary as patient's pneumonia diagnosis is dictating his stay at this point. Postoperative plan narrative: Plan to continue working with physical therapy. Patient will need additional rehabilitation at discharge due to his deconditioning and multiple comorbidities. Continue pain medication regimen as prescribed. Follow up with orthopedics 2 and 6 weeks after surgery. Continue spine precautions. Quality VTE Deep Vein Thrombosis/Pulmonary Embolism Present on Admission: No
--- NOTE | 2023-01-05 14:10 | PT.IPTN ---
Current Diagnoses Spondylolisthesis, lumbar region (12/31/22) Spinal stenosis, lumbar region with neurogenic claudication (12/31/22) Surgery Performed Operation Date: 12/31/22 13:45 Actual Procedures p L3-4 TLIF, L2-3 hemilaminectomy(Not Applicable) - Jasvir Medel MD Physical Therapy Treatment Note M2 PT-IP Current Condition Start: 01/02/23 13:31 Freq: NEEDED Status: Active Protocol: Document 01/02/23 12:06 ES (Rec: 01/02/23 13:51 ES [id number]) Physical Therapy Current Condition Current Condition Evaluation Date 01/02/23 Treatment Diagnosis s/p TLIF; weakness, difficulty walking Onset Date 12/31/22 M3 PT-IP Subjective Start: 01/02/23 13:31 Freq: NEEDED Status: Active Protocol: Document 01/05/23 14:43 TS (Rec: 01/05/23 15:03 TS [id number]) Subjective Physical Therapy Visit Type Type Treatment Note Visit Start Time 14:10 Visit Stop Time 14:39 Total Visit Minutes 29 Number of PUMP ERECTOR HELPER Visits 7 Physical Therapy Visit Comments Patient Comments Pt found in chair, agreeable to PT, requesting back to bed. Therapy Pain Assessment Pain When Pain Assessed During Mobility Pain Present Pain Present Pain Reported Location Back Intensity 5 Scale Used Numeric (0 - 10) Pain Management Techniques Distraction,Modification of Treatment,Re-positioning M4 PT-IP Mobility and Gait Start: 01/02/23 13:31 Freq: NEEDED Status: Active Protocol: Document 01/05/23 14:43 TS (Rec: 01/05/23 15:03 TS [id number]) PT-Bed Mobility Assessment Sit to Supine Sit to Supine Maximum Assistance,1 Person Assistance PT-Transfer Assessment Sit to and From Stand Sit to and from Stand Moderate Assistance,1 Person Assistance,Use of Upper Extremities Equipment Transfer Assistive Device Gait Belt,Front Wheeled Walker Orthotic/Prosthetic Devices or Brace: Yes Comments Mobility Comments Sit to stand from chair ModA with FWW, pt with flexed posture and slight retroleaning, provided cues for BUE support pushing from arms of chair and to scoot forward in chair for better positioning for coming into standing. He ambulated ~90' [place] with FWW with slow step to gait, pt required management of IV line and cues for FWW management. Sit to supine into bed MaxA for LEs, provided cues for logroll sequencing and trunk positioning. Pt was left in bed with call light nearby, bed alarm on, all needs met. Gait Assessment Gait Gait Assistance Required: Minimum Assistance,1 Person Assist Distance (Feet) 90 Assistive Devices Assistive Device Gait Belt,Front Wheeled Walker Orthotic/Prosthetic Devices or Brace: Yes Gait Deviations General Gait Pattern Antalgic,Decreased Stride Length,Decreased Feet Clearance,Flexed Trunk Factors Limiting Gait Function Factors Limiting Gait Function Abnormal Tonal Influences, Decreased Activity Tolerance, Decreased Sensation,Decreased Strength,Incoordination, Limited Range of Motion,Pain, Poor Balance Comments Gait Comments See mobility comments. Stair Climbing Assessment Comments Stair Climbing Comments Not appropriate at this time. PT-Balance Assessment Sitting Balance and Reactions Static Sitting Balance Ability Good Dynamic Sitting Balance Ability Fair Standing Balance and Reactions Static Standing Balance Ability Fair Dynamic Standing Balance Ability Fair Device Used FWW M5 PT-IP Objective Assessments Start: 01/02/23 13:31 Freq: NEEDED Status: Active Protocol: Document 01/02/23 12:06 ES (Rec: 01/02/23 13:51 ES [id number]) Orientation Orientation/Cognition Level of Alertness Alert Language Function Ability Hard of Hearing Safety Awareness Understands Safety Issues Memory Description No Deficits Noted Gross Range of Motion Upper Extremity ROM Assessment Within Functional Limits Lower Extremity ROM Assessment Bilaterally Impaired Impairments B ankle DF limited to ~5 degrees passive Strength Lower Extremity Strength Assessment Bilaterally Impaired Hip 4-/5 Knee 4-/5 Ankle DF 2-/5 B M6 PT-IP Treatment Start: 01/02/23 13:31 Freq: NEEDED Status: Active Protocol: Document 01/05/23 14:43 TS (Rec: 01/05/23 15:03 TS [id number]) Physical Therapy Treatment Education Education Provided Precautions,Post-Op Packet, Safety M7 PT-IP Assessment and Plan Start: 01/02/23 13:31 Freq: NEEDED Status: Active Protocol: Document 01/05/23 14:43 TS (Rec: 01/05/23 15:03 TS [id number]) PT Summary Assessment and Plan Potential Rehabilitation Potential Fair Summary Impairments Pain,Strength,Balance, Coordination,Bed Mobility, Transfers,Gait,Activity Tolerance Progress Towards Goals Progressing Toward Goals Assessment Summary Pt made good progress with gait to ~90'[place]. Pt continues to ambulate with slow step to gait with FWW and poor posture. He requires Max cueing for sit to supine and logroll into bed with MaxA for LEs. Demonstrated decreased retroleaning with sit to stand from chair this session. PT continues to recommend SNF at this time to progress bed mobility, transfers, gait and activity tolerance. Goals Bed Mobility Goal Standby Assistance Transfer Goal Standby Assistance,Four Wheeled Walker Gait Goal Standby Assistance,Four Wheel Walker Gait Distance 100 ft Other Goals Patient will be able to ascend /descend 2 stairs with single rail and LRAD. Patient will demonstrate good understanding of lumbar precautions. Days to Meet Goals 5 Frequency of Treatment Frequency Of Treatment Twice a Day Treatment Plan Physical Therapy Treatment Plan Bed Mobility Training,Transfer Training,Gait Training, Therapeutic Exercise,Balance Retraining,Post Op Education, Discharge Planning Other Recommendations and Next Treatment Increase ambulation distance, Focus trial stairs, assess carryover of bed mobility and spinal precautions. Precautions Lumbar Precautions Log Roll,No Twisting,Limit Bending,Lifting Restriction of 10 lbs,Gait Belt above Incisional Area Weight Bearing Status Weight Bearing Status Weight Bear as Tolerated Recommendations To Nursing Amount of Assist Needed 2 Person Assist Discharge Recommendations PT Discharge Recommendations SNF Rehab Equipment Needed for Home Before may need FWW if not safe w/ Discharge 4WW Transportation Needs at Discharge Wheelchair/Cabulance
--- NOTE | 2023-01-05 16:03 | CM.DPC ---
DCP Continued: BIOSTATISTICIAN reviewed EMR. Unable to meet with today due to triaging needs. BIOSTATISTICIAN spoke with Seda at [facility]. They should be good to accept when medically stable. A time will be arranged in more detail when d/c is ready. Plan: patient will d/c to [facility] when medically stable. CM team will continue to follow closely. CM team will meet with patient in the morning to confirm plan. BIOSTATISTICIAN will complete PASRR. SANIA Weiss
--- NOTE | 2023-01-05 16:53 | OT.IP.TRT ---
Current Diagnoses Spondylolisthesis, lumbar region (12/31/22) Spinal stenosis, lumbar region with neurogenic claudication (12/31/22) Surgery Performed Operation Date: 12/31/22 13:45 Actual Procedures p L3-4 TLIF, L2-3 hemilaminectomy(Not Applicable) - Jasvir Medel MD Occupational Therapy Treatment Note M2 OT-IP Current Condition Start: 01/02/23 13:16 Freq: Status: Active Protocol: Document 01/02/23 11:27 [facility] (Rec: 01/02/23 13:35 [facility] [id number]) Occupational Therapy Current Condition Current Condition Evaluation Date 01/02/23 Treatment Diagnosis S/p L3-4 TLIF, L2-3 hemilaminectomy, sepsis, acute metabolic encephalopathy Diagnosis Onset Date 12/31/22 Post Operative Precautions Lumbar Precautions Log Roll,No Twisting,Limit Bending,Lifting Restriction of 10 lbs,Gait Belt above Incisional Area M3 OT- IP Subjective and Pain Start: 01/02/23 13:16 Freq: Status: Active Protocol: Document 01/05/23 16:03 [facility] (Rec: 01/05/23 17:24 [facility] [id number]) OT- Subjective Occupational Therapy Visit Type Type Treatment Note Visit Start Time 16:03 Visit Stop Time 16:53 Total Visit Minutes 50 Occupational Therapy Visit Comments Patient Comments Pt initially not wanting to get up and then agreed to get to the recliner for dinner. Patient/Caregiver Goals TO get better. OT Pain Assessment Pain When Pain Assessed At Rest Pain Present Pain Present Denied Pain M4 OT- IP ADL's Start: 01/02/23 13:16 Freq: Status: Active Protocol: Document 01/05/23 16:03 [facility] (Rec: 01/05/23 17:24 [facility] [id number]) OT [id number] Comments OT Self-Feeding Comments NOt at meal time. OT ADL-Grooming Comments OT Grooming Comments NOt performed OT ADL-Oral Care Comments Oral Care Comments Not performed OT ADL-Dressing General Eval Lower Body Dressing Ability Maximum Assistance,Total Assistance Areas Needing Assistance Socks,Shoes,Orthosis/ Prosthesis Comments OT Dressing Comments Pt for socks, AFO, and shoes. OT ADL-Bathing Comments OT Bathing Comments Not performed. M5 OT- IP IADL's Start: 01/02/23 13:16 Freq: Status: Active Protocol: Document 01/02/23 11:27 [facility] (Rec: 01/02/23 13:35 [facility] [id number]) OT-Instrumental Activities of Daily Living Home Safety Awareness Home Safety Comments Pt has a supportive to be able to assist with his needs . M6 OT- IP Functional Cognition Start: 01/02/23 13:16 Freq: Status: Active Protocol: Document 01/05/23 16:03 [facility] (Rec: 01/05/23 17:24 [facility] [id number]) Cognitive Factors Limiting Selfcare Function Cognitive Comments Cognitive Assessment Comments Pt still having difficulty to recall his back precautions and needing cues to recall. Able to simulate movements and situations and pt better able to identify his back precautions more appropriately . M7 OT- IP Mobility and Balance Start: 01/02/23 13:16 Freq: Status: Active Protocol: Document 01/05/23 16:03 [facility] (Rec: 01/05/23 17:24 [facility] [id number]) OT- Bed Mobility Assessment Supine to Sit Supine to Sit Assist Moderate Assistance OT-Transfer Assessment Sit to and From Stand Sit to and from Stand Minimal Assistance,Moderate Assistance Transfers Transfer Ability Minimal Assistance Technique Transfer Destination Bed,Chair Transfer Technique Stand Step Pivot Devices Transfer Assistive Devices Gait Belt,Front Wheeled Walker Comments Mobility Comments MODA to assist to get his trunk upright to the edge of the bed. MIN/MODA to stand and heavy assist for use of his hands to assist to walk himself up on the armrest of the recliner to assist to stand. Pt also using the back of his legs to against the bed/recliner to stand. Pt needing [place]IDE[place] without AFO on to mobilize with FWW, pt more stable with AFO on and CGA with FWW. OT- Balance Assessment Sitting Balance and Reactions Static Sitting Balance Ability Good Dynamic Sitting Balance Ability Fair Standing Balance and Reactions Static Standing Balance Ability Fair Dynamic Standing Balance Ability Fair M8 OT- IP Objective Assessments Start: 01/02/23 13:16 Freq: Status: Active Protocol: Document 01/02/23 11:27 [facility] (Rec: 01/02/23 13:35 [facility] [id number]) OT Gross Range of Motion Upper Extremity Range of Motion Assessment Within Functional Limits M9 OT- IP Assessment and Plan Start: 01/02/23 13:16 Freq: Status: Active Protocol: Document 01/05/23 16:03 [facility] (Rec: 01/05/23 17:24 [facility] [id number]) OT Summary Assessment and Plan Potential Rehabilitation Potential Good Analytic Complexity at Evaluation High Summary OT Impairments Pain,Strength,Balance, Functional Mobility,Grooming, Dressing,Toileting,Bathing, Toilet Transfers,Shower Transfers,Activity Tolerance Progress Towards Goals Progressing Toward Goals Assessment Summary Pt doing much better with bed mobility and transfer needs today and just needing one person assist now with the FWW . Pt still needing reminders to help recall and incorporate his back precautions for ADl and mobility needs. Goals Self-Feeding Goal Independent Grooming Goal Independent Dressing Goal Minimal Assistance Toileting Goal Independent Bathing Goal Standby Assistance Toilet Transfer Goal Independent Shower Transfer Goal Standby Assistance Days to Meet Goals 15 Frequency of Treatment Frequency Of Treatment Once a Day Treatment Plan OT Treatment Plan ADL Training,Functional Mobility,Patient/Family Education,Discharge Planning Discharge Recommendations OT Discharge Recommendations SNF Rehab Transportation Needs at Discharge Wheelchair/Cabulance
[2023-01-05] MEDS: MEROPENEM 1 GM in SODIUM CHLORIDE 0.9% 100 ML IV (17:05)
[2023-01-05] MEDS: ACETAMINOPHEN 325 MG TABLET 650 MG PO (21:45)
[2023-01-05] MEDS: OXYCODONE IR 5 MG TABLET PO (21:45)
[2023-01-06] VITALS (9 sets, daily range): BP systolic 110–168; BP diastolic 61–84; PULSE 62–80; RESP 16–20; TEMP 36.2–37.3; O2SAT 97–100
[2023-01-06] MEDS: SODIUM CHLORIDE 0.9% 1,000 ML 125 ML IV ×2 (03:02→20:13)
[2023-01-06] MEDS: OXYCODONE IR 5 MG TABLET PO ×2 (03:26→06:09)
[2023-01-06] MEDS: PANTOPRAZOLE DR 40 MG TABLET PO (05:59)
[2023-01-06] MEDS: MEROPENEM 1 GM in SODIUM CHLORIDE 0.9% 100 ML IV ×2 (05:59→18:28)
[2023-01-06] MEDS: ACETAMINOPHEN 325 MG TABLET 650 MG PO (06:09)
[2023-01-06 06:53] LABS: BUN Creatinine Ratio 24.1 (6-22); Blood Urea Nitrogen 28 mg/dL (9-20); C-Reactive Protein Quant 5.9 mg/dL (<1.0); Calcium 8.8 mg/dL (8.4-10.2); Carbon Dioxide 29 mmol/L (22-32); Chloride 105 mmol/L (98-107); Estimated Glomerular Filt Rate > 60 mL/min (>60); Glucose 97 mg/dL (80-110); HEMOLYSIS < 15 (0-50); Potassium 3.9 mmol/L (3.4-5.1); Sodium 138 mmol/L (137-145)
[2023-01-06 06:55] LABS: Hematocrit 23.9 % (41-53); Hemoglobin 7.9 g/dL (13.5-17.5); Mean Corpuscular HGB Conc 33.1 % (30-36); Mean Corpuscular Hemoglobin 35.1 PG (26-34); Mean Corpuscular Volume 106.1 fL (80-100); Platelet Count 58 X10^3/uL (150-400); Red Blood Cell Count 2.25 X10^6/uL (4.5-5.9); Red Cell Distribution Width 15.9 % (11.6-14.8); White Blood Cell Count 16.6 X10^3/uL (4.5-11.0)
[2023-01-06 07:25] LABS: Add Manual Diff / Slide Review YES
[2023-01-06 07:43] LABS: Neutrophils Absolute Manual 8466 /uL (3000-5900); Total Cells Counted 100
[2023-01-06 07:44] LABS: Hypochromasia 1+; Polychromasia 1+
[2023-01-06] MEDS: azaTHIOprine 50 MG TABLET 75 MG PO (08:25)
[2023-01-06] MEDS: polyethylene glycoL 3350 17 GM POWD.PACK PO (08:25)
[2023-01-06] MEDS: BACLOFEN 10 MG TABLET PO (08:25)
[2023-01-06] MEDS: FINASTERIDE 5 MG TABLET PO (08:25)
[2023-01-06] MEDS: METOPROLOL ER 25 MG TABLET PO (08:25)
[2023-01-06] MEDS: DOCUSATE 100 MG CAPSULE PO ×2 (08:25→20:05)
[2023-01-06] MEDS: predniSONE 5 MG TABLET 6 MG PO (08:25)
[2023-01-06] MEDS: GABAPENTIN 400 MG CAPSULE PO ×2 (08:25→20:05)
[2023-01-06] MEDS: TAMSULOSIN 0.4 MG CAPSULE PO (08:26)
--- NOTE | 2023-01-06 08:54 | PT.IPTN ---
Current Diagnoses Spondylolisthesis, lumbar region (12/31/22) Spinal stenosis, lumbar region with neurogenic claudication (12/31/22) Surgery Performed Operation Date: 12/31/22 13:45 Actual Procedures p L3-4 TLIF, L2-3 hemilaminectomy(Not Applicable) - Jasvir Medel MD Physical Therapy Treatment Note M2 PT-IP Current Condition Start: 01/02/23 13:31 Freq: NEEDED Status: Active Protocol: Document 01/02/23 12:06 ES (Rec: 01/02/23 13:51 ES [id number]) Physical Therapy Current Condition Current Condition Evaluation Date 01/02/23 Treatment Diagnosis s/p TLIF; weakness, difficulty walking Onset Date 12/31/22 M3 PT-IP Subjective Start: 01/02/23 13:31 Freq: NEEDED Status: Active Protocol: Document 01/06/23 09:14 TS (Rec: 01/06/23 09:24 TS [id number]) Subjective Physical Therapy Visit Type Type Treatment Note Visit Start Time 08:54 Visit Stop Time 09:12 Total Visit Minutes 18 Number of LICENSE DISTRIBUTOR Visits 8 Physical Therapy Visit Comments Patient Comments Pt found resting in bed, agreeable to PT. Therapy Pain Assessment Pain When Pain Assessed During Mobility Pain Present Pain Present Pain Reported M4 PT-IP Mobility and Gait Start: 01/02/23 13:31 Freq: NEEDED Status: Active Protocol: Document 01/06/23 09:14 TS (Rec: 01/06/23 09:24 TS [id number]) PT-Bed Mobility Assessment Rolling Type of Rolling Log Rolling,Roll to Right Level of Assist Minimal Assistance Supine to Sit Supine to Sit Minimal Assistance,1 Person Assistance,Head of Bed Elevated,Bedrails Scooting Scooting to Edge of Bed Minimal Assistance PT-Transfer Assessment Sit to and From Stand Sit to and from Stand Maximum Assistance,1 Person Assistance,Use of Upper Extremities Comments Mobility Comments Logroll [place] for all the way on R side, pt requires cueing for sequencing. Supine to sit [place] for uprighting trunk, pt demonstrated some carryover. Pt scooted to EOB [place] with cues, requires extra time due to poor UE strength. Sit to stand MaxA for posterior LOB coming into standing, pt braces back of LEs against bed . He ambulated CGA ~80' with slow step to gait, very flexed posture. Pt was left back in room in bedside chair, with call light nearby, RN notified of catheter needing emptying. Gait Assessment Gait Gait Assistance Required: Minimum Assistance,1 Person Assist Distance (Feet) 80 Assistive Devices Assistive Device Gait Belt,Front Wheeled Walker Orthotic/Prosthetic Devices or Brace: Yes Gait Deviations General Gait Pattern Antalgic,Decreased Stride Length,Decreased Feet Clearance,Flexed Trunk Factors Limiting Gait Function Factors Limiting Gait Function Abnormal Tonal Influences, Decreased Activity Tolerance, Decreased Sensation,Decreased Strength,Incoordination, Limited Range of Motion,Pain, Poor Balance Comments Gait Comments See mobility comments. PT-Balance Assessment Sitting Balance and Reactions Static Sitting Balance Ability Good Dynamic Sitting Balance Ability Fair Standing Balance and Reactions Static Standing Balance Ability Fair Dynamic Standing Balance Ability Fair Device Used FWW M5 PT-IP Objective Assessments Start: 01/02/23 13:31 Freq: NEEDED Status: Active Protocol: Document 01/02/23 12:06 ES (Rec: 01/02/23 13:51 ES [id number]) Orientation Orientation/Cognition Level of Alertness Alert Language Function Ability Hard of Hearing Safety Awareness Understands Safety Issues Memory Description No Deficits Noted Gross Range of Motion Upper Extremity ROM Assessment Within Functional Limits Lower Extremity ROM Assessment Bilaterally Impaired Impairments B ankle DF limited to ~5 degrees passive Strength Lower Extremity Strength Assessment Bilaterally Impaired Hip 4-/5 Knee 4-/5 Ankle DF 2-/5 B M6 PT-IP Treatment Start: 01/02/23 13:31 Freq: NEEDED Status: Active Protocol: Document 01/06/23 09:14 TS (Rec: 01/06/23 09:24 TS [id number]) Physical Therapy Treatment Education Education Provided Precautions,Post-Op Packet, Safety M7 PT-IP Assessment and Plan Start: 01/02/23 13:31 Freq: NEEDED Status: Active Protocol: Document 01/06/23 09:14 TS (Rec: 01/06/23 09:24 TS [id number]) PT Summary Assessment and Plan Potential Rehabilitation Potential Fair Summary Impairments Pain,Strength,Balance, Coordination,Bed Mobility, Transfers,Gait,Activity Tolerance Progress Towards Goals Progressing Toward Goals Assessment Summary Pt recalled 3/3 spinal precautions this session prior to mobility. He demonstrates some carryover of logroll sequencing and supine to sit requiring decreased cueing today. He did have x1 posterior LOB with sit to stand requiring MaxA for balance. He continues to ambulate with very slow gait and flexed posture. PT recommends SNF at thsi time to porgress functional mobility and activity tolerance. Goals Bed Mobility Goal Standby Assistance Transfer Goal Standby Assistance,Four Wheeled Walker Gait Goal Standby Assistance,Four Wheel Walker Gait Distance 100 ft Other Goals Patient will be able to ascend /descend 2 stairs with single rail and LRAD. Patient will demonstrate good understanding of lumbar precautions. Days to Meet Goals 5 Frequency of Treatment Frequency Of Treatment Twice a Day Treatment Plan Physical Therapy Treatment Plan Bed Mobility Training,Transfer Training,Gait Training, Therapeutic Exercise,Balance Retraining,Post Op Education, Discharge Planning Other Recommendations and Next Treatment Increase ambulation distance, Focus trial stairs, assess carryover of bed mobility and spinal precautions. Precautions Lumbar Precautions Log Roll,No Twisting,Limit Bending,Lifting Restriction of 10 lbs,Gait Belt above Incisional Area Weight Bearing Status Weight Bearing Status Weight Bear as Tolerated Recommendations To Nursing Amount of Assist Needed 2 Person Assist Discharge Recommendations PT Discharge Recommendations SNF Rehab Equipment Needed for Home Before may need FWW if not safe w/ Discharge 4WW Transportation Needs at Discharge Wheelchair/Cabulance
[2023-01-06 10:14] LABS: Procalcitonin 0.12 ng/mL (<0.5)
--- NOTE | 2023-01-06 11:07 | P.PN_ITS ---
Subjective Subjective Date Patient Seen: 01/06/23 Time Patient Seen: 11:07 Interval history: Patient states pain is mild. Patient's is at bedside. No fever or chills. No nausea or vomiting. Denies chest pain or shortness of breath. Exam Vital Signs (past 8 hours): - 01/06/23 04:00 01/06/23 08:25 01/06/23 08:35 Temperature 97.2 F L 97.8 F Pulse Rate 62 65 Respiratory Rate 18 17 Blood Pressure 160/74 H 160/74 H 148/78 H Pulse Oximetry 100 100 Oxygen Flow Rate 0 Oxygen Delivery Method CPAP Oxygen Flow Rate 0 Narrative Exam Narrative: 82-year-old male resting comfortably in bed in no apparent distress. Patient is alert and oriented this morning. Unable to dorsiflex, plantar flex, great toe extend bilaterally. Sensation absent bilateral lower extremities. Both legs are warm and dry. Objective Labs 01/06/23 06:14 01/06/23 06:14 Labs: Laboratory Results - last 24 hr 01/06/23 01/06/23 01/06/23 06:14 06:14 06:14 WBC 16.6 H RBC 2.25 L Hgb 7.9 L Hct 23.9 L MCV 106.1 H MCH 35.1 H MCHC 33.1 RDW 15.9 H Plt Count 58 L Neut % (Auto) Not Reportable Lymph % (Auto) Not Reportable [place] % (Auto) Not Reportable Eos % (Auto) Not Reportable Baso % (Auto) Not Reportable Lymph # (Auto) Not Reportable [place] # (Auto) Not Reportable Baso # (Auto) Not Reportable Total Counted 100 Seg Neutrophils % 36.0 L Band Neutrophils % 15.0 H Lymphocytes % (Manual) 5.0 L Monocytes % (Manual) 39.0 H Metamyelocytes % 5.0 H Neutrophils # (Manual) 8466 H RBC Morphology See below Polychromasia 1+ H Hypochromasia 1+ H Sodium 138 Potassium 3.9 Chloride 105 Carbon Dioxide 29 BUN 28 H Creatinine 1.16 Estimated GFR > 60 BUN/Creatinine Ratio 24.1 H Glucose 97 Calcium 8.8 C-Reactive Protein 5.9 H Procalcitonin 0.12 PFSH Medical History A-fib Bladder calculi BPH (benign prostatic hyperplasia) BPH w urinary obs/LUTS Chest pain Chilblains Esophageal abrasion [place] (hard of hearing) Male circumcision Memory changes Myelodysplastic syndrome ADRIAN on CPAP Osteoporosis Peripheral neuropathy Pneumonia (03/2022) PSVT (paroxysmal supraventricular tachycardia) Skin cancer Spinal stenosis Tremor of both hands Surgical History H/O vasectomy Hx of bilateral cataract extraction Hx of tonsillectomy Status post cholecystectomy Status post laminectomy Family History Brother BPH (benign prostatic hyperplasia) Cancer Gout Father Cancer Thyroid disorder Sister Cancer Social History marital status: number of children: 4 household members: spouse Smoking Status: Never smoker alcohol intake: current Assessment & Plan Post-op Postoperative Procedures: Procedures Operation Date: 12/31/22 13:45 Actual Procedure Side Surgeon p L3-4 TLIF, L2-3 hemilaminectomy Not Applicable Jasvir Medel MD Postoperative day: 6 Postoperative status narrative: Stable status post L3-L4 TLIF, L2-L3 hemilaminectomy, hospitalist following for presumed sepsis secondary to presumed bacterial pneumonia with worsened thrombocytopenia and acute metabolic encephalopathy, improving, history of stent 0 trouble phimosis renal calculi in the past. Chest x-ray unremarkable but similar presentation with normal checks x-ray and sputum cultures with stenotrophomonas in [place] in total 2021, abnormal nuclear stress test November 2021 we will follow-up with open soaper tender as ou tpatient as previously planned. Myelodysplastic syndrome, stable, hypokalemia, paroxysmal atrial fib, chronic diastolic heart failure, BPH, RA on prednisone, acute renal failure Postoperative plan narrative: Patient will continue to work with PT and OT Multimodal pain management Disposition intermediate facility when stable per hospitalist Quality VTE Deep Vein Thrombosis/Pulmonary Embolism Present on Admission: No
--- NOTE | 2023-01-06 14:20 | CM.DPC ---
DCP Continued: DEPENDENCY CASE MANAGER reviewed EMR. Per provider in rounds, patient likely to need another night to medically stabilize before discharge to SNF. DEPENDENCY CASE MANAGER updated [facility] at [facility] likely not ready today. November reports they can take patient tomorrow if medically stable. Spouse Kourtney knocked on CM door to speak with CM team for d/c. DEPENDENCY CASE MANAGER requested to speak in patient room. DEPENDENCY CASE MANAGER and student RN Andreia Veronica entered room and introduced selves and role. Patient was sitting up in bed and appeared A/Ox4, however spouse Kourtney ([phone]) was the primary communicator throughout the conversation. Spouse had questions re: [facility]. Spouse had questions for how medication, transportation, and things such as clothes work over there. DEPENDENCY CASE MANAGER and RN answered questions to the best of our knowledge. DEPENDENCY CASE MANAGER encouraged spouse to tour facility. Spouse had questions regarding [facility]'s physical therapy/rehab. They would prefer the location of [facility] due to proximity to their home however are concerned about the reviews on the medicare website for amount of time spent with physical therapy. Spouse and patient report they are okay with d/c to [facility] as a second choice. Per previous note CM note from 01/03, patient and spouse's first choice is [facility]. Plan: patient will d/c to [facility] when medically stable. CM team will continue to follow closely. SANIA Weiss
--- NOTE | 2023-01-06 15:48 | OT.IPNOTE ---
Pt asleep when checking for OT treatment, to check on pt tomorrow.
--- NOTE | 2023-01-06 17:53 | PM.PN.1 ---
Subjective Subjective Interval history: Patient feeling better today. Eating more and feels less weak. at bedside and her questions were answered. Exam Vital Signs (past 8 hours): - 01/06/23 11:56 01/06/23 16:15 Temperature 98 F 97.8 F Pulse Rate 70 68 Respiratory Rate 16 16 Blood Pressure 135/68 138/74 Pulse Oximetry 98 98 Oxygen Flow Rate 0 0 Oxygen Delivery Method CPAP Oxygen Flow Rate 0 Narrative Exam Narrative: General:? Elderly male in no acute distress. HEENT:? Normocephalic, atraumatic, extraocular muscles intact. Neck: supple and symmetric, trachea is midline Chest:? Normal AP diameter and contour, no tachypnea, equal chest rise bilaterally. Lungs:? Clear to auscultation. Cardio:?RRR no m/r/g. Abdomen: S NT ND. Musculoskeletal:? Muscle strength and tone are equal within normal limits, no deformity. Extremities: No edema or joint effusions. No cyanosis or clubbing. Skin:? Warm to touch,dry and intact without rashes or lesions.? Neuro:? Alert and orientated to name and hospital.? Sensation to touch intact in all extremities, no gross deficits noted of cranial nerves. Psych:? Patient has a well-kept appearance, appropriate affect. Objective Labs 01/06/23 06:14 01/06/23 06:14 Labs: Laboratory Results - last 24 hr 01/06/23 01/06/23 01/06/23 06:14 06:14 06:14 WBC 16.6 H RBC 2.25 L Hgb 7.9 L Hct 23.9 L MCV 106.1 H MCH 35.1 H MCHC 33.1 RDW 15.9 H Plt Count 58 L Neut % (Auto) Not Reportable Lymph % (Auto) Not Reportable [facility] % (Auto) Not Reportable Eos % (Auto) Not Reportable Baso % (Auto) Not Reportable Lymph # (Auto) Not Reportable [facility] # (Auto) Not Reportable Baso # (Auto) Not Reportable Total Counted 100 Seg Neutrophils % 36.0 L Band Neutrophils % 15.0 H Lymphocytes % (Manual) 5.0 L Monocytes % (Manual) 39.0 H Metamyelocytes % 5.0 H Neutrophils # (Manual) 8466 H RBC Morphology See below Polychromasia 1+ H Hypochromasia 1+ H Sodium 138 Potassium 3.9 Chloride 105 Carbon Dioxide 29 BUN 28 H Creatinine 1.16 Estimated GFR > 60 BUN/Creatinine Ratio 24.1 H Glucose 97 Calcium 8.8 C-Reactive Protein 5.9 H Procalcitonin 0.12 PFSH Medical History A-fib Bladder calculi BPH (benign prostatic hyperplasia) BPH w urinary obs/LUTS Chest pain Chilblains Esophageal abrasion [place] (hard of hearing) Male circumcision Memory changes Myelodysplastic syndrome ADRIAN on CPAP Osteoporosis Peripheral neuropathy Pneumonia (03/2022) PSVT (paroxysmal supraventricular tachycardia) Skin cancer Spinal stenosis Tremor of both hands Surgical History H/O vasectomy Hx of bilateral cataract extraction Hx of tonsillectomy Status post cholecystectomy Status post laminectomy Family History Brother BPH (benign prostatic hyperplasia) Cancer Gout Father Cancer Thyroid disorder Sister Cancer Social History marital status: number of children: 4 household members: spouse Smoking Status: Never smoker alcohol intake: current Assessment & Plan Assessment & Plan narrative: 1. Presumed Sepsis secondary to hospital acquired pneumonia with worsened thrombocytopenia and acute metabolic encephalopathy, improving ?- history of stenotrophomonas, renal calculi in the past. CXR is unremarkable but similar presentation with normal CXR and sputum cultures with stenotrophomonas in [place] in 2021. ?- CXR with bilateral lower lobe infiltrates L>R ?- 29% bands on CBC, 2% blast cells, no schistocytes (per patient had BM biopsy without evidence of leukemia and he is just under survelliance). This is slightly worse than outpatient labs with 18% bands previously (due to underlying hematologic process). ?-on admission, favored treatment with minocycline and levofloxacin given history of stenotrophomonas. Okay for oral minocycyline. If no further etiology is found, would recommend treatment for 7 days total. ?- fever may be due to atelectasis or drug reaction when POD#2, less likely underlying MDS though there was previously concern for possible transformation to leukemia based on recent biopsies. Should fever persist check LDH, haptoglobin and hemolysis labs. ?- lactate normal. Patient received LR 30 mg /kg bolus, antibiotics ordered after blood cultures and UA drawn as noted above. ?- received records from oncology office from 12/24 visit. He tested positive for COVID on 12/22 per oncology office (his states that she tested positive actually, but he did not), received Paxlovid from oncologist and was reportedly asymptomatic. PCR COVID Testing was negative 12/31 and respiratory panel was negative after fever. -minocycline and levofloxacin was discontinued. Patient initiated on meropenem IV and both lab lyman and clinically improved. Length of meropenem treatment will be determined by improvement in blood tests as well as improvement in chest x-ray. Blood cultures negative at 24 hours. Urine culture with yeast. -will continue meropenem x7 days to treat for possible HAP -WBC now downtrending 2. Abnormal nuclear stress test 11/2021 ?- EKG reassuring, no chest pain, and troponin negative. Stress testing 11/2021 with This is an abnormal myocardial perfusion study with small reversible ischemia of basal inferolateral wall. ?- Troponin this morning is also normal. No further evaluation needed. Follow up with outpatient net lead developer as previously planned. ?- Dr. Ash is patient's outpatient net lead developer 3. Myelodysplastic syndrome, stable, with iron deficiency anemia and thrombocytopenia ?- oncology has recommended outpatient GI consultation for EGD and colonoscopy for iron deficiency anemia. Will continue to watch blood counts here. Plt count is 49, transfuse if needed per orthopedics. 4. Hypokalemia ?- replete per pharmacy 5. paroxysmal atrial fibrillation ?- okay to continue home metoprolol 6. chronic diastolic heart failure ?- no signs of volume overload currently, continue IV fluids with caution. 7. BPH ?- continue home medications. With negative UA no indication for imaging at this time. 8. RA on prednisone ?- if hypotensive give stress dose steroids, he is only on 6 mg prednisone daily so not needed unless evidence of insufficiency. 9. Acute renal failure. Improving, continue to follow. CT of the abdomen yesterday shows no hydronephrosis. There was some periureteral stranding however. Code: Full, surrogate is patient's spouse Continue to follow clinically and follow labs. Dispo: SNF once approval obtained and meropenem abx arranged. Quality VTE Deep Vein Thrombosis/Pulmonary Embolism Present on Admission: No
[2023-01-06] MEDS: SENNOSIDES 8.6 MG TABLET 17.2 MG PO (20:05)
[2023-01-07] MEDS: OXYCODONE IR 10 MG TABLET PO (01:26)
[2023-01-07 01:33] VITALS: BP 143/69; PULSE 73; RESP 19; TEMP 36.4
--- NOTE | 2023-01-07 02:09 | PC.NURSE ---
pt c/o pain from condom catheter. This rn removed it and gave pt urinal to use.
[2023-01-07] MEDS: ACETAMINOPHEN 325 MG TABLET 650 MG PO ×2 (05:37→14:27)
[2023-01-07] MEDS: MEROPENEM 1 GM in SODIUM CHLORIDE 0.9% 100 ML IV (05:37)
[2023-01-07] MEDS: PANTOPRAZOLE DR 40 MG TABLET PO (05:37)
--- NOTE | 2023-01-07 08:31 | PM.PNPO.1 ---
Subjective Subjective Date Patient Seen: 01/07/23 Time Patient Seen: 08:31 Interval history: Patient states his pain is mild. Noted some cough last night with phlegm. No shortness of breath. No fever or chills. Exam Vital Signs (past 8 hours): - 01/07/23 01:33 Temperature 97.5 F L Pulse Rate 73 Respiratory Rate 19 Blood Pressure 143/69 H Oxygen Delivery Method CPAP Oxygen Flow Rate 0 Narrative Exam Narrative: 82-year-old male resting comfortably in bed in no apparent distress. Unable to dorsiflex, plantar flex, great toe extend bilaterally.? Sensation absent bilateral lower extremities.? Both legs are warm and dry. Const General: cooperative and comfortable Orientation: oriented x3 Resp Effort & Inspection: normal respiratory effort and able to speak in complete sentences Objective Labs 01/06/23 06:14 01/06/23 06:14 Labs: Laboratory Results - last 24 hr 01/06/23 06:14 Procalcitonin 0.12 PFSH Medical History A-fib Bladder calculi BPH (benign prostatic hyperplasia) BPH w urinary obs/LUTS Chest pain Chilblains Esophageal abrasion [place] (hard of hearing) Male circumcision Memory changes Myelodysplastic syndrome ADRIAN on CPAP Osteoporosis Peripheral neuropathy Pneumonia (03/2022) PSVT (paroxysmal supraventricular tachycardia) Skin cancer Spinal stenosis Tremor of both hands Surgical History H/O vasectomy Hx of bilateral cataract extraction Hx of tonsillectomy Status post cholecystectomy Status post laminectomy Family History Brother BPH (benign prostatic hyperplasia) Cancer Gout Father Cancer Thyroid disorder Sister Cancer Social History marital status: number of children: 4 household members: spouse Smoking Status: Never smoker alcohol intake: current Assessment & Plan Post-op Postoperative Procedures: Procedures Operation Date: 12/31/22 13:45 Actual Procedure Side Surgeon p L3-4 TLIF, L2-3 hemilaminectomy Not Applicable Jasvir Medel MD Quality VTE Deep Vein Thrombosis/Pulmonary Embolism Present on Admission: No
[2023-01-07 08:35] LABS: Hematocrit 24.2 % (41-53); Hemoglobin 7.9 g/dL (13.5-17.5); Mean Corpuscular HGB Conc 32.8 % (30-36); Mean Corpuscular Hemoglobin 34.6 PG (26-34); Mean Corpuscular Volume 105.5 fL (80-100); Platelet Count 74 X10^3/uL (150-400); Red Blood Cell Count 2.29 X10^6/uL (4.5-5.9); Red Cell Distribution Width 15.4 % (11.6-14.8); White Blood Cell Count 20.6 X10^3/uL (4.5-11.0)
[2023-01-07 08:37] LABS: Add Manual Diff / Slide Review YES
[2023-01-07 08:52] LABS: Alanine Aminotransferase 24 IU/L (<50); Albumin Globulin Ratio 1.2 (1.0-2.8); Alkaline Phosphatase 52 U/L (38-126); Aspartate Aminotransferase 29 IU/L (17-59); BUN Creatinine Ratio 21.4 (6-22); Bilirubin Total 0.5 mg/dL (0.2-1.3); Blood Urea Nitrogen 22 mg/dL (9-20); Calcium 8.7 mg/dL (8.4-10.2); Carbon Dioxide 29 mmol/L (22-32); Chloride 102 mmol/L (98-107); Estimated Glomerular Filt Rate > 60 mL/min (>60); Globulin 2.6 g/dL (1.7-4.1); Glucose 94 mg/dL (80-110); HEMOLYSIS < 15 (0-50); Neutrophils Absolute Manual 10918 /uL (3000-5900); Potassium 3.7 mmol/L (3.4-5.1); Sodium 135 mmol/L (137-145); Total Cells Counted 100; Total Protein 5.6 g/dL (6.3-8.2)
[2023-01-07 08:54] LABS: Macrocytosis 1+
[2023-01-07 09:00] VITALS: BP 118/65; PULSE 63; RESP 17; TEMP 37.1; O2SAT 97
[2023-01-07] MEDS: FINASTERIDE 5 MG TABLET PO (09:20)
[2023-01-07] MEDS: GABAPENTIN 400 MG CAPSULE PO ×2 (09:20→14:27)
[2023-01-07] MEDS: polyethylene glycoL 3350 17 GM POWD.PACK PO (09:20)
[2023-01-07] MEDS: METOPROLOL ER 25 MG TABLET PO (09:20)
[2023-01-07] MEDS: DOCUSATE 100 MG CAPSULE PO (09:21)
[2023-01-07] MEDS: predniSONE 5 MG TABLET 6 MG PO (09:23)
[2023-01-07] MEDS: TAMSULOSIN 0.4 MG CAPSULE PO (09:24)
[2023-01-07] MEDS: azaTHIOprine 50 MG TABLET 75 MG PO (09:38)
[2023-01-07] MEDS: BACLOFEN 10 MG TABLET PO (09:38)
--- NOTE | 2023-01-07 10:34 | P.PN_ITS ---
Subjective Subjective Interval history: Patient feeling well today. He hasn't pooped yet but thinks he is close. Had to have sanches put back in overnight due to unable to urinate. Exam Vital Signs (past 8 hours): - 01/07/23 09:00 Temperature 98.8 F Pulse Rate 63 Respiratory Rate 17 Blood Pressure 118/65 Pulse Oximetry 97 Oxygen Flow Rate 0 Oxygen Delivery Method CPAP Oxygen Flow Rate 0 Narrative Exam Narrative: General:? Elderly male in no acute distress. HEENT:? Normocephalic, atraumatic, extraocular muscles intact. Neck: supple and symmetric, trachea is midline Chest:? Normal AP diameter and contour, no tachypnea, equal chest rise bilaterally. Lungs:? Clear to auscultation. Cardio:?RRR no m/r/g. Abdomen: S NT ND. Musculoskeletal:? Muscle strength and tone are equal within normal limits, no deformity. Extremities: No edema or joint effusions. No cyanosis or clubbing. Skin:? Warm to touch,dry and intact without rashes or lesions.? Neuro:? Alert and orientated to name and hospital.? Sensation to touch intact in all extremities, no gross deficits noted of cranial nerves. Psych:? Patient has a well-kept appearance, appropriate affect. Objective Labs 01/07/23 08:07 01/07/23 08:07 Labs: Laboratory Results - last 24 hr 01/07/23 01/07/23 08:07 08:07 WBC 20.6 H RBC 2.29 L Hgb 7.9 L Hct 24.2 L MCV 105.5 H MCH 34.6 H MCHC 32.8 RDW 15.4 H Plt Count 74 L Neut % (Auto) Allergy Specialist Lymph % (Auto) Allergy Specialist Hall % (Auto) Allergy Specialist Eos % (Auto) Allergy Specialist Baso % (Auto) Allergy Specialist Neut # (Auto) Allergy Specialist Lymph # (Auto) Allergy Specialist Hall # (Auto) Allergy Specialist Eos # (Auto) Allergy Specialist Baso # (Auto) Allergy Specialist Total Counted 100 Seg Neutrophils % 39.0 Band Neutrophils % 14.0 H Lymphocytes % (Manual) 5.0 L Monocytes % (Manual) 39.0 H Metamyelocytes % 3.0 H Neutrophils # (Manual) 53077 H RBC Morphology See below Macrocytosis 1+ H Sodium 135 L Potassium 3.7 Chloride 102 Carbon Dioxide 29 BUN 22 H Creatinine 1.03 Estimated GFR > 60 BUN/Creatinine Ratio 21.4 Glucose 94 Calcium 8.7 Total Bilirubin 0.5 AST 29 ALT 24 Alkaline Phosphatase 52 Total Protein 5.6 L Albumin 3.0 L Globulin 2.6 Albumin/Globulin Ratio 1.2 PFSH Medical History A-fib Bladder calculi BPH (benign prostatic hyperplasia) BPH w urinary obs/LUTS Chest pain Chilblains Esophageal abrasion [place] (hard of hearing) Male circumcision Memory changes Myelodysplastic syndrome ADRIAN on CPAP Osteoporosis Peripheral neuropathy Pneumonia (03/2022) PSVT (paroxysmal supraventricular tachycardia) Skin cancer Spinal stenosis Tremor of both hands Surgical History H/O vasectomy Hx of bilateral cataract extraction Hx of tonsillectomy Status post cholecystectomy Status post laminectomy Family History Brother BPH (benign prostatic hyperplasia) Cancer Gout Father Cancer Thyroid disorder Sister Cancer Social History marital status: number of children: 4 household members: spouse Smoking Status: Never smoker alcohol intake: current Assessment & Plan Assessment & Plan narrative: 1. Presumed Sepsis secondary to hospital acquired pneumonia with worsened thrombocytopenia and acute metabolic encephalopathy, improving ?- history of stenotrophomonas, renal calculi in the past. CXR is unremarkable but similar presentation with normal CXR and sputum cultures with stenotrophomonas in [place] in 2021. ?- CXR with bilateral lower lobe infiltrates L>R ?- 29% bands on CBC, 2% blast cells, no schistocytes (per patient had BM biopsy without evidence of leukemia and he is just under survelliance). This is slightly worse than outpatient labs with 18% bands previously (due to underlying hematologic process). ?-on admission, favored treatment with minocycline and levofloxacin given history of stenotrophomonas. Okay for oral minocycyline. If no further etiology is found, would recommend treatment for 7 days total. ?- fever may be due to atelectasis or drug reaction when POD#2, less likely underlying MDS though there was previously concern for possible transformation to leukemia based on recent biopsies. Should fever persist check LDH, hapto globin and hemolysis labs. ?- lactate normal. Patient received LR 30 mg /kg bolus, antibiotics ordered after blood cultures and UA drawn as noted above. ?- received records from oncology office from 12/24 visit. He tested positive for COVID on 12/22 per oncology office (his states that she tested positive actually, but he did not), received Paxlovid from oncologist and was reportedly asymptomatic. PCR COVID Testing was negative 12/31 and respiratory panel was negative after fever. -minocycline and levofloxacin was discontinued. Patient initiated on meropenem IV and both lab lyman and clinically improved. Blood cultures negative at 48 hours. Urine culture with wander albicans. -will continue meropenem 1g q12h x7 days to treat for possible HAP, to finish on 01/[address] [facility] 2. Abnormal nuclear stress test 11/2021 ?- EKG reassuring, no chest pain, and troponin negative. Stress testing 11/2021 with This is an abnormal myocardial perfusion study with small reversible ischemia of basal inferolateral wall. ?- Troponin this morning is also normal. No further evaluation needed. Follow up with outpatient auto radiator mechanic as previously planned. ?- Dr. Ash is patient's outpatient auto radiator mechanic 3. Myelodysplastic syndrome, stable, with iron deficiency anemia and thrombocy topenia ?- oncology has recommended outpatient GI consultation for EGD and colonoscopy for iron deficiency anemia. Will continue to watch blood counts here. Plt count is 49, transfuse if needed per orthopedics. 4. Hypokalemia ?- replete per pharmacy 5. paroxysmal atrial fibrillation ?- okay to continue home metoprolol 6. chronic diastolic heart failure ?- no signs of volume overload currently, continue IV fluids with caution. 7. BPH ?- continue home medications. With negative UA no indication for imaging at this time. Will raise his flomax to 0.8mg due to persistent urinary retention. Can undergo voiding trail at later time at [facility] and if fails should see urology as outpatient. 8. RA on prednisone ?- if hypotensive give stress dose steroids, he is only on 6 mg prednisone daily so not needed unless evidence of insufficiency. 9. Acute renal failure. Improving, continue to follow. CT of the abdomen yesterday shows no hydronephrosis. There was some periureteral stranding however. Code: Full, surrogate is patient's spouse Continue to follow clinically and follow labs. Dispo: Can dc to SNF today to finish IV meropenem 1 week course. Quality VTE Deep Vein Thrombosis/Pulmonary Embolism Present on Admission: No
--- NOTE | 2023-01-07 11:23 | P.DS_ITS ---
History of Present Illness History of Present Illness Date Patient Seen: 01/07/23 Time Patient Seen: 08:31 Chief complaint: Back pain Narrative: See progress note Discharge Providers Provider Date of admission: 12/31/22 09:28 Discharge Date: 01/07/23 Primary care physician: Jake Arguello MD Consults: 12/31/22 17:45 Consult to Occupational Therapy Evaluate & Treat Comment: Physician Instructions: Evaluate and treat Consult to Physical Therapy Evaluate & Treat Comment: Physician Instructions: Evaluate and Treat Discharge provider: Gagan Santos PA-C Summary Hospital Course Discharge Diagnosis: 1. 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 L3-4 Postero-lateral and posterior interbody fusion 2. L3-4 interbody cage placement. 3. L3-4 decompressive laminectomy with bilateral facetecomies 4. L3-4 Posterior non-segmental instrumentation 5. L2-3 hemilaminectomy 6. [place] of bone marrow from iliac crest 7. Utilization of microsurgical technique and operating microscope Same procedure as scheduled: Yes Indications: Patient has been having chronic back pain and worsening lumbar radiculopathy and symptoms of neurogenic claudication. Patient failed multiple conservative management with worsening pain weakness and numbness in his lower extremity.? Patient has been having difficulty performing activity of daily living.? After discussing risks benefits of treatment options, patient elected proceed with surgery. Surgeon: Jasvir Medel Database Development Project Manager: Catirna Cabral Click Yes if Unassisted: No Anesthesia Type: General Operative Notes Closure Type: primary Specimen(s): none sent Prosthetic devices, grafts, tissues, transplants, or devices: Globus revolve screws, RIse cage Estimated Blood Loss (mL): 50 Patient admitted to the hospital for the above-mentioned procedure. Patient consented to the same. Patient went underwent L3-L4 fusion, L2-L3 hemilaminectomy December 31, 2022. Hospitalist consultation requested for fever and confusion status post surgery. Very complex patient 82-year-old male with past medical history of BPH with prior kidney stones, myelodysplastic syndrome followed by Dr. Haynes, would be, paroxysmal atrial fibrillation, abnormal stress testing November 2022, prior sepsis secondary to stenosis Trichomonas pneumonia, TTE with grade 2 diastolic dysfunction, RA on daily prednisone, chronic lower extremity wounds. Patient has improved. Presumed sepsis secondary to hospital- acquired pneumonia with worsened thrombocytopenia and acute metabolic encephalopathy. Patient received minocycline and levofloxacin which was discontinued. Patient will continue meropenem 1 g Q 12 hours for another 4 days for 7 days total treatment. Follow-up with qa specialist. Myelodysplastic syndrome, stable, with iron deficiency anemia and thrombocytopenia. Oncology has recommended outpatient GI consultation for EGD and colonoscopy for iron deficiency anemia. Hypokalemia, paroxysmal atrial fibrillation okay to continue home metoprolol. Chronic diastolic heart failure, BPH continue home meds. Rheumatoid arthritis on prednisone acute renal failure, improving. CT of abdomen showed no hydronephrosis with some periureteral stranding noted. Stable per hospitalist. Patient will be discharged to [facility] later today after PICC line placement. Exam Vital Signs (past 8 hours): - 01/07/23 09:00 Temperature 98.8 F Pulse Rate 63 Respiratory Rate 17 Blood Pressure 118/65 Pulse Oximetry 97 Oxygen Flow Rate 0 Oxygen Delivery Method CPAP Oxygen Flow Rate 0 Narrative Exam Narrative: See progress note Objective Labs 01/07/23 08:07 01/07/23 08:07 Labs: Laboratory Results - last 24 hr 01/07/23 01/07/23 08:07 08:07 WBC 20.6 H RBC 2.29 L Hgb 7.9 L Hct 24.2 L MCV 105.5 H MCH 34.6 H MCHC 32.8 RDW 15.4 H Plt Count 74 L Neut % (Auto) Denial Management Representative Lymph % (Auto) Denial Management Representative Spink % (Auto) Denial Management Representative Eos % (Auto) Denial Management Representative Baso % (Auto) Denial Management Representative Neut # (Auto) Denial Management Representative Lymph # (Auto) Denial Management Representative Spink # (Auto) Denial Management Representative Eos # (Auto) Denial Management Representative Baso # (Auto) Denial Management Representative Total Counted 100 Seg Neutrophils % 39.0 Band Neutrophils % 14.0 H Lymphocytes % (Manual) 5.0 L Monocytes % (Manual) 39.0 H Metamyelocytes % 3.0 H Neutrophils # (Manual) 28840 H RBC Morphology See below Macrocytosis 1+ H Sodium 135 L Potassium 3.7 Chloride 102 Carbon Dioxide 29 BUN 22 H Creatinine 1.03 Estimated GFR > 60 BUN/Creatinine Ratio 21.4 Glucose 94 Calcium 8.7 Total Bilirubin 0.5 AST 29 ALT 24 Alkaline Phosphatase 52 Total Protein 5.6 L Albumin 3.0 L Globulin 2.6 Albumin/Globulin Ratio 1.2 [facility] Medical History A-fib Bladder calculi BPH (benign prostatic hyperplasia) BPH w urinary obs/LUTS Chest pain Chilblains Esophageal abrasion SAXMAN (hard of hearing) Male circumcision Memory changes Myelodysplastic syndrome ADRIAN on CPAP Osteoporosis Peripheral neuropathy Pneumonia (03/2022) PSVT (paroxysmal supraventricular tachycardia) Skin cancer Spinal stenosis Tremor of both hands Surgical History H/O vasectomy Hx of bilateral cataract extraction Hx of tonsillectomy Status post cholecystectomy Status post laminectomy Family History Brother BPH (benign prostatic hyperplasia) Cancer Gout Father Cancer Thyroid disorder Sister Cancer Social History marital status: number of children: 4 household members: spouse Smoking Status: Never smoker alcohol intake: current Discharge Assessment & Plan Assessment and Plan Assessment: Stable status post L2-L3 hemilaminectomy, L3-L4 fusion Per hospitalist January 07, 2023,1. Presumed Sepsis secondary to hospital acquired pneumonia with worsened thrombocytopenia and acute metabolic encephalopathy, improving ?- history of stenotrophomonas, renal calculi in the past. CXR is unremarkable but similar presentation with normal CXR and sputum cultures with stenotrophomonas in [place] in 2021. ?- CXR with bilateral lower lobe infiltrates L>R ?- 29% bands on CBC, 2% blast cells, no schistocytes (per patient had BM biopsy without evidence of leukemia and he is just under survelliance). This is slightly worse than outpatient labs with 18% bands previously (due to underlying hematologic process). ?-on admission, favored treatment with minocycline and levofloxacin given history of stenotrophomonas. Okay for oral minocycyline. If no further etiology is found, would recommend treatment for 7 days total. ?- fever may be due to atelectasis or drug reaction when POD#2, less likely underlying MDS though there was previously concern for possible transformation to leukemia based on recent biopsies. Should fever persist check LDH, haptoglobin and hemolysis labs. ?- lactate normal. Patient received LR 30 mg /kg bolus, antibiotics ordered after blood cultures and UA drawn as noted above. ?- received records from oncology office from 12/24 visit. He tested positive for COVID on 12/22 per oncology office (his states that she tested positive actually, but he did not), received Paxlovid from oncologist and was reportedly asymptomatic. PCR COVID Testing was negative 12/31 and respiratory panel was n egative after fever. -minocycline and levofloxacin was discontinued.? Patient initiated on meropenem IV and both lab lyman and clinically improved.? Blood cultures negative at 48 hours. Urine culture with wander albicans. -will continue meropenem 1g q12h x7 days to treat for possible HAP, to finish on 01/12 at [facility] 2. Abnormal nuclear stress test 11/2021 ?- EKG reassuring, no chest pain, and troponin negative. Stress testing 11/2021 with This is an abnormal myocardial perfusion study with small reversible ischemia of basal inferolateral wall. ?- Troponin this morning is also normal. No further evaluation needed. Follow up with outpatient qa specialist as previously planned. ?- Dr. Ash is patient's outpatient qa specialist 3. Myelodysplastic syndrome, stable, with iron deficiency anemia and thrombocytopenia ?- oncology has recommended outpatient GI consultation for EGD and colonoscopy for iron deficiency anemia. Will continue to watch blood counts here. Plt count is 49, transfuse if needed per orthopedics. 4. Hypokalemia ?- replete per pharmacy 5. paroxysmal atrial fibrillation ?- okay to continue home metoprolol 6. chronic diastolic heart failure ?- no signs of volume overload currently, continue IV fluids with caution. 7. BPH ?- continue home medications. With negative UA no indication for imaging at this time. Will raise his flomax to 0.8mg due to persistent urinary retention. Can undergo voiding trail at later time at [facility] and if fails should see urology as outpatient. 8. RA on prednisone ?- if hypotensive give stress dose steroids, he is only on 6 mg prednisone daily so not needed unless evidence of insufficiency. 9. Acute renal failure.? Improving, continue to follow.? CT of the abdomen yesterday shows no hydronephrosis.? There was some periureteral stranding however. Plan of Treatment: Continue to mobilize with physical therapy, limit bending, twisting, lifting Tylenol and oxycodone as needed pain Continue meropenem 1 g IV q.12 hours for another 4 days. Follow up in 2 weeks post op [facility] Zoë Leon. Patient will discharge to [facility] facility today after PICC line placement. Discharge Plan Discharge Plan Patient Disposition: SNF Transfer to: [facility] Discharge orders & Medications Prescriptions: New oxycodone 5 mg Tablet 5 mg PO Q4-6H PRN (Reason: Pain, Moderate (4-6)) Qty: 40 0RF acetaminophen 325 mg Tablet 650 mg PO Q6H PRN (Reason: Fever/Mild Pain (1-3)) Qty: 60 0RF polyethylene glycol 3350 17 gram Powder In Packet 17 gm PO DAILY Qty: 10 0RF docusate sodium 100 mg Capsule 100 mg PO BID Qty: 20 0RF oxycodone 5 mg tablet 5 mg PO Q4H PRN (Reason: pain) Qty: 60 0RF meropenem 1 gram recon soln 1 g IV Q12H 4 Days Qty: 8 0RF Rx Instructions: Dosed per renal protocol Continued sildenafil 100 mg tablet 100 mg PO DAILY PRN (Reason: Erectile Dysfunction) Patient Comments: Take 1 tablet by mouth once a day as needed nifedipine 10 mg capsule 10 mg PO TID Patient Comments: Take one capsule by mouth once daily, drink plenty of water prednisone 5 mg Tablet 6 mg PO DAILY Patient Comments: Takes 1mg with 5 mg tab daily omeprazole 40 mg Capsule,Delayed Release(Dr/Ec) 40 mg PO DAILY metoprolol succinate 25 mg Tablet Extended Release 24 Hr 25 mg PO DAILY azathioprine 75 mg Tablet 75 mg PO DAILY gabapentin 300 mg capsule 400 mg PO TID Patient Comments: pt takes 400 mg @ 0900, 1500 700 mg @ 2100 (HS) baclofen 10 mg tablet 10 mg PO DAILY finasteride 5 mg tablet 5 mg PO DAILY Qty: 90 3RF Changed tamsulosin 0.4 mg capsule 0.8 mg PO DAILY Qty: 30 0RF Discontinued hydrocodone-acetaminophen 5-325 mg Tablet 1 tab PO DAILY acetaminophen 500 mg Tablet 500 mg PO TID Follow up/Referrals: Jake Arguello MD [Primary Care Provider] - Jasvir Medel MD [Physician] - As previously scheduled (Follow up w/ CLARKE Julian, on 01/13/2023 @ 2:20 pm at [employer] office in [place].) Vicente Ash MD [Non-Staff] - Discharge Health Status Health Concerns: 1. Presumed Sepsis secondary to hospital acquired pneumonia with worsened thrombocytopenia and acute metabolic encephalopathy, improving ?- history of stenotrophomonas, renal calculi in the past. CXR is unremarkable but similar presentation with normal CXR and sputum cultures with stenotrophomonas in [place] in 2021. ?- CXR with bilateral lower lobe infiltrates L>R ?- 29% bands on CBC, 2% blast cells, no schistocytes (per patient had BM biopsy without evidence of leukemia and he is just under survelliance). This is slightly worse than outpatient labs with 18% bands previously (due to underlying hematologic process). ?-on admission, favored treatment with minocycline and levofloxacin given history of stenotrophomonas. Okay for oral minocycyline. If no further etiology is found, would recommend treatment for 7 days total. ?- fever may be due to atelectasis or drug reaction when POD#2, less likely underlying MDS though there was previously concern for possible transformation to leukemia based on recent biopsies. Should fever persist check LDH, haptoglobin and hemolysis labs. ?- lactate normal. Patient received LR 30 mg /kg bolus, antibiotics ordered after blood cultures and UA drawn as noted above. ?- received records from oncology office from 12/24 visit. He tested positive for COVID on 12/22 per oncology office (his states that she tested positive actually, but he did not), received Paxlovid from oncologist and was reportedly asymptomatic. PCR COVID Testing was negative 12/31 and respiratory panel was negative after fever. -minocycline and levofloxacin was discontinued.? Patient initiated on meropenem IV and both lab lyman and clinically improved.? Blood cultures negative at 48 hours. Urine culture with wander albicans. -will continue meropenem 1g q12h x7 days to treat for possible HAP, to finish on 01/12 at [facility] 2. Abnormal nuclear stress test 11/2021 ?- EKG reassuring, no chest pain, and troponin negative. Stress testing 11/2021 with This is an abnormal myocardial perfusion study with small reversible ische dasha of basal inferolateral wall. ?- Troponin this morning is also normal. No further evaluation needed. Follow up with outpatient qa specialist as previously planned. ?- Dr. Ash is patient's outpatient qa specialist 3. Myelodysplastic syndrome, stable, with iron deficiency anemia and thrombocytopenia ?- oncology has recommended outpatient GI consultation for EGD and colonoscopy for iron deficiency anemia. Will continue to watch blood counts here. Plt count is 49, transfuse if needed per orthopedics. 4. Hypokalemia ?- replete per pharmacy 5. paroxysmal atrial fibrillation ?- okay to continue home metoprolol 6. chronic diastolic heart failure ?- no signs of volume overload currently, continue IV fluids with caution. 7. BPH ?- continue home medications. With negative UA no indication for imaging at this time. Will raise his flomax to 0.8mg due to persistent urinary retention. Can undergo voiding trail at later time at [facility] and if fails should see urology as outpatient. 8. RA on prednisone ?- if hypotensive give stress dose steroids, he is only on 6 mg prednisone daily so not needed unless evidence of insufficiency. 9. Acute renal failure.? Improving, continue to follow.? CT of the abdomen yesterday shows no hydronephrosis.? There was some periureteral stranding h owever. Multidrug resistant organism: No MDRO Diet/Activity/Treatments Diet: Diet as Tolerated Activity: No deep bending or twisting at the waist. No lifting more than 2 pounds. Skin/Wound/Dressing Care Report to your healthcare provider any signs of infection, such as:: chills, fever, night sweats, unusual drainage and unusual redness Dressing: May shower; keep dressing as dry as possible. If dressing becomes wet or dirty, may remove and replace with clean, dry gauze. No bathing or otherwise soaking incisions. Do not put any creams, lotions, or ointments on incisions. Special Rehabilitation Services Reason for rehabilitation: Post-operative therapy Rehab type: Physical therapy Visit Report/Discharge Packet Instructions: DI for Prescription Opioid Use, DI for Transforaminal Lumbar Interbody Fusion Stand Alone Forms: Patient Portal/API, Surgery Discharge Discharge Data Primary Care Provider: Jake Arguello VTE Deep Vein Thrombosis/Pulmonary Embolism Present on Admission: No
--- NOTE | 2023-01-07 11:48 | PT.IPTN ---
Current Diagnoses Spondylolisthesis, lumbar region (12/31/22) Spinal stenosis, lumbar region with neurogenic claudication (12/31/22) Surgery Performed Operation Date: 12/31/22 13:45 Actual Procedures p L3-4 TLIF, L2-3 hemilaminectomy(Not Applicable) - Jasvir Medel MD Physical Therapy Treatment Note M2 PT-IP Current Condition Start: 01/02/23 13:31 Freq: NEEDED Status: Active Protocol: Document 01/02/23 12:06 ES (Rec: 01/02/23 13:51 ES [id number]) Physical Therapy Current Condition Current Condition Evaluation Date 01/02/23 Treatment Diagnosis s/p TLIF; weakness, difficulty walking Onset Date 12/31/22 M3 PT-IP Subjective Start: 01/02/23 13:31 Freq: NEEDED Status: Active Protocol: Document 01/07/23 12:09 SW (Rec: 01/07/23 12:33 SW [id number]) Subjective Physical Therapy Visit Type Type Treatment Note Visit Start Time 11:48 Visit Stop Time 12:07 Total Visit Minutes 19 Number of QUARRY PLUG AND FEATHER DRILLER Visits 9 Physical Therapy Visit Comments Patient Comments Pt sitting up in chair, agreeable to PT. Therapy Pain Assessment Pain When Pain Assessed During Mobility Pain Present Pain Present Denied Pain Location Back Intensity 5 Scale Used Numeric (0 - 10) Pain Management Techniques Distraction,Modification of Treatment,Re-positioning M4 PT-IP Mobility and Gait Start: 01/02/23 13:31 Freq: NEEDED Status: Active Protocol: Document 01/07/23 12:09 SW (Rec: 01/07/23 12:33 SW [id number]) PT-Transfer Assessment Sit to and From Stand Sit to and from Stand Moderate Assistance,1 Person Assistance,Use of Upper Extremities Equipment Transfer Assistive Device Gait Belt,Front Wheeled Walker Transfers Transfer Destination Chair,Bedside Commode Transfer Technique Stand Step Pivot Transfer Ability Level of Assist Minimal Assistance,1 Person Assistance,Use of Upper Extremities Comments Mobility Comments Pt ambulates with a decreased step length and minimal foot clearance, verbal cues required for safety. Verbal cues for uprighting trunk during ambulation, minimal carryover. Ambulated ~100 ft and transfered to bed side commode, where pt was left with nursing to shower. Gait Assessment Gait Gait Assistance Required: Minimum Assistance,1 Person Assist Distance (Feet) 80 Assistive Devices Assistive Device Gait Belt,Front Wheeled Walker Orthotic/Prosthetic Devices or Brace: Yes Gait Deviations General Gait Pattern Antalgic,Decreased Stride Length,Decreased Feet Clearance,Flexed Trunk Factors Limiting Gait Function Factors Limiting Gait Function Abnormal Tonal Influences, Decreased Activity Tolerance, Decreased Sensation,Decreased Strength,Incoordination, Limited Range of Motion,Pain, Poor Balance Comments Gait Comments See mobility comments. Stair Climbing Assessment Comments Stair Climbing Comments Not appropriate at this time. PT-Balance Assessment Sitting Balance and Reactions Static Sitting Balance Ability Good Dynamic Sitting Balance Ability Fair Standing Balance and Reactions Static Standing Balance Ability Fair Dynamic Standing Balance Ability Fair Device Used FWW M5 PT-IP Objective Assessments Start: 01/02/23 13:31 Freq: NEEDED Status: Active Protocol: Document 01/02/23 12:06 ES (Rec: 01/02/23 13:51 ES [id number]) Orientation Orientation/Cognition Level of Alertness Alert Language Function Ability Hard of Hearing Safety Awareness Understands Safety Issues Memory Description No Deficits Noted Gross Range of Motion Upper Extremity ROM Assessment Within Functional Limits Lower Extremity ROM Assessment Bilaterally Impaired Impairments B ankle DF limited to ~5 degrees passive Strength Lower Extremity Strength Assessment Bilaterally Impaired Hip 4-/5 Knee 4-/5 Ankle DF 2-/5 B M6 PT-IP Treatment Start: 01/02/23 13:31 Freq: NEEDED Status: Active Protocol: Document 01/07/23 12:09 SW (Rec: 01/07/23 12:33 [id number]) Physical Therapy Treatment Education Education Provided Precautions,Post-Op Packet, Safety M7 PT-IP Assessment and Plan Start: 01/02/23 13:31 Freq: NEEDED Status: Active Protocol: Document 01/07/23 12:09 (Rec: 01/07/23 12:33 [id number]) PT Summary Assessment and Plan Potential Rehabilitation Potential Fair Summary Impairments Pain,Strength,Balance, Coordination,Bed Mobility, Transfers,Gait,Activity Tolerance Progress Towards Goals Progressing Toward Goals Assessment Summary Pt recalled 3/3 spinal precautions. Pt demonstrated minimal carryover of cues for standing posture during ambulation and for foot clearance with decreased step length. Pt. ambulated ~100 ft w/FWW and transferred to bedside commode where pt was left with nursing to shower. PT reccommends SNF at this time to increase functional mobility and gait. Goals Bed Mobility Goal Standby Assistance Transfer Goal Standby Assistance,Four Wheeled Walker Gait Goal Standby Assistance,Four Wheel Walker Gait Distance 100 ft Other Goals Patient will be able to ascend /descend 2 stairs with single rail and LRAD. Patient will demonstrate good understanding of lumbar precautions. Days to Meet Goals 5 Frequency of Treatment Frequency Of Treatment Twice a Day Treatment Plan Physical Therapy Treatment Plan Bed Mobility Training,Transfer Training,Gait Training, Therapeutic Exercise,Balance Retraining,Post Op Education, Discharge Planning Other Recommendations and Next Treatment Increase ambulation distance, Focus trial stairs, assess carryover of bed mobility and spinal precautions. Precautions Lumbar Precautions Log Roll,No Twisting,Limit Bending,Lifting Restriction of 10 lbs,Gait Belt above Incisional Area Weight Bearing Status Weight Bearing Status Weight Bear as Tolerated Recommendations To Nursing Amount of Assist Needed 1 Person Assist Discharge Recommendations PT Discharge Recommendations SNF Rehab Equipment Needed for Home Before may need FWW if not safe w/ Discharge 4WW Transportation Needs at Discharge Wheelchair/Cabulance
--- NOTE | 2023-01-07 13:26 | CM.DPC ---
Addendum entered by SANIA Weiss 01/07/23 14:41: From nursing staff, midline was placed and patient is ready to d[facility]c to [facility]. SEO TEAM LEAD updated November. [facility] appeared appreciative and all set to take patient at 1500 today. Plan: patient will d/c to [facility] at 1500 today with a mid line. CM team will continue to follow as needed. SL Original Note: DCP Continued: SEO TEAM LEAD reviewed EMR. Per provider in rounds, if [facility] can provide meropenem treatment patient is good to d/c to SNF today. Per [facility] at [facility], they should be good to go with the medication he just needs a picc line. Patient does not currently have a picc/mid line for treatment at SNF. Nursing staff and hospitalist collaborated in getting an outside specialist to come in and put in picc line. They should be here at approximately 1330. From nursing staff, patient will likely be ready to d/c around 1500. SEO TEAM LEAD updated November at [facility]. Transportation can be here at 1500 to take patient to [facility]. CM Carton Making Machine Operator Robyn faxed d/c summary, PASRR, signed med list, and order to [facility]. Robyn placed signed med list and PASRR in d/c packet. SEO TEAM LEAD updated nursing staff/SURVEY RESEARCH PROFESSOR on d/c time. SEO TEAM LEAD entered room and reintroduced self and role to patient and spouse. SEO TEAM LEAD updated them on the d/c timeline. Patient and spouse in agreement. SEO TEAM LEAD encouraged spouse to be the one to transport patient belongings. Plan: patient will d/c to [facility] today at 1500 pending picc-line placement. CM team will continue to follow closely. SANIA Weiss
[2023-01-07 13:40] VITALS: BP 102/56; PULSE 65; RESP 19; TEMP 36.7; O2SAT 95
--- NOTE | 2023-01-07 14:51 | PC.NURSE ---
Midline was placed to left upper arm as ordered. Patient picked up by [facility] transport in wheelchair with all his belongings and his at bedside. Report called to Nyasia at [facility].
== END 2023-01-07 14:54 | DRG 453 ==
PROVIDERS: Internal Medicine; Neuromusculoskeletal Medicine, Sports Medicine; Physician Assistant Medical; Registered Nurse; Student in an Organized Health Care Education/Training Program; Admitting Provider Orthopaedic Surgery Orthopaedic Surgery of the Spine; PCP Family Medicine; Referring Provider Orthopaedic Surgery Orthopaedic Surgery of the Spine; Visit Provider Orthopaedic Surgery Orthopaedic Surgery of the Spine
PROC: 0SG00AJ Fusion of Lumbar Vertebral Joint with Interbody Fusion Device, Posterior Approach, Anterior Column, Open Approach (ICD-10-PCS; principal; 2022-12-31 13:45)
DX: M48.062 Spinal stenosis, lumbar region with neurogenic claudication (principal); A41.9 Sepsis, unspecified organism; G93.41 Metabolic encephalopathy; J18.9 Pneumonia, unspecified organism; I50.32 Chronic diastolic (congestive) heart failure; N17.9 Acute kidney failure, unspecified; M43.16 Spondylolisthesis, lumbar region; G60.9 Hereditary and idiopathic neuropathy, unspecified; D46.9 Myelodysplastic syndrome, unspecified; M06.9 Rheumatoid arthritis, unspecified; D69.6 Thrombocytopenia, unspecified; D50.9 Iron deficiency anemia, unspecified; E87.6 Hypokalemia; I48.0 Paroxysmal atrial fibrillation; N40.0 Benign prostatic hyperplasia without lower urinary tract symptoms; R94.39 Abnormal result of other cardiovascular function study; Z79.52 Long term (current) use of systemic steroids
CPT/HCPCS: 11042; 36415; 71045; 71046; 72100; 74019; 74176; 76000; 80048; 80053; 80076; 81001; 82570; 83605; 83735; 84145; 84300; 84484; 85007; 85025; 85651; 86140; 86850; 86900; 86901; 87040; 87070; 87077; 87086; 87154; 87205; 87633; 87635; 93005; 97116; 97162; 97167; 97530; 99213; C9803; C1713; C9290; J0171; J0330; J0690; J1170; J1630; J1956; J2020; J2185; J2405; J2704; J3010; J7500

== ENCOUNTER → 2023-01-12 10:35 | Outpatient (CLI) | payer MEDICARE, OTHER, SELFPAY ==
[2022-12-31 17:55] VITALS: BMI 20.2
== END ==
PROVIDERS: PCP Family Medicine; Referring Provider Physician Assistant Medical; Visit Provider Surgery
DX: L89.893 Pressure ulcer of other site, stage 3 (principal)
CPT/HCPCS: 99214

== ENCOUNTER → 2023-01-14 15:46 | Outpatient (CLI) | payer MEDICARE, OTHER, SELFPAY ==
[2022-12-31 17:55] VITALS: BMI 20.2
--- NOTE | 2023-01-14 | DI.RAD.S_ITS ---
PROCEDURE: XR SHOULDER LT MIN 2V INDICATIONS: SHOULDER PAIN TECHNIQUE: 3 views of the shoulder were acquired. COMPARISON: [facility], CR, XR SHOULDER 2+ VIEWS LEFT, 11/06/2022, 10:47. [facility], CR, XR CHEST 2V, 01/04/2023, 18:01. [facility], CR, XR SHOULDER RT MIN 2V, 01/14/2023, 15:53. FINDINGS: Bones: There is stable alignment of healing proximal humeral head/neck fracture. Bridging osteophyte formation is present. Alignment is stable. Soft tissues: No suspicious soft tissue calcifications. IMPRESSION: Stable alignment with interval healing humeral head/neck fracture. Dictated by: Amy Price M.D. on 01/15/2023 at 16:30 Approved by: Amy Price M.D. on 01/15/2023 at 16:31
--- NOTE | 2023-01-14 | DI.RAD.S_ITS ---
PROCEDURE: XR CHEST 2V INDICATIONS: SHOULDER PAIN TECHNIQUE: 2 views of the chest were acquired. COMPARISON: [facility], CR, XR CHEST 2V, 01/04/2023, 18:01. [facility], CR, XR CHEST 1V, 01/01/2023, 7:42. FINDINGS: Surgical changes and devices: None. Lungs and pleura: Streaky left basilar airspace opacity. Low lung volumes. Mediastinum: Mediastinal contours are normal. Heart size is normal. Bones and chest wall: No suspicious bony abnormalities. Soft tissues appear unremarkable. IMPRESSION: Streaky left basilar airspace opacity, likely atelectasis in the setting of low lung volumes. Dictated by: Bhargav Rios M.D. on 01/15/2023 at 8:47 Approved by: Bhargav Rios M.D. on 01/15/2023 at 8:48
--- NOTE | 2023-01-14 | DI.RAD.S_ITS ---
PROCEDURE: XR SHOULDER RT MIN 2V INDICATIONS: SHOULDER PAIN TECHNIQUE: 3 views of the shoulder were acquired. COMPARISON: None. FINDINGS: Bones: No fractures or dislocations. No suspicious bony lesions. Visualized ribs appear intact. Glenohumeral and acromioclavicular arthritic narrowing. Soft tissues: No suspicious soft tissue calcifications. IMPRESSION: Glenohumeral and acromioclavicular arthritis. Dictated by: Amy Price M.D. on 01/15/2023 at 16:31 Approved by: Amy Price M.D. on 01/15/2023 at 16:31
== END ==
PROVIDERS: PCP Family Medicine; Referring Provider Nurse Practitioner Family; Visit Provider Nurse Practitioner Family
DX: S42.292D Other displaced fracture of upper end of left humerus, subsequent encounter for fracture with routine healing (principal); M19.011 Primary osteoarthritis, right shoulder; M25.519 Pain in unspecified shoulder; R06.02 Shortness of breath
CPT/HCPCS: 71046; 73030

== ENCOUNTER → 2023-01-19 11:06 | Outpatient (CLI) | payer MEDICARE, OTHER, SELFPAY ==
[2022-12-31 17:55] VITALS: BMI 20.2
== END ==
PROVIDERS: PCP Family Medicine; Referring Provider Physician Assistant Medical; Visit Provider Surgery
DX: L95.8 Other vasculitis limited to the skin (principal); L89.893 Pressure ulcer of other site, stage 3; L97.312 Non-pressure chronic ulcer of right ankle with fat layer exposed; S90.415D Abrasion, left lesser toe(s), subsequent encounter; D46.9 Myelodysplastic syndrome, unspecified; G60.9 Hereditary and idiopathic neuropathy, unspecified
CPT/HCPCS: 15275; Q4196

== ENCOUNTER → 2023-01-26 11:03 | Outpatient (CLI) | payer MEDICARE, OTHER, SELFPAY ==
[2022-12-31 17:55] VITALS: BMI 20.2
== END ==
PROVIDERS: PCP Family Medicine; Referring Provider Physician Assistant Medical; Visit Provider Surgery
DX: L95.8 Other vasculitis limited to the skin (principal); L97.312 Non-pressure chronic ulcer of right ankle with fat layer exposed; L89.899 Pressure ulcer of other site, unspecified stage; D46.9 Myelodysplastic syndrome, unspecified; L89.893 Pressure ulcer of other site, stage 3
CPT/HCPCS: 11042; 15275; 99213; Q4196

== ENCOUNTER → 2023-02-03 10:20 | Outpatient (CLI) | payer MEDICARE, OTHER, SELFPAY ==
[2022-12-31 17:55] VITALS: BMI 20.2
== END ==
PROVIDERS: PCP Family Medicine; Referring Provider Physician Assistant Medical; Visit Provider Surgery
DX: L89.893 Pressure ulcer of other site, stage 3 (principal); L95.8 Other vasculitis limited to the skin; L97.322 Non-pressure chronic ulcer of left ankle with fat layer exposed; D46.9 Myelodysplastic syndrome, unspecified
CPT/HCPCS: 15271; Q4196

== ENCOUNTER → 2023-02-11 10:50 | Outpatient (CLI) | payer MEDICARE, OTHER, SELFPAY ==
[2022-12-31 17:55] VITALS: BMI 20.2
== END ==
PROVIDERS: PCP Family Medicine; Referring Provider Physician Assistant Medical; Visit Provider Surgery
DX: L95.8 Other vasculitis limited to the skin (principal); L89.893 Pressure ulcer of other site, stage 3; L97.312 Non-pressure chronic ulcer of right ankle with fat layer exposed; D46.9 Myelodysplastic syndrome, unspecified
CPT/HCPCS: 11042; 15275; Q4196

== ENCOUNTER → 2023-02-18 14:17 | Outpatient (CLI) | payer MEDICARE, OTHER, SELFPAY ==
[2022-12-31 17:55] VITALS: BMI 20.2
== END ==
PROVIDERS: PCP Family Medicine; Referring Provider Internal Medicine; Visit Provider Surgery
DX: G60.3 Idiopathic progressive neuropathy (principal); L97.312 Non-pressure chronic ulcer of right ankle with fat layer exposed; L89.893 Pressure ulcer of other site, stage 3; D46.9 Myelodysplastic syndrome, unspecified
CPT/HCPCS: 11042; 15275; Q4196

== ENCOUNTER → 2023-02-26 13:00 | Outpatient (CLI) | payer MEDICARE, OTHER, SELFPAY ==
[2022-12-31 17:55] VITALS: BMI 20.2
== END ==
PROVIDERS: PCP Family Medicine; Referring Provider Physician Assistant Medical; Visit Provider Surgery
DX: L95.8 Other vasculitis limited to the skin (principal); L97.312 Non-pressure chronic ulcer of right ankle with fat layer exposed; D46.9 Myelodysplastic syndrome, unspecified; E63.9 Nutritional deficiency, unspecified; L89.893 Pressure ulcer of other site, stage 3; M25.571 Pain in right ankle and joints of right foot
CPT/HCPCS: 11042; 15275; 99213; Q4196

== ENCOUNTER → 2023-03-04 11:06 | Outpatient (CLI) | payer MEDICARE, OTHER, SELFPAY ==
[2022-12-31 17:55] VITALS: BMI 20.2
== END ==
PROVIDERS: PCP Family Medicine; Referring Provider Physician Assistant Medical; Visit Provider Surgery
DX: L89.893 Pressure ulcer of other site, stage 3 (principal); L95.0 Livedoid vasculitis; L97.312 Non-pressure chronic ulcer of right ankle with fat layer exposed; M25.571 Pain in right ankle and joints of right foot
CPT/HCPCS: 15275; Q4196

== ENCOUNTER → 2023-03-11 11:27 | Outpatient (CLI) | payer MEDICARE, OTHER, SELFPAY ==
[2022-12-31 17:55] VITALS: BMI 20.2
== END ==
PROVIDERS: PCP Family Medicine; Referring Provider Physician Assistant Medical; Visit Provider Surgery
DX: G60.9 Hereditary and idiopathic neuropathy, unspecified (principal); L95.8 Other vasculitis limited to the skin; L89.893 Pressure ulcer of other site, stage 3; L97.312 Non-pressure chronic ulcer of right ankle with fat layer exposed; D46.9 Myelodysplastic syndrome, unspecified
CPT/HCPCS: 11042; 15271; Q4196

== ENCOUNTER → 2023-03-18 11:15 | Outpatient (CLI) | payer MEDICARE, OTHER, SELFPAY ==
[2022-12-31 17:55] VITALS: BMI 20.2
== END ==
PROVIDERS: PCP Family Medicine; Referring Provider Physician Assistant Medical; Visit Provider Surgery
DX: L89.893 Pressure ulcer of other site, stage 3 (principal); L95.9 Vasculitis limited to the skin, unspecified; L97.312 Non-pressure chronic ulcer of right ankle with fat layer exposed; G62.9 Polyneuropathy, unspecified; D46.9 Myelodysplastic syndrome, unspecified
CPT/HCPCS: 11042; 15271; Q4160

== ENCOUNTER → 2023-03-25 13:30 | Outpatient (CLI) | payer MEDICARE, OTHER, SELFPAY ==
[2022-12-31 17:55] VITALS: BMI 20.2
== END ==
PROVIDERS: PCP Family Medicine; Referring Provider Physician Assistant Medical; Visit Provider Surgery
DX: L89.893 Pressure ulcer of other site, stage 3 (principal); L97.312 Non-pressure chronic ulcer of right ankle with fat layer exposed; D46.9 Myelodysplastic syndrome, unspecified; I73.9 Peripheral vascular disease, unspecified; L95.8 Other vasculitis limited to the skin; M79.604 Pain in right leg
CPT/HCPCS: 97597; 99212; 99213

== ENCOUNTER → 2023-04-02 09:14 | Outpatient (CLI) | payer MEDICARE, OTHER, SELFPAY ==
[2022-12-31 17:55] VITALS: BMI 20.2
== END ==
PROVIDERS: PCP Family Medicine; Referring Provider Physician Assistant Medical; Visit Provider Surgery
DX: G60.3 Idiopathic progressive neuropathy (principal); L97.312 Non-pressure chronic ulcer of right ankle with fat layer exposed; L89.893 Pressure ulcer of other site, stage 3; D46.9 Myelodysplastic syndrome, unspecified
CPT/HCPCS: 99212; 99213

== ENCOUNTER → 2023-04-13 10:54 | Outpatient (CLI) | payer MEDICARE, OTHER, SELFPAY ==
[2022-12-31 17:55] VITALS: BMI 20.2
--- NOTE | 2023-04-13 10:56 | DI.RAD.S_ITS ---
PROCEDURE: XR KUB INDICATIONS: bladder calculi x4 TECHNIQUE: One view of the abdomen acquired. COMPARISON: None. FINDINGS: Surgical changes and devices: Mid lumbar spine discectomy and fusion. Surgical clips in the right upper quadrant Bowel: Bowel gas pattern is normal. Soft tissues: No suspicious abdominal calcifications. Visualized solid organ contours appear normal in size. Several calculi noted in the bladder measuring up to 1.1 by 0.5 cm Bones: No suspicious bony lesions. IMPRESSION: Several stones project over the bladder consistent with bladder calculi Approved by: Anuel Renteria M.D. on 04/13/2023 at 15:09
== END ==
PROVIDERS: PCP Family Medicine; Referring Provider Specialist; Visit Provider Specialist
DX: N21.0 Calculus in bladder (principal); N40.1 Benign prostatic hyperplasia with lower urinary tract symptoms; N13.8 Other obstructive and reflux uropathy
CPT/HCPCS: 74018

== ENCOUNTER → 2023-04-21 14:26 | Outpatient (CLI) | payer MEDICARE, OTHER, SELFPAY ==
[2022-12-31 17:55] VITALS: BMI 20.2
[2023-04-21 16:07] LABS: Appearance Urine UA SL CLOUDY; Bilirubin Urine UA NEGATIVE (NEGATIVE); Color Urine UA YELLOW; Glucose Urine UA NEGATIVE (Negative); Ketones Urine UA NEGATIVE (NEGATIVE); Leukocyte Esterase Urine UA 1+ (NEGATIVE); Nitrite Urine UA POSITIVE (Negative); Occult Blood Urine UA 2+ (Negative); Protein Urine UA 1+ (Negative); Specific Gravity Urine UA 1.015 (1.000-1.035); Urobilinogen Urine UA 0.2 E.U./dL (0.2); pH Urine UA 6.5 (4.5-8.0)
[2023-04-21 16:32] LABS: Bacteria Urine Many (>30); Granular Casts Urine 1-5/LPF; Hyaline Casts Urine 1-5/LPF; RBC Urine 5-10/HPF (0-5/HPF); Squamous Epithelial Cell Urine 0-1 /HPF (0-5/HPF); WBC Urine 30-100/HPF (0-5/HPF)
[2023-04-21 16:33] LABS: Culture Indicated Urine Specimen Cultured
== END ==
PROVIDERS: PCP Family Medicine; Referring Provider Specialist; Visit Provider Specialist
DX: N21.0 Calculus in bladder (principal); N40.1 Benign prostatic hyperplasia with lower urinary tract symptoms; N13.8 Other obstructive and reflux uropathy
CPT/HCPCS: 36415; 80048; 81001; 87086

== ENCOUNTER → 2023-04-30 11:05 | Outpatient (CLI) | payer MEDICARE, OTHER, SELFPAY ==
[2022-12-31 17:55] VITALS: BMI 20.2
[2023-04-30 13:06] LABS: Bilirubin Urine UA NEGATIVE (NEGATIVE); Glucose Urine UA NEGATIVE (Negative); Ketones Urine UA NEGATIVE (NEGATIVE); Leukocyte Esterase Urine UA 2+ (NEGATIVE); Nitrite Urine UA POSITIVE (Negative); Occult Blood Urine UA 2+ (Negative); Protein Urine UA 1+ (Negative); Urobilinogen Urine UA 0.2 E.U./dL (0.2)
[2023-04-30 13:22] LABS: Appearance Urine UA Cloudy; Color Urine UA Yellow
[2023-04-30 13:34] LABS: BUN Creatinine Ratio 31.5 (6-22); Blood Urea Nitrogen 35 mg/dL (9-20); Calcium 10.4 mg/dL (8.4-10.2); Carbon Dioxide 28 mmol/L (22-32); Chloride 107 mmol/L (98-107); Estimated Glomerular Filt Rate > 60 mL/min (>60); Glucose 95 mg/dL (80-110); HEMOLYSIS < 15 (0-50); Sodium 142 mmol/L (137-145)
[2023-04-30 13:45] LABS: Bacteria Urine Many (>30); Culture Indicated Urine Specimen Cultured; Granular Casts Urine 1-5/LPF; RBC Urine 5-10/HPF (0-5/HPF); Squamous Epithelial Cell Urine 0-1 /HPF (0-5/HPF); WBC Urine 30-100/HPF (0-5/HPF)
== END ==
PROVIDERS: PCP Family Medicine; Referring Provider Specialist; Visit Provider Specialist
DX: N40.1 Benign prostatic hyperplasia with lower urinary tract symptoms (principal); N13.8 Other obstructive and reflux uropathy; N21.0 Calculus in bladder
CPT/HCPCS: 36415; 80048; 81001; 87077; 87086; 87147; 87186

== ENCOUNTER → 2023-05-01 09:46 | Outpatient (CLI) | payer MEDICARE, OTHER, SELFPAY ==
[2022-12-31 17:55] VITALS: BMI 20.2
== END ==
PROVIDERS: PCP Family Medicine; Referring Provider Physician Assistant Medical; Visit Provider Physician Assistant
DX: I87.2 Venous insufficiency (chronic) (peripheral) (principal); L97.512 Non-pressure chronic ulcer of other part of right foot with fat layer exposed; G90.09 Other idiopathic peripheral autonomic neuropathy; D46.9 Myelodysplastic syndrome, unspecified; L84 Corns and callosities
CPT/HCPCS: 97597; 99213; 99214

== ENCOUNTER → 2023-05-05 10:13 | Outpatient (CLI) | payer MEDICARE, OTHER, SELFPAY ==
[2022-12-31 17:55] VITALS: BMI 20.2
== END ==
PROVIDERS: PCP Family Medicine; Visit Provider Specialist
DX: N40.1 Benign prostatic hyperplasia with lower urinary tract symptoms (principal); N13.8 Other obstructive and reflux uropathy; R31.9 Hematuria, unspecified; N21.0 Calculus in bladder; R33.9 Retention of urine, unspecified; N39.0 Urinary tract infection, site not specified; R82.998 Other abnormal findings in urine
CPT/HCPCS: 51798; 81002; 87086; 99215

== ENCOUNTER → 2023-06-02 11:07 | Outpatient (CLI) | payer MEDICARE, OTHER, SELFPAY ==
[2022-12-31 17:55] VITALS: BMI 20.2
== END ==
PROVIDERS: PCP Family Medicine; Referring Provider Physician Assistant Medical; Visit Provider Surgery
DX: L89.613 Pressure ulcer of right heel, stage 3 (principal); G90.09 Other idiopathic peripheral autonomic neuropathy; D46.9 Myelodysplastic syndrome, unspecified
CPT/HCPCS: 11042; 87070; 87075; 87077; 87186; 87205; 99213

== ENCOUNTER → 2023-06-02 12:20 | Outpatient (CLI) | payer MEDICARE, OTHER, SELFPAY ==
[2022-12-31 17:55] VITALS: BMI 20.2
--- NOTE | 2023-06-02 12:22 | DI.US.S_ITS ---
PROCEDURE: US RENAL COMPLETE INDICATIONS: kidney stones TECHNIQUE: Real-time scanning was performed of the kidneys and bladder, with image documentation. COMPARISON: None. FINDINGS: Kidneys: Kidneys are normal in size. Right kidney measures 10 cm long; left kidney measures 11.6 cm long. Bilateral renal cortical thinning. Right renal cortical thickness is 0.5 cm; left renal cortical thickness is 0.5 cm. Renal cortical echotexture is increased, consistent with medical renal disease. Nonobstructing 7 millimeter stone within the right kidney at the midpole. No left renal stones. Left renal simple cysts measuring up to 4.4 centimeters. No suspicious solid mass lesions. Bladder: Pre-void bladder volume is 230 mL. Post-void residual is 183 mL. Wall irregularities with areas of thinning and thickening. Mobile calcifications are seen within the bladder. On pre-void images, left ureteral jets are noted with color Doppler interrogation. (Of note, ureteral jets may not be detectable in up to 25% of cases due to insufficient differences in specific gravity between ureteral and bladder urine). Miscellaneous: No free pelvic fluid. IMPRESSION: 1. Increased echogenicity of the kidneys, consistent with medical renal disease. 2. Nonobstructing 7 millimeter stone within the right kidney. 3. 183 cc of postvoid residual. 4. Irregularity of the urinary bladder wall with areas of thickening and thinning, may be secondary to chronic bladder outlet obstruction. Neoplasm cannot definitively be excluded. Recommend attention on follow-up or cystoscopy for further evaluation as clinically indicated. 5. Mobile stones are seen within the urinary bladder. Dictated by: Tobin Fitzgerald M.D. on 06/02/2023 at 16:39 Approved by: Tobin Fitzgerald M.D. on 06/02/2023 at 16:42
== END ==
PROVIDERS: PCP Family Medicine; Referring Provider Specialist; Visit Provider Specialist
DX: N21.0 Calculus in bladder (principal); N20.0 Calculus of kidney; N40.1 Benign prostatic hyperplasia with lower urinary tract symptoms; N13.8 Other obstructive and reflux uropathy; L89.613 Pressure ulcer of right heel, stage 3; G90.09 Other idiopathic peripheral autonomic neuropathy; D46.9 Myelodysplastic syndrome, unspecified
CPT/HCPCS: 11042; 76770; 87070; 87077; 87186; 87205; 99213

== ENCOUNTER → 2023-06-03 10:43 | Outpatient (CLI) | payer MEDICARE, OTHER, SELFPAY ==
[2022-12-31 17:55] VITALS: BMI 20.2
[2023-06-03 11:13] LABS: Appearance Urine UA CLEAR; Bilirubin Urine UA NEGATIVE (NEGATIVE); Color Urine UA YELLOW; Glucose Urine UA NEGATIVE (Negative); Ketones Urine UA NEGATIVE (NEGATIVE); Leukocyte Esterase Urine UA 1+ (NEGATIVE); Nitrite Urine UA POSITIVE (Negative); Occult Blood Urine UA 1+ (Negative); Protein Urine UA TRACE (Negative); Specific Gravity Urine UA 1.015 (1.000-1.035); Urobilinogen Urine UA 0.2 E.U./dL (0.2); pH Urine UA 5.5 (4.5-8.0)
[2023-06-03 11:24] LABS: Bacteria Urine Few (2-10); Culture Indicated Urine Cult Not Indicated; Mucus Urine 1+ (Negative); RBC Urine 0-1/HPF (0-5/HPF); Squamous Epithelial Cell Urine 0-1 /HPF (0-5/HPF); WBC Urine 5-10/HPF (0-5/HPF)
== END ==
PROVIDERS: PCP Family Medicine; Referring Provider Specialist; Visit Provider Specialist
DX: N39.0 Urinary tract infection, site not specified (principal); R33.9 Retention of urine, unspecified; D72.829 Elevated white blood cell count, unspecified; N40.1 Benign prostatic hyperplasia with lower urinary tract symptoms; N13.8 Other obstructive and reflux uropathy; N21.0 Calculus in bladder
CPT/HCPCS: 81001; 87086

== ENCOUNTER → 2023-06-09 10:54 | Outpatient (CLI) | payer MEDICARE, OTHER, SELFPAY ==
[2022-12-31 17:55] VITALS: BMI 20.2
== END ==
PROVIDERS: PCP Family Medicine; Referring Provider Physician Assistant Medical; Visit Provider Surgery
DX: L89.613 Pressure ulcer of right heel, stage 3 (principal); L84 Corns and callosities; N40.1 Benign prostatic hyperplasia with lower urinary tract symptoms; N13.8 Other obstructive and reflux uropathy; N21.0 Calculus in bladder; R33.9 Retention of urine, unspecified; Z87.440 Personal history of urinary (tract) infections
CPT/HCPCS: 11042; 52000; 81002; 87077; 87086; 87147; 87186; 99215

== ENCOUNTER → 2023-06-09 11:14 | Outpatient (CLI) | payer MEDICARE, OTHER, SELFPAY ==
[2022-12-31 17:55] VITALS: BMI 20.2
== END ==
PROVIDERS: PCP Family Medicine; Visit Provider Specialist
DX: N40.1 Benign prostatic hyperplasia with lower urinary tract symptoms (principal); N13.8 Other obstructive and reflux uropathy; N21.0 Calculus in bladder; R33.9 Retention of urine, unspecified; Z87.440 Personal history of urinary (tract) infections
CPT/HCPCS: 52000; 81002; 87077; 87086; 87147; 87186; 99215

== ENCOUNTER → 2023-06-24 13:15 | Outpatient (CLI) | payer MEDICARE, OTHER, SELFPAY ==
[2022-12-31 17:55] VITALS: BMI 20.2
== END ==
LOC: WC 13:19
PROVIDERS: PCP Family Medicine; Referring Provider Physician Assistant Medical; Visit Provider Surgery
DX: L89.613 Pressure ulcer of right heel, stage 3 (principal); L97.522 Non-pressure chronic ulcer of other part of left foot with fat layer exposed; G90.09 Other idiopathic peripheral autonomic neuropathy; D46.9 Myelodysplastic syndrome, unspecified; L95.9 Vasculitis limited to the skin, unspecified
CPT/HCPCS: 11042; 97597; 99213

== ENCOUNTER → 2023-06-30 09:28 | Outpatient (CLI) | payer MEDICARE, OTHER, SELFPAY ==
[2022-12-31 17:55] VITALS: BMI 20.2
== END ==
LOC: WC 09:29
PROVIDERS: PCP Family Medicine; Referring Provider Physician Assistant Medical; Visit Provider Surgery
DX: L89.613 Pressure ulcer of right heel, stage 3 (principal); R23.4 Changes in skin texture; L84 Corns and callosities; L95.9 Vasculitis limited to the skin, unspecified; L97.522 Non-pressure chronic ulcer of other part of left foot with fat layer exposed; G62.9 Polyneuropathy, unspecified; D46.9 Myelodysplastic syndrome, unspecified; D84.9 Immunodeficiency, unspecified
CPT/HCPCS: 11042; 97597; 99213

== ENCOUNTER 2023-07-03 06:08 | Day surgery (SDC) | payer MEDICARE, OTHER, SELFPAY ==
[2022-12-31 17:55] VITALS: BMI 20.2
[2023-06-30 08:52] VITALS: BMI 21.4
[2023-07-03] VITALS (7 sets, daily range): BP systolic 106–119; BP diastolic 52–63; PULSE 56–64; RESP 12–16; TEMP 36.1–37.2; O2SAT 91–97; BMI 21.9
[2023-07-03] MEDS: LACTATED RINGERS 1,000 ML 21 ML IV (06:54)
[2023-07-03] MEDS: VANCOMYCIN 1,000 MG/200 ML PIGGYBACK 200 MG IV (06:55)
--- NOTE | 2023-07-03 07:50 | PM.PREOP ---
Pre-operative Note Interval Note History & Physical reviewed/Exam performed by Physician: Yes Changes to H&P: No
[2023-07-03] MEDS: GENTAMICIN 330 MG in SODIUM CHLORIDE 0.9% 100 ML 108.25 MG IV (08:05)
--- NOTE | 2023-07-03 08:31 | SUR.OPER ---
Lithotomy on padded OR bed, head on pillow, arms secured on padded arm boards at <90 degrees abduction. Legs secured in padded yellow fins stirrups.
--- NOTE | 2023-07-03 09:10 | PM.OP.1 ---
Operative Date/Time/Diagnoses Date of procedure: 07/03/23 Time of procedure: 09:10 Pre-op diagnosis: 1. Multiple bladder calculi. 2. Recurrent UTI. 3. Bladder outlet obstruction. Post-op diagnosis: same Procedure & Clinicians Procedure: 1. Laser cystolitholapaxy (greater than 2.5 cm). Same procedure as scheduled: Yes Indications: 1. Multiple bladder calculi. 2. Recurrent UTI. 3. Bladder outlet obstruction. Surgeon: Porsche Jeong Click Yes if Unassisted: Yes Anesthesia Type: General Operative Notes Findings: 1. Urethra-normal caliber without annular stricture or lesion. 2. External sphincter-coapted with normal overlying urothelium and vascularity. 3. 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 There were numerous benign mucosal calcifications seen. 4. Bladder-2+ trabeculation. Index calculi x4 lying dependently at the bladder base. Normal ureteral orifice position bilaterally and slightly gaping. No evidence of neoplasm or diverticulum. Closure Type: not applicable Specimen(s): other (Bladder stone fragments) Applied: catheter (18 [place]an to gravity drainage.) Estimated Blood Loss (mL): 0 Blood products transfused: none Procedure in detail: The patient was positioned in supine and was administered general anesthesia. The lower abdomen, genitalia, and groin were then prepped and draped in sterile fashion. The continuous-flow laser cystoscope was then advanced of the lower urinary tract with the findings as described above. A 550 micron laser fiber was requested. All operating room personnel and patient were fitted with laser safety eyewear. Laser lithotripsy was then commenced. Painstaking fragmentation was then undertaken 1 calculus at a time. The bladder was left partially filled and the Ellik evacuator was then implemented for irrigation/evacuation of calculus fragments. Reexamination of the bladder identified several residual larger fragments lying dependently in the bladder base. The laser again was then utilized to fragment these into smaller pieces. Again, the Ellik evacuator was employed to evacuate the remaining fragments. Reexamination of the partially filled bladder yielded minimal number of minute adherent fragments to the mucosa in various areas. The bladder was again partially filled and the laser cystoscope was removed. An 18 [place]an catheter was then advanced the lower urinary tract, the balloon filled with 10 cc of sterile water then placed to gravity drainage. Stone fragments were collected from the drain mesh and the Ellik reservoir and submitted to the laboratory for analysis. The patient was then repositioned in supine, was awakened, then transferred to [facility] awake and in stable condition. Complications: none Post-operative Condition: stable Disposition: PACU Plan for aftercare: 1. Discharge home. 2. Voiding trial in 3-5 days in Urology Clinic.
[2023-07-15 08:44] LABS: Ca oxalate dihydrate 20 % (.); Ca oxalate monohydr 70 % (.); Hydroxyapatite 10 % (.); Size 6x5 mm (.)
== END 2023-07-03 10:15 | disposition home or self-care (01) ==
PROVIDERS: PCP Family Medicine; Referring Provider Specialist; Visit Provider Specialist
PROC: 0TCB8ZZ Extirpation of Matter from Bladder, Via Natural or Artificial Opening Endoscopic (ICD-10-PCS; CPT 52318; principal; 2023-07-03 07:45)
DX: N21.0 Calculus in bladder (principal); N39.0 Urinary tract infection, site not specified; N40.1 Benign prostatic hyperplasia with lower urinary tract symptoms; N13.8 Other obstructive and reflux uropathy; R33.9 Retention of urine, unspecified
CPT/HCPCS: 52318; 82365; J2250; J2704; J3010

== ENCOUNTER → 2023-07-06 10:22 | Outpatient (CLI) | payer MEDICARE, OTHER, SELFPAY ==
[2022-12-31 17:55] VITALS: BMI 20.2
--- NOTE | 2023-07-06 10:24 | DI.RAD.S_ITS ---
PROCEDURE: XR CALCANEOUS RT MIN 2V INDICATIONS: non-healing ulcer on right medial heel TECHNIQUE: Two views of the calcaneus were acquired. COMPARISON: None. FINDINGS: Bones: No fractures or dislocations. No suspicious bony lesions noting that plain radiography has poor sensitivity for early osteomyelitis. Soft tissues: Soft tissue defect of skin overlying the calcaneus with small foci of intra tissue gas IMPRESSION: Soft tissue defect with a foci intra tissue gas; cannot totally rule out infection or gangrene. Dictated by: Rj Cano M.D. on 07/06/2023 at 12:44 Approved by: Rj Cano M.D. on 07/06/2023 at 12:46
== END ==
PROVIDERS: PCP Family Medicine; Referring Provider Surgery; Visit Provider Surgery
DX: L89.613 Pressure ulcer of right heel, stage 3 (principal)
CPT/HCPCS: 73650

== ENCOUNTER → 2023-07-08 08:54 | Outpatient (CLI) | payer MEDICARE, OTHER, SELFPAY ==
[2022-12-31 17:55] VITALS: BMI 20.2
[2023-07-23 04:54] LABS: Ca oxalate monohydr 10 % (.); Calcium carbonate 20 % (.); Hydroxyapatite 70 % (.); Size <1 mm (.)
== END ==
PROVIDERS: PCP Family Medicine; Visit Provider Specialist
DX: N40.1 Benign prostatic hyperplasia with lower urinary tract symptoms (principal); N13.8 Other obstructive and reflux uropathy; N21.0 Calculus in bladder
CPT/HCPCS: 82365

== ENCOUNTER → 2023-07-14 10:38 | Outpatient (CLI) | payer MEDICARE, OTHER, SELFPAY ==
[2022-12-31 17:55] VITALS: BMI 20.2
== END ==
LOC: WC 10:47
PROVIDERS: PCP Family Medicine; Referring Provider Physician Assistant Medical; Visit Provider Surgery
DX: L89.613 Pressure ulcer of right heel, stage 3 (principal); L97.522 Non-pressure chronic ulcer of other part of left foot with fat layer exposed; L95.9 Vasculitis limited to the skin, unspecified; D46.9 Myelodysplastic syndrome, unspecified; G62.9 Polyneuropathy, unspecified; L84 Corns and callosities
CPT/HCPCS: 11042; 97597; 99212; 99213

== ENCOUNTER → 2023-07-21 13:41 | Outpatient (CLI) | payer MEDICARE, OTHER, SELFPAY ==
[2022-12-31 17:55] VITALS: BMI 20.2
== END ==
PROVIDERS: PCP Family Medicine; Referring Provider Physician Assistant Medical; Visit Provider Surgery
DX: L89.613 Pressure ulcer of right heel, stage 3 (principal); L84 Corns and callosities; G62.9 Polyneuropathy, unspecified; D46.9 Myelodysplastic syndrome, unspecified; L95.9 Vasculitis limited to the skin, unspecified; R33.9 Retention of urine, unspecified
CPT/HCPCS: 11042; 51798; 81002

== ENCOUNTER → 2023-07-28 10:25 | Outpatient (CLI) | payer MEDICARE, OTHER, SELFPAY ==
[2022-12-31 17:55] VITALS: BMI 20.2
== END ==
LOC: WC 10:32
PROVIDERS: PCP Family Medicine; Referring Provider Physician Assistant Medical; Visit Provider Surgery
DX: L89.613 Pressure ulcer of right heel, stage 3 (principal); L84 Corns and callosities; D46.9 Myelodysplastic syndrome, unspecified; G62.9 Polyneuropathy, unspecified; L95.9 Vasculitis limited to the skin, unspecified
CPT/HCPCS: 11042

== ENCOUNTER → 2023-08-04 14:24 | Outpatient (CLI) | payer MEDICARE, OTHER, SELFPAY ==
[2022-12-31 17:55] VITALS: BMI 20.2
== END ==
PROVIDERS: PCP Family Medicine; Referring Provider Physician Assistant Medical; Visit Provider Surgery
DX: L89.613 Pressure ulcer of right heel, stage 3 (principal); L84 Corns and callosities; D46.9 Myelodysplastic syndrome, unspecified; G62.9 Polyneuropathy, unspecified; L95.9 Vasculitis limited to the skin, unspecified
CPT/HCPCS: 11042

== ENCOUNTER → 2023-08-11 10:28 | Outpatient (CLI) | payer MEDICARE, OTHER, SELFPAY ==
[2022-12-31 17:55] VITALS: BMI 20.2
== END ==
LOC: WC 10:29
PROVIDERS: PCP Family Medicine; Referring Provider Family Medicine; Visit Provider Surgery
DX: L89.613 Pressure ulcer of right heel, stage 3 (principal); L84 Corns and callosities; D46.9 Myelodysplastic syndrome, unspecified; G62.9 Polyneuropathy, unspecified; D64.9 Anemia, unspecified; L95.9 Vasculitis limited to the skin, unspecified
CPT/HCPCS: 15275; 99213; Q4196

== ENCOUNTER → 2023-08-18 10:42 | Outpatient (CLI) | payer MEDICARE, OTHER, SELFPAY ==
[2022-12-31 17:55] VITALS: BMI 20.2
== END ==
PROVIDERS: PCP Family Medicine; Referring Provider Physician Assistant Medical; Visit Provider Surgery
DX: L89.613 Pressure ulcer of right heel, stage 3 (principal); L84 Corns and callosities; D46.9 Myelodysplastic syndrome, unspecified; G62.9 Polyneuropathy, unspecified; L95.9 Vasculitis limited to the skin, unspecified; N40.1 Benign prostatic hyperplasia with lower urinary tract symptoms; N13.8 Other obstructive and reflux uropathy; Z87.440 Personal history of urinary (tract) infections
CPT/HCPCS: 15275; 51798; 81002; 99214; Q4196

== ENCOUNTER → 2023-08-26 11:22 | Outpatient (CLI) | payer MEDICARE, OTHER, SELFPAY ==
[2022-12-31 17:55] VITALS: BMI 20.2
== END ==
PROVIDERS: PCP Family Medicine; Referring Provider Physician Assistant Medical; Visit Provider Nurse Practitioner Family
DX: E11.621 Type 2 diabetes mellitus with foot ulcer (principal); L97.512 Non-pressure chronic ulcer of other part of right foot with fat layer exposed; I73.9 Peripheral vascular disease, unspecified; R23.4 Changes in skin texture; I87.2 Venous insufficiency (chronic) (peripheral); I25.10 Atherosclerotic heart disease of native coronary artery without angina pectoris
CPT/HCPCS: 11042; 87070; 87075; 87077; 87147; 87186; 87205; 99214

== ENCOUNTER → 2023-09-02 13:43 | Outpatient (CLI) | payer MEDICARE, OTHER, SELFPAY ==
[2022-12-31 17:55] VITALS: BMI 20.2
== END ==
LOC: WC 13:44
PROVIDERS: PCP Family Medicine; Referring Provider Physician Assistant Medical; Visit Provider Surgery
DX: L89.613 Pressure ulcer of right heel, stage 3 (principal); D46.9 Myelodysplastic syndrome, unspecified; L95.9 Vasculitis limited to the skin, unspecified; L84 Corns and callosities; G62.9 Polyneuropathy, unspecified
CPT/HCPCS: 15275; Q4196

== ENCOUNTER → 2023-09-09 13:28 | Outpatient (CLI) | payer MEDICARE, OTHER, SELFPAY ==
[2022-12-31 17:55] VITALS: BMI 20.2
== END ==
PROVIDERS: PCP Family Medicine; Referring Provider Physician Assistant Medical; Visit Provider Surgery
DX: L89.613 Pressure ulcer of right heel, stage 3 (principal); L84 Corns and callosities; G90.09 Other idiopathic peripheral autonomic neuropathy; D46.9 Myelodysplastic syndrome, unspecified; L95.9 Vasculitis limited to the skin, unspecified; R26.89 Other abnormalities of gait and mobility
CPT/HCPCS: 15275; 99212; 99213; Q4196

== ENCOUNTER → 2023-09-16 08:39 | Outpatient (CLI) | payer MEDICARE, OTHER, SELFPAY ==
[2022-12-31 17:55] VITALS: BMI 20.2
== END ==
LOC: WC 09-18 09:50
PROVIDERS: PCP Family Medicine; Referring Provider Physician Assistant Medical; Visit Provider Surgery
DX: L89.613 Pressure ulcer of right heel, stage 3 (principal); L84 Corns and callosities; R23.4 Changes in skin texture; G62.9 Polyneuropathy, unspecified; L95.9 Vasculitis limited to the skin, unspecified; D46.9 Myelodysplastic syndrome, unspecified
CPT/HCPCS: 15275; Q4159

== ENCOUNTER → 2023-09-23 10:40 | Outpatient (CLI) | payer MEDICARE, OTHER, SELFPAY ==
[2022-12-31 17:55] VITALS: BMI 20.2
== END ==
LOC: WC 10:42
PROVIDERS: PCP Family Medicine; Referring Provider Physician Assistant Medical; Visit Provider Surgery
DX: L89.613 Pressure ulcer of right heel, stage 3 (principal); L84 Corns and callosities; L95.9 Vasculitis limited to the skin, unspecified; G62.9 Polyneuropathy, unspecified; D46.9 Myelodysplastic syndrome, unspecified
CPT/HCPCS: 15275; Q4196

== ENCOUNTER → 2023-09-30 11:44 | Outpatient (CLI) | payer MEDICARE, OTHER, SELFPAY ==
[2022-12-31 17:55] VITALS: BMI 20.2
== END ==
LOC: WC 11:45
PROVIDERS: PCP Family Medicine; Referring Provider Physician Assistant Medical; Visit Provider Surgery
DX: L89.613 Pressure ulcer of right heel, stage 3 (principal); L84 Corns and callosities; L97.422 Non-pressure chronic ulcer of left heel and midfoot with fat layer exposed; L95.9 Vasculitis limited to the skin, unspecified; G62.9 Polyneuropathy, unspecified; L53.9 Erythematous condition, unspecified; D46.9 Myelodysplastic syndrome, unspecified; R23.4 Changes in skin texture
CPT/HCPCS: 15275; 97597; 99213; Q4159

== ENCOUNTER → 2023-10-07 10:42 | Outpatient (CLI) | payer MEDICARE, OTHER, SELFPAY ==
[2022-12-31 17:55] VITALS: BMI 20.2
== END ==
LOC: WC 10:44
PROVIDERS: PCP Family Medicine; Referring Provider Physician Assistant Medical; Visit Provider Surgery
DX: L89.613 Pressure ulcer of right heel, stage 3 (principal); L84 Corns and callosities; L97.522 Non-pressure chronic ulcer of other part of left foot with fat layer exposed; L53.9 Erythematous condition, unspecified; L95.9 Vasculitis limited to the skin, unspecified; D46.9 Myelodysplastic syndrome, unspecified; G62.9 Polyneuropathy, unspecified; R26.89 Other abnormalities of gait and mobility
CPT/HCPCS: 11042; 15275; 99213; Q4159

== ENCOUNTER → 2023-10-14 10:43 | Outpatient (CLI) | payer MEDICARE, OTHER, SELFPAY ==
[2022-12-31 17:55] VITALS: BMI 20.2
== END ==
LOC: WC 10:44
PROVIDERS: PCP Family Medicine; Referring Provider Physician Assistant Medical; Visit Provider Surgery
DX: L89.613 Pressure ulcer of right heel, stage 3 (principal); L84 Corns and callosities; L97.522 Non-pressure chronic ulcer of other part of left foot with fat layer exposed; L95.9 Vasculitis limited to the skin, unspecified; L53.9 Erythematous condition, unspecified; G62.9 Polyneuropathy, unspecified; D46.9 Myelodysplastic syndrome, unspecified; R23.4 Changes in skin texture
CPT/HCPCS: 11042; 15275; 87070; 87077; 87186; 87205; 99213; Q4159

== ENCOUNTER → 2023-10-21 11:15 | Outpatient (CLI) | payer MEDICARE, OTHER, SELFPAY ==
[2022-12-31 17:55] VITALS: BMI 20.2
== END ==
LOC: WC 11:16
PROVIDERS: PCP Family Medicine; Referring Provider Physician Assistant Medical; Visit Provider Surgery
DX: L89.613 Pressure ulcer of right heel, stage 3 (principal); L97.522 Non-pressure chronic ulcer of other part of left foot with fat layer exposed; L95.9 Vasculitis limited to the skin, unspecified; L84 Corns and callosities; L53.9 Erythematous condition, unspecified; D46.9 Myelodysplastic syndrome, unspecified; G62.9 Polyneuropathy, unspecified; Z79.52 Long term (current) use of systemic steroids; Z79.2 Long term (current) use of antibiotics
CPT/HCPCS: 11042; 15275; Q4159

== ENCOUNTER → 2023-10-28 13:50 | Outpatient (CLI) | payer MEDICARE, OTHER, SELFPAY ==
[2022-12-31 17:55] VITALS: BMI 20.2
--- NOTE | 2023-10-28 13:51 | DI.RAD.S_ITS ---
PROCEDURE: XR FOOT LT MIN 3V INDICATIONS: Ulcer of left lateral foot TECHNIQUE: 3 views of the foot were acquired. COMPARISON: [facility], CR, XR FOOT LT MIN 3V, 10/24/2022, 10:02. FINDINGS: Bones: No fractures or dislocations. No osseous erosion identified. No suspicious bony lesions. Soft tissues: Skin ulcer adjacent to the 5th metatarsal base. No tibiotalar joint effusion. Achilles tendon appears normal. IMPRESSION: No osseous erosion or focal sclerosis demonstrated. Skin ulcer adjacent to the 5th metatarsal base. If high suspicion for osteomyelitis consider MRI for further evaluation. Dictated by: Ayden Sharpe M.D. on 10/28/2023 at 15:03 Approved by: Ayden Sharpe M.D. on 10/28/2023 at 15:06
== END ==
PROVIDERS: PCP Family Medicine; Referring Provider Surgery; Visit Provider Surgery
DX: L97.422 Non-pressure chronic ulcer of left heel and midfoot with fat layer exposed (principal)
CPT/HCPCS: 73630

== ENCOUNTER → 2023-10-28 14:14 | Outpatient (CLI) | payer MEDICARE, OTHER, SELFPAY ==
[2022-12-31 17:55] VITALS: BMI 20.2
== END ==
PROVIDERS: PCP Family Medicine; Referring Provider Physician Assistant Medical; Visit Provider Surgery
DX: L97.522 Non-pressure chronic ulcer of other part of left foot with fat layer exposed (principal); L95.9 Vasculitis limited to the skin, unspecified; L53.9 Erythematous condition, unspecified; D46.9 Myelodysplastic syndrome, unspecified; G62.9 Polyneuropathy, unspecified; Z79.52 Long term (current) use of systemic steroids
CPT/HCPCS: 11042

== ENCOUNTER → 2023-11-04 13:08 | Outpatient (CLI) | payer MEDICARE, OTHER, SELFPAY ==
[2022-12-31 17:55] VITALS: BMI 20.2
== END ==
LOC: WC 13:10
PROVIDERS: PCP Family Medicine; Referring Provider Physician Assistant Medical; Visit Provider Surgery
DX: L97.522 Non-pressure chronic ulcer of other part of left foot with fat layer exposed (principal); L95.9 Vasculitis limited to the skin, unspecified; L53.9 Erythematous condition, unspecified; D46.9 Myelodysplastic syndrome, unspecified; G62.9 Polyneuropathy, unspecified; D64.9 Anemia, unspecified
CPT/HCPCS: 11042; 99213

== ENCOUNTER → 2023-11-11 10:50 | Outpatient (CLI) | payer MEDICARE, OTHER, SELFPAY ==
[2022-12-31 17:55] VITALS: BMI 20.2
== END ==
PROVIDERS: PCP Family Medicine; Referring Provider Physician Assistant Medical; Visit Provider Surgery
DX: L97.522 Non-pressure chronic ulcer of other part of left foot with fat layer exposed (principal); L95.9 Vasculitis limited to the skin, unspecified; L53.9 Erythematous condition, unspecified; D46.9 Myelodysplastic syndrome, unspecified; G62.9 Polyneuropathy, unspecified
CPT/HCPCS: 11042

== ENCOUNTER → 2023-11-18 09:10 | Outpatient (CLI) | payer MEDICARE, OTHER, SELFPAY ==
[2022-12-31 17:55] VITALS: BMI 20.2
== END ==
PROVIDERS: PCP Family Medicine; Referring Provider Physician Assistant Medical; Visit Provider Surgery
DX: L97.522 Non-pressure chronic ulcer of other part of left foot with fat layer exposed (principal); L95.9 Vasculitis limited to the skin, unspecified; L53.9 Erythematous condition, unspecified; D46.9 Myelodysplastic syndrome, unspecified; G62.9 Polyneuropathy, unspecified
CPT/HCPCS: 11042

== ENCOUNTER → 2023-11-25 10:48 | Outpatient (CLI) | payer MEDICARE, OTHER, SELFPAY ==
[2022-12-31 17:55] VITALS: BMI 20.2
== END ==
LOC: WC 10:49
PROVIDERS: PCP Family Medicine; Referring Provider Physician Assistant Medical; Visit Provider Surgery
DX: L97.522 Non-pressure chronic ulcer of other part of left foot with fat layer exposed (principal); L95.9 Vasculitis limited to the skin, unspecified; G62.9 Polyneuropathy, unspecified; D46.9 Myelodysplastic syndrome, unspecified; L53.9 Erythematous condition, unspecified
CPT/HCPCS: 11042

== ENCOUNTER → 2023-12-02 11:11 | Outpatient (CLI) | payer MEDICARE, OTHER, SELFPAY ==
[2022-12-31 17:55] VITALS: BMI 20.2
== END ==
PROVIDERS: PCP Family Medicine; Referring Provider Physician Assistant Medical; Visit Provider Physician Assistant
DX: L97.522 Non-pressure chronic ulcer of other part of left foot with fat layer exposed (principal); L95.9 Vasculitis limited to the skin, unspecified; R26.9 Unspecified abnormalities of gait and mobility; D64.9 Anemia, unspecified; G62.9 Polyneuropathy, unspecified
CPT/HCPCS: 11042; 99213

== ENCOUNTER → 2023-12-07 09:12 | Outpatient (CLI) | payer MEDICARE, OTHER, SELFPAY ==
[2022-12-31 17:55] VITALS: BMI 20.2
== END ==
LOC: WC 09:14
PROVIDERS: PCP Family Medicine; Referring Provider Physician Assistant Medical; Visit Provider Surgery
DX: L97.522 Non-pressure chronic ulcer of other part of left foot with fat layer exposed (principal); L53.9 Erythematous condition, unspecified; G62.9 Polyneuropathy, unspecified; L95.9 Vasculitis limited to the skin, unspecified; D46.9 Myelodysplastic syndrome, unspecified
CPT/HCPCS: 11042

== ENCOUNTER → 2023-12-23 08:47 | Outpatient (CLI) | payer MEDICARE, OTHER, SELFPAY ==
[2022-12-31 17:55] VITALS: BMI 20.2
== END ==
LOC: WC 08:49
PROVIDERS: PCP Family Medicine; Referring Provider Physician Assistant Medical; Visit Provider Surgery
DX: L95.9 Vasculitis limited to the skin, unspecified (principal); D46.9 Myelodysplastic syndrome, unspecified; G62.9 Polyneuropathy, unspecified
CPT/HCPCS: 97597

== ENCOUNTER → 2023-12-30 10:54 | Outpatient (CLI) | payer MEDICARE, OTHER, SELFPAY ==
[2022-12-31 17:55] VITALS: BMI 20.2
== END ==
PROVIDERS: PCP Family Medicine; Referring Provider Physician Assistant Medical; Visit Provider Surgery
DX: L97.522 Non-pressure chronic ulcer of other part of left foot with fat layer exposed (principal); R23.4 Changes in skin texture; G62.9 Polyneuropathy, unspecified; D46.9 Myelodysplastic syndrome, unspecified; D64.9 Anemia, unspecified; L95.9 Vasculitis limited to the skin, unspecified
CPT/HCPCS: 99213

== ENCOUNTER → 2024-01-06 13:07 | Outpatient (CLI) | payer MEDICARE, OTHER, SELFPAY ==
[2022-12-31 17:55] VITALS: BMI 20.2
== END ==
PROVIDERS: PCP Family Medicine; Referring Provider Physician Assistant Medical; Visit Provider Surgery
DX: Z09 Encounter for follow-up examination after completed treatment for conditions other than malignant neoplasm (principal); Z87.2 Personal history of diseases of the skin and subcutaneous tissue; L97.422 Non-pressure chronic ulcer of left heel and midfoot with fat layer exposed; L95.9 Vasculitis limited to the skin, unspecified; D46.9 Myelodysplastic syndrome, unspecified
CPT/HCPCS: 99212; 99213

== ENCOUNTER → 2024-02-10 15:31 | Outpatient (CLI) | payer MEDICARE, OTHER, SELFPAY ==
[2022-12-31 17:55] VITALS: BMI 20.2
[2024-02-10 20:33] LABS: Prostate Specific Antigen 0.293 ng/mL (0.10-4.00)
== END ==
PROVIDERS: PCP Family Medicine; Referring Provider Specialist; Visit Provider Specialist
DX: N40.1 Benign prostatic hyperplasia with lower urinary tract symptoms (principal); N13.8 Other obstructive and reflux uropathy
CPT/HCPCS: 36415; 84153

== ENCOUNTER → 2024-02-17 11:07 | Outpatient (CLI) | payer MEDICARE, OTHER, SELFPAY ==
[2022-12-31 17:55] VITALS: BMI 20.2
== END ==
PROVIDERS: PCP Family Medicine; Visit Provider Urology
DX: N40.1 Benign prostatic hyperplasia with lower urinary tract symptoms (principal); N13.8 Other obstructive and reflux uropathy; N39.0 Urinary tract infection, site not specified; Z87.440 Personal history of urinary (tract) infections
CPT/HCPCS: 87086

== ENCOUNTER → 2024-06-29 12:05 | Outpatient (CLI) | payer MEDICARE, OTHER, SELFPAY ==
[2022-12-31 17:55] VITALS: BMI 20.2
== END ==
PROVIDERS: PCP Family Medicine; Referring Provider Family Medicine; Visit Provider Surgery
DX: L97.512 Non-pressure chronic ulcer of other part of right foot with fat layer exposed (principal); L97.522 Non-pressure chronic ulcer of other part of left foot with fat layer exposed; L98.8 Other specified disorders of the skin and subcutaneous tissue; G62.9 Polyneuropathy, unspecified; L84 Corns and callosities; L53.9 Erythematous condition, unspecified; R60.0 Localized edema; D46.9 Myelodysplastic syndrome, unspecified
CPT/HCPCS: 11042; 87070; 87075; 87205; 99214

== ENCOUNTER → 2024-07-06 11:10 | Outpatient (CLI) | payer MEDICARE, OTHER, SELFPAY ==
[2022-12-31 17:55] VITALS: BMI 20.2
== END ==
PROVIDERS: PCP Family Medicine; Referring Provider Family Medicine; Visit Provider Surgery
DX: L97.512 Non-pressure chronic ulcer of other part of right foot with fat layer exposed (principal); L97.522 Non-pressure chronic ulcer of other part of left foot with fat layer exposed; G62.9 Polyneuropathy, unspecified; L53.9 Erythematous condition, unspecified; R60.0 Localized edema; D46.9 Myelodysplastic syndrome, unspecified
CPT/HCPCS: 11042

== ENCOUNTER → 2024-07-13 11:41 | Outpatient (CLI) | payer MEDICARE, OTHER, SELFPAY ==
[2022-12-31 17:55] VITALS: BMI 20.2
== END ==
PROVIDERS: PCP Family Medicine; Referring Provider Family Medicine; Visit Provider Surgery
DX: G60.3 Idiopathic progressive neuropathy (principal); L97.512 Non-pressure chronic ulcer of other part of right foot with fat layer exposed; L97.522 Non-pressure chronic ulcer of other part of left foot with fat layer exposed; L53.8 Other specified erythematous conditions; R60.0 Localized edema
CPT/HCPCS: 11042

== ENCOUNTER → 2024-07-13 12:02 | Outpatient (CLI) | payer MEDICARE, OTHER, SELFPAY ==
[2022-12-31 17:55] VITALS: BMI 20.2
--- NOTE | 2024-07-13 12:05 | DI.RAD.S_ITS ---
PROCEDURE: XR FOOT RT MIN 3V INDICATIONS: eval for osteo TECHNIQUE: 3 views of the foot were acquired. COMPARISON: [facility], CR, XR CALCANEOUS RT MIN 2V, 07/06/2023, 10:29. [facility], CR, XR FOOT LT MIN 3V, 10/28/2023, 14:04. [facility], CR, XR FOOT LT MIN 3V, 10/24/2022, 10:02. FINDINGS: Bones: Mild midfoot and moderate 1st MTP degenerative changes. Lucency is seen at the 5th metatarsal head more focally. Ill-defined sclerosis also seen at the plantar aspect of the 5th metatarsal. Soft tissues: Soft tissue swelling is present. IMPRESSION: Lucency at the 5th metatarsal head more focally, indeterminate for osteomyelitis versus reactive hyperemia. Consider MRI to further evaluate if necessary. Background degenerative changes. Dictated by: Davin Harkins M.D. on 07/13/2024 at 16:08 Approved by: Davin Harkins M.D. on 07/13/2024 at 16:11
--- NOTE | 2024-07-13 12:05 | DI.RAD.S_ITS ---
PROCEDURE: XR FOOT LT MIN 3V INDICATIONS: eval for osteo TECHNIQUE: 3 views of the foot were acquired. COMPARISON: [facility], CR, XR FOOT LT MIN 3V, 10/28/2023, 14:04. [facility], CR, XR FOOT LT MIN 3V, 10/24/2022, 10:02. FINDINGS: Bones: No cortical erosions, however there is ill-defined osteopenia along the 5th ray starting from the distal metatarsal. Mild midfoot and [id number] 1st MTP arthrosis. No acute displaced fracture Soft tissues: Soft tissue swelling is suspected. IMPRESSION: Ill-defined osteopenia along the 5th ray from the distal metatarsal, this may represent reactive hyperemia versus early osteomyelitis. An MRI is more sensitive if clinically necessary. Dictated by: Davin Harkins M.D. on 07/13/2024 at 16:06 Approved by: Davin Harkins M.D. on 07/13/2024 at 16:08
== END ==
PROVIDERS: PCP Family Medicine; Referring Provider Family Medicine; Visit Provider Family Medicine
DX: L97.522 Non-pressure chronic ulcer of other part of left foot with fat layer exposed (principal); L97.512 Non-pressure chronic ulcer of other part of right foot with fat layer exposed; M85.872 Other specified disorders of bone density and structure, left ankle and foot; M19.072 Primary osteoarthritis, left ankle and foot; G60.3 Idiopathic progressive neuropathy; L53.8 Other specified erythematous conditions; R60.0 Localized edema
CPT/HCPCS: 11042; 73630

== ENCOUNTER → 2024-07-20 11:13 | Outpatient (CLI) | payer MEDICARE, SELFPAY ==
[2022-12-31 17:55] VITALS: BMI 20.2
== END ==
LOC: WC 11:14
PROVIDERS: PCP Family Medicine; Referring Provider Family Medicine; Visit Provider Surgery
DX: G60.3 Idiopathic progressive neuropathy (principal); L97.512 Non-pressure chronic ulcer of other part of right foot with fat layer exposed; L97.522 Non-pressure chronic ulcer of other part of left foot with fat layer exposed; D46.9 Myelodysplastic syndrome, unspecified; R60.0 Localized edema; L53.8 Other specified erythematous conditions
CPT/HCPCS: 11042

== ENCOUNTER → 2024-07-27 14:02 | Outpatient (CLI) | payer MEDICARE, OTHER, SELFPAY ==
[2022-12-31 17:55] VITALS: BMI 20.2
== END ==
PROVIDERS: PCP Family Medicine; Referring Provider Family Medicine; Visit Provider Surgery
DX: G90.09 Other idiopathic peripheral autonomic neuropathy (principal); L97.512 Non-pressure chronic ulcer of other part of right foot with fat layer exposed; L97.522 Non-pressure chronic ulcer of other part of left foot with fat layer exposed; D46.9 Myelodysplastic syndrome, unspecified; R60.0 Localized edema
CPT/HCPCS: 11042; 99213

== ENCOUNTER → 2024-08-03 12:18 | Outpatient (CLI) | payer MEDICARE, OTHER, SELFPAY ==
[2022-12-31 17:55] VITALS: BMI 20.2
== END ==
PROVIDERS: PCP Family Medicine; Visit Provider Urology
DX: N40.1 Benign prostatic hyperplasia with lower urinary tract symptoms (principal); N13.8 Other obstructive and reflux uropathy; N52.9 Male erectile dysfunction, unspecified; N32.81 Overactive bladder; Z87.440 Personal history of urinary (tract) infections; L97.522 Non-pressure chronic ulcer of other part of left foot with fat layer exposed; L97.518 Non-pressure chronic ulcer of other part of right foot with other specified severity; G62.9 Polyneuropathy, unspecified; L53.9 Erythematous condition, unspecified; L95.9 Vasculitis limited to the skin, unspecified; R60.0 Localized edema; D46.9 Myelodysplastic syndrome, unspecified; Z79.2 Long term (current) use of antibiotics
CPT/HCPCS: 11042; 51798; 81002; 87070; 87075; 87077; 87086; 87186; 87205; 99212; 99214

== ENCOUNTER → 2024-08-03 13:54 | Outpatient (CLI) | payer MEDICARE, OTHER, SELFPAY ==
[2022-12-31 17:55] VITALS: BMI 20.2
== END ==
PROVIDERS: PCP Family Medicine; Referring Provider Family Medicine; Visit Provider Surgery
DX: L97.522 Non-pressure chronic ulcer of other part of left foot with fat layer exposed (principal); L97.518 Non-pressure chronic ulcer of other part of right foot with other specified severity; G62.9 Polyneuropathy, unspecified; L53.9 Erythematous condition, unspecified; L95.9 Vasculitis limited to the skin, unspecified; R60.0 Localized edema; D46.9 Myelodysplastic syndrome, unspecified; Z79.2 Long term (current) use of antibiotics
CPT/HCPCS: 11042; 87070; 87075; 87086; 87205; 99212; 99213

== ENCOUNTER → 2024-08-10 11:09 | Outpatient (CLI) | payer MEDICARE, OTHER, SELFPAY ==
[2022-12-31 17:55] VITALS: BMI 20.2
== END ==
PROVIDERS: PCP Family Medicine; Referring Provider Family Medicine; Visit Provider Surgery
DX: L97.512 Non-pressure chronic ulcer of other part of right foot with fat layer exposed (principal); L97.522 Non-pressure chronic ulcer of other part of left foot with fat layer exposed; L97.518 Non-pressure chronic ulcer of other part of right foot with other specified severity; G62.9 Polyneuropathy, unspecified; L95.9 Vasculitis limited to the skin, unspecified; L53.9 Erythematous condition, unspecified; R60.0 Localized edema; D46.9 Myelodysplastic syndrome, unspecified
CPT/HCPCS: 11042; 15275; Q4160

== ENCOUNTER → 2024-08-17 11:15 | Outpatient (CLI) | payer MEDICARE, OTHER, SELFPAY ==
[2022-12-31 17:55] VITALS: BMI 20.2
== END ==
LOC: WC 11:25
PROVIDERS: PCP Family Medicine; Referring Provider Family Medicine; Visit Provider Surgery
DX: G60.3 Idiopathic progressive neuropathy (principal); L97.522 Non-pressure chronic ulcer of other part of left foot with fat layer exposed; L97.512 Non-pressure chronic ulcer of other part of right foot with fat layer exposed; L95.8 Other vasculitis limited to the skin; L08.9 Local infection of the skin and subcutaneous tissue, unspecified
CPT/HCPCS: 11042; 15275; Q4186

== ENCOUNTER → 2024-08-24 11:20 | Outpatient (CLI) | payer MEDICARE, OTHER, SELFPAY ==
[2022-12-31 17:55] VITALS: BMI 20.2
== END ==
PROVIDERS: PCP Family Medicine; Referring Provider Family Medicine; Visit Provider Surgery
DX: G90.09 Other idiopathic peripheral autonomic neuropathy (principal); L97.512 Non-pressure chronic ulcer of other part of right foot with fat layer exposed; L97.522 Non-pressure chronic ulcer of other part of left foot with fat layer exposed; D46.9 Myelodysplastic syndrome, unspecified; R60.0 Localized edema
CPT/HCPCS: 11042; 99213

== ENCOUNTER → 2024-08-31 10:46 | Outpatient (CLI) | payer MEDICARE, OTHER, SELFPAY ==
[2022-12-31 17:55] VITALS: BMI 20.2
--- NOTE | 2024-08-31 | OV.WND_ITS ---
PROGRESS NOTE DETAILS PATIENT NAME: GLADIS MELTON PATIENT NUMBER: [id number] CLINICIAN: DONAVAN HERNANDEZ RN PATIENT DATE OF : 1940 PHYSICIAN / HOUSE ADMIN: EFRAIN MCFARLANE PATIENT SUBJECTIVE CHIEF COMPLAINT THIS INFORMATION WAS OBTAINED FROM THE PATIENT. ULCERS. GENERAL NOTES NEUROPATHIC ULCERS BI-LAT. ALLERGIES BACTRIM (SEVERITY: MODERATE, REACTION: HIVES), DOXYCYCLINE (REACTION: EPIGASTRIC PAIN) HPI THIS INFORMATION WAS OBTAINED FROM THE PATIENT. THE FOLLOWING HPI ELEMENTS WERE DOCUMENTED FOR THE PATIENT'S WOUND: LOCATION: L 2ND TOE, L GREAT TOE, R GREAT TOE, R 2ND TOE DURATION: 05/29/24, 06/15/24, 06/22/24 CONTEXT: NEUROPATHIC/VASCULITIC THE PATIENT IS AN 83-YEAR-OLD MALE WITH MYELODYSPLASTIC SYNDROME AND PERIPHERAL NEUROPATHY WHO RETURNS TODAY FOR FOLLOW UP OF ULCERS ON THE LEFT 2ND TOE, LEFT GREAT TOE, AND RIGHT GREAT TOE. THE PATIENT IS RECEIVING DRESSING CHANGES WITH THE HYDROFERA BLUE AND COLLAGEN TO ALL OF THE ULCERS WITH FELT SURROUND PAD FOR PRESSURE OFFLOADING. HE IS CLEANSING THE WOUND WITH VASHE WITH EACH DRESSING CHANGE. THE PATIENT FINISHED A COURSE OF DOXYCYCLINE 1 WEEK AGO. HE REPORTS VERY LITTLE DRAINAGE AND HE HAS NOT HAD ANY REDNESS OR SWELLING. THE PATIENT DENIES HAVING ANY FEVER OR CHILLS. HE REPORTS A GOOD APPETITE AND IS TAKING PROTEIN SUPPLEMENTS. THE PATIENT WAS LAST SEEN [facility], 2024 AT WHICH TIME HIS NEUROPATHIC ULCERS WERE NOTED TO BE HEALED. PREDNISONE HAS BEEN TAPER DOWN TO 30 MG A DAY. ABIS WERE 1.26 ON THE LEFT AND 1.23 ON THE RIGHT. ACCORDING TO THE PATIENT HIS PLATELET COUNT HAS BEEN AROUND 50,000. ON EXAM TODAY THE ULCER ON THE DORSUM OF THE RIGHT 2ND TOE IS SLIGHTLY LARGER AND ALL OF THE OTHER ULCERS ARE MUCH IMPROVED. LABS: 08/03/24: CULTURE GREW LIGHT GROWTH MIXED SKIN EMMANUEL 07/13/24: X-RAY RIGHT FOOT: LUCENCY AT THE 5TH METATARSAL HEAD MORE FOCALLY, INDETERMINATE FOR OSTEOMYELITIS VERSUS REACTIVE HYPEREMIA. 07/13/24: X-RAY LEFT FOOT: ILL-DEFINED OSTEOPENIA ALONG THE 5TH RAY FROM THE DISTAL METATARSAL, THIS MAY REPRESENT REACTIVE HYPEREMIA VERSUS EARLY OSTEOMYELITIS 06/29/24: CULTURE NEGATIVE MEDICAL HISTORY THIS INFORMATION WAS OBTAINED FROM THE PATIENT. GLADIS MELTON [id number] 1940 PATIENT HAS A MEDICAL HISTORY OF: NEUROPATHY (PERIPHERAL) MEOLODYSPLASTIC SYNDROME SPINAL STENOSIS VASCULITIS (LEFT TOES) HARD OF HEARING SKIN CANCERS SLEEP APNEA OSTEOPOROSIS KIDNEY STONE - 03/22/2023 BLADDER STONE - 04/22/2022 ARTHRITIS (BACK) ADDITIONAL INFORMATION DOES PATIENT HAVE A HISTORY OF CANCER? YES? COMPLETE ALL QUESTIONS.: YES LOCATION OF CANCER: SKIN SURGICAL HISTORY THIS INFORMATION WAS OBTAINED FROM THE PATIENT. PATIENT HAS A SURGICAL HISTORY OF: LAMINECTOMY- CHOLECYSTECTOMY- CATARACT SURGERY- (BOTH EYES) TONSILLECTOMY- SINUS SURGERY- SKIN CANCER REMOVALS- ORCHIDECTOMY LEFT PARTIAL- CYSTECTOMY - BONE MARROW BIOPSY- 03/22/2022 (DONE IN A HOSPITAL IN [place] FOR MYELODYSPLASTIC SYNDROME) BACK SURGERY- 12/20/2022 BLADDER STONE REMOVAL- 07/03/2023 LEFT CHEEK SKIN CANCER BIOPSY- 06/22/2024 OBJECTIVE VITALS HEIGHT/LENGTH: 67 IN (170.18 CM), WEIGHT: 156.2 LBS (71 KGS), BMI: 24.5, TEMPERATURE: 99 ?F (37.22 ?C), PULSE: 78 BPM, RESPIRATORY RATE: 18 BREATHS/MIN, BLOOD PRESSURE: 139/74 MMHG, PULSE OXIMETRY: 94 %. PHYSICAL EXAM CONSTITUTIONAL: VITAL SIGNS REVIEWED AND NOTED. WELL DEVELOPED, WELL NOURISHED, AND IN NO ACUTE DISTRESS. ALERT AND ORIENTED X3. RESPIRATORY: EVEN RESPIRATIONS WITHOUT USE OF ACCESSORY MUSCLES. NO INTERCOASTAL RETRACTIONS NOTED. EVEN AND NON LABORED RESPIRATION. INTEGUMENTARY (HAIR, SKIN): NO ERYTHEMA. NO SWELLING OR TENDERNESS. SEE WOUND ASSESSMENT. SKIN WARM AND DRY. NO RASHES. NEUROLOGICAL: GLADIS MELTON [id number] 1940 DECREASED LOWER EXTREMITY SENSATION. PSYCHIATRIC: ORIENTATION TO TIME, PLACE AND PERSON: NORMAL AFFECT WITH NORMAL THOUGHT PATTERN. ADDITIONAL INFORMATION THE PATIENT'S POTENTIAL TO HEAL IS: FAIR. WOUND ASSESSMENT(S) WOUND #31 LEFT TOE - SECOND IS A CHRONIC FULL THICKNESS NEUROPATHIC ULCER ACQUIRED ON 05/29/2024 AND HAS RECEIVED A STATUS OF NOT HEALED. INITIAL WOUND ENCOUNTER MEASUREMENTS ARE 0.7CM LENGTH X 0.3CM WIDTH X 0.1 CM DEPTH, WITH AN AREA OF 0.21 SQ CM AND A VOLUME OF 0.021 CUBIC CM.INITIAL WOUND ENCOUNTER PREVIOUS MEASUREMENTS FROM 08/24/2024 ARE 0.5CM LENGTH X 0.3CM WIDTH X 0.1CM DEPTH, WITH AN AREA OF 0.15 SQ CM AND A VOLUME OF 0.015 CUBIC CM. ADIPOSE IS EXPOSED. NO TUNNELING HAS BEEN NOTED. NO SINUS TRACT HAS BEEN NOTED. NO UNDERMINING HAS BEEN NOTED. THERE IS A SMALL AMOUNT OF SEROSANGUINEOUS DRAINAGE NOTED WHICH HAS NO ODOR. THE PATIENT REPORTS A WOUND PAIN OF LEVEL 0/10. THE WOUND MARGIN IS UNATTACHED WOUND BED HAS YES, BRIGHT RED, PINK, FIRM, GRANULATION, YES SLOUGH, NO ESCHAR, YES EPITHELIALIZATION. THE PERIWOUND SKIN EXHIBITED EDEMA. THE PERIWOUND SKIN DID NOT EXHIBIT BRAWNY INDURATION, EXCORIATION, INDURATION, CALLUS, CREPITUS, FLUCTUANCE, RASH, MACERATION, ATROPHIE MARYJANE, CYANOSIS, ECCHYMOSIS, ERYTHEMA, HEMOSIDEROSIS, PALLOR AND RUBOR. THE PERIWOUND SKIN WAS MOIST. THE PERIWOUND SKIN WAS NOT FRIABLE AND DRY/SCALY. THE TEMPERATURE OF THE PERIWOUND SKIN IS WNL. PERIWOUND SKIN DOES NOT EXHIBIT SIGNS OR SYMPTOMS OF INFECTION. LOCAL PULSE IS PALPABLE. ADDITIONAL INFORMATION LENIN/VASCULAR COMPLETED?: YES: 06/29/2024 RESULTS?: L: 1.26 WOUND #32 LEFT TOE - GREAT IS A CHRONIC FULL THICKNESS NEUROPATHIC ULCER ACQUIRED ON 06/15/2024 AND HAS RECEIVED A STATUS OF NOT HEALED. INITIAL WOUND ENCOUNTER MEASUREMENTS ARE 1.2CM LENGTH X 0.8CM WIDTH X 0.1 CM DEPTH, WITH AN AREA OF 0.96 SQ CM AND A VOLUME OF 0.096 CUBIC CM.INITIAL WOUND ENCOUNTER PREVIOUS MEASUREMENTS FROM 08/24/2024 ARE 1.1CM LENGTH X 0.9CM WIDTH X 0.1CM DEPTH, WITH AN AREA OF 0.99 SQ CM AND A VOLUME OF 0.099 CUBIC CM. ADIPOSE IS EXPOSED. NO TUNNELING HAS BEEN NOTED. NO SINUS TRACT HAS BEEN NOTED. NO UNDERMINING HAS BEEN NOTED. THERE IS A SMALL AMOUNT OF SEROSANGUINEOUS DRAINAGE NOTED WHICH HAS NO ODOR. THE PATIENT REPORTS A WOUND PAIN OF LEVEL 0/10. THE WOUND MARGIN IS UNATTACHED WOUND BED HAS YES, BRIGHT RED, PINK, FIRM, GRANULATION, YES SLOUGH, NO ESCHAR, YES EPITHELIALIZATION. THE PERIWOUND SKIN EXHIBITED EDEMA. THE PERIWOUND SKIN DID NOT EXHIBIT BRAWNY INDURATION, EXCORIATION, INDURATION, CALLUS, CREPITUS, FLUCTUANCE, RASH, MACERATION, ATROPHIE MARYJANE, CYANOSIS, ECCHYMOSIS, ERYTHEMA, HEMOSIDEROSIS, PALLOR AND RUBOR. THE PERIWOUND SKIN WAS NOT FRIABLE, DRY/SCALY AND MOIST. THE TEMPERATURE OF THE PERIWOUND SKIN IS WNL. PERIWOUND SKIN DOES NOT EXHIBIT SIGNS OR SYMPTOMS OF INFECTION. LOCAL PULSE IS PALPABLE. ADDITIONAL INFORMATION LENIN/VASCULAR COMPLETED?: YES: 06/29/24 RESULTS?: L: 1.26 WOUND #33 RIGHT TOE - GREAT IS A CHRONIC FULL THICKNESS NEUROPATHIC ULCER ACQUIRED ON 06/22/2024 AND HAS RECEIVED A STATUS OF NOT HEALED. INITIAL WOUND ENCOUNTER MEASUREMENTS ARE 0.5CM LENGTH X 0.5CM WIDTH X 0.1 CM DEPTH, WITH AN AREA OF 0.25 SQ CM AND A VOLUME OF 0.025 CUBIC CM.INITIAL WOUND ENCOUNTER PREVIOUS MEASUREMENTS FROM 08/24/2024 ARE 0.6CM LENGTH X 0.5CM WIDTH X 0.2CM DEPTH, WITH AN AREA OF 0.3 SQ CM AND A VOLUME OF 0.06 CUBIC CM. ADIPOSE IS EXPOSED. NO TUNNELING HAS BEEN NOTED. NO SINUS TRACT HAS BEEN NOTED. NO UNDERMINING HAS BEEN NOTED. THERE IS A SMALL AMOUNT OF SEROSANGUINEOUS DRAINAGE NOTED WHICH HAS NO ODOR. THE PATIENT REPORTS A WOUND PAIN OF LEVEL 0/10. THE WOUND MARGIN IS UNATTACHED WOUND BED HAS YES, PINK, FIRM, GRANULATION, YES SLOUGH, NO ESCHAR, NO EPITHELIALIZATION. THE PERIWOUND SKIN EXHIBITED EDEMA. THE PERIWOUND SKIN DID NOT EXHIBIT BRAWNY INDURATION, EXCORIATION, INDURATION, CALLUS, CREPITUS, FLUCTUANCE, RASH, MACERATION, ATROPHIE MARYJANE, CYANOSIS, ECCHYMOSIS, ERYTHEMA, HEMOSIDEROSIS, PALLOR AND RUBOR. THE PERIWOUND SKIN WAS NOT FRIABLE, DRY/SCALY AND MOIST. THE TEMPERATURE OF THE PERIWOUND SKIN IS WNL. PERIWOUND SKIN DOES NOT EXHIBIT SIGNS OR LINHGLADIS [id number] 1940 SYMPTOMS OF INFECTION. LOCAL PULSE IS PALPABLE. ADDITIONAL INFORMATION LENIN/VASCULAR COMPLETED?: YES: 06/29/24 RESULTS?: R: 1.23 WOUND #34 RIGHT TOE - SECOND IS A CHRONIC FULL THICKNESS NEUROPATHIC ULCER ACQUIRED ON 07/06/2024 AND HAS RECEIVED A STATUS OF NOT HEALED. INITIAL WOUND ENCOUNTER MEASUREMENTS ARE 1.8CM LENGTH X 0.7CM WIDTH X 0.2 CM DEPTH, WITH AN AREA OF 1.26 SQ CM AND A VOLUME OF 0.252 CUBIC CM.INITIAL WOUND ENCOUNTER PREVIOUS MEASUREMENTS FROM 08/24/2024 ARE 1.6CM LENGTH X 0.5CM WIDTH X 0.2CM DEPTH, WITH AN AREA OF 0.8 SQ CM AND A VOLUME OF 0.16 CUBIC CM. ADIPOSE IS EXPOSED. NO TUNNELING HAS BEEN NOTED. NO SINUS TRACT HAS BEEN NOTED. NO UNDERMINING HAS BEEN NOTED. THERE IS A SMALL AMOUNT OF SEROUS DRAINAGE NOTED WHICH HAS NO ODOR. THE PATIENT REPORTS A WOUND PAIN OF LEVEL 0/10. THE WOUND MARGIN IS ROLLED WOUND BED HAS YES, BRIGHT RED, FIRM, GRANULATION, YES SLOUGH, NO ESCHAR, NO EPITHELIALIZATION. THE PERIWOUND SKIN EXHIBITED EDEMA. THE PERIWOUND SKIN DID NOT EXHIBIT MACERATION AND ERYTHEMA. THE PERIWOUND SKIN WAS NOT MOIST. THE TEMPERATURE OF THE PERIWOUND SKIN IS WNL. LOCAL PULSE IS PALPABLE. ASSESSMENT ACTIVE PROBLEMS ICD-10 (ENCOUNTER DIAGNOSIS) L97.512 - NON-PRESSURE CHRONIC ULCER OF OTHER PART OF RIGHT FOOT WITH FAT LAYER EXPOSED (ENCOUNTER DIAGNOSIS) L97.522 - NON-PRESSURE CHRONIC ULCER OF OTHER PART OF LEFT FOOT WITH FAT LAYER EXPOSED (ENCOUNTER DIAGNOSIS) D46.9 - MYELODYSPLASTIC SYNDROME, UNSPECIFIED (ENCOUNTER DIAGNOSIS) G90.09 - OTHER IDIOPATHIC PERIPHERAL AUTONOMIC NEUROPATHY GENERAL NOTES ULCER RIGHT GREAT TOE IMPROVED ULCER LEFT GREAT TOE IMPROVED ULCER LEFT 2ND TOE IMPROVED ULCER RIGHT 2ND TOE MEASURES LARGER THE FOLLOWING FACTORS HAVE BEEN IDENTIFIED THAT MAY AFFECT WOUND HEALING: DEVITALIZED TISSUE BIOBURDEN MOISTURE BALANCE ONGOING LOCAL PRESSURE VASCULITIS NEUROPATHY IMMUNOSUPPRESSION INFECTION GOALS: REMOVE DEVITALIZED TISSUE REMOVE AND PREVENT BIOFILM IMPROVE MOISTURE BALANCE PRESSURE OFFLOADING MANAGE COMORBIDITIES WOUND CLOSURE TREAT INFECTION PLAN: DEBRIDEMENT, PLACEMENT OF AFFINITY TO RIGHT 2ND TOE, CONTINUE DRESSING CHANGES WITH HYDROFERA BLUE AND GLADIS EMLTON [id number] 1940 COLLAGEN TO ALL OF THE OTHER ULCERS WITH FELT SURROUND PAD FOR PRESSURE OFFLOADING. CLEANSE ULCERS WITH VASHE SOLOTION WITH EACH DRESSING CHANGE. CONTINUE PROTEIN SUPPLEMENTATION. FOLLOW UP IN 1 WEEK FOR A RECHECK. PROCEDURES WOUND #31 WOUND #31 (NEUROPATHIC ULCER) IS LOCATED ON THE LEFT TOE - SECOND. A SKIN/SUBCUTANEOUS TISSUE LEVEL SURGICAL DEBRIDEMENT WITH A TOTAL AREA DEBRIDED OF 0.21 SQ CM. WAS PERFORMED BY EFRAIN MCFARLANE MD. SUBCUTANEOUS WAS REMOVED ALONG WITH DEVITALIZED TISSUE: BIOFILM, FIBRIN AND SLOUGH. THE FOLLOWING INSTRUMENT(S) WERE USED: CURETTE. PAIN CONTROL WAS ACHIEVED USING EMLA LIDOCAINE/PRILOCAINE 2.5%/2.5%. A TIME OUT WAS CONDUCTED PRIOR TO THE START OF THE PROCEDURE. A MINIMAL AMOUNT OF BLEEDING WAS CONTROLLED WITH PRESSURE. THE PROCEDURE WAS TOLERATED WELL WITH A PAIN LEVEL OF 0 THROUGHOUT AND A PAIN LEVEL OF 0 FOLLOWING THE PROCEDURE. POST DEBRIDEMENT MEASUREMENTS: 0.7CM LENGTH X 0.3CM WIDTH X 0.2CM DEPTH; WITH AN AREA OF 0.21 SQ CM AND A VOLUME OF 0.042 CUBIC CM. ADDITIONAL INFORMATION MUSCLE FASCIA OR BONE REMOVED AND SENT TO PATHOLOGY?: NO WOUND #32 WOUND #32 (NEUROPATHIC ULCER) IS LOCATED ON THE LEFT TOE - GREAT. A SKIN/SUBCUTANEOUS TISSUE LEVEL SURGICAL DEBRIDEMENT WITH A TOTAL AREA DEBRIDED OF 1.04 SQ CM. WAS PERFORMED BY EFRAIN MCFARLANE MD. SUBCUTANEOUS WAS REMOVED ALONG WITH DEVITALIZED TISSUE: BIOFILM, FIBRIN AND SLOUGH. THE FOLLOWING INSTRUMENT(S) WERE USED: CURETTE. PAIN CONTROL WAS ACHIEVED USING EMLA LIDOCAINE/PRILOCAINE 2.5%/2.5%. A TIME OUT WAS CONDUCTED PRIOR TO THE START OF THE PROCEDURE. A MINIMAL AMOUNT OF BLEEDING WAS CONTROLLED WITH PRESSURE. THE PROCEDURE WAS TOLERATED WELL WITH A PAIN LEVEL OF 0 THROUGHOUT AND A PAIN LEVEL OF 0 FOLLOWING THE PROCEDURE. POST DEBRIDEMENT MEASUREMENTS: 1.3CM LENGTH X 0.8CM WIDTH X 0.2CM DEPTH; WITH AN AREA OF 1.04 SQ CM AND A VOLUME OF 0.208 CUBIC CM. ADDITIONAL INFORMATION MUSCLE FASCIA OR BONE REMOVED AND SENT TO PATHOLOGY?: NO WOUND #33 WOUND #33 (NEUROPATHIC ULCER) IS LOCATED ON THE RIGHT TOE - GREAT. A SKIN/SUBCUTANEOUS TISSUE LEVEL SURGICAL DEBRIDEMENT WITH A TOTAL AREA DEBRIDED OF 0.3 SQ CM. WAS PERFORMED BY EFRAIN MCFARLANE MD. SUBCUTANEOUS WAS REMOVED ALONG WITH DEVITALIZED TISSUE: BIOFILM. THE FOLLOWING INSTRUMENT(S) WERE USED: CURETTE. PAIN CONTROL WAS ACHIEVED USING EMLA LIDOCAINE/PRILOCAINE 2.5%/2.5%. A TIME OUT WAS CONDUCTED PRIOR TO THE START OF THE PROCEDURE. A MINIMAL AMOUNT OF BLEEDING WAS CONTROLLED WITH PRESSURE. THE PROCEDURE WAS TOLERATED WELL WITH A PAIN LEVEL OF 0 THROUGHOUT. POST DEBRIDEMENT MEASUREMENTS: 0.5CM LENGTH X 0.6CM WIDTH X 0.2CM DEPTH; WITH AN AREA OF 0.3 SQ CM AND A VOLUME OF 0.06 CUBIC CM. ADDITIONAL INFORMATION MUSCLE FASCIA OR BONE REMOVED AND SENT TO PATHOLOGY?: NO WOUND #34 WOUND #34 (NEUROPATHIC ULCER) IS LOCATED ON THE RIGHT TOE - SECOND. A SKIN/SUBCUTANEOUS TISSUE LEVEL SURGICAL DEBRIDEMENT WITH A TOTAL AREA DEBRIDED OF 1.26 SQ CM. WAS PERFORMED BY EFRAIN MCFARLANE MD. SUBCUTANEOUS WAS REMOVED ALONG WITH DEVITALIZED TISSUE: BIOFILM, FIBRIN AND SLOUGH. THE FOLLOWING INSTRUMENT(S) WERE USED: CURETTE. PAIN CONTROL WAS ACHIEVED USING EMLA LIDOCAINE/PRILOCAINE 2.5%/2.5%. A TIME OUT WAS CONDUCTED PRIOR TO THE START OF THE PROCEDURE. A MINIMAL AMOUNT OF BLEEDING WAS CONTROLLED WITH PRESSURE. THE PROCEDURE WAS TOLERATED WELL WITH A PAIN LEVEL OF 0 THROUGHOUT AND A PAIN LEVEL OF 0 FOLLOWING THE PROCEDURE. POST DEBRIDEMENT MEASUREMENTS: 1.8CM GLADIS MELTON [id number] 1940 LENGTH X 0.7CM WIDTH X 0.2CM DEPTH; WITH AN AREA OF 1.26 SQ CM AND A VOLUME OF 0.252 CUBIC CM. ADDITIONAL INFORMATION MUSCLE FASCIA OR BONE REMOVED AND SENT TO PATHOLOGY?: NO WOUND #34 (NEUROPATHIC ULCER) IS LOCATED ON THE RIGHT TOE - SECOND. A SKIN SUBSTITUTE PROCEDURE WAS PERFORMED USING AFFINITY 1.5 X 1.5 BY EFRAIN MCFARLANE MD WITH AN APPLICATION AREA OF 1.26 SQ CM. THE LOT # WAS [id number] AND THE ORDER # WAS [id number]. THE PRODUCT EXPIRATION DATE WAS 09/02/2024. THE PRODUCT WAS NOT FENESTRATED. 0.24 SQ CM OF PRODUCT WAS WASTED DUE TO WOUND SMALLER THAN PRODUCT. 1.5 SQ CM OF PRODUCT WAS UTILIZED AND WAS SECURED. POST APPLICATION, A DRESSING WAS APPLIED: ADAPTIC TOUCH, HYPAFIX STRIPS, FOAM, HYPAFIX . A TIME OUT WAS CONDUCTED PRIOR TO THE START OF THE PROCEDURE. THE PROCEDURE WAS TOLERATED WELL WITH A PAIN LEVEL OF 0 THROUGHOUT AND A PAIN LEVEL OF 0 FOLLOWING THE PROCEDURE. GENERAL NOTES NON-SMOKER ADDITIONAL INFORMATION NORMAL SALINE LOT NUMBER: [id number] NORMAL SALINE EXPIRATION DATE: 03/22/2026 POSITIVE RESPONSE VISIBLE FROM PREVIOUS APPLICATION?: YES APPLICATION NUMBER:: #3 IS [employer] SERIAL NUMBER AND EXPIRATION DATE RECORDED ON TISSUE LOG?: YES IS WOUND FREE OF INFECTION AND NECROSIS?: YES EXPOSED BONE?: NO DATE OF ONSET AND PREVIOUS THERAPIES DOCUMENTED?: YES DOCUMENTATION OF ULCER BEING PRESENT FOR 4 WEEKS OR MORE?: YES DOES WOUND MEASURE GREATER THAN 1.0 SQ. CM?: YES ARE THE MEASUREMENTS AT BASELINE, FOLLOWING CESSATION OF CONSERVATIVE [place] AND PRIOR TO APPLICATION OF PRODUCT DOCUMENTED?: YES IS LENIN GREATER THAN 0.60 DOCUMENTED?: YES IS THERE DOCUMENTATION OF CONCURRENT MEDICAL MANAGEMENT OF PATIENT'S UNDERLYING MEDICAL CONDITIONS?: YES PLAN WOUND ORDERS: WOUND #31 LEFT TOE - SECOND CLEANSER CLEANSE WOUND WITH NORMAL SALINE MAY SHOWER, LEAVE WOUND DRESSING INTACT. COVER WOUND DRESSING WITH A WATERPROOF BARRIER. KEEP DRESSING DRY. NO BATHS PLEASE. DRESSING ORDERS APPLY DRESSING(S) AND SECURE WITH: - COLLAGEN MOISTENED WITH VASHE. HYDROFERA BLUE FOAM. OPTIFOAM, TAPE. DRESSING CHANGE FREQUENCY CHANGE DRESSING 2 TIMES PER WEEK. CHANGE DRESSING IF IT BECOMES SOILED OR WET. WOUND #32 LEFT TOE - GREAT CLEANSER CLEANSE WOUND WITH NORMAL SALINE MAY SHOWER, LEAVE WOUND DRESSING INTACT. COVER WOUND DRESSING WITH A WATERPROOF BARRIER. KEEP DRESSING DRY. NO BATHS PLEASE. DRESSING ORDERS APPLY DRESSING(S) AND SECURE WITH: - COLLAGEN MOISTENED WITH VASHE. HYDROFERA BLUE FOAM. OPTIFOAM, TAPE. DRESSING CHANGE FREQUENCY GLADIS MELTON [id number] 1940 CHANGE DRESSING 2 TIMES PER WEEK. CHANGE DRESSING IF IT BECOMES SOILED OR WET. WOUND #33 RIGHT TOE - GREAT CLEANSER CLEANSE WOUND WITH NORMAL SALINE MAY SHOWER, LEAVE WOUND DRESSING INTACT. COVER WOUND DRESSING WITH A WATERPROOF BARRIER. KEEP DRESSING DRY. NO BATHS PLEASE. DRESSING ORDERS APPLY DRESSING(S) AND SECURE WITH: - COLLAGEN MOISTENED WITH VASHE. HYDROFERA BLUE FOAM. OPTIFOAM, TAPE. DRESSING CHANGE FREQUENCY CHANGE DRESSING 2 TIMES PER WEEK. CHANGE DRESSING IF IT BECOMES SOILED OR WET. WOUND #34 RIGHT TOE - SECOND CLEANSER CLEANSE WOUND WITH NORMAL SALINE MAY SHOWER, LEAVE WOUND DRESSING INTACT. COVER WOUND DRESSING WITH A WATERPROOF BARRIER. KEEP DRESSING DRY. NO BATHS PLEASE. DRESSING ORDERS APPLY DRESSING(S) AND SECURE WITH: - ADAPTIC TOUCH, ALGINATE BOLSTER, HYPFIX STRIPS THEN FOAM. FELT PATI- WOUND DRESSING CHANGE FREQUENCY CHANGE DRESSING 2 TIMES PER WEEK. CHANGE DRESSING IF IT BECOMES SOILED OR WET. ADDITIONAL ORDERS: PROCEDURE / ANESTHETIC 5% TOPICAL LIDOCAINE TO WOUND BED PRIOR TO PROCEDURE, IN CLINIC ONLY. - TO ALL WOUNDS. OFF-LOADING / PRESSURE RELIEF USE/WEAR WHEN IN BED: - HEEL BOOTIES OTHER ORDER: - FELT ADHESIVE PADS SURROUNDING WOUNDS. DIETARY TAKE VITAMIN C 1000MG BY MOUTH DAILY. TAKE ZINC 25MG BY MOUTH DAILY. INCREASE THE PROTEIN IN YOUR DIET. FOLLOW-UP APPOINTMENTS RETURN APPOINTMENT 1 WEEK SCRIBING ATTESTATION I ATTEST, THE NURSE, THAT I SCRIBED THESE ORDERS FOR THE WOUND CARE PROVIDER. PROVIDER REVIEW AND ATTESTATION: REVIEWED AND EVALUATED LABS. REVIEWED HOSPITAL RECORDS. DISCUSSED THE PLAN OF CARE @ BEDSIDE WITH - THE PATIENT AND I AGREE AND ATTEST TO THE ABOVE INFORMATION PROVIDED FROM OTHER LICENSED PROFESSIONALS. GENERAL NOTES DO NOT CHANGE DRESSING OF RIGHT SECOND TOE--AFFINITY APPLIED PLAN OF CARE: 01. ENSURE/ESTABLISH OPTIMAL BLOOD FLOW : - COMPLETE LOWER EXTREMITY ASSESSMENT STATUS: CONTINUED DATE: 08/31/2024 - PERFORM NON-INVASIVE VASCULAR TESTING (I.E. LENIN) AND DOCUMENT FINDINGS. CONSIDER REPEATING WHEN WOUND HEALING <40% AFTER 30 DAYS OF WOUND CARE. STATUS: COMPLETED DATE: 06/29/2024 02. ASSESS FOR/TREAT INFECTION : - EVALUATE FOR SIGNS AND SYMPTOMS OF INFECTION AND DOCUMENT FINDINGS. STATUS: CONTINUED DATE: 08/31/2024 GLADIS MELTON [id number] 1940 - OBTAIN CULTURE AND SENSITIVITY (CANDS) OR TISSUE CULTURE WHEN INFECTION IS SUSPECTED. (NOTE:) CONSIDER REPEATING WHEN WOUND HEALING <40% AFTER 30 DAYS OF WOUND CARE. STATUS: COMPLETED DATE: 06/29/2024 03. DEBRIDE WEEKLY OR MORE OFTEN PRN : - DEBRIDEMENT BY ANY METHOD TO REMOVE DEVITALIZED/NECROTIC TISSUE TO PROMOTE HEALING AND PREVENT FURTHER COMPLICATIONS. GOAL IS TO STIMULATE AND/OR MAINTAIN ACUTE PHASE OF WOUND HEALING BY REDUCING BACTERIAL BURDEN AND DEVITALIZED/NON-VIABLE TISSUE. STATUS: CONTINUED DATE: 08/31/2024 04. OPTIMIZE GLUCOSE CONTROL AND NUTRITION : - ORDER/REVIEW PERTINENT LABS TO EVALUATE RENAL FUNCTION, GLUCOSE CONTROL, AND NUTRITIONAL STATUS. STATUS: CONTINUED DATE: 08/31/2024 - COMPLETE A NUTRITION RISK ASSESSMENT. STATUS: COMPLETED DATE: 06/29/2024 05. OFFLOADING PLAN : - EVALUATE PLAN FOR OFFLOADING STATUS: CONTINUED DATE: 08/31/2024 - PROVIDE EDUCATION MATERIALS/DISCUSS OFFLOADING STRATEGIES APPROPRIATE. STATUS: CONTINUED DATE: 08/31/2024 06. OPTIMIZE HOST FACTORS: - ASSESS AND REVIEW PATIENT HISTORY FOR WOUND ETIOLOGY, CO-MORBID CONDITIONS, MEDICATION REGIME, AND SMOKING HISTORY. STATUS: CONTINUED DATE: 08/31/2024 07. DRESSING SELECTION : - CHOOSE TOPICAL TREATMENTS AND/OR DRESSING BASED ON WOUND TYPE AND APPEARANCE, PERIWOUND SKIN CONDITION, WOUND SIZE AND DEPTH, ANATOMIC LOCATION, VOLUME OF EXUDATE, EDEMA IN THE LOWER EXTREMITIES, AND RISK OR PRESENCE OF INFECTION. STATUS: CONTINUED DATE: 08/31/2024 08. ADVANCED MODALITIES : - SET TREATMENT GOALS ACCORDING TO PATIENT AND/OR CAREGIVER?S ABILITY/ COMPLIANCE. STATUS: CONTINUED DATE: 08/31/2024 09. FALL PREVENTION : - COMPLETE FALL ASSESSMENT. STATUS: COMPLETED DATE: 06/29/2024 - INFORM PATIENT AND FAMILY OF RISK OF FALLING AND DISCUSS PREVENTION STRATEGIES. STATUS: COMPLETED DATE: 06/29/2024 10. PAIN MANAGEMENT : - COMPLETE PAIN ASSESSMENT STATUS: COMPLETED DATE: 06/29/2024 - PREPARE PATIENT TO SET REASONABLE EXPECTATIONS PRIOR TO PROCEDURE. STATUS: CONTINUED DATE: 08/31/2024 11. MEASURABLE GOALS FOR WOUND HEALING AND/OR HYPERBARIC OXYGEN THERAPY : - IMPLEMENT PROTOCOLS TO PROMOTE HEALING AND IMPEDE FURTHER INJURY STATUS: CONTINUED DATE: 08/31/2024 12. DURATION/FREQUENCY OF WOUND CARE VISITS : - 1X WEEKLY FOR 30 DAYS STATUS: CONTINUED DATE: 08/31/2024 GLADIS MELTON [id number] 1940 ELECTRONIC SIGNATURE(S) SIGNED BY: DATE: EFRAIN MCFARLANE MD 08/31/2024 16:19:22 (PT) ENTERED BY: EFRAIN MCFARLANE MD ON 08/31/2024 16:05:36 (PT) GLADIS MELTON [id number] 1940
== END ==
PROVIDERS: PCP Family Medicine; Referring Provider Family Medicine; Visit Provider Surgery
DX: L97.512 Non-pressure chronic ulcer of other part of right foot with fat layer exposed (principal); L97.522 Non-pressure chronic ulcer of other part of left foot with fat layer exposed; D46.9 Myelodysplastic syndrome, unspecified; G90.09 Other idiopathic peripheral autonomic neuropathy
CPT/HCPCS: 11042; 15275; 99212; Q4159

== ENCOUNTER → 2024-09-07 13:24 | Outpatient (CLI) | payer MEDICARE, OTHER, SELFPAY ==
[2022-12-31 17:55] VITALS: BMI 20.2
== END ==
PROVIDERS: PCP Family Medicine; Referring Provider Family Medicine; Visit Provider Surgery
DX: L97.522 Non-pressure chronic ulcer of other part of left foot with fat layer exposed (principal); L97.512 Non-pressure chronic ulcer of other part of right foot with fat layer exposed; G60.3 Idiopathic progressive neuropathy; R60.0 Localized edema; D46.9 Myelodysplastic syndrome, unspecified
CPT/HCPCS: 11042; 15275; Q4159

== ENCOUNTER → 2024-09-14 10:45 | Outpatient (CLI) | payer MEDICARE, OTHER, SELFPAY ==
[2022-12-31 17:55] VITALS: BMI 20.2
--- NOTE | 2024-09-14 | OV.WND_ITS ---
PROGRESS NOTE DETAILS PATIENT NAME: GLADIS MELTON PATIENT NUMBER: [id number] CLINICIAN: DONAVAN HERNANDEZ RN PATIENT DATE OF : 1940 PHYSICIAN / BIOLOGICAL PHOTOGRAPHER: EFRAIN MCFARLANE PATIENT SUBJECTIVE CHIEF COMPLAINT THIS INFORMATION WAS OBTAINED FROM THE PATIENT. I FEEL LIKE THEY ARE GETTING BETTER. GENERAL NOTES MULTIPLE VASCULITIS ULCERS ON TOES. ALLERGIES BACTRIM (SEVERITY: MODERATE, REACTION: HIVES), DOXYCYCLINE (REACTION: EPIGASTRIC PAIN) HPI THIS INFORMATION WAS OBTAINED FROM THE PATIENT. THE FOLLOWING HPI ELEMENTS WERE DOCUMENTED FOR THE PATIENT'S WOUND: LOCATION: L 2ND TOE, L GREAT TOE, R GREAT TOE, R 2ND TOE DURATION: 05/29/24, 06/15/24, 06/22/24 CONTEXT: NEUROPATHIC/VASCULITIC THE PATIENT IS AN 83-YEAR-OLD MALE WITH MYELODYSPLASTIC SYNDROME AND PERIPHERAL NEUROPATHY WHO RETURNS TODAY FOR FOLLOW UP OF ULCERS ON THE LEFT 2ND TOE, LEFT GREAT TOE, AND RIGHT GREAT TOE. THE PATIENT HAD AFFINITY PLACED OVER THE RIGHT 2ND TOE LAST WEEK AND IS RECEIVING DRESSING CHANGES WITH THE HYDROFERA BLUE AND COLLAGEN TO ALL OF THE OTHER ULCERS WITH FELT SURROUND PAD FOR PRESSURE OFFLOADING. HE IS CLEANSING THE WOUND WITH VASHE WITH EACH DRESSING CHANGE. THE PATIENT PREVIOUSLY COMPLETED A COURSE OF DOXYCYCLINE AND IS NOT CURRENTLY ON ANY ANTIBIOTICS. HE REPORTS VERY LITTLE DRAINAGE AND HE HAS NOT HAD ANY REDNESS OR SWELLING. THE PATIENT DENIES HAVING ANY FEVER OR CHILLS. HE REPORTS A GOOD APPETITE AND IS TAKING PROTEIN SUPPLEMENTS. THE PATIENT WAS LAST SEEN [facility], 2024 AT WHICH TIME HIS NEUROPATHIC ULCERS WERE NOTED TO BE HEALED. PREDNISONE HAS BEEN TAPERED DOWN TO 25 MG A DAY. ABIS WERE 1.26 ON THE LEFT AND 1.23 ON THE RIGHT. ACCORDING TO THE PATIENT HIS PLATELET COUNT HAS BEEN AROUND 50,000. ON EXAM TODAY THE ULCER OF THE RIGHT 2ND TOE IS SLIGHTLY LARGER BUT IS DEVELOPING SOME GRANULATION TISSUE. THE OTHER ULCERS ARE STABLE OR SLIGHTLY IMPROVED. LABS: 08/03/24: CULTURE GREW LIGHT GROWTH MIXED SKIN EMMANUEL 07/13/24: X-RAY RIGHT FOOT: LUCENCY AT THE 5TH METATARSAL HEAD MORE FOCALLY, INDETERMINATE FOR OSTEOMYELITIS VERSUS REACTIVE HYPEREMIA. 07/13/24: X-RAY LEFT FOOT: ILL-DEFINED OSTEOPENIA ALONG THE 5TH RAY FROM THE DISTAL METATARSAL, THIS MAY REPRESENT REACTIVE HYPEREMIA VERSUS EARLY OSTEOMYELITIS 06/29/24: CULTURE NEGATIVE MEDICAL HISTORY GLADIS MELTON [id number] 1940 THIS INFORMATION WAS OBTAINED FROM THE PATIENT. PATIENT HAS A MEDICAL HISTORY OF: NEUROPATHY (PERIPHERAL) MEOLODYSPLASTIC SYNDROME SPINAL STENOSIS VASCULITIS (LEFT TOES) HARD OF HEARING SKIN CANCERS SLEEP APNEA OSTEOPOROSIS KIDNEY STONE - 03/22/2023 BLADDER STONE - 04/22/2022 ARTHRITIS (BACK) ADDITIONAL INFORMATION DOES PATIENT HAVE A HISTORY OF CANCER? YES? COMPLETE ALL QUESTIONS.: YES LOCATION OF CANCER: SKIN SURGICAL HISTORY THIS INFORMATION WAS OBTAINED FROM THE PATIENT. PATIENT HAS A SURGICAL HISTORY OF: LAMINECTOMY- CHOLECYSTECTOMY- CATARACT SURGERY- (BOTH EYES) TONSILLECTOMY- SINUS SURGERY- SKIN CANCER REMOVALS- ORCHIDECTOMY LEFT PARTIAL- CYSTECTOMY - BONE MARROW BIOPSY- 03/22/2022 (DONE IN A HOSPITAL IN [place] FOR MYELODYSPLASTIC SYNDROME) BACK SURGERY- 12/20/2022 BLADDER STONE REMOVAL- 07/03/2023 LEFT CHEEK SKIN CANCER BIOPSY- 06/22/2024 OBJECTIVE VITALS HEIGHT/LENGTH: 67 IN (170.18 CM), WEIGHT: 156.2 LBS (71 KGS), BMI: 24.5, TEMPERATURE: 98.9 ?F (37.17 ?C), PULSE: 69 BPM, RESPIRATORY RATE: 18 BREATHS/MIN, BLOOD PRESSURE: 146/77 MMHG, PULSE OXIMETRY: 94 %. PHYSICAL EXAM CONSTITUTIONAL: VITAL SIGNS REVIEWED AND NOTED. WELL DEVELOPED, WELL NOURISHED, AND IN NO ACUTE DISTRESS. ALERT AND ORIENTED X3. RESPIRATORY: EVEN RESPIRATIONS WITHOUT USE OF ACCESSORY MUSCLES. NO INTERCOASTAL RETRACTIONS NOTED. EVEN AND NON LABORED RESPIRATION. INTEGUMENTARY (HAIR, SKIN): GLADIS MELTON [id number] 1940 NO ERYTHEMA. NO SWELLING OR TENDERNESS. SEE WOUND ASSESSMENT. SKIN WARM AND DRY. NO RASHES. NEUROLOGICAL: DECREASED LOWER EXTREMITY SENSATION. PSYCHIATRIC: ORIENTATION TO TIME, PLACE AND PERSON: NORMAL AFFECT WITH NORMAL THOUGHT PATTERN. ADDITIONAL INFORMATION THE PATIENT'S POTENTIAL TO HEAL IS: FAIR. WOUND ASSESSMENT(S) WOUND #31 LEFT TOE - SECOND IS A CHRONIC FULL THICKNESS NEUROPATHIC ULCER ACQUIRED ON 05/29/2024 AND HAS RECEIVED A STATUS OF NOT HEALED. INITIAL WOUND ENCOUNTER MEASUREMENTS ARE 0.4CM LENGTH X 0.2CM WIDTH X 0.1 CM DEPTH, WITH AN AREA OF 0.08 SQ CM AND A VOLUME OF 0.008 CUBIC CM.INITIAL WOUND ENCOUNTER PREVIOUS MEASUREMENTS FROM 09/07/2024 ARE 0.6CM LENGTH X 0.1CM WIDTH X 0.1CM DEPTH, WITH AN AREA OF 0.06 SQ CM AND A VOLUME OF 0.006 CUBIC CM. ADIPOSE IS EXPOSED. NO TUNNELING HAS BEEN NOTED. NO SINUS TRACT HAS BEEN NOTED. NO UNDERMINING HAS BEEN NOTED. THERE IS A SCANT AMOUNT OF SEROSANGUINEOUS DRAINAGE NOTED WHICH HAS NO ODOR. THE PATIENT REPORTS A WOUND PAIN OF LEVEL 0/10. THE WOUND MARGIN IS UNATTACHED WOUND BED HAS YES, BRIGHT RED, FIRM, GRANULATION, YES SLOUGH, NO ESCHAR, YES EPITHELIALIZATION. THE PERIWOUND SKIN EXHIBITED EDEMA. THE PERIWOUND SKIN DID NOT EXHIBIT BRAWNY INDURATION, EXCORIATION, INDURATION, CALLUS, CREPITUS, FLUCTUANCE, RASH, MACERATION, ATROPHIE MARYJANE, CYANOSIS, ECCHYMOSIS, ERYTHEMA, HEMOSIDEROSIS, PALLOR AND RUBOR. THE PERIWOUND SKIN WAS NOT FRIABLE, DRY/SCALY AND MOIST. THE TEMPERATURE OF THE PERIWOUND SKIN IS WNL. PERIWOUND SKIN DOES NOT EXHIBIT SIGNS OR SYMPTOMS OF INFECTION. LOCAL PULSE IS PALPABLE. ADDITIONAL INFORMATION LENIN/VASCULAR COMPLETED?: YES: 06/29/2024 RESULTS?: L: 1.26 WOUND #32 LEFT TOE - GREAT IS A CHRONIC FULL THICKNESS NEUROPATHIC ULCER ACQUIRED ON 06/15/2024 AND HAS RECEIVED A STATUS OF NOT HEALED. INITIAL WOUND ENCOUNTER MEASUREMENTS ARE 1.4CM LENGTH X 0.6CM WIDTH X 0.2 CM DEPTH, WITH AN AREA OF 0.84 SQ CM AND A VOLUME OF 0.168 CUBIC CM.INITIAL WOUND ENCOUNTER PREVIOUS MEASUREMENTS FROM 09/07/2024 ARE 1.3CM LENGTH X 0.8CM WIDTH X 0.2CM DEPTH, WITH AN AREA OF 1.04 SQ CM AND A VOLUME OF 0.208 CUBIC CM. ADIPOSE IS EXPOSED. NO TUNNELING HAS BEEN NOTED. NO SINUS TRACT HAS BEEN NOTED. NO UNDERMINING HAS BEEN NOTED. THERE IS A SMALL AMOUNT OF SEROSANGUINEOUS DRAINAGE NOTED WHICH HAS NO ODOR. THE PATIENT REPORTS A WOUND PAIN OF LEVEL 0/10. THE WOUND MARGIN IS UNATTACHED WOUND BED HAS YES, BRIGHT RED, PINK, FIRM, GRANULATION, YES SLOUGH, NO ESCHAR, YES EPITHELIALIZATION. THE PERIWOUND SKIN EXHIBITED EDEMA. THE PERIWOUND SKIN DID NOT EXHIBIT BRAWNY INDURATION, EXCORIATION, INDURATION, CALLUS, CREPITUS, FLUCTUANCE, RASH, MACERATION, ATROPHIE MARYJANE, CYANOSIS, ECCHYMOSIS, ERYTHEMA, HEMOSIDEROSIS, PALLOR AND RUBOR. THE PERIWOUND SKIN WAS NOT FRIABLE, DRY/SCALY AND MOIST. THE TEMPERATURE OF THE PERIWOUND SKIN IS WNL. PERIWOUND SKIN DOES NOT EXHIBIT SIGNS OR SYMPTOMS OF INFECTION. LOCAL PULSE IS PALPABLE. GENERAL NOTES ROLLED MARGIN. ADDITIONAL INFORMATION LENIN/VASCULAR COMPLETED?: YES: 06/29/24 RESULTS?: L: 1.26 WOUND #33 RIGHT TOE - GREAT IS A CHRONIC FULL THICKNESS NEUROPATHIC ULCER ACQUIRED ON 06/22/2024 AND HAS RECEIVED A STATUS OF NOT HEALED. INITIAL WOUND ENCOUNTER MEASUREMENTS ARE 0.4CM LENGTH X 0.5CM WIDTH X 0.1 CM DEPTH, WITH AN AREA OF 0.2 SQ CM AND A VOLUME OF 0.02 CUBIC CM.INITIAL WOUND ENCOUNTER PREVIOUS MEASUREMENTS FROM 09/07/2024 ARE 0.4CM LENGTH X 0.3CM WIDTH X 0.2CM DEPTH, WITH AN AREA OF 0.12 SQ CM AND A VOLUME OF 0.024 CUBIC CM. ADIPOSE IS EXPOSED. NO TUNNELING HAS BEEN NOTED. NO SINUS TRACT HAS BEEN NOTED. NO UNDERMINING HAS BEEN NOTED. THERE IS A SMALL AMOUNT OF SEROSANGUINEOUS DRAINAGE NOTED WHICH HAS NO ODOR. THE PATIENT REPORTS A WOUND PAIN OF LEVEL 0/10. THE WOUND MARGIN IS UNATTACHED WOUND BED HAS YES, PINK, FIRM, GRANULATION, YES SLOUGH, NO ESCHAR, NO EPITHELIALIZATION. GLADIS MELTON [id number] 1940 THE PERIWOUND SKIN EXHIBITED EDEMA. THE PERIWOUND SKIN DID NOT EXHIBIT BRAWNY INDURATION, EXCORIATION, INDURATION, CALLUS, CREPITUS, FLUCTUANCE, RASH, MACERATION, ATROPHIE MARYJANE, CYANOSIS, ECCHYMOSIS, ERYTHEMA, HEMOSIDEROSIS, PALLOR AND RUBOR. THE PERIWOUND SKIN WAS NOT FRIABLE, DRY/SCALY AND MOIST. THE TEMPERATURE OF THE PERIWOUND SKIN IS WNL. PERIWOUND SKIN DOES NOT EXHIBIT SIGNS OR SYMPTOMS OF INFECTION. LOCAL PULSE IS PALPABLE. ADDITIONAL INFORMATION LENIN/VASCULAR COMPLETED?: YES: 06/29/24 RESULTS?: R: 1.23 WOUND #34 RIGHT TOE - SECOND IS A CHRONIC FULL THICKNESS NEUROPATHIC ULCER ACQUIRED ON 07/06/2024 AND HAS RECEIVED A STATUS OF NOT HEALED. INITIAL WOUND ENCOUNTER MEASUREMENTS ARE 2CM LENGTH X 0.6CM WIDTH X 0.1 CM DEPTH, WITH AN AREA OF 1.2 SQ CM AND A VOLUME OF 0.12 CUBIC CM.INITIAL WOUND ENCOUNTER PREVIOUS MEASUREMENTS FROM 09/07/2024 ARE 1.7CM LENGTH X 0.6CM WIDTH X 0.2CM DEPTH, WITH AN AREA OF 1.02 SQ CM AND A VOLUME OF 0.204 CUBIC CM. ADIPOSE IS EXPOSED. NO TUNNELING HAS BEEN NOTED. NO SINUS TRACT HAS BEEN NOTED. NO UNDERMINING HAS BEEN NOTED. THERE IS A MODERATE AMOUNT OF SEROSANGUINEOUS DRAINAGE NOTED WHICH HAS NO ODOR. THE PATIENT REPORTS A WOUND PAIN OF LEVEL 0/10. THE WOUND MARGIN IS ROLLED WOUND BED HAS YES, BRIGHT RED, FIRM, GRANULATION, YES SLOUGH, NO ESCHAR, NO EPITHELIALIZATION. THE PERIWOUND SKIN EXHIBITED EDEMA. THE PERIWOUND SKIN DID NOT EXHIBIT MACERATION AND ERYTHEMA. THE PERIWOUND SKIN WAS NOT MOIST. THE TEMPERATURE OF THE PERIWOUND SKIN IS WNL. LOCAL PULSE IS PALPABLE. ASSESSMENT ACTIVE PROBLEMS ICD-10 (ENCOUNTER DIAGNOSIS) L97.512 - NON-PRESSURE CHRONIC ULCER OF OTHER PART OF RIGHT FOOT WITH FAT LAYER EXPOSED (ENCOUNTER DIAGNOSIS) L97.522 - NON-PRESSURE CHRONIC ULCER OF OTHER PART OF LEFT FOOT WITH FAT LAYER EXPOSED (ENCOUNTER DIAGNOSIS) D46.9 - MYELODYSPLASTIC SYNDROME, UNSPECIFIED (ENCOUNTER DIAGNOSIS) G90.09 - OTHER IDIOPATHIC PERIPHERAL AUTONOMIC NEUROPATHY GENERAL NOTES ULCER RIGHT GREAT TOE IMPROVED ULCER LEFT GREAT TOE IMPROVED ULCER LEFT 2ND TOE IMPROVED ULCER RIGHT 2ND TOE SLIGHTLY LARGER, DEVELOPING GRANULATION TISSUE THE FOLLOWING FACTORS HAVE BEEN IDENTIFIED THAT MAY AFFECT WOUND HEALING: DEVITALIZED TISSUE BIOBURDEN MOISTURE BALANCE ONGOING LOCAL PRESSURE VASCULITIS NEUROPATHY IMMUNOSUPPRESSION INFECTION GOALS: REMOVE DEVITALIZED TISSUE REMOVE AND PREVENT BIOFILM IMPROVE MOISTURE BALANCE PRESSURE OFFLOADING MANAGE COMORBIDITIES WOUND CLOSURE GLADIS MELTON [id number] 1940 TREAT INFECTION PLAN: DEBRIDEMENT, AFFINITY NOT AVAILABLE TODAY, CONTINUE DRESSING CHANGES WITH HYDROFERA BLUE AND COLLAGEN TO ALL OF THE ULCERS WITH FELT SURROUND PAD FOR PRESSURE OFFLOADING. CLEANSE ULCERS WITH VASHE SOLOTION WITH EACH DRESSING CHANGE. CONTINUE PROTEIN SUPPLEMENTATION. FOLLOW UP IN 1 WEEK FOR A RECHECK. PROCEDURES WOUND #31 WOUND #31 (NEUROPATHIC ULCER) IS LOCATED ON THE LEFT TOE - SECOND. A SKIN/SUBCUTANEOUS TISSUE LEVEL SURGICAL DEBRIDEMENT WITH A TOTAL AREA DEBRIDED OF 0.08 SQ CM. WAS PERFORMED BY EFRAIN MCFARLANE MD. SUBCUTANEOUS WAS REMOVED ALONG WITH DEVITALIZED TISSUE: BIOFILM, FIBRIN AND SLOUGH. THE FOLLOWING INSTRUMENT(S) WERE USED: CURETTE. PAIN CONTROL WAS ACHIEVED USING EMLA LIDOCAINE/PRILOCAINE 2.5%/2.5%. A TIME OUT WAS CONDUCTED PRIOR TO THE START OF THE PROCEDURE. A MINIMAL AMOUNT OF BLEEDING WAS CONTROLLED WITH PRESSURE. THE PROCEDURE WAS TOLERATED WELL WITH A PAIN LEVEL OF 0 THROUGHOUT AND A PAIN LEVEL OF 0 FOLLOWING THE PROCEDURE. POST DEBRIDEMENT MEASUREMENTS: 0.4CM LENGTH X 0.2CM WIDTH X 0.1CM DEPTH; WITH AN AREA OF 0.08 SQ CM AND A VOLUME OF 0.008 CUBIC CM. ADDITIONAL INFORMATION MUSCLE FASCIA OR BONE REMOVED AND SENT TO PATHOLOGY?: NO WOUND #32 WOUND #32 (NEUROPATHIC ULCER) IS LOCATED ON THE LEFT TOE - GREAT. A SKIN/SUBCUTANEOUS TISSUE LEVEL SURGICAL DEBRIDEMENT WITH A TOTAL AREA DEBRIDED OF 0.98 SQ CM. WAS PERFORMED BY EFRAIN MCFARLANE MD. SUBCUTANEOUS WAS REMOVED ALONG WITH DEVITALIZED TISSUE: BIOFILM, FIBRIN AND SLOUGH. THE FOLLOWING INSTRUMENT(S) WERE USED: CURETTE. PAIN CONTROL WAS ACHIEVED USING EMLA LIDOCAINE/PRILOCAINE 2.5%/2.5%. A TIME OUT WAS CONDUCTED PRIOR TO THE START OF THE PROCEDURE. A MINIMAL AMOUNT OF BLEEDING WAS CONTROLLED WITH PRESSURE. THE PROCEDURE WAS TOLERATED WELL WITH A PAIN LEVEL OF 0 THROUGHOUT AND A PAIN LEVEL OF 0 FOLLOWING THE PROCEDURE. POST DEBRIDEMENT MEASUREMENTS: 1.4CM LENGTH X 0.7CM WIDTH X 0.2CM DEPTH; WITH AN AREA OF 0.98 SQ CM AND A VOLUME OF 0.196 CUBIC CM. ADDITIONAL INFORMATION MUSCLE FASCIA OR BONE REMOVED AND SENT TO PATHOLOGY?: NO WOUND #33 WOUND #33 (NEUROPATHIC ULCER) IS LOCATED ON THE RIGHT TOE - GREAT. A SKIN/SUBCUTANEOUS TISSUE LEVEL SURGICAL DEBRIDEMENT WITH A TOTAL AREA DEBRIDED OF 0.25 SQ CM. WAS PERFORMED BY EFRAIN MCFARLANE MD. SUBCUTANEOUS WAS REMOVED ALONG WITH DEVITALIZED TISSUE: BIOFILM, FIBRIN AND SLOUGH. THE FOLLOWING INSTRUMENT(S) WERE USED: CURETTE. PAIN CONTROL WAS ACHIEVED USING EMLA LIDOCAINE/PRILOCAINE 2.5%/2.5%. A TIME OUT WAS CONDUCTED PRIOR TO THE START OF THE PROCEDURE. A MINIMAL AMOUNT OF BLEEDING WAS CONTROLLED WITH PRESSURE. THE PROCEDURE WAS TOLERATED WELL WITH A PAIN LEVEL OF 0 THROUGHOUT AND A PAIN LEVEL OF 0 FOLLOWING THE PROCEDURE. POST DEBRIDEMENT MEASUREMENTS: 0.5CM LENGTH X 0.5CM WIDTH X 0.1CM DEPTH; WITH AN AREA OF 0.25 SQ CM AND A VOLUME OF 0.025 CUBIC CM. ADDITIONAL INFORMATION MUSCLE FASCIA OR BONE REMOVED AND SENT TO PATHOLOGY?: NO WOUND #34 WOUND #34 (NEUROPATHIC ULCER) IS LOCATED ON THE RIGHT TOE - SECOND. A SKIN/SUBCUTANEOUS TISSUE LEVEL SURGICAL DEBRIDEMENT WITH A TOTAL AREA DEBRIDED OF 1.47 SQ CM. WAS PERFORMED BY EFRAIN MCFARLANE MD. SUBCUTANEOUS WAS REMOVED ALONG WITH DEVITALIZED TISSUE: BIOFILM, FIBRIN AND SLOUGH. THE FOLLOWING INSTRUMENT(S) WERE USED: CURETTE. PAIN CONTROL WAS ACHIEVED USING EMLA LIDOCAINE/PRILOCAINE GLADIS MELTON [id number] 1940 2.5%/2.5%. A TIME OUT WAS CONDUCTED PRIOR TO THE START OF THE PROCEDURE. A MINIMAL AMOUNT OF BLEEDING WAS CONTROLLED WITH PRESSURE. THE PROCEDURE WAS TOLERATED WELL WITH A PAIN LEVEL OF 0 THROUGHOUT AND A PAIN LEVEL OF 0 FOLLOWING THE PROCEDURE. POST DEBRIDEMENT MEASUREMENTS: 2.1CM LENGTH X 0.7CM WIDTH X 0.1CM DEPTH; WITH AN AREA OF 1.47 SQ CM AND A VOLUME OF 0.147 CUBIC CM. ADDITIONAL INFORMATION MUSCLE FASCIA OR BONE REMOVED AND SENT TO PATHOLOGY?: NO PLAN WOUND ORDERS: WOUND #31 LEFT TOE - SECOND CLEANSER CLEANSE WOUND WITH NORMAL SALINE MAY SHOWER, LEAVE WOUND DRESSING INTACT. COVER WOUND DRESSING WITH A WATERPROOF BARRIER. KEEP DRESSING DRY. NO BATHS PLEASE. DRESSING ORDERS APPLY DRESSING(S) AND SECURE WITH: - TO ALL WOUNDS COLLAGEN MOISTENED WITH VASHE OR NORMAL SALINE. HYDROFERA BLUE FOAM. OPTIFOAM, TAPE. (FELT PATI-WOUND) DRESSING CHANGE FREQUENCY CHANGE DRESSING 2 TIMES PER WEEK. CHANGE DRESSING IF IT BECOMES SOILED OR WET. WOUND #32 LEFT TOE - GREAT CLEANSER CLEANSE WOUND WITH NORMAL SALINE MAY SHOWER, LEAVE WOUND DRESSING INTACT. COVER WOUND DRESSING WITH A WATERPROOF BARRIER. KEEP DRESSING DRY. NO BATHS PLEASE. DRESSING ORDERS APPLY DRESSING(S) AND SECURE WITH: - COLLAGEN MOISTENED WITH VASHE OR NORMAL SALINE. HYDROFERA BLUE FOAM. OPTIFOAM, TAPE. ( FELT PATI-WOUND) DRESSING CHANGE FREQUENCY CHANGE DRESSING 2 TIMES PER WEEK. CHANGE DRESSING IF IT BECOMES SOILED OR WET. WOUND #33 RIGHT TOE - GREAT CLEANSER CLEANSE WOUND WITH NORMAL SALINE MAY SHOWER, LEAVE WOUND DRESSING INTACT. COVER WOUND DRESSING WITH A WATERPROOF BARRIER. KEEP DRESSING DRY. NO BATHS PLEASE. DRESSING ORDERS APPLY DRESSING(S) AND SECURE WITH: - COLLAGEN MOISTENED WITH VASHE. HYDROFERA BLUE FOAM. OPTIFOAM, TAPE. (FELT PATI-WOUND) DRESSING CHANGE FREQUENCY CHANGE DRESSING 2 TIMES PER WEEK. CHANGE DRESSING IF IT BECOMES SOILED OR WET. WOUND #34 RIGHT TOE - SECOND CLEANSER CLEANSE WOUND WITH NORMAL SALINE MAY SHOWER, LEAVE WOUND DRESSING INTACT. COVER WOUND DRESSING WITH A WATERPROOF BARRIER. KEEP DRESSING DRY. NO BATHS PLEASE. DRESSING ORDERS APPLY DRESSING(S) AND SECURE WITH: - COLLAGEN, HYDROFERA BLUE, OPTI- FOAM. SECURE WITH HYPAFIX. FELT PATI-WOUND DRESSING CHANGE FREQUENCY CHANGE DRESSING 2 TIMES PER WEEK. GLADIS MELTON [id number] 1940 CHANGE DRESSING IF IT BECOMES SOILED OR WET. ADDITIONAL ORDERS: PROCEDURE / ANESTHETIC 5% TOPICAL LIDOCAINE TO WOUND BED PRIOR TO PROCEDURE, IN CLINIC ONLY. - TO ALL WOUNDS. OFF-LOADING / PRESSURE RELIEF USE/WEAR WHEN IN BED: - HEEL BOOTIES OTHER ORDER: - FELT ADHESIVE PADS SURROUNDING WOUNDS. DIETARY TAKE VITAMIN C 1000MG BY MOUTH DAILY. TAKE ZINC 25MG BY MOUTH DAILY. INCREASE THE PROTEIN IN YOUR DIET. FOLLOW-UP APPOINTMENTS RETURN APPOINTMENT 1 WEEK SCRIBING ATTESTATION I ATTEST, THE NURSE, THAT I SCRIBED THESE ORDERS FOR THE WOUND CARE PROVIDER. PROVIDER REVIEW AND ATTESTATION: REVIEWED AND EVALUATED LABS. REVIEWED HOSPITAL RECORDS. DISCUSSED THE PLAN OF CARE @ BEDSIDE WITH - THE PATIENT AND I AGREE AND ATTEST TO THE ABOVE INFORMATION PROVIDED FROM OTHER LICENSED PROFESSIONALS. GENERAL NOTES PLAN FOR AFFINITY FOR NEXT WEEK PLAN OF CARE: 01. ENSURE/ESTABLISH OPTIMAL BLOOD FLOW : - COMPLETE LOWER EXTREMITY ASSESSMENT STATUS: CONTINUED DATE: 09/14/2024 - PERFORM NON-INVASIVE VASCULAR TESTING (I.E. LENIN) AND DOCUMENT FINDINGS. CONSIDER REPEATING WHEN WOUND HEALING <40% AFTER 30 DAYS OF WOUND CARE. STATUS: COMPLETED DATE: 06/29/2024 02. ASSESS FOR/TREAT INFECTION : - EVALUATE FOR SIGNS AND SYMPTOMS OF INFECTION AND DOCUMENT FINDINGS. STATUS: CONTINUED DATE: 09/14/2024 - OBTAIN CULTURE AND SENSITIVITY (CANDS) OR TISSUE CULTURE WHEN INFECTION IS SUSPECTED. (NOTE:) CONSIDER REPEATING WHEN WOUND HEALING <40% AFTER 30 DAYS OF WOUND CARE. STATUS: COMPLETED DATE: 06/29/2024 03. DEBRIDE WEEKLY OR MORE OFTEN PRN : - DEBRIDEMENT BY ANY METHOD TO REMOVE DEVITALIZED/NECROTIC TISSUE TO PROMOTE HEALING AND PREVENT FURTHER COMPLICATIONS. GOAL IS TO STIMULATE AND/OR MAINTAIN ACUTE PHASE OF WOUND HEALING BY REDUCING BACTERIAL BURDEN AND DEVITALIZED/NON-VIABLE TISSUE. STATUS: CONTINUED DATE: 09/14/2024 04. OPTIMIZE GLUCOSE CONTROL AND NUTRITION : - ORDER/REVIEW PERTINENT LABS TO EVALUATE RENAL FUNCTION, GLUCOSE CONTROL, AND NUTRITIONAL STATUS. STATUS: CONTINUED DATE: 09/14/2024 - COMPLETE A NUTRITION RISK ASSESSMENT. STATUS: COMPLETED DATE: 06/29/2024 05. OFFLOADING PLAN : - EVALUATE PLAN FOR OFFLOADING STATUS: CONTINUED DATE: 09/14/2024 - PROVIDE EDUCATION MATERIALS/DISCUSS OFFLOADING STRATEGIES APPROPRIATE. STATUS: CONTINUED DATE: 09/14/2024 06. OPTIMIZE HOST FACTORS: - ASSESS AND REVIEW PATIENT HISTORY FOR WOUND ETIOLOGY, CO-MORBID CONDITIONS, MEDICATION REGIME, AND GLADIS MELTON [id number] 1940 SMOKING HISTORY. STATUS: CONTINUED DATE: 09/14/2024 07. DRESSING SELECTION : - CHOOSE TOPICAL TREATMENTS AND/OR DRESSING BASED ON WOUND TYPE AND APPEARANCE, PERIWOUND SKIN CONDITION, WOUND SIZE AND DEPTH, ANATOMIC LOCATION, VOLUME OF EXUDATE, EDEMA IN THE LOWER EXTREMITIES, AND RISK OR PRESENCE OF INFECTION. STATUS: CONTINUED DATE: 09/14/2024 08. ADVANCED MODALITIES : - SET TREATMENT GOALS ACCORDING TO PATIENT AND/OR CAREGIVER?S ABILITY/ COMPLIANCE. STATUS: CONTINUED DATE: 09/14/2024 09. FALL PREVENTION : - COMPLETE FALL ASSESSMENT. STATUS: COMPLETED DATE: 06/29/2024 - INFORM PATIENT AND FAMILY OF RISK OF FALLING AND DISCUSS PREVENTION STRATEGIES. STATUS: COMPLETED DATE: 06/29/2024 10. PAIN MANAGEMENT : - COMPLETE PAIN ASSESSMENT STATUS: COMPLETED DATE: 06/29/2024 - PREPARE PATIENT TO SET REASONABLE EXPECTATIONS PRIOR TO PROCEDURE. STATUS: CONTINUED DATE: 09/14/2024 11. MEASURABLE GOALS FOR WOUND HEALING AND/OR HYPERBARIC OXYGEN THERAPY : - IMPLEMENT PROTOCOLS TO PROMOTE HEALING AND IMPEDE FURTHER INJURY STATUS: CONTINUED DATE: 09/14/2024 12. DURATION/FREQUENCY OF WOUND CARE VISITS : - 1X WEEKLY FOR 30 DAYS STATUS: CONTINUED DATE: 09/14/2024 ELECTRONIC SIGNATURE(S) SIGNED BY: DATE: EFRAIN MCFARLANE MD 09/14/2024 15:50:59 (PT) ENTERED BY: EFRAIN MCFARLANE MD ON 09/14/2024 12:52:20 (PT) GLADIS MELTON [id number] 1940
== END ==
PROVIDERS: PCP Family Medicine; Referring Provider Family Medicine; Visit Provider Surgery
DX: G90.09 Other idiopathic peripheral autonomic neuropathy (principal); L97.522 Non-pressure chronic ulcer of other part of left foot with fat layer exposed; L97.512 Non-pressure chronic ulcer of other part of right foot with fat layer exposed; D46.9 Myelodysplastic syndrome, unspecified; R60.0 Localized edema
CPT/HCPCS: 11042

== ENCOUNTER → 2024-09-21 12:09 | Outpatient (CLI) | payer MEDICARE, OTHER, SELFPAY ==
[2022-12-31 17:55] VITALS: BMI 20.2
== END ==
PROVIDERS: PCP Family Medicine; Referring Provider Family Medicine; Visit Provider Surgery
DX: L97.512 Non-pressure chronic ulcer of other part of right foot with fat layer exposed (principal); L97.522 Non-pressure chronic ulcer of other part of left foot with fat layer exposed; G62.9 Polyneuropathy, unspecified; R60.0 Localized edema; D46.9 Myelodysplastic syndrome, unspecified; L95.9 Vasculitis limited to the skin, unspecified
CPT/HCPCS: 11042; 99213

== ENCOUNTER → 2024-10-05 11:21 | Outpatient (CLI) | payer MEDICARE, OTHER, SELFPAY ==
[2022-12-31 17:55] VITALS: BMI 20.2
== END ==
PROVIDERS: PCP Family Medicine; Referring Provider Family Medicine; Visit Provider Surgery
DX: G60.3 Idiopathic progressive neuropathy (principal); L97.512 Non-pressure chronic ulcer of other part of right foot with fat layer exposed; L97.522 Non-pressure chronic ulcer of other part of left foot with fat layer exposed; D46.9 Myelodysplastic syndrome, unspecified; R60.0 Localized edema
CPT/HCPCS: 11042; 15275; 99212; Q4159

== ENCOUNTER → 2024-10-12 10:54 | Outpatient (CLI) | payer MEDICARE, OTHER, SELFPAY ==
[2022-12-31 17:55] VITALS: BMI 20.2
== END ==
PROVIDERS: PCP Family Medicine; Referring Provider Family Medicine; Visit Provider Surgery
DX: G60.3 Idiopathic progressive neuropathy (principal); L97.522 Non-pressure chronic ulcer of other part of left foot with fat layer exposed; L97.512 Non-pressure chronic ulcer of other part of right foot with fat layer exposed; D46.9 Myelodysplastic syndrome, unspecified; R60.0 Localized edema
CPT/HCPCS: 11042; 15275; Q4159

== ENCOUNTER → 2024-10-12 13:23 | Outpatient (CLI) | payer MEDICARE, OTHER, SELFPAY ==
[2022-12-31 17:55] VITALS: BMI 20.2
== END ==
PROVIDERS: PCP Family Medicine; Visit Provider Urology
DX: N40.1 Benign prostatic hyperplasia with lower urinary tract symptoms (principal); N13.8 Other obstructive and reflux uropathy
CPT/HCPCS: 87086

== ENCOUNTER → 2024-10-19 13:51 | Outpatient (CLI) | payer MEDICARE, OTHER, SELFPAY ==
[2022-12-31 17:55] VITALS: BMI 20.2
== END ==
LOC: WC 13:52
PROVIDERS: PCP Family Medicine; Referring Provider Family Medicine; Visit Provider Surgery
DX: G60.3 Idiopathic progressive neuropathy (principal); L97.512 Non-pressure chronic ulcer of other part of right foot with fat layer exposed; L97.522 Non-pressure chronic ulcer of other part of left foot with fat layer exposed; D46.9 Myelodysplastic syndrome, unspecified; L98.8 Other specified disorders of the skin and subcutaneous tissue; R60.0 Localized edema
CPT/HCPCS: 11042; 15275; 99213; Q4159

== ENCOUNTER → 2024-10-26 11:37 | Outpatient (CLI) | payer MEDICARE, OTHER, SELFPAY ==
[2022-12-31 17:55] VITALS: BMI 20.2
== END ==
LOC: WC 11:39
PROVIDERS: PCP Family Medicine; Referring Provider Family Medicine; Visit Provider Surgery
DX: G60.3 Idiopathic progressive neuropathy (principal); L97.522 Non-pressure chronic ulcer of other part of left foot with fat layer exposed; Z87.2 Personal history of diseases of the skin and subcutaneous tissue; L97.512 Non-pressure chronic ulcer of other part of right foot with fat layer exposed; L98.8 Other specified disorders of the skin and subcutaneous tissue
CPT/HCPCS: 11042; 15275; Q4159

== ENCOUNTER → 2024-11-03 10:36 | Outpatient (CLI) | payer MEDICARE, OTHER, SELFPAY ==
[2022-12-31 17:55] VITALS: BMI 20.2
== END ==
LOC: WC 10:37
PROVIDERS: PCP Family Medicine; Referring Provider Family Medicine; Visit Provider Surgery
DX: G60.3 Idiopathic progressive neuropathy (principal); L97.522 Non-pressure chronic ulcer of other part of left foot with fat layer exposed; L97.518 Non-pressure chronic ulcer of other part of right foot with other specified severity; D46.9 Myelodysplastic syndrome, unspecified
CPT/HCPCS: 11042

== ENCOUNTER → 2024-11-04 10:28 | Outpatient (CLI) | payer MEDICARE, OTHER, SELFPAY ==
[2022-12-31 17:55] VITALS: BMI 20.2
--- NOTE | 2024-11-04 10:33 | DI.RAD.S_ITS ---
PROCEDURE: FL BARIUM SWALLOW INDICATIONS: regurgitant esophagitis COMPARISON: None. FINDINGS: Function: There is rapid clearance contrast material from the esophagus, although overall reduced esophageal peristalsis. Evaluation for gastroesophageal reflux was incomplete due to patient unable to lay flat. There is normal transit of a calibrated barium tablet through the esophagus into the stomach. Morphology: Air-contrast images demonstrate dilated air-filled esophagus throughout the exam, without closure of the gastroesophageal junction visualized. Single contrast views show no esophageal strictures, extrinsic mass effects, or diverticula. Limited images of the stomach demonstrate normal appearance. IMPRESSION: Dilated air-filled esophagus with reduced esophageal peristalsis. Lower esophageal sphincter remained in a fixed open position throughout the exam. Approved by: Wilberto Craig M.D. on 11/04/2024 at 20:47
== END ==
PROVIDERS: PCP Family Medicine; Visit Provider Radiology Diagnostic Radiology
DX: K21.00 Gastro-esophageal reflux disease with esophagitis, without bleeding (principal)
CPT/HCPCS: 74220

== ENCOUNTER → 2024-11-09 11:36 | Outpatient (CLI) | payer MEDICARE, OTHER, SELFPAY ==
[2022-12-31 17:55] VITALS: BMI 20.2
== END ==
PROVIDERS: PCP Family Medicine; Referring Provider Family Medicine; Visit Provider Surgery
DX: G60.3 Idiopathic progressive neuropathy (principal); L97.522 Non-pressure chronic ulcer of other part of left foot with fat layer exposed; L97.518 Non-pressure chronic ulcer of other part of right foot with other specified severity; L98.8 Other specified disorders of the skin and subcutaneous tissue; D46.9 Myelodysplastic syndrome, unspecified
CPT/HCPCS: 11042; 15275; Q4159

== ENCOUNTER → 2024-11-16 12:02 | Outpatient (CLI) | payer MEDICARE, OTHER, SELFPAY ==
[2022-12-31 17:55] VITALS: BMI 20.2
== END ==
PROVIDERS: PCP Family Medicine; Referring Provider Family Medicine; Visit Provider Surgery
DX: G62.9 Polyneuropathy, unspecified (principal); L97.522 Non-pressure chronic ulcer of other part of left foot with fat layer exposed; L97.518 Non-pressure chronic ulcer of other part of right foot with other specified severity; D46.9 Myelodysplastic syndrome, unspecified
CPT/HCPCS: 15275; 97597; 99213; Q4159

== ENCOUNTER → 2024-11-23 10:53 | Outpatient (CLI) | payer MEDICARE, OTHER, SELFPAY ==
[2022-12-31 17:55] VITALS: BMI 20.2
== END ==
LOC: WC 10:55
PROVIDERS: PCP Family Medicine; Referring Provider Family Medicine; Visit Provider Surgery
DX: G62.9 Polyneuropathy, unspecified (principal); L97.522 Non-pressure chronic ulcer of other part of left foot with fat layer exposed; L97.518 Non-pressure chronic ulcer of other part of right foot with other specified severity; D46.9 Myelodysplastic syndrome, unspecified
CPT/HCPCS: 11042; 97597

== ENCOUNTER → 2024-11-30 11:17 | Outpatient (CLI) | payer MEDICARE, OTHER, SELFPAY ==
[2022-12-31 17:55] VITALS: BMI 20.2
== END ==
LOC: WC 11:26
PROVIDERS: PCP Family Medicine; Referring Provider Family Medicine; Visit Provider Surgery
DX: G90.09 Other idiopathic peripheral autonomic neuropathy (principal); L97.522 Non-pressure chronic ulcer of other part of left foot with fat layer exposed; L97.518 Non-pressure chronic ulcer of other part of right foot with other specified severity; D46.9 Myelodysplastic syndrome, unspecified
CPT/HCPCS: 11042; 97597

== ENCOUNTER → 2024-12-07 10:58 | Outpatient (CLI) | payer MEDICARE, OTHER, SELFPAY ==
[2022-12-31 17:55] VITALS: BMI 20.2
== END ==
LOC: WC 11:00
PROVIDERS: PCP Family Medicine; Referring Provider Family Medicine; Visit Provider Surgery
DX: Z87.2 Personal history of diseases of the skin and subcutaneous tissue (principal); G62.9 Polyneuropathy, unspecified; L97.512 Non-pressure chronic ulcer of other part of right foot with fat layer exposed; L97.522 Non-pressure chronic ulcer of other part of left foot with fat layer exposed; D46.9 Myelodysplastic syndrome, unspecified
CPT/HCPCS: 11042

== ENCOUNTER → 2024-12-14 11:59 | Outpatient (CLI) | payer MEDICARE, OTHER, SELFPAY ==
[2022-12-31 17:55] VITALS: BMI 20.2
== END ==
PROVIDERS: PCP Family Medicine; Referring Provider Family Medicine; Visit Provider Surgery
DX: L97.518 Non-pressure chronic ulcer of other part of right foot with other specified severity (principal); L97.522 Non-pressure chronic ulcer of other part of left foot with fat layer exposed; G90.09 Other idiopathic peripheral autonomic neuropathy; L95.9 Vasculitis limited to the skin, unspecified; D46.9 Myelodysplastic syndrome, unspecified
CPT/HCPCS: 11042; 99213

== ENCOUNTER → 2024-12-21 11:00 | Outpatient (CLI) | payer MEDICARE, OTHER, SELFPAY ==
[2022-12-31 17:55] VITALS: BMI 20.2
== END ==
LOC: WC 11:03
PROVIDERS: PCP Family Medicine; Referring Provider Family Medicine; Visit Provider Surgery
DX: G90.09 Other idiopathic peripheral autonomic neuropathy (principal); L97.518 Non-pressure chronic ulcer of other part of right foot with other specified severity; L97.522 Non-pressure chronic ulcer of other part of left foot with fat layer exposed; L95.9 Vasculitis limited to the skin, unspecified
CPT/HCPCS: 11042

== ENCOUNTER → 2024-12-28 11:54 | Outpatient (CLI) | payer MEDICARE, OTHER, SELFPAY ==
[2022-12-31 17:55] VITALS: BMI 20.2
== END ==
PROVIDERS: PCP Family Medicine; Referring Provider Family Medicine; Visit Provider Surgery
DX: G90.09 Other idiopathic peripheral autonomic neuropathy (principal); L97.518 Non-pressure chronic ulcer of other part of right foot with other specified severity; L97.522 Non-pressure chronic ulcer of other part of left foot with fat layer exposed
CPT/HCPCS: 11042; 97597

== ENCOUNTER → 2025-01-11 10:42 | Outpatient (CLI) | payer MEDICARE, OTHER, SELFPAY ==
[2022-12-31 17:55] VITALS: BMI 20.2
== END ==
LOC: WC 10:43
PROVIDERS: PCP Family Medicine; Referring Provider Family Medicine; Visit Provider Surgery
DX: L97.512 Non-pressure chronic ulcer of other part of right foot with fat layer exposed (principal); L97.522 Non-pressure chronic ulcer of other part of left foot with fat layer exposed; D46.9 Myelodysplastic syndrome, unspecified; G62.9 Polyneuropathy, unspecified
CPT/HCPCS: 11042; 99213

== ENCOUNTER → 2025-01-18 15:47 | Outpatient (CLI) | payer MEDICARE, OTHER, SELFPAY ==
[2022-12-31 17:55] VITALS: BMI 20.2
== END ==
LOC: WC 15:49
PROVIDERS: PCP Family Medicine; Referring Provider Family Medicine; Visit Provider Surgery
DX: L97.518 Non-pressure chronic ulcer of other part of right foot with other specified severity (principal); L97.512 Non-pressure chronic ulcer of other part of right foot with fat layer exposed; D46.9 Myelodysplastic syndrome, unspecified; G62.9 Polyneuropathy, unspecified; L95.8 Other vasculitis limited to the skin; Z85.828 Personal history of other malignant neoplasm of skin; I48.91 Unspecified atrial fibrillation
CPT/HCPCS: 11042

== ENCOUNTER → 2025-02-21 10:52 | Outpatient (CLI) | payer MEDICARE, OTHER, SELFPAY ==
[2022-12-31 17:55] VITALS: BMI 20.2
== END ==
PROVIDERS: PCP Family Medicine; Referring Provider Family Medicine; Visit Provider Surgery
DX: G90.09 Other idiopathic peripheral autonomic neuropathy (principal); L97.518 Non-pressure chronic ulcer of other part of right foot with other specified severity; L97.512 Non-pressure chronic ulcer of other part of right foot with fat layer exposed; L81.8 Other specified disorders of pigmentation; D46.9 Myelodysplastic syndrome, unspecified
CPT/HCPCS: 11042; 99213

== ENCOUNTER → 2025-02-28 11:19 | Outpatient (CLI) | payer MEDICARE, OTHER, SELFPAY ==
[2022-12-31 17:55] VITALS: BMI 20.2
== END ==
LOC: WC 11:28
PROVIDERS: PCP Family Medicine; Referring Provider Family Medicine; Visit Provider Surgery
DX: G90.09 Other idiopathic peripheral autonomic neuropathy (principal); L97.518 Non-pressure chronic ulcer of other part of right foot with other specified severity; L97.512 Non-pressure chronic ulcer of other part of right foot with fat layer exposed; D46.9 Myelodysplastic syndrome, unspecified; L81.8 Other specified disorders of pigmentation; Z88.1 Allergy status to other antibiotic agents
CPT/HCPCS: 11042

== ENCOUNTER → 2025-03-07 11:59 | Outpatient (CLI) | payer MEDICARE, OTHER, SELFPAY ==
[2022-12-31 17:55] VITALS: BMI 20.2
== END ==
LOC: WC 12:03
PROVIDERS: PCP Family Medicine; Referring Provider Family Medicine; Visit Provider Surgery
DX: G60.3 Idiopathic progressive neuropathy (principal); L97.512 Non-pressure chronic ulcer of other part of right foot with fat layer exposed; L98.8 Other specified disorders of the skin and subcutaneous tissue; D46.9 Myelodysplastic syndrome, unspecified
CPT/HCPCS: 11042

== ENCOUNTER → 2025-03-14 10:55 | Outpatient (CLI) | payer MEDICARE, OTHER, SELFPAY ==
[2022-12-31 17:55] VITALS: BMI 20.2
== END ==
LOC: WC 10:57
PROVIDERS: PCP Family Medicine; Referring Provider Family Medicine; Visit Provider Surgery
DX: G90.09 Other idiopathic peripheral autonomic neuropathy (principal); L97.512 Non-pressure chronic ulcer of other part of right foot with fat layer exposed; D46.9 Myelodysplastic syndrome, unspecified; L98.8 Other specified disorders of the skin and subcutaneous tissue
CPT/HCPCS: 11042; 15275; 99212; Q4199

== ENCOUNTER → 2025-03-21 10:30 | Outpatient (CLI) | payer MEDICARE, OTHER, SELFPAY ==
[2022-12-31 17:55] VITALS: BMI 20.2
== END ==
LOC: WC 03-22 11:39
PROVIDERS: PCP Family Medicine; Referring Provider Family Medicine; Visit Provider Surgery
DX: L97.512 Non-pressure chronic ulcer of other part of right foot with fat layer exposed (principal); D46.9 Myelodysplastic syndrome, unspecified; G90.09 Other idiopathic peripheral autonomic neuropathy; L97.522 Non-pressure chronic ulcer of other part of left foot with fat layer exposed
CPT/HCPCS: 11042; 15275; 99213; Q4199

== ENCOUNTER → 2025-03-28 11:03 | Outpatient (CLI) | payer MEDICARE, OTHER, SELFPAY ==
[2022-12-31 17:55] VITALS: BMI 20.2
== END ==
LOC: WC 11:04
PROVIDERS: PCP Family Medicine; Referring Provider Family Medicine; Visit Provider Surgery
DX: G62.9 Polyneuropathy, unspecified (principal); L97.518 Non-pressure chronic ulcer of other part of right foot with other specified severity; L95.8 Other vasculitis limited to the skin; L97.522 Non-pressure chronic ulcer of other part of left foot with fat layer exposed; L97.521 Non-pressure chronic ulcer of other part of left foot limited to breakdown of skin; D46.9 Myelodysplastic syndrome, unspecified; L98.8 Other specified disorders of the skin and subcutaneous tissue; L81.8 Other specified disorders of pigmentation; R23.3 Spontaneous ecchymoses; R26.81 Unsteadiness on feet
CPT/HCPCS: 11042; 99213

== ENCOUNTER → 2025-04-04 09:39 | Outpatient (CLI) | payer MEDICARE, OTHER, SELFPAY ==
[2022-12-31 17:55] VITALS: BMI 20.2
== END ==
LOC: WC 09:44
PROVIDERS: PCP Family Medicine; Referring Provider Family Medicine; Visit Provider Surgery
DX: L97.518 Non-pressure chronic ulcer of other part of right foot with other specified severity (principal); L97.522 Non-pressure chronic ulcer of other part of left foot with fat layer exposed; G62.9 Polyneuropathy, unspecified; L95.9 Vasculitis limited to the skin, unspecified; D46.9 Myelodysplastic syndrome, unspecified; R60.0 Localized edema
CPT/HCPCS: 11042

== ENCOUNTER → 2025-04-11 14:35 | Outpatient (CLI) | payer MEDICARE, OTHER, SELFPAY ==
[2022-12-31 17:55] VITALS: BMI 20.2
== END ==
LOC: WC 14:36
PROVIDERS: PCP Family Medicine; Referring Provider Family Medicine; Visit Provider Surgery
DX: G60.3 Idiopathic progressive neuropathy (principal); L95.8 Other vasculitis limited to the skin; L97.512 Non-pressure chronic ulcer of other part of right foot with fat layer exposed; L97.522 Non-pressure chronic ulcer of other part of left foot with fat layer exposed; L98.8 Other specified disorders of the skin and subcutaneous tissue; R23.4 Changes in skin texture; D46.9 Myelodysplastic syndrome, unspecified; R60.0 Localized edema
CPT/HCPCS: 11042

== ENCOUNTER → 2025-04-12 13:28 | Outpatient (CLI) | payer MEDICARE, OTHER, SELFPAY ==
[2022-12-31 17:55] VITALS: BMI 20.2
== END ==
PROVIDERS: PCP Family Medicine; Visit Provider Urology
DX: N40.1 Benign prostatic hyperplasia with lower urinary tract symptoms (principal); N13.8 Other obstructive and reflux uropathy
CPT/HCPCS: 87077; 87086

== ENCOUNTER → 2025-04-18 10:55 | Outpatient (CLI) | payer MEDICARE, OTHER, SELFPAY ==
[2022-12-31 17:55] VITALS: BMI 20.2
== END ==
LOC: WC 10:55
PROVIDERS: PCP Family Medicine; Referring Provider Family Medicine; Visit Provider Surgery
DX: L97.512 Non-pressure chronic ulcer of other part of right foot with fat layer exposed (principal); L97.522 Non-pressure chronic ulcer of other part of left foot with fat layer exposed; G62.9 Polyneuropathy, unspecified; L95.9 Vasculitis limited to the skin, unspecified; D46.9 Myelodysplastic syndrome, unspecified; R60.0 Localized edema
CPT/HCPCS: 11042; 97597

== ENCOUNTER → 2025-04-25 13:37 | Outpatient (CLI) | payer MEDICARE, OTHER, SELFPAY ==
[2022-12-31 17:55] VITALS: BMI 20.2
== END ==
LOC: WC 13:38
PROVIDERS: PCP Family Medicine; Referring Provider Family Medicine; Visit Provider Surgery
DX: G60.3 Idiopathic progressive neuropathy (principal); L98.5 Mucinosis of the skin; L97.512 Non-pressure chronic ulcer of other part of right foot with fat layer exposed; L97.522 Non-pressure chronic ulcer of other part of left foot with fat layer exposed; D46.9 Myelodysplastic syndrome, unspecified; L98.8 Other specified disorders of the skin and subcutaneous tissue; R23.4 Changes in skin texture; R60.0 Localized edema
CPT/HCPCS: 11042; 97597; 99213

== ENCOUNTER 2025-05-01 07:20 | Outpatient (CLI) | payer MEDICARE, OTHER, SELFPAY ==
[2022-12-31 17:55] VITALS: BMI 20.2
[2025-05-01] VITALS (15 sets, daily range): BP systolic 127–181; BP diastolic 63–95; PULSE 77–113; RESP 14–26; TEMP 36.9; O2SAT 89–97
--- NOTE | 2025-05-01 | PATH_ITS ---
[facility] Accession Number: [id number] No. of containers..02 Tissue 04 Unknown Storage/container code(s) . 01 Material submitted: . PART A: bone marrow - BONE MARROW CORE, R ILIAC WING PART B: bone marrow - BONE MARROW ASPIRATE, ILIAC WING . 01 Clinical history: . PLEASE SEE ALL ATTACHED PAPERWORK . 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 - Monocytes with aberrant immunophenotypic expression (by flow cytometric analysis). - Storage iron reduced. Negative for ring sideroblasts. - Negative for increased blasts (<5% of cells). - Negative for reticulin fibrosis. - No evidence of lymphoma. - Chromosome analysis and FISH panels pending. - See comment and microscopic description. - COMMENT: Concurrent flow cytometry analysis (specimen ID: [id number]) shows monocytes with aberrant immunophenotypic expression and is negative for increased or aberrant blasts, essentially absent of B-cells, and with no definite aberrant T-cells. . The patient's history of low-grade myelodysplastic syndrome is noted, as well as an available CBC (12/08/2024) showing leukocytosis with absolute neutrophilia and monocytosis with associated thrombocytopenia and macrocytic anemia. In the current bone marrow sample, there is hypercellularity (95%) with myeloid predominance and a relative left shift. Minimal atypia of the maturing granulocytes (<10% of granulocytes) is noted, though without overt dysplastic morphologic features. There are also reduced megakaryocytes, limiting morphologic evaluation, though a subset of small hypolobated forms and a rarer subset of megakaryocytes with nuclear lobes (<10% of forms) is noted. . Overall, the flow cytometric, morphologic and immunophenotypic findings raise consideration for a myeloproliferative neoplasm (MPN) such as chronic myeloid leukemia (CML) or a myeloproliferative/myelodysplastic neoplasm (MPN/MDS) overlap, such as chronic myelomonocytic leukemia (CMML). Correlation with chromosome analysis, MDS FISH panel, and MPN/CML FISH panel with reflex to [id number]/CALR/MPL NGS studies are recommended. - Follow up and clinical/laboratory correlation is recommended. I 05/07/2025 1210 Local . 01 Electronically signed: . Jeremy Kelly MD, Pathologist NPI- [id number] . 01 Gross description: . A. Received in formalin with two identifiers and right iliac, contains three gomes needle cores of osseous tissue ranging from 0.3 to 0.4 cm in length and 0.2 cm in diameter. Submitted entirely in cassette A1 following decalcification in [facility]. B. Received in formalin with two identifiers and no site on jar, are multiple fragments of hemorrhagic material aggregating to 2.5 x 1.0 x 0.3 cm. Filtered and submitted entirely in cassette B1. (AER:[id number]) /CRISTIAN 05/02/2025 0903 Local . 01 Microscopic: . 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 - MOST RECENT AVAILABLE CBC (12/08/2024): WBC: 29.6 K/uL Abs. Neutrophils: 22.2 K/uL Abs. Monocytes: 5.9 K/uL HGB: 10.4 g/dL HCT: 32.4 % MCV: 117 fL PLT: 43 K/uL. - ASPIRATE SMEAR / TOUCH PREP EVALUATION AND MANUAL DIFFERENTIAL (%): Aspirate smears and touch prep slides are adequate for evaluation. Myeloids (37-85%): 80.5 ; Erythroids (16-32): 10.5; Blasts (0-2): 3.5; Lymphocytes (5-15): 5.5; Plasma cells (0-3): 0; M/E ratio (1.5-3.5): 8:1. - Erythropoiesis: Normal maturation and predominantly normal morphology, with a small subset of atypical forms characterized by karyorrhexis, binucleation, and irregular nuclear contours. No overt dysplastic features. Granulopoiesis: Relative left-shifted maturation. A subset of mature neutrophils shows mild nuclear atypia, including hypolobation (<10% of total myeloid cells). Megakaryopoiesis: Decreased in number with a subset of small, hypolobated forms. Rare forms show nuclear separation (<10% of megakaryocytes). Morphologic assessment limited by relatively few forms for evaluation. Blasts: No discretely increased population present. Plasma cells: Few plasma cells with unremarkable morphology. Iron stain: Storage iron reduced. Negative for ring sideroblasts. - CORE BIOPSY: Adequate core size and marrow space with 95% cellularity. Reticulin stain: No increase reticulin fibrosis. - ASPIRATE CLOT: Marrow particles are present with 95% cellularity with similar cellular findings to that of the core biopsy. To better characterize this process, immunohistochemical stains were indicated and performed on block B1 with adequate controls (see below). Erythroid precursors: Relatively decreased with normal maturation and distribution, supported by CD71 immunostain. Myeloid cells: Increased in number, supported by CD15 immunostain. Elevated M:E ratio of >10:1. CD117 highlights scattered mast cells (<1%, without overt evidence of aggregation). There are an increased number of CD117+ promyelocytes that represent 5% of total cells. Megakaryocytes: Decreased in number with normal distribution, supported by FactorVIII immunostain. There is a subset of small, hypolobated forms noted. Blasts: <5% blasts with rare loose aggregation, supported by CD34 immunostain. Lymphocytes: CD3 highlights scattered T-cells, and PAX-5 highlights rare, scattered B-cells/hematogones. Rare, small lymphoid aggregates noted with mixed T-cells and B-cells. Plasma cells: CD138 highlights <2% scattered interstitial plasma cells which are polyclonal by kappa and lambda immunostains. The kappa:lambda ratio is approximately 2:1. Iron stain: No evidence of ring sideroblasts identified. - As part of ongoing quality consultant, select slides were reviewed by Dr. Norma Metcalf and Dr. Dorothea Isabel who agree with the interpretation. Technical Note: The immunohistochemical stains reported were performed at [facility] ([address], [facility] [address]). This test was developed, and the performance characteristics were validated [facility]. It has not been cleared or approved by the Food and Drug Administration. . 01 Pathologist provided ICD-10: D47.1 . 01 CPT . 171021, 310118, 466623, 211850, 944248, 622513, N61414, [id number] Specimen Comment: A courtesy copy of this report has been sent to [phone] Performed at: [address] [address], [place], [place] [id number] MD Suresh Montenegro MD Phone: [phone]
--- NOTE | 2025-05-01 07:22 | DI.CT.S_ITS ---
PROCEDURE: CT BIOPSY BONE DEEP Sedation analgesia for approximately 20 minutes. INDICATIONS: myelodysplastic syndrome TECHNIQUE: The indications, alternatives, benefits, risks, and possible complications of the procedure were communicated to the patient. Informed written consent from the patient was obtained and placed in the chart. Continuous EKG and hemodynamic monitoring was started by trained personnel. The patient was brought to the CT suite and curing oven attendant spiral CT imaging was performed with localization grid. The appropriate site for percutaneous access to the biopsy target was marked, was prepped and draped sterilely, and was infused with local anaesthesia. Under CT guidance, a core biopsy trocar and needle set was advanced to the biopsy target, and specimen(s) were obtained. The trocar and needle were then removed, and the patient was sent for post-procedure monitoring. COMPARISON: None. FINDINGS: Biopsy site: Right posterior iliac bone Needle: 11 gauge biopsy needle with introducer trocar. Number of passes: 2 Medications: 1% lidocaine for local anaesthesia. IV Fentanyl and Versed for conscious sedation for approximately 20 minutes (see nursing record). Complications: None. IMPRESSION: Successful CT-guided bone marrow aspiration and core bone biopsy of right iliac bone . Dictated by: Dane Skelton M.D. on 05/01/2025 at 12:45 Approved by: Dane Skelton M.D. on 05/01/2025 at 12:47
[2025-05-01 08:07] LABS: INR 1.1 (0.9-1.3); Prothrombin Time 12.6 SECONDS (9.4-12.5)
[2025-05-01 08:10] LABS: PTT Partial Thromboplastin Tim 29 SECONDS (25.1-36.5)
[2025-05-01 08:20] LABS: Hematocrit 28.5 % (41-53); Hemoglobin 9.4 g/dL (13.5-17.5); Mean Corpuscular HGB Conc 32.9 % (30-36); Mean Corpuscular Hemoglobin 35.8 PG (26-34); Mean Corpuscular Volume 108.9 fL (80-100); Platelet Count 58 X10^3/uL (150-400)
[2025-05-01] MEDS: MIDAZOLAM 2 MG/2 ML VIAL 0.5 MG IV (09:23)
[2025-05-01] MEDS: fentaNYL 100 MCG/2 ML INJ 25 MCG IV (09:23)
[2025-05-01] MEDS: MIDAZOLAM 5 MG/ML VIAL IV (09:27)
[2025-05-01] MEDS: LIDOCAINE 1% 20 ML 10 ML INJ (10:25)
== END 2025-05-01 10:56 | disposition home or self-care (01) ==
PROVIDERS: Radiology Diagnostic Radiology; PCP Family Medicine; Referring Provider Family Medicine; Visit Provider Internal Medicine Medical Oncology
DX: D46.9 Myelodysplastic syndrome, unspecified (principal)
CPT/HCPCS: 20225; 77012; 85027; 85610; 85730; J2250; J3010

== ENCOUNTER → 2025-05-02 14:13 | Outpatient (CLI) | payer MEDICARE, OTHER, SELFPAY ==
[2022-12-31 17:55] VITALS: BMI 20.2
== END ==
LOC: WC 14:14
PROVIDERS: PCP Family Medicine; Referring Provider Family Medicine; Visit Provider Surgery
DX: G60.3 Idiopathic progressive neuropathy (principal); L95.8 Other vasculitis limited to the skin; L97.512 Non-pressure chronic ulcer of other part of right foot with fat layer exposed; L97.522 Non-pressure chronic ulcer of other part of left foot with fat layer exposed; L98.8 Other specified disorders of the skin and subcutaneous tissue
CPT/HCPCS: 11042

== ENCOUNTER → 2025-05-09 14:08 | Outpatient (CLI) | payer MEDICARE, OTHER, SELFPAY ==
[2022-12-31 17:55] VITALS: BMI 20.2
== END ==
LOC: WC 14:09
PROVIDERS: PCP Family Medicine; Referring Provider Family Medicine; Visit Provider Surgery
DX: L95.8 Other vasculitis limited to the skin (principal); L97.512 Non-pressure chronic ulcer of other part of right foot with fat layer exposed; L97.522 Non-pressure chronic ulcer of other part of left foot with fat layer exposed; G90.09 Other idiopathic peripheral autonomic neuropathy; L98.8 Other specified disorders of the skin and subcutaneous tissue; R60.0 Localized edema; R23.4 Changes in skin texture
CPT/HCPCS: 11042

== ENCOUNTER → 2025-05-23 10:11 | Outpatient (CLI) | payer MEDICARE, OTHER, SELFPAY ==
[2022-12-31 17:55] VITALS: BMI 20.2
== END ==
LOC: WC 10:23
PROVIDERS: PCP Family Medicine; Referring Provider Family Medicine; Visit Provider Surgery
DX: G60.3 Idiopathic progressive neuropathy (principal); L95.8 Other vasculitis limited to the skin; L97.512 Non-pressure chronic ulcer of other part of right foot with fat layer exposed; L97.522 Non-pressure chronic ulcer of other part of left foot with fat layer exposed; L98.8 Other specified disorders of the skin and subcutaneous tissue; R60.0 Localized edema
CPT/HCPCS: 11042; 99213

== ENCOUNTER → 2025-05-30 09:16 | Outpatient (CLI) | payer MEDICARE, OTHER, SELFPAY ==
[2022-12-31 17:55] VITALS: BMI 20.2
== END ==
LOC: WC 09:17
PROVIDERS: PCP Family Medicine; Referring Provider Family Medicine; Visit Provider Surgery
DX: L97.512 Non-pressure chronic ulcer of other part of right foot with fat layer exposed (principal); L97.522 Non-pressure chronic ulcer of other part of left foot with fat layer exposed; G62.9 Polyneuropathy, unspecified; L95.9 Vasculitis limited to the skin, unspecified; R60.0 Localized edema; D46.9 Myelodysplastic syndrome, unspecified
CPT/HCPCS: 11042

== ENCOUNTER → 2025-06-05 09:57 | Outpatient (CLI) | payer MEDICARE, OTHER, SELFPAY ==
[2022-12-31 17:55] VITALS: BMI 20.2
== END ==
LOC: WC 09:59
PROVIDERS: PCP Family Medicine; Referring Provider Family Medicine; Visit Provider Surgery
DX: G90.09 Other idiopathic peripheral autonomic neuropathy (principal); L95.8 Other vasculitis limited to the skin; L97.512 Non-pressure chronic ulcer of other part of right foot with fat layer exposed; L97.522 Non-pressure chronic ulcer of other part of left foot with fat layer exposed; R23.4 Changes in skin texture; L98.8 Other specified disorders of the skin and subcutaneous tissue
CPT/HCPCS: 11042